=== PATIENT | female | born 1950 | race Caucasian/White ===

== ENCOUNTER 2017-10-20 16:03 | Outpatient (CLI) | payer MEDICARE, MEDICAID, SELFPAY ==
[2017-10-20 16:58] LABS: HCT 36.1 % (36.0-46.0); HGB 12.1 g/dL (12.0-15.5); Mean Corp. HGB Concentration 33.5 g/dL (32.0-36.0); Mean Corpuscular Hemoglobin 31.5 pg (27.0-33.0); Platelet Count 191 x1000/uL (130-400); RBC 3.84 m/cumm (4.00-5.20); White Blood Cell Count 6.88 k/cumm (4.4-10.8)
[2017-10-20 18:44] LABS: COMMENT (LAB VIEW ONLY) 59.95 mg/dL
[2017-10-20 19:44] LABS: ALT 34 U/L (12-78); AST 26 U/L (15-37); Albumin 4.1 g/dL (3.4-5.0); Alkaline Phosphatase 116 U/L (46-116); Anion Gap 11.4 mmol/L (3-11); BUN 25 mg/dL (7-18); Bilirubin, Total 0.2 mg/dL (0.2-1.0); CO2 23.6 mmol/L (21.0-32.0); CREATININE 1.07 mg/dL (0.55-1.02); Calcium 9.1 mg/dL (8.5-10.1); Chloride 104 mmol/L (98-107); Estimated GFR 51.31 (mL/min/1.73m2); Glucose 139 mg/dL (70-100); Potassium 3.3 mmol/L (3.5-5.1); Sodium 139 mmol/L (136-145); Total Protein 7.1 g/dL (6.4-8.2)
== END 2017-10-20 16:04 ==
PROVIDERS: PCP Nurse Practitioner Family; Visit Provider Nurse Practitioner Family
DX: D53.9 Nutritional anemia, unspecified (principal); I10 Essential (primary) hypertension
CPT/HCPCS: 36415; 80053; 85027; 82043; 82570

== ENCOUNTER → 2017-11-11 08:17 | Outpatient (BNVA) | payer MEDICARE, MEDICAID, SELFPAY | PROVIDERS: PCP Nurse Practitioner Family; Visit Provider Psychiatry & Neurology Neurology | DX: G35 Multiple sclerosis (principal); G47.00 Insomnia, unspecified; G25.9 Extrapyramidal and movement disorder, unspecified; G89.29 Other chronic pain | CPT/HCPCS: 99213 ==

== ENCOUNTER → 2017-11-20 09:33 | Outpatient (BNVA) | payer MEDICARE, MEDICAID, SELFPAY | PROVIDERS: PCP Nurse Practitioner Family; Referring Provider Nurse Practitioner Family; Visit Provider Surgery | DX: R10.13 Epigastric pain (principal); K25.7 Chronic gastric ulcer without hemorrhage or perforation; R63.4 Abnormal weight loss | CPT/HCPCS: 99213 ==

== ENCOUNTER 2017-11-26 06:54 | Day surgery (SDC) | payer MEDICARE, MEDICAID, SELFPAY ==
--- NOTE | 2017-11-26 06:52 | W.PM.DSUDISC ---
Discharge Plan Disposition Patient Disposition: HOME Condition: Good Discharge Details Reason For Visit: EGD Attending Provider: Charis Cabrera Primary Care Provider: Edita Rosen Home Meds and New Rx's Prescriptions: New sucralfate 1 gram tablet 1 gm PO QID 30 Days Qty: 120 RF: 1 Continue trazodone 100 mg tablet 100 mg PO HS RF: 0 walker [Ultra-Light Rollator] 1 EACH misc 1 ea Miscellaneous DAILY Qty: 1 RF: 0 melatonin 3 MG tablet extended release 9 mg PO HS Qty: 90 RF: 0 sertraline 100 MG tablet 100 mg PO DAILY Qty: 1 RF: 0 amitriptyline 100 MG tablet 100 mg PO HS RF: 0 gabapentin 800 MG tablet 800 mg PO TID Qty: 90 RF: 5 atorvastatin [Lipitor] 20 MG tablet 1 tab PO DAILY RF: 0 magnesium oxide 400 MG tablet 400 mg PO BID Qty: 30 RF: 0 potassium chloride [Klor-Con M10] 10 MEQ tablet,ER particles/crystals 10 meq PO BID Qty: 30 RF: 0 omeprazole 40 MG capsule,delayed release(DR/EC) 40 mg PO BID Qty: 60 RF: 2 ferrous sulfate 325 MG tablet 325 mg PO DAILY Qty: 30 RF: 0 ondansetron 4 MG tablet,disintegrating 4 mg PO Q8H PRN PRNQty: 12 RF: 0 ascorbic acid (vitamin C) [Vitamin C] 500 MG tablet 500 mg PO .QOD Qty: 30 RF: 0 Medical Marijuana 1 tab PO HS RF: 0 aspirin [Aspir-81] 81 mg Tablet,Delayed Release (Dr/Ec) 81 mg PO DAILY RF: 0 metoprolol succinate 25 mg Tablet Extended Release 24 Hr 25 mg PO DAILY RF: 0 Discharge Instructions Instructions: Upper Endoscopy (DC), Diet for Stomach Ulcers and Gastritis (GEN), Gastritis (DC) Additional Instructions: Findings: severe gastritis Follow up: I will refer you to [facility] New Medication: Carafate 1 gm 4 x a day. Take before meals and at bedtime Please call or go to ER if you develop: fevers >101.5 Nausea or Vomiting Abdominal pain that is not transient DAY SURGERY UNIT POST COLONOSCOPY INSTRUCTIONS 1. Because there will be medication in your system for the next 24 hours, you may feel a little sleepy. Your coordination will be affected. Therefore: a. Do not drive or operate dangerous equipment for 24 hours. b. Do not drink alcohol beverages for 24 hours (not even beer). c. Plan to go home and rest for the day. 2. Generally there are no restrictions on your activity after a day or so has gone by, but you may feel a bit fatigued for a few days. 3 After you arrive home you may have a light meal and return to a normal diet as you can tolerate it without feeling sick to your stomach. 4. After surgery, you may feel pain or discomfort. This should be only transient, but if it persists please contact your doctor. 5. If there are any questions regarding the findings of your procedure, please feel free to contact your doctor. 6. If you are unable to contact your doctor with a problem, contact the [email or web address] at [phone]. 7. Continue all your regular medications unless directed otherwise. I understand the above instructions and have no questions. Signature of Patient or Responsible Adult Escort Date/Time Name of Responsible Adult Escort Signature of Nurse Date/Time Stand Alone Forms: Chidi Alvarado (DSU) Activity:: Activity as Tolerated Diet:: low acid Discharge Orders Discharge Orders: Discharge Order (Routine); Ordered 11/26/17 Ordered By: Charis Cabrera
[2017-11-26 07:09] VITALS: BP 187/82; PULSE 55; RESP 16; TEMP 35.7; O2SAT 99
--- NOTE | 2017-11-26 10:05 | STOM_PTH ---
PATIENT: Deepti Olivo LOC: [facility] U#:[id number] AGE/SX: 67/F ROOM: RE11/26/[address]: Charis Cabrera MD : [id number] BED: DIS: 11/26/2017 SPEC #: [id number] RECD: 11/26/17 13:07 STATUS: OSMAN RE #: [id number] OKSANA: 11/26/17 10:[address]: Charis Cabrera DEPT: Surgical Specimen RECD BY: Amy Barragan ENTERED: 11/26/17 13:07 SP TYPE: STOMACH OTHR DR: Edita Rosen Tissues: 1 - STOMACH BIOPSY Procedures: GROSS AND MICRO LEVEL 4 Comments: [id number]
[2017-11-26] MEDS: Magic Mouthwash 119 ML BTL 10 ML PO (10:59)
[2017-11-26 11:02] VITALS: BP 186/81; PULSE 52; RESP 18; TEMP 37.1; O2SAT 98
--- NOTE | 2017-11-27 11:45 | ROE_ITS ---
REPORT OF OPERATIVE PROCEDURE DATE OF PROCEDURE November 26, 2017 PREOPERATIVE DIAGNOSES Chronic epigastric pain. Chronic gastritis Gastric ulcers. POSTOPERATIVE DIAGNOSES Moderate to severe gastritis. No ulcers. PROCEDURES PERFORMED EGD with biopsies. SEDATION MAC. ANESTHESIA PROVIDER VIANNEY Lewis CRNA SURGEON Clem Cabrera M.D. [employer] None. ESTIMATED BLOOD LOSS Minimal. SPECIMENS Antral biopsies for H. pylori. INDICATIONS Ms. Olivo is a 67-year-old female with a history of Billroth procedure many years ago, who has had s everal scopes for chronic epigastric pain. She has had a gastric ulcer and is being treated with high -dose PPI. The patient continues to complain of epigastric pain and weight loss. The risks, benefits and complications of the procedure were reviewed her again. FINDINGS Moderate to severe inflammation of the stomach remnant. No inflammation noted in the small bowel, and her ulcer does seem to have finally healed. DESCRIPTION OF PROCEDURE After informed consent was obtained, the patient was taken to the Endoscopy Suite and placed in the s upine position. Monitors were applied and a time-out was done. The patient's name, date of , pr ocedure type, allergies to medications and metal in her body were all reviewed. A bite-block was plac ed and she was sedated. Once sedated and comfortable, the gastroscope was introduced and advanced thr ough the oropharynx, which was grossly intact into the esophagus. The esophagus was normal. The Z-li ne was at 35 centimeters. No inflammation was noted. The scope was advanced into the stomach, where a gain, moderate to severe inflammation was noted. I cold not see an ulcer this time though. The scope was advanced into the small bowel, which was normal and no ulcerations were identified. The scope was retracted back into the stomach and biopsies were done to rule out H. pylori. No gastric polyps were identified. The scope was removed and the patient was woken up and taken back to [facility] in stable condition. FOLLOWUP AND INSTRUCTIONS I will have the patient see Gastroenterology down at [facility] for a second opinion as I have been tr eating her with high doses of PPI and she continues to complain of pain and weight loss. I will also start her back on some Carafate to see if this helps on top of her PPI.
== END 2017-11-26 11:43 | disposition home or self-care (01) ==
PROVIDERS: PCP Nurse Practitioner Family; Visit Provider Surgery
PROC: 0DJ68ZZ Inspection of Stomach, Via Natural or Artificial Opening Endoscopic (ICD-10-PCS; CPT 43235; principal; 2017-11-26 08:15)
DX: R10.13 Epigastric pain (principal); K29.50 Unspecified chronic gastritis without bleeding; K29.60 Other gastritis without bleeding; I10 Essential (primary) hypertension
CPT/HCPCS: 43239; 88305; J2250

== ENCOUNTER → 2017-11-26 07:32 | Outpatient (BNVA) | payer MEDICARE, MEDICAID, SELFPAY | PROVIDERS: PCP Nurse Practitioner Family; Referring Provider Nurse Practitioner Family; Visit Provider Surgery | DX: R69 Illness, unspecified (principal) ==

== ENCOUNTER 2018-01-05 02:32 | Outpatient (CLI) | payer MEDICARE, MEDICAID, SELFPAY ==
[2018-01-05 10:20] LABS: Hemoglobin A1C 5.7 % (4.5-6.2)
== END 2018-01-05 02:52 ==
PROVIDERS: PCP Nurse Practitioner Family; Visit Provider Nurse Practitioner Family
DX: R73.01 Impaired fasting glucose (principal)
CPT/HCPCS: 36415; 83036

== ENCOUNTER 2018-02-18 01:52 | Outpatient (CLI) | payer MEDICARE, MEDICAID, SELFPAY ==
--- NOTE | 2018-02-18 10:36 | DI.RAD_ITS ---
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 There are mild periarticular degenerative changes, most advanced at the first metatarsal phalangeal joint. No anomaly is identified. There is no evidence of a fracture or dislocation.
== END 2018-02-18 02:12 ==
PROVIDERS: PCP Nurse Practitioner Family; Visit Provider Nurse Practitioner Family
DX: M21.6X2 Other acquired deformities of left foot (principal); M19.072 Primary osteoarthritis, left ankle and foot
CPT/HCPCS: 73630

== ENCOUNTER 2018-03-19 14:31 | Emergency (ER) | payer MEDICARE, MEDICAID, SELFPAY ==
[2018-03-19 14:44] VITALS: BP 185/86; PULSE 59; RESP 18; TEMP 36.6; O2SAT 98
[2018-03-19 15:06] LABS: Bilirubin Negative (Negative); Blood Trace-intact (Negative); Clarity Clear; Glucose Negative (Negative); Ketones Negative (Negative); Leukocyte Esterase Trace (Negative); Nitrite Negative (Negative); Urobilinogen 0.2 EU/dL (Up TO 0.2); pH 5.5 (5-8)
[2018-03-19 15:33] LABS: Epithelial Cells Rare HPF (Negative); RBC 0-2 (0-2)
[2018-03-19 15:34] LABS: Bacteria Few HPF (Negative); C & S Indicated? Yes; Casts Negative LPF (Negative); Crystals Negative HPF (Negative); Mucus Negative (Negative); Other Cells Few Transitional (Negative)
--- NOTE | 2018-03-19 15:45 | DI.CT_ITS ---
SYMPTOM/DIAGNOSIS: ABD PAIN CHEST, ABDOMEN AND PELVIC CT: CT scan of the chest, abdomen and pelvis was performed following the uneventful administration of intravenous contrast material. Comparison CT scan is 07/20/17 and 04/29/16. ABDOMEN AND PELVIS: The liver is normal in size. No suspicious hepatic mass is seen. The portal, superior mesenteric and splenic veins are patent. The gallbladder is distended but otherwise unremarkable. No biliary ductal dilatation is seen. The pancreas appears mildly atrophic with mild prominence of the pancreatic duct. No definite pancreatic mass is seen. There is patient motion artifact present. The spleen is unremarkable as are the adrenal glands. The kidneys show normal and symmetric enhancement. There is mild bilateral cerebral cortical atrophy. No obstruction is seen. The urinary bladder is intact. The patient appears to be status post hysterectomy. There is atherosclerosis of the abdominal aorta but no aneurysmal dilatation. No significant abdominal or pelvic adenopathy or pneumoperitoneum is seen. There is a trace amount of free fluid in the yessi-hepatic region and the pelvis. No focal fluid collection is seen to suggest an abscess. There is a moderate amount of retained stool in the colon suggestive of constipation. There is a question of mild thickening of the wall of the right colon and proximal transverse colon. This may represent a nonspecific colitis. No findings to suggest an acute appendicitis are present. There is a small amount of air seen in the subcutaneous tissues anteriorly. Infection cannot be excluded. Recent injection should be considered. Degenerative changes are seen in the spine. IMPRESSION: 1. Small amount of abdominal and pelvic ascites. 2. Question of bowel wall thickening involving the right colon. This may represent an infectious or inflammatory colitis. CHEST: Routine examination was performed. Hypodense nodules are seen in the thyroid gland. Ultrasound may be obtained for further evaluation. There is atherosclerosis of the thoracic aorta but no aneurysmal dilatation is seen. The heart is upper limits of normal in size. There is calcification of the aortic anulus. Coronary artery calcifications are seen. No significant pericardial effusion is present. No significant thoracic adenopathy is seen. No pleural effusion or pneumothorax is identified. There are mild dependent changes in the lung bases likely reflecting atelectasis. Pneumonia cannot be entirely excluded. The tracheobronchial tree is unremarkable. Post surgical changes are seen in the right mandible and the lower cervical spine. Degenerative changes are present in the spine. Posterior spinal fusion rods and pedicle screws are seen in the mid and lower thoracic spine. IMPRESSION: Mild dependent infiltrative changes are seen in the lung bases. These likely reflect atelectasis. Pneumonia cannot be entirely excluded.
[2018-03-19 15:52] VITALS: PULSE 60; RESP 18; TEMP 37; O2SAT 98
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
[2018-03-19] MEDS: MORPHine 10 MG/ML VIAL 4 MG IVP (16:23)
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
--- NOTE | 2018-03-19 16:30 | NUR.NOTE ---
Nursing Note: Medicated with morphine for pain. IV established by Amber VIERA with u/s guided technique. Lab in room currently drawing labs. Plan for CT when ready. Will continue to monitor.
[2018-03-19 16:43] LABS: Abs Immature Grans 0.01 k/cumm (0.0-0.09); Absolute Basophil Count 0.07 k/cumm (0.0-0.2); Absolute Eosinophil Count 0.49 k/cumm (0.0-0.7); Absolute Neutrophil Count 8.81 k/cumm (1.2-6.7); Basophils % 0.6; Eosinophils % 4.4; HCT 32.2 % (36.0-46.0); HGB 10.5 g/dL (12.0-15.5); Immature Grans % 0.1; Lymphocytes % 12.7; Mean Corp. HGB Concentration 32.6 g/dL (32.0-36.0); Mean Corpuscular Hemoglobin 31.3 pg (27.0-33.0); Mean Corpuscular Volume 95.8 fL (80-95); Mean Platelet Volume 8.8 fL (8.0-11.0); Monocytes % 3.7; Neutrophils % 78.5; Platelet Count 362 x1000/uL (130-400); RBC 3.36 m/cumm (4.00-5.20); RBC Distribution Width 14.4 % (11.7-14.6); White Blood Cell Count 11.22 k/cumm (4.4-10.8)
[2018-03-19 16:44] LABS: Lactate-non-spesis 0.4 mmol/L (0.6-1.4)
[2018-03-19 16:47] VITALS: BP 172/64; PULSE 60; RESP 20; TEMP 37.2; O2SAT 95
[2018-03-19 16:52] LABS: Absolute Lymphocyte Count 1.42 k/cumm (1.2-3.4); Absolute Monocyte Count 0.42 k/cumm (0.11-0.7)
[2018-03-19 16:59] LABS: ALT 39 U/L (12-78); AST 43 U/L (15-37); Albumin 3.7 g/dL (3.4-5.0); Alkaline Phosphatase 124 U/L (46-116); Anion Gap 12.9 mmol/L (3-11); BUN 15 mg/dL (7-18); Bilirubin, Total 0.4 mg/dL (0.2-1.0); CO2 23.1 mmol/L (21.0-32.0); CREATININE 1.03 mg/dL (0.55-1.02); Calcium 9.4 mg/dL (8.5-10.1); Chloride 103 mmol/L (98-107); Estimated GFR 53.61 (mL/min/1.73m2); Glucose 101 mg/dL (70-100); Magnesium 1.6 mg/dL (1.8-2.4); Sodium 139 mmol/L (136-145); Total Protein 6.8 g/dL (6.4-8.2); Troponin I < 0.02 ng/mL (0.00-0.06)
[2018-03-19] MEDS: HYDROmorphone 2 MG/ML VIAL 1 MG IVP (17:11)
[2018-03-19] MEDS: Normal Saline 1,000 ML 1000 ML IV (17:12)
[2018-03-19 17:15] LABS: Lipase 247 U/L (73-393)
[2018-03-19] MEDS: Omnipaque 350 MG/ML 100 ML BTL IJ (17:23)
--- NOTE | 2018-03-19 17:26 | NUR.NOTE ---
Nursing Note:Pt off unit at CT at this time, medicated with 1mg dilaudid prior to test. will continue to monitor.
--- NOTE | 2018-03-19 18:02 | DI.VRAD_ITS ---
EXAM: CT Chest With Contrast EXAM DATE/TIME: 03/19/2018 3:50 PM CLINICAL HISTORY: 67 years old, female; Pain; Abdominal pain; Generalized; Additional info: HX perf ulcer requiring surgery - 40 yrs ago TECHNIQUE: Axial computed tomography images of the chest with intravenous contrast. All CT scans at this facility use at least one of these dose optimization techniques: automated exposure control; mA and/or kV adjustment per patient size (includes targeted exams where dose is matched to clinical indication); or iterative reconstruction. Coronal and sagittal reformatted images were created and reviewed. CONTRAST: 80 ml of omni 350 administered intravenously. COMPARISON: CT ABD PELVIS WO CONTRAST 07/20/2017 11:26 AM FINDINGS: Tubes, catheters and devices: Internal fixation device in the right mandible and in the cervical spine Posterior internal fixation device in the lower thoracic spine Thyroid: Right lobe of the thyroid is heterogeneous Lungs: Mild opacities in the lower lobes may represent atelectasis or pneumonia.. Pleural space: Normal. No pneumothorax. No pleural effusion. Heart: There is calcification of the aortic valve annulus. Coronary artery calcifications may indicate coronary artery disease Aorta: Normal. No aortic aneurysm. Lymph nodes: Unremarkable. No enlarged lymph nodes. Bones/joints: Unremarkable. No acute fracture. Soft tissues: Unremarkable. IMPRESSION: Mild opacities in the lower lobes may represent atelectasis or pneumonia.. EXAM: CT Abdomen and Pelvis With Contrast EXAM DATE/TIME: 03/19/2018 3:50 PM CLINICAL HISTORY: 67 years old, female; Pain; Abdominal pain; Generalized; Additional info: HX perf ulcer requiring surgery - 40 yrs ago TECHNIQUE: Axial computed tomography images of the abdomen and pelvis with intravenous contrast. All CT scans at this facility use at least one of these dose optimization techniques: automated exposure control; mA and/or kV adjustment per patient size (includes targeted exams where dose is matched to clinical indication); or iterative reconstruction. Coronal and sagittal reformatted images were created and reviewed. CONTRAST: 80 ml of omni 350 administered intravenously. COMPARISON: CT ABD PELVIS WO CONTRAST 07/20/2017 11:26 AM FINDINGS: Lower thorax: See the report for CT chest ABDOMEN: Liver: Normal. No mass. Gallbladder and bile ducts: Normal. No calcified stones. No ductal dilation. Pancreas: Mild dilatation of the pancreatic duct. Spleen: Normal. No splenomegaly. Adrenals: Normal. No mass. Kidneys and ureters: Mild atrophy bilaterally No hydronephrosis. Stomach and bowel: Sutures in the stomach. The stomach is distended with air and food material Findings consistent with constipation. Bowel wall thickening in the right colon may represent colitis including infectious and inflammatory etiologies (4:61). Appendix: No evidence of appendicitis. PELVIS: Bladder: Unremarkable as visualized. Reproductive: Hysterectomy ABDOMEN and PELVIS: Intraperitoneal space: Mild ascites in the abdomen and pelvis. Bones/joints: No acute fracture. No dislocation. Soft tissues: Bubbles of air in the subcutaneous fat anteriorly on the left may be secondary to injection or infection Vasculature: Normal. No abdominal aortic aneurysm. Lymph nodes: Normal. No enlarged lymph nodes. IMPRESSION: 1. Mild ascites in the abdomen and pelvis. 2. Bowel wall thickening in the right colon may represent colitis including infectious and inflammatory etiologies (4:61). Dictated and Authenticated by: Aliya Mcpherson MD. Ordering:KATHERINE Chris MD
[2018-03-19 18:15] VITALS: BP 120/65; PULSE 64; RESP 18; TEMP 37.2; O2SAT 93
--- NOTE | 2018-03-19 19:20 | NUR.NOTE ---
Nursing Note:NO acute changes, will continue to monitor.
[2018-03-19 20:49] VITALS: BP 131/58; PULSE 62; RESP 18; TEMP 36.6; O2SAT 95
[2018-03-19] MEDS: Ondansetron O.D.T. 4 MG TABEF 12 MG PO (20:59)
[2018-03-19] MEDS: Sucralfate 1 GM TAB 2 GM PO (21:00)
[2018-03-19] MEDS: oxyCODONE 5 MG TAB 15 MG PO (21:00)
== END 2018-03-19 21:11 | disposition home or self-care (01) ==
PROVIDERS: Nurse Practitioner Family; Emergency Provider Physician Assistant; PCP Nurse Practitioner Family
DX: K28.3 Acute gastrojejunal ulcer without hemorrhage or perforation (principal); K91.89 Other postprocedural complications and disorders of digestive system; Y83.2 Surgical operation with anastomosis, bypass or graft as the cause of abnormal reaction of the patient, or of later complication, without mention of misadventure at the time of the procedure; Z90.3 Acquired absence of stomach [part of]; I12.9 Hypertensive chronic kidney disease with stage 1 through stage 4 chronic kidney disease, or unspecified chronic kidney disease; N18.3 Chronic kidney disease, stage 3 (moderate); G35 Multiple sclerosis
CPT/HCPCS: 36415; 74177; 80053; 83690; 87077; 96361; 96374; 96375; 99285; 71260; 81003; 81015; 83605; 83735; 84484; 85025; 87086; 87186; 99284; J2270; J3490

== ENCOUNTER 2018-04-16 09:26 | Emergency (ER) | payer MEDICARE, MEDICAID, SELFPAY ==
[2018-04-16 09:31] VITALS: BP 124/72; PULSE 98; RESP 20; TEMP 37.1; O2SAT 96
[2018-04-16 09:43] VITALS: RESP 20
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
[2018-04-16] MEDS: Ondansetron O.D.T. 4 MG TABEF (10:00)
[2018-04-16 10:13] LABS: Abs Immature Grans 0.01 k/cumm (0.0-0.09); Absolute Basophil Count 0.04 k/cumm (0.0-0.2); Absolute Eosinophil Count 0.11 k/cumm (0.0-0.7); Absolute Monocyte Count 0.63 k/cumm (0.11-0.7); Basophils % 0.5; Eosinophils % 1.3; HCT 30.6 % (36.0-46.0); HGB 9.9 g/dL (12.0-15.5); Immature Grans % 0.1; Lymphocytes % 21.9; Mean Corp. HGB Concentration 32.4 g/dL (32.0-36.0); Mean Corpuscular Hemoglobin 30.9 pg (27.0-33.0); Mean Corpuscular Volume 95.6 fL (80-95); Mean Platelet Volume 9.3 fL (8.0-11.0); Monocytes % 7.2; Platelet Count 226 x1000/uL (130-400); RBC Distribution Width 13.5 % (11.7-14.6); White Blood Cell Count 8.69 k/cumm (4.4-10.8)
[2018-04-16 10:23] LABS: Bilirubin Negative (Negative); Blood Negative (Negative); Clarity Clear; Glucose Negative (Negative); Ketones Negative (Negative); Leukocyte Esterase Trace (Negative); Nitrite Negative (Negative); Specific Gravity 1.015 (1.005-1.025); Urobilinogen 0.2 EU/dL (Up TO 0.2); pH 5.5 (5-8)
[2018-04-16 10:24] LABS: Diff Comment RBC Morph Reviewed; RBC Morphology Normal
[2018-04-16 10:30] LABS: ALT 44 U/L (12-78); AST 50 U/L (15-37); Albumin 3.8 g/dL (3.4-5.0); Alkaline Phosphatase 104 U/L (46-116); Anion Gap 12.3 mmol/L (3-11); BUN 18 mg/dL (7-18); Bilirubin, Total 0.3 mg/dL (0.2-1.0); CO2 25.7 mmol/L (21.0-32.0); CREATININE 1.38 mg/dL (0.55-1.02); Calcium 8.9 mg/dL (8.5-10.1); Chloride 106 mmol/L (98-107); Estimated GFR 38.25 (mL/min/1.73m2); Glucose 70 mg/dL (70-100); Magnesium 1.7 mg/dL (1.8-2.4); Potassium 4.2 mmol/L (3.5-5.1); Sodium 144 mmol/L (136-145); Total Protein 6.8 g/dL (6.4-8.2)
[2018-04-16 10:35] LABS: Bacteria Moderate HPF (Negative); C & S Indicated? Yes; Casts Negative LPF (Negative); Crystals Negative HPF (Negative); Epithelial Cells Few HPF (Negative); Mucus Trace (Negative); Other Cells Few Transitional (Negative); RBC Negative (0-2)
[2018-04-16] MEDS: MacroBID 100 MG CAP PO (10:54)
[2018-04-16 10:58] VITALS: PULSE 96; TEMP 37; O2SAT 96
[2018-04-16 11:00] VITALS: BP 124/72; PULSE 96; RESP 20; TEMP 37; O2SAT 96
== END 2018-04-16 11:04 | disposition home or self-care (01) ==
PROVIDERS: Emergency Provider Emergency Medicine; PCP Nurse Practitioner Family
DX: N39.0 Urinary tract infection, site not specified (principal); R29.6 Repeated falls; E86.0 Dehydration; G35 Multiple sclerosis; I12.9 Hypertensive chronic kidney disease with stage 1 through stage 4 chronic kidney disease, or unspecified chronic kidney disease; N18.3 Chronic kidney disease, stage 3 (moderate)
CPT/HCPCS: 80053; 87077; 99283; 81003; 81015; 83735; 85025; 87086; 87186

== ENCOUNTER 2018-04-18 01:38 | Emergency (ER) | payer MEDICARE, MEDICAID, SELFPAY ==
[2018-04-18 01:45] VITALS: BP 138/84; PULSE 54; RESP 16; TEMP 36.6; O2SAT 97
--- NOTE | 2018-04-18 01:47 | DI.CT_ITS ---
SYMPTOM/DIAGNOSIS; TRAUMA, FELL, HIT HEAD, H/O MS NONCONTRAST HEAD CT: Comparison is made with 06/12/17. Age related cerebral atrophy and small vessel ischemic disease is seen. No acute intracranial hemorrhage, midline shift or mass effect is seen. The ventricles are intact. The basilar cisterns are patent. No skull fracture is seen. There is maxillary sinus disease. The mastoid air cells are well pneumatized. No acute fracture is identified. IMPRESSION: No acute intracranial process. CERVICAL SPINE CT: Multiple contiguous axial images of the cervical spine were obtained. Sagittal and coronal reformatted images were evaluated on the Siemens work station. No acute fractures or subluxations are seen in the cervical spine. There is straightening of the cervical lordosis. There is minimal anterolisthesis of C 4 on C 5. Post surgical changes with anterior cervical fusion are seen at C 6-7. 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 No prevertebral soft tissue swelling is seen. The lung apices are clear. Moderate degenerative changes are present throughout the cervical spine. IMPRESSION: No acute fractures or subluxations of the cervical spine.
--- NOTE | 2018-04-18 01:49 | W.ED.GENAD ---
Medical Decision Making This is a 67-year-old female with a past medical history significant for MS who presents today for multiple falls and weakness of her lower extremities. She was recently diagnosed with UTI last 48 hours, started on Macrobid, discharged home. She had weakness then, but it is continued and slightly worsened. The patient reiterates multiple times that this is what normally happens when she has an MS exacerbation. Physical exam demonstrates no significant focal neurologic deficit but concerningly she does have some regular perpetual rhythmic movements of her upper and lower extremities. Patient denies any new medications of Reglan or Compazine, hopefully we will give Benadryl as a litmus test to rule a dystonic reaction out. Although the patient states that the symptoms are normal for her during MS exacerbations, her increased rate of falls we will get a CT scan of the head to rule out any acute fracture or bleed. Will evaluate for any significant lab abnormality and reassess her urine to make sure it is trending in the right direction for treatment. 2:57 AM Patient's laboratory workup is returned and is relatively benign. No significant electrolyte abnormalities, no significant leukocytosis or signs of bandemia. Renal function is stable in reference to her baseline. Urinalysis shows a notably improving urine with definitely less signs of infection than previously noted. Still pending culture sensitivity results at this time. The patient is resting comfortably in bed. Her spastic movements of notably improved with 25 mg of Benadryl. Pending CT scan result at this time. 3:[address] scan is negative for any acute process, no evidence of stroke or bleed. Patient's repeat neurologic exam is notably improved. She still does have mild spastic movements but these are much better than before. She is somewhat sleepy now, but is otherwise feeling well. With no signs of significant stroke, no evidence of abnormality on CT scan per virtual radiology, no signs of major trauma, improving urinalysis, and normal labs I feel that her signs and symptoms are clinically consistent at this time with a continued MS exacerbation. Family does have a wheelchair at home and states that they will be able to use this for the patient. I do feel that it is important that she follows up closely with her neurologist. She does have an appointment this with Dr. Marcus. I had a long discussion with her regarding red flags which return the patient understands. I have extensively reviewed the treatment plan and discharge instructions with the patient and their family. I have addressed all patient concerns at this time. The patient and family was made aware of what symptoms to monitor for that would warrant a return to the emergency department. Discussed the plan with the patient and family, they demonstrate verbal understanding and agreement with our assessment and plan at this time. COMPARISON: No relevant prior studies available. FINDINGS: Brain: Minimal chronic ischemic white matter disease. No acute territorial infarct. Ventricles: Normal. No ventriculomegaly. Bones/joints: Unremarkable. No acute fracture. Sinuses: Right maxillary sinus disease. Mastoid air cells: Visualized mastoid air cells are unremarkable. No mastoid effusion. Soft tissues: Unremarkable. IMPRESSION: No acute intracranial findings. COMPARISON: No relevant prior studies available. FINDINGS: Vertebrae: Previous cervical fusion with intact hardware. No acute fracture. Normal alignment. Discs/Spinal canal/Neural foramina: Multilevel degenerative disk disease and facet arthropathy with neuroforaminal and canal stenosis. Soft tissues: Unremarkable. Lungs: Lung apices are normal. IMPRESSION: No acute finding. Dictated and Authenticated by: Marek Akbar MD. Urine Culture Preliminary 04/17/18-1150 Day 1 Result ISOLATES BELOW ISOLATE 1 COLONY COUNT 10,000 - 50,000 COLONIES/ML ISOLATE 1 APPEARANCE Gram Positive Becka ISOLATE 1 ACTION ID AND SUSCEPTIBILITY TO FOLLOW ISOLATE 2 COLONY COUNT 10,000 - 50,000 COLONIES/ML ISOLATE 2 APPEARANCE Mixed Gram Positive Becka Organism 1 ENTEROCOCCUS SPECIES COLONY COUNT 10,000 - 50,000 COLONIES/ML Organism 2 GRAM POSITIVE BECKA,MIXED COLONY COUNT 10,000 - 50,000 COLONIES/ML HPI General Date/Time Provider Initiated Documentation: 04/18/18 01:45. HPI Narrative: This is a pleasant 67-year-old female with a past medical history of MS, chronic kidney disease, hypertension, who presents today for evaluation of weakness. The patient was seen and assessed here within the last 48 hours and was noted to have a urinary tract infection. She had been falling more at that time, and had noted increased weakness which is usually associated with UTI. She was started on Macrobid and discharged home. Since then the patient's atypical tremors which she states is normal for her when she has an MS exacerbation have increased, which is led to difficulty walking and ambulating, and increased falls. Over the last 24 hours patient has fallen a few more times, she did hit her head once or twice earlier today according to the boyfriend. She has been taking the antibiotic as directed. She denies any fever, chills, abdominal pain, flank pain, dysuria, hematuria, or increased urinary frequency. He has been contacted EMS/911 because they were concerned with the patient's increasing weakness. No other complaints or modifying factors at this time. The patient has been recently started on metoprolol for her blood pressure, and aside for this in the Macrobid denies any other new medications. Patient is very clear that the symptoms are classic for her and that she has had these before with her MS exacerbations. Of note she denies any headache, vision changes, focal weakness, numbness, tingling, chest pain, shortness of breath, vomiting or diarrhea. Related Data Home Medications Medication Instructions Recorded Confirmed atorvastatin [Lipitor] 1 tab PO DAILY 03/31/13 04/16/18 Ultra-Light Rollator #1 05/23/14 04/16/18 melatonin 9 mg PO HS #90 tabcr 11/19/16 04/16/18 sertraline 100 mg PO DAILY #1 tab-cap 02/09/17 04/16/18 magnesium oxide 400 mg PO BID #30 tab 04/10/17 04/16/18 potassium chloride [Klor-Con M10] 10 meq PO BID #30 tabcr 04/10/17 04/16/18 amitriptyline 100 mg PO HS 05/19/17 04/16/18 ascorbic acid (vitamin C) [Vitamin 500 mg PO .QOD #30 tab 07/22/17 04/16/18 C] ferrous sulfate 325 mg PO DAILY #30 tab 07/22/17 04/16/18 ondansetron 4 mg PO Q8H PRN PRN #12 tabef 07/22/17 04/16/18 omeprazole 40 mg PO BID #60 capcr 08/24/17 04/16/18 trazodone 100 mg tablet 100 mg PO HS tab 11/11/17 04/16/18 Medical Marijuana 1 tab PO HS 11/23/17 04/16/18 aspirin [Aspir-81] 81 mg PO DAILY 11/26/17 04/16/18 metoprolol succinate 25 mg PO DAILY 11/26/17 04/16/18 ondansetron 4 mg PO QID PRN #10 tab 03/19/18 04/16/18 sucralfate [Carafate] 1 gm PO QID #14 tab 03/19/18 04/16/18 gabapentin 800 mg tablet 800 mg PO TID #90 tab-cap 04/12/18 04/16/18 baclofen 10 mg tablet 10 mg PO TID 30 Days #90 tab 04/14/18 04/16/18 nitrofurantoin monohyd/m-cryst 100 mg PO BID #14 cap 04/16/18 [Macrobid] Previous Rx's Medication Instructions Recorded melatonin 9 mg PO HS #90 tabcr 11/19/16 sertraline 100 mg PO DAILY #1 tab-cap 02/09/17 magnesium oxide 400 mg PO BID #30 tab 04/10/17 potassium chloride [Klor-Con M10] 10 meq PO BID #30 tabcr 04/10/17 ascorbic acid (vitamin C) [Vitamin 500 mg PO .QOD #30 tab 07/22/17 C] ferrous sulfate 325 mg PO DAILY #30 tab 07/22/17 ondansetron 4 mg PO Q8H PRN PRN #12 tabef 07/22/17 omeprazole 40 mg PO BID #60 capcr 08/24/17 ondansetron 4 mg PO QID PRN #10 tab 03/19/18 sucralfate [Carafate] 1 gm PO QID #14 tab 03/19/18 gabapentin 800 mg tablet 800 mg PO TID #90 tab-cap 04/12/18 baclofen 10 mg tablet 10 mg PO TID 30 Days #90 tab 04/14/18 nitrofurantoin monohyd/m-cryst 100 mg PO BID #14 cap 04/16/18 [Macrobid] Allergies Allergy/AdvReac Type Severity Reaction Status Date / Time ciprofloxacin [From Cipro] Allergy Severe Skin Rash, Verified 04/16/18 09:38 vomiting latex Allergy Severe gets SOB Verified 04/16/18 09:38 and can't talk prochlorperazine edisylate Allergy Severe Anaphylaxsi Verified 04/16/18 09:38 [From Compazine] s prochlorperazine maleate Allergy Severe Anaphylaxsi Verified 04/16/18 09:38 [From Compazine] s ziprasidone mesylate Allergy Severe neuroleptic Verified 04/16/18 09:38 [From Geodon] malignant syndrome codeine Allergy Skin Rash, Verified 04/16/18 09:38 nausea General Stated Complaint: GenMedical KARYN: 3 Review of Systems Review of Systems All systems reviewed & are unremarkable except as noted in HPI and below PFSH Social History household members: significant other current occupational status: disabled Smoking and Tabacco status: Never alcohol intake: never substance use type: marijuana additional social history: She moved to [place] from [place] in 2012. Disabled. Lives with S.O. No smoking, ETOH. Uses medical MJ. Exam Narrative Exam Narrative: 1.Const: Thin, but appearing stated age 2.Eyes: PERRL, no conjunctival injection, and symmetrical lids. 3.ENT: Atraumatic external nose and ears. Moist MM. Neck: Symmetric, trachea midline, No thyromegaly. There is no evidence of raccoon eyes, baig sign, CSF rhinorrhea, mastoid tenderness, cranial crepitus, hemotympanum, exophthalmos, or hyphema. Patient demonstrates intact dentition with no signs of tooth avulsion or fracture, no signs of jaw deformity, no evidence of a LeFort's fracture, with an intact palate, nose and orbital region. There is no evidence of a nasal septal hematoma. No proptosis. Jaw closes symmetrically. Airway is clear. 4.CVS: +S1/S2, No murmurs or gallops. Peripheral pulses 2+ and equal in all extremities. Brisk capillary refill in all extremities. 5.RESP: Unlabored respiratory effort. Clear to auscultation bilaterally. No wheezes rales or rhonchi 6.GI: Soft, Nontender/Nondistended, No hepatosplenomegaly. No guarding or rebound. 7.MSK: Normocephalic/Atraumatic, Extremities w/o deformity or ttp, some sporadic bruising noted throughout. No sign of significant fracture deformity. No cyanosis or clubbing, patient does have notable rhythmic moving throughout which almost looks like a dystonic reaction. However in spite of this patient is very clear that this is normal for her MS exacerbations. She demonstrates no focal neurologic deficit though, she is moving all 4 extremities, demonstrates good weapons officer naval activity strength bilaterally, and movement of both lower extremities equally. She has 5 out of 5 strength for upper extremities and 3 out of 5 strength for lower extremities bilaterally which the patient states is also normal for her have weakness like this in her lower extremities with her MS exacerbations. Sensation is notably present throughout her upper and lower extremities as well as her face. No facial droop. Cranial nerves II through XII are intact. 8.Skin: Warm, Dry. No rashes or lesions. 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 Sensation grossly intact, no focal neurologic deficits. 10.Psych: (AAO) x3. Appropriate mood and affect, the patient answers my questions appropriately and follows all my commands at this time Course Vital Signs Temperature 36.6 C 04/18/18 01:45 Pulse 54 L 04/18/18 01:45 Respiratory Rate 16 04/18/18 01:45 Blood Pressure 138/84 04/18/18 01:45 Pulse Oximetry 97 04/18/18 01:45 Temperature 36.6 C 04/18/18 01:45 Temperature Source Temporal Artery Scan 04/18/18 01:45 Pulse 54 L 04/18/18 01:45 Respiratory Rate 16 04/18/18 01:45 Blood Pressure 138/84 04/18/18 01:45 Blood Pressure Position Supine 04/18/18 01:45 Pulse Oximetry 97 04/18/18 01:45 Oxygen Delivery Method Room Air 04/18/18 01:45 Oxygen Flow Rate 0 04/18/18 01:45 Pain Level 0 04/18/18 01:45
[2018-04-18] MEDS: diphenhydrAMINE 25 MG CAP PO (01:52)
[2018-04-18 02:20] VITALS: RESP 16
[2018-04-18 02:21] LABS: Abs Immature Grans 0.02 k/cumm (0.0-0.09); Absolute Basophil Count 0.04 k/cumm (0.0-0.2); Absolute Eosinophil Count 0.33 k/cumm (0.0-0.7); Absolute Lymphocyte Count 2.33 k/cumm (1.2-3.4); Absolute Monocyte Count 0.74 k/cumm (0.11-0.7); Absolute Neutrophil Count 5.25 k/cumm (1.2-6.7); Basophils % 0.5; Eosinophils % 3.8; HCT 33.1 % (36.0-46.0); HGB 10.8 g/dL (12.0-15.5); Immature Grans % 0.2; Lymphocytes % 26.8; Mean Corp. HGB Concentration 32.6 g/dL (32.0-36.0); Mean Corpuscular Hemoglobin 31.4 pg (27.0-33.0); Mean Corpuscular Volume 96.2 fL (80-95); Mean Platelet Volume 9.4 fL (8.0-11.0); Monocytes % 8.5; Neutrophils % 60.2; Platelet Count 235 x1000/uL (130-400); RBC 3.44 m/cumm (4.00-5.20); RBC Distribution Width 13.8 % (11.7-14.6); White Blood Cell Count 8.71 k/cumm (4.4-10.8)
[2018-04-18 02:22] LABS: Bilirubin Negative (Negative); Blood Trace-lysed (Negative); Clarity Clear; Glucose Negative (Negative); Ketones Negative (Negative); Leukocyte Esterase Negative (Negative); Nitrite Negative (Negative); Urobilinogen 0.2 EU/dL (Up TO 0.2)
[2018-04-18 02:30] LABS: Epithelial Cells Moderate HPF (Negative); RBC 0-2 (0-2)
[2018-04-18 02:31] LABS: Bacteria Many HPF (Negative); C & S Indicated? No/Sq. Contamination; Casts Negative LPF (Negative); Crystals Negative HPF (Negative); Mucus Negative (Negative)
[2018-04-18 02:40] LABS: ALT 44 U/L (12-78); AST 63 U/L (15-37); Albumin 3.8 g/dL (3.4-5.0); Alkaline Phosphatase 95 U/L (46-116); Anion Gap 12.9 mmol/L (3-11); BUN 26 mg/dL (7-18); Bilirubin, Total 0.4 mg/dL (0.2-1.0); CO2 23.1 mmol/L (21.0-32.0); CREATININE 1.31 mg/dL (0.55-1.02); Calcium 9.3 mg/dL (8.5-10.1); Chloride 106 mmol/L (98-107); Estimated GFR 40.62 (mL/min/1.73m2); Glucose 97 mg/dL (70-100); Sodium 142 mmol/L (136-145); Total Protein 6.7 g/dL (6.4-8.2)
--- NOTE | 2018-04-18 02:59 | DI.VRAD_ITS ---
EXAM: CT Head Without Contrast EXAM DATE/TIME: 04/18/2018 1:48 AM CLINICAL HISTORY: 67 years old, female; Injury or trauma; Fall; Initial encounter; Blunt trauma (contusions or hematomas); Patient HX: Fall, hit head; Additional info: HX of ms TECHNIQUE: Axial computed tomography images of the head/brain without contrast. Coronal and sagittal reformatted images were created and reviewed. COMPARISON: No relevant prior studies available. FINDINGS: Brain: Minimal chronic ischemic white matter disease. No acute territorial infarct. Ventricles: Normal. No ventriculomegaly. Bones/joints: Unremarkable. No acute fracture. Sinuses: Right maxillary sinus disease. Mastoid air cells: Visualized mastoid air cells are unremarkable. No mastoid effusion. Soft tissues: Unremarkable. IMPRESSION: No acute intracranial findings. EXAM: CT Cervical Spine Without Contrast EXAM DATE/TIME: 04/18/2018 1:48 AM CLINICAL HISTORY: 67 years old, female; Injury or trauma; Fall; Initial encounter; Blunt trauma (contusions or hematomas); Patient HX: Fall, hit head; Additional info: HX of ms TECHNIQUE: Axial computed tomography images of the cervical spine without intravenous contrast. Coronal and sagittal reformatted images were created and reviewed. COMPARISON: No relevant prior studies available. FINDINGS: Vertebrae: Previous cervical fusion with intact hardware. No acute fracture. Normal alignment. Discs/Spinal canal/Neural foramina: Multilevel degenerative disk disease and facet arthropathy with neuroforaminal and canal stenosis. Soft tissues: Unremarkable. Lungs: Lung apices are normal. IMPRESSION: No acute finding. Dictated and Authenticated by: Marek kAbar MD. Ordering:CARLITOS Ch MD
--- NOTE | 2018-04-18 03:12 | NUR.NOTE ---
patient sleeping at present, no spastic movements noted.
[2018-04-18 03:26] VITALS: BP 132/79; PULSE 56; RESP 15; TEMP 36.6; O2SAT 97
== END 2018-04-18 03:28 | disposition home or self-care (01) ==
LOC: ER 03:27
PROVIDERS: Emergency Provider Student in an Organized Health Care Education/Training Program; PCP Nurse Practitioner Family
DX: R29.6 Repeated falls (principal); R25.1 Tremor, unspecified; R26.2 Difficulty in walking, not elsewhere classified; R53.1 Weakness; G35 Multiple sclerosis; N39.0 Urinary tract infection, site not specified; I12.9 Hypertensive chronic kidney disease with stage 1 through stage 4 chronic kidney disease, or unspecified chronic kidney disease; N18.3 Chronic kidney disease, stage 3 (moderate)
CPT/HCPCS: 36415; 80053; 80307; 96361; 96365; 96375; 99284; 70450; 72125; 81003; 81015; 83735; 85025; 99285; J1200; J3475

== ENCOUNTER 2018-04-18 13:57 | Emergency (ER) | payer MEDICARE, MEDICAID, SELFPAY ==
[2018-04-18 14:12] VITALS: BP 130/64; PULSE 68; RESP 16; TEMP 36.5; O2SAT 97
[2018-04-18] MEDS: diphenhydrAMINE 50 MG/ML VIAL 25 MG IVP (16:14)
[2018-04-18] MEDS: Normal Saline Flush 10 ML SYR IVP (16:15)
[2018-04-18 16:19] LABS: Abs Immature Grans 0.02 k/cumm (0.0-0.09); Absolute Lymphocyte Count 2.29 k/cumm (1.2-3.4); Absolute Monocyte Count 0.94 k/cumm (0.11-0.7); Absolute Neutrophil Count 8.17 k/cumm (1.2-6.7); Basophils % 0.3; Eosinophils % 1.7; HCT 37.5 % (36.0-46.0); HGB 12.1 g/dL (12.0-15.5); Immature Grans % 0.2; Lymphocytes % 19.6; Mean Corp. HGB Concentration 32.3 g/dL (32.0-36.0); Mean Corpuscular Hemoglobin 31.2 pg (27.0-33.0); Mean Corpuscular Volume 96.6 fL (80-95); Mean Platelet Volume 9.8 fL (8.0-11.0); Monocytes % 8.1; Neutrophils % 70.1; Platelet Count 233 x1000/uL (130-400); RBC 3.88 m/cumm (4.00-5.20); RBC Distribution Width 13.8 % (11.7-14.6); White Blood Cell Count 11.66 k/cumm (4.4-10.8)
[2018-04-18 16:20] LABS: Absolute Basophil Count 0.03 k/cumm (0.0-0.2)
[2018-04-18 16:42] LABS: ALT 46 U/L (12-78); AST 65 U/L (15-37); Albumin 4.3 g/dL (3.4-5.0); Alkaline Phosphatase 109 U/L (46-116); Anion Gap 15.3 mmol/L (3-11); BUN 24 mg/dL (7-18); Bilirubin, Total 0.5 mg/dL (0.2-1.0); CO2 23.7 mmol/L (21.0-32.0); CREATININE 1.43 mg/dL (0.55-1.02); Calcium 9.9 mg/dL (8.5-10.1); Chloride 107 mmol/L (98-107); Estimated GFR 36.71 (mL/min/1.73m2); Glucose 73 mg/dL (70-100); Magnesium 1.7 mg/dL (1.8-2.4); Potassium 4.1 mmol/L (3.5-5.1); Sodium 146 mmol/L (136-145); Total Protein 7.6 g/dL (6.4-8.2)
[2018-04-18] MEDS: Lactated Ringers 1,000 ML 1000 ML IV (18:56)
[2018-04-18] MEDS: MAGNESIUM SULFATE 1 GM/100 ML BAG IVPB (19:03)
[2018-04-18 19:48] LABS: *AMPHETAMINES SCREEN URINE Negative (Negative); *BARBITURATES SCREEN URINE Negative (Negative); *BENZODIAZEPINES SCREEN URINE Negative (Negative); Cannabinoids THC POSITIVE (Negative); Cocaine Screen,Urine Negative (Negative); METHADONE URINE SCREEN Negative (Negative); OPIATES URINE SCREEN Negative (Negative)
[2018-04-18 19:57] LABS: Tricyclic Antidepressants POSITIVE (Negative)
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
[2018-04-18 20:39] VITALS: PULSE 71; RESP 18; TEMP 37.1; O2SAT 99
--- NOTE | 2018-04-19 09:27 | CMPROGNOTE_ITS ---
Care Management Progress Note 04/20-Dr. Juan Wilks requested assistance with a PCP (Silas) f/u in one week for weakness, dizziness. Patient already has a neurology f/u scheduled. Referral faxed to [facility] this am.
== END 2018-04-18 20:50 | disposition home or self-care (01) ==
PROVIDERS: Emergency Provider Student in an Organized Health Care Education/Training Program; PCP Nurse Practitioner Family
DX: R53.1 Weakness (principal); R42 Dizziness and giddiness; E83.42 Hypomagnesemia; G35 Multiple sclerosis; I12.9 Hypertensive chronic kidney disease with stage 1 through stage 4 chronic kidney disease, or unspecified chronic kidney disease; N18.3 Chronic kidney disease, stage 3 (moderate)
CPT/HCPCS: 36415; 80053; 80307; 96361; 96365; 96375; 99284; 83735; 85025; J1200; J3475

== ENCOUNTER → 2018-04-22 09:30 | Outpatient (BNVA) | payer MEDICARE, MEDICAID, SELFPAY | PROVIDERS: PCP Nurse Practitioner Family; Visit Provider Psychiatry & Neurology Neurology | DX: G35 Multiple sclerosis (principal); G25.9 Extrapyramidal and movement disorder, unspecified; R41.3 Other amnesia; G89.29 Other chronic pain; I12.9 Hypertensive chronic kidney disease with stage 1 through stage 4 chronic kidney disease, or unspecified chronic kidney disease; N18.3 Chronic kidney disease, stage 3 (moderate) | CPT/HCPCS: 99214 ==

== ENCOUNTER 2018-05-06 15:48 | Outpatient (CLI) | payer MEDICARE, MEDICAID, SELFPAY ==
[2018-05-06 17:16] LABS: Anion Gap 9.5 mmol/L (3-11); CO2 26.5 mmol/L (21.0-32.0); Chloride 106 mmol/L (98-107); Magnesium 1.5 mg/dL (1.8-2.4); Potassium 3.9 mmol/L (3.5-5.1); Sodium 142 mmol/L (136-145)
== END 2018-05-06 16:08 ==
PROVIDERS: PCP Nurse Practitioner Family; Visit Provider Nurse Practitioner Family
DX: E87.6 Hypokalemia (principal); E83.42 Hypomagnesemia
CPT/HCPCS: 36415; 80051; 83735

== ENCOUNTER 2018-06-10 13:54 | Inpatient (IN) | payer MEDICARE, MEDICAID, SELFPAY ==
[2018-06-10] VITALS (58 sets, daily range): BP systolic 102–177; BP diastolic 47–127; PULSE 50–99; RESP 7–27; TEMP 36.7–37.2; O2SAT 91–100
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
--- NOTE | 2018-06-10 14:31 | DI.RAD_ITS ---
SYMPTOM/DIAGNOSIS: ALTERED MENTAL STATUS PA AND LATERAL CHEST: The heart is not enlarged. There are thoracic Pierre rods in place from what appears to be T 8-T11. Lungs are grossly clear. No pleural effusion is seen. CONCLUSION: No evidence of acute disease.
[2018-06-10 14:46] LABS: Abs Immature Grans 0.01 k/cumm (0.0-0.09); Absolute Basophil Count 0.06 k/cumm (0.0-0.2); Absolute Eosinophil Count 1.05 k/cumm (0.0-0.7); Absolute Lymphocyte Count 1.78 k/cumm (1.2-3.4); Absolute Monocyte Count 0.75 k/cumm (0.11-0.7); Absolute Neutrophil Count 6.01 k/cumm (1.2-6.7); Basophils % 0.6; Eosinophils % 10.9; HCT 29.1 % (36.0-46.0); HGB 9.1 g/dL (12.0-15.5); Immature Grans % 0.1; Lymphocytes % 18.4; Mean Corp. HGB Concentration 31.3 g/dL (32.0-36.0); Mean Corpuscular Hemoglobin 28.4 pg (27.0-33.0); Mean Corpuscular Volume 90.9 fL (80-95); Mean Platelet Volume 9.2 fL (8.0-11.0); Monocytes % 7.8; Neutrophils % 62.2; Platelet Count 241 x1000/uL (130-400); RBC Distribution Width 13.6 % (11.7-14.6); White Blood Cell Count 9.66 k/cumm (4.4-10.8)
[2018-06-10 14:58] LABS: Hypochromasia 1+
[2018-06-10 14:59] LABS: ALT 29 U/L (12-78); AST 29 U/L (15-37); Alkaline Phosphatase 111 U/L (46-116); Anion Gap 10.1 mmol/L (3-11); BUN 39 mg/dL (7-18); Bilirubin, Total 0.3 mg/dL (0.2-1.0); CO2 26.9 mmol/L (21.0-32.0); CREATININE 1.22 mg/dL (0.55-1.02); Calcium 9.3 mg/dL (8.5-10.1); Chloride 105 mmol/L (98-107); Estimated GFR 43.96 (mL/min/1.73m2); Glucose 99 mg/dL (70-100); Potassium 4.4 mmol/L (3.5-5.1); Sodium 142 mmol/L (136-145); Total Protein 7.6 g/dL (6.4-8.2)
[2018-06-10 15:04] LABS: Lipase 278 U/L (73-393); Magnesium 2.2 mg/dL (1.8-2.4)
[2018-06-10 15:18] LABS: Troponin I < 0.02 ng/mL (0.00-0.06)
[2018-06-10 15:22] LABS: Bilirubin Negative (Negative); Blood Negative (Negative); Clarity Clear; Glucose Negative (Negative); Ketones Negative (Negative); Leukocyte Esterase Trace (Negative); Nitrite Negative (Negative); Urobilinogen 0.2 EU/dL (Up TO 0.2)
[2018-06-10 15:29] LABS: Salicylate < 2.8 mg/dL (2.8-20.0)
[2018-06-10 15:31] LABS: *AMPHETAMINES SCREEN URINE Negative (Negative); *BARBITURATES SCREEN URINE Negative (Negative); *BENZODIAZEPINES SCREEN URINE Negative (Negative); Cannabinoids THC POSITIVE (Negative); Cocaine Screen,Urine Negative (Negative); METHADONE URINE SCREEN Negative (Negative); OPIATES URINE SCREEN Negative (Negative)
--- NOTE | 2018-06-10 15:33 | DI.CT_ITS ---
SYMPTOM/DIAGNOSIS: ALTERED MENTAL STATUS, ? INTRACRANIAL INJURY OR FX, DIFFUSE ABD PAIN, H/O G TUBE CERVICAL SPINE CT: CT examination of the cervical spine was performed according to the usual protocol. There are marked degenerative changes of the cervical spine with an anterior fixation plate in place at C 6-7 and fusion from C 5 through C 7 anteriorly. No evidence of acute fracture or dislocation. No cervical disc herniation by CT criteria. No cervical mass or adenopathy. Tracheolaryngeal structures appear intact. Visualized lung apices are clear. CONCLUSION: No evidence of acute cervical spine fracture. NONCONTRAST HEAD CT: A noncontrast cranial CT was performed. There is moderate generalized cerebral atrophy. There are patchy areas of decreased attenuation in periventricular white matter consistent with microvascular ischemic changes. Small bilateral lacunar infarcts noted. No evidence of acute intracranial hemorrhage, mass effect or midline shift. Paranasal sinuses are well aerated as visualized as are the mastoid air cells. Temporal bone and orbital structures appear intact. CONCLUSION: No evidence of acute intracranial process. ABDOMEN AND PELVIC CT: CT examination of the abdomen and pelvis was performed with a bolus infusion of 66 cc's of Omnipaque 350. Images obtained through the lung bases are unremarkable except for cardiomegaly. Liver and spleen appear intact. There appears to have been previous gastric surgery, please correlate with surgical history. Pancreatic fat planes not well defined adjacent to the surgical site. Mild nonspecific duodenal dilatation noted, no gross evidence of obstruction. Jejunostomy tube noted in position. No gross bowel obstruction is seen. Appendix not specifically identified. Question architectural distortion of bowel loops in right lower quadrant, internal hernia not excluded, no evidence of obstruction. Please correlate clinically. Large quantity of fecal material in right colon and rectosigmoid consistent with constipation. Abdominal aorta is of normal diameter and no gross vascular abnormality is seen. Adrenals and kidneys are grossly unremarkable. No abdominal adenopathy. CONCLUSION: No evidence of acute process. Note is made of constipation.
[2018-06-10 15:39] LABS: Bacteria Rare HPF (Negative); C & S Indicated? Yes; Casts Negative LPF (Negative); Epithelial Cells Rare HPF (Negative); Mucus Negative (Negative); RBC Negative (0-2); WBC 20-50 HPF (0-5)
[2018-06-10 16:02] LABS: Tricyclic Antidepressants POSITIVE (Negative)
[2018-06-10 16:03] LABS: Acetaminophen < 2 ug/mL (10-30)
[2018-06-10] MEDS: Omnipaque 350 MG/ML 100 ML BTL IJ (16:59)
--- NOTE | 2018-06-10 17:12 | DI.VRAD_ITS ---
EXAM: CT Abdomen and Pelvis With Contrast EXAM DATE/TIME: 06/10/2018 4:45 PM CLINICAL HISTORY: 68 years old, female; Pain; Abdominal pain TECHNIQUE: Imaging protocol: Axial computed tomography images of the abdomen and pelvis with intravenous contrast. Coronal and sagittal reformatted images were created and reviewed. Contrast material: Omnipaque 350 Contrast volume: 66 ml Contrast route: IV COMPARISON: CT CHEST/ABD/PEL W 03/19/2018 5:17 PM. FINDINGS: Tubes, catheters and devices: Jejunostomy tube in place, new from prior exam. Lower thorax: No acute findings. ABDOMEN: Liver: Normal. No mass. Gallbladder and bile ducts: Status post cholecystectomy. Trace fluid noted in the gallbladder fossa. Pancreas: Normal. No ductal dilation. Spleen: Normal. No splenomegaly. Adrenals: Normal. No mass. Kidneys and ureters: Normal. No hydronephrosis. Stomach and bowel: Post gastric bypass surgical change again seen. Moderate fecal retention pattern particularly in the left colon. There is some architectural distortion of ileal bowel loops in the right lower quadrant not appreciated on prior study. There is no abnormal distention or wall thickening evident. This is best seen series 4 images 50-59. Appendix: No evidence of appendicitis. PELVIS: Bladder: Unremarkable as visualized. Reproductive: Status post hysterectomy. ABDOMEN and PELVIS: Intraperitoneal space: Minimal free fluid noted in the pelvis. Bones/joints: Mild degenerative changes noted in the hips, right worse than left. Moderate lumbar spondylosis. Status post T8-T11 posterior fusion change. Soft tissues: Unremarkable. Vasculature: Moderate atherosclerotic change seen in the vasculature. Lymph nodes: Normal. No enlarged lymph nodes. Other findings: Respiratory motion noted. IMPRESSION: 1. Architectural distortion involving ileal loops. Consider internal hernia without obstructive change. 2. Minimal free fluid, markedly improved from prior study. 3. Mild constipated pattern. COMMENT: Preliminary interpretation is based on receipt of 263 image(s). A final report will be issued subsequently. Dictated and Authenticated by: Jenny Rodríguez MD. Ordering:VENTURA Queen MD
--- NOTE | 2018-06-10 17:13 | DI.VRAD_ITS ---
EXAM: XR Chest, 2 Views EXAM DATE/TIME: 06/10/2018 4:55 PM CLINICAL HISTORY: 68 years old, female; Signs and symptoms; Other: AMS TECHNIQUE: Imaging protocol: XR of the chest, 2 views. COMPARISON: CR PORTABLE CHEST ONE VIEW 07/20/2017 9:50 AM FINDINGS: Lungs: Unremarkable. No consolidation. Pleural space: Unremarkable. No pleural effusion. No pneumothorax. Heart/Mediastinum: Heart size remains upper limits of normal. Upper abdomen: Postsurgical change noted left upper quadrant. Portion of jejunostomy tube identified. Bones/joints: Status post lower thoracic fusion change, cervical spine and ORIF right mandible. IMPRESSION: No evidence for acute abnormality in the chest. COMMENT: Preliminary interpretation is based on receipt of 2 image(s). A final report will be issued subsequently. Dictated and Authenticated by: Jenny Rodríguez MD. Ordering:VENTURA Queen MD
--- NOTE | 2018-06-10 17:18 | DI.VRAD_ITS ---
EXAM: CT Head Without Contrast EXAM DATE/TIME: 06/10/2018 2:35 PM CLINICAL HISTORY: 68 years old, female; Signs and symptoms; Altered mental status/memory loss; Other: Intercranial injury TECHNIQUE: Imaging protocol: Axial computed tomography images of the head/brain without contrast. Coronal and sagittal reformatted images were created and reviewed. COMPARISON: CT HEAD CERVICAL SPINE WO 04/18/2018 2:30 AM FINDINGS: Brain: There is no evidence for acute intracranial hemorrhage. Cerebral volume loss noted. Scattered areas of decreased attenuation in the deep periventricular white matter consistent with small vessel ischemic change. Ventricles: Normal. No ventriculomegaly. Bones/joints: Degenerative changes noted left temporomandibular joint. Sinuses: Visualized sinuses are unremarkable. No acute sinusitis. Mastoid air cells: Visualized mastoid air cells are unremarkable. No mastoid effusion. Soft tissues: Unremarkable. IMPRESSION: Senescent changes noted. No acute intracranial abnormality. EXAM: CT Cervical Spine Without Contrast EXAM DATE/TIME: 06/10/2018 2:35 PM CLINICAL HISTORY: 68 years old, female; Signs and symptoms; Altered mental status/memory loss; Other: Intercranial injury TECHNIQUE: Imaging protocol: Axial computed tomography images of the cervical spine without intravenous contrast. Coronal and sagittal reformatted images were created and reviewed. COMPARISON: CT HEAD CERVICAL SPINE WO 04/18/2018 2:30 AM FINDINGS: Vertebrae: Status post lower cervical anterior fusion C6-7. There is stenosis at the C6-7 level. There is mild anterolisthesis at the C3-4 and 4-5 level with ankylosis at C5-6 level. There is underlying facet arthropathy. There is reversal of the normal cervical lordosis. Overall changes are stable compared to prior study. There is fibrous union at the level of the posterior arch of C1. Discs/Spinal canal/Neural foramina: See Vertebrae Finding. Soft tissues: Unremarkable. Lungs: Lung apices are normal. Vasculature: Bilateral calcified carotid plaques. IMPRESSION: Spondylosis with lower cervical stenosis, stable. Postsurgical changes as noted. No evidence for acute abnormality. COMMENT: Preliminary interpretation is based on receipt of 916 image(s). A final report will be issued subsequently. Dictated and Authenticated by: Jenny Rodríguez MD. Ordering:VENTURA Queen MD
[2018-06-10] MEDS: Normal Saline 50 ML 100 ML (18:00)
[2018-06-10] MEDS: diphenhydrAMINE 50 MG/ML VIAL 25 MG IVP ×2 (18:01→23:08)
[2018-06-10 19:05] LABS: Ammonia 13 umol/L (11-32)
[2018-06-10] MEDS: cefTRIAXone 1 GM/50 ML BAG IVPB (19:09)
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
[2018-06-10] MEDS: Pantoprazole 40 MG VIAL IVP (22:58)
[2018-06-10] MEDS: Normal Saline Flush 10 ML SYR IVP (23:09)
--- NOTE | 2018-06-10 23:53 | NUR.NOTE ---
Nursing Note: 06/10/18 Admitted in Med/Surg floor room 227 via stretcher accompanied by significant other. Transferred to bed safely. VSS. BP 177/78 Alert and restless. Patient has hx of AMS but can answer yes or no questions. See Admission Part 2 for further assessments.
[2018-06-11] VITALS (9 sets, daily range): BP systolic 118–193; BP diastolic 64–86; PULSE 63–88; RESP 16–19; TEMP 36.5–37.9; O2SAT 93–98
[2018-06-11 07:34] LABS: Abs Immature Grans 0.01 k/cumm (0.0-0.09); Absolute Basophil Count 0.04 k/cumm (0.0-0.2); Absolute Eosinophil Count 0.48 k/cumm (0.0-0.7); Absolute Lymphocyte Count 1.34 k/cumm (1.2-3.4); Absolute Monocyte Count 0.65 k/cumm (0.11-0.7); Absolute Neutrophil Count 6.37 k/cumm (1.2-6.7); Basophils % 0.4; Eosinophils % 5.4; HCT 28.3 % (36.0-46.0); Immature Grans % 0.1; Lymphocytes % 15.1; Mean Corp. HGB Concentration 31.8 g/dL (32.0-36.0); Mean Corpuscular Hemoglobin 28.8 pg (27.0-33.0); Mean Corpuscular Volume 90.7 fL (80-95); Mean Platelet Volume 9.8 fL (8.0-11.0); Monocytes % 7.3; Neutrophils % 71.7; Platelet Count 233 x1000/uL (130-400); RBC 3.12 m/cumm (4.00-5.20); RBC Distribution Width 13.6 % (11.7-14.6); White Blood Cell Count 8.89 k/cumm (4.4-10.8)
[2018-06-11 08:02] LABS: Diff Comment RBC Morph Reviewed; Polychromasia Present
[2018-06-11 08:03] LABS: Poikilocytes 1+
[2018-06-11 08:34] LABS: Anion Gap 14.2 mmol/L (3-11); BUN 26 mg/dL (7-18); CO2 23.8 mmol/L (21.0-32.0); CREATININE 0.84 mg/dL (0.55-1.02); Calcium 9.6 mg/dL (8.5-10.1); Chloride 106 mmol/L (98-107); Glucose 100 mg/dL (70-100); Magnesium 1.8 mg/dL (1.8-2.4); Potassium 3.5 mmol/L (3.5-5.1); Sodium 144 mmol/L (136-145); TSH (W/Ref FT4) 2.85 uIU/mL (0.358-3.74)
[2018-06-11] MEDS: Metoprolol 50 MG TAB PO ×3 (08:43→20:07)
[2018-06-11 09:07] LABS: Folate > 20.0 ng/mL (8.6-20.0)
[2018-06-11] MEDS: Normal Saline Flush 10 ML SYR IVP ×2 (09:54→20:08)
[2018-06-11 12:07] LABS: Creatine Kinase 96 U/L (26-192)
--- NOTE | 2018-06-11 12:25 | EVALE_ITS ---
Date of service: 06/11/18 Time of Service: 10:30 Speech Therapy Evaluation Note: REFERRING PROVIDER: Dr. South BACKGROUND This is a 68 year old Caucaisian right-handed female who presented to the ED from home on 06/10/18 with AMS and shaking behavior. She was admitted for tx of these issues as well as a possible UTI. A CXR of that date showed no acute findings. A swallow evaluation was requested to determine appropriate p.o. consistencies. PMH: secondary progressive multiple sclerosis, PTSD, psychosis, anxiety disorder, depression, opioid misuse, memory loss, chronic movement disorder, CKD, HTN, GERD, gastric ulcerations, severe malnutrition, h/o weight loss, insomnia, chronic back pain, anemia. The patient (pt) is able to provide incomplete background information with regard to p.o. consistencies taken in the days prior to this admission. She states that she takes what, by description, are Thn liquids and whole pills with a Thin liquid wash, however, she is unable to speak to any diet consistency. She does acknowledge J-tube feedings at home. OBJECTIVE Nursing reports: - T: 37.9 - O2 sat: 98% on RA - LS: CTA and diminished bilaterally (B). - Pt is currently on a clear liquid diet. - Toleration of Thin liquids earlier this morning. The pt is sitting up in her bed staring into space, with her RLE constantly rocking back and forth. She looks much older than her stated age. She makes good direct eye contact and responds appropriately to my verbal greeting with a very quiet voice. She shows a paucity of conversational speech, answering some but not all Y/N questions. She often shows no verbal or gestural response to questions, even with repetition of the question or an offering of multiple choice answers. She is A & O x 1 (person) and able to inconsistently follow basic 1-step directions. Oral Sensorimotor Exam The pt is unresponsive to some of the items in this exam but the following is noted. The pt has only 3 remaining teeth (lower left quadrant) and wears a full upper denture which appears to be stable. The pt denies use of denture adhesive and also denies any dental discomfort with her teeth. Oral hygiene appears adequate. Smile is symmetrical and no facial droop is seen. Labial strength/coordination is WNL-B. No lingual deviation on protrusion is seen in a setting of good excursion. Lingual lateralization is WNL-B as are lingual rapid alternating movements. Lingual strength is WNL-B. Velopharyngeal elevation is strong and symmetrical. Volitional cough is strong. Speech intelligibility to this unfamiliar listener in the absence of background noise is 100% despite moderately low vocal intensity. Vocal quality is WNL. Swallowing - Honey-thick liquid: Good bolus control & posterior oral transit (POT); no kriss signs/symptoms (s/s) of aspiration/penetration (A/P); oral clearance 100%; no oral escape. These results are true for both single and consecutive swallows by cup. - [place]-thick liquid: Results are the same as for Honey-thick liquid. These results are true for both single and consecutive swallows by both cup and straw. - Thin liquid: Results are the same as for [place]-thick liquid. - Puree food: Good bolus control & linguopalatal bolus compression; POT WNL; no kriss s/s A/P; oral clearance 100%; no oral escape. - Mechanically Altered food: Poor bite action and no mastication of this consistency. Pt swallowed bolus unchewed; no kriss s/s A/P; oral clearance 100%; no oral escape. Second trial of this consistency, this time with max verbal and visual cueing for bite action and mastication behavior, but results are the same as the first trial. Pt is observed to self-feed using her dominant RUE and a regular utensil. When asked, she denies any hunger or thirst. INTERPRETATION The pt shows a severe oral-prep dysphagia in a setting of significant partial edentulousness and compromised cognition. She shows no clinical s/s of a pharyngeal dysphagia. RECOMMENDATIONS 1. Change to: - Thin liquids - Puree diet - Pills either crushed in puree, dissolved or whole in puree 2. Supervised self-feeding with cueing of pt for sufficient p.o. intake to maximize nutrition. 3. Speech therapy to assess for possible diet and pill consistency advancement. Thank you for referring this pt.
--- NOTE | 2018-06-11 12:50 | PHARADMIT ---
Admission Pharmacy Clinical Review ALTERED MENTAL STATUS, RESTLESSNESS, UTI (possible Gabapentin Overdose) Code Status Full Code Current Weight Wgt-46.1 kg Renally Cleared and Narrow Therapeutic Index Meds CrCl~ 46.6mL/min Meds-OK QTc Value / Action Taken QTc-462 (Protonix, Benadryl) BP Control, Fever BP- 158/78 Tmax-36.7C Electrolytes reviewed Na- 144 K+3.5 Mag-1.8 DVT Prophylaxis TEDS, SCDs Opiate Usage / Scheduled Bowel Regimen Ordered No Yes Plt/SCr for Heparin / Enoxaparin Plts- 233 SCr-0.84 INR for Warfarin na H/H stable, WBC/Bands H&H- 9.0/28.3 WBC- 8.89 Antibiotic appropriateness Rocephin Cultures and Sensitivities Urine-pending Surgical ABX d/c within 24 hr na DM control / Insulin Dosing BG- 100 Heart Failure (Check EF%) (VILMA's, B-Block, Diuretics) Norvasc, Lopressor IV to PO Switch No Home Meds Reviewed Yes Home Meds Not Ordered Amitripyline, Vit-C,Lipitor, Iron, Gabapentin, Melatonin, Medical Marijuana, Sertraline, Trazodone Comments
[2018-06-11] MEDS: amLODIPine 5 MG TAB PO (14:22)
--- NOTE | 2018-06-11 15:07 | CHAPLAIN ---
I had a short visit with Deepti while she was resting in bed. I introduced myself, explained my role and offered support.
--- NOTE | 2018-06-11 15:24 | IN_ITS ---
Date of service: 06/11/18 Time of Service: 14:30 PT Notes Inpatient Physical Therapy Evaluation Date: 06/11/18 Referring Doctor: Dr. Santamaria PT Orders: PT CONSULT: eval and treat Precautions: fall, standard Patient Profile/Admitting Diagnosis: Patient admitted 06/10/18 for management of acute metabolic encephalopathy. PMHX: Multiple sclerosis, hypertension, gastric ulceration with severe malnutrition, small bowel tube feeding Social History/Home Situation: Patient resides at the [facility] with her boyfriend. She declines to provide significant information regarding her social situation, although reports that she does not manage stairs and is able to independently ambulate without an assistive device. Equipment Owned/DME: cane Subjective: Patient initially refuses PT consulation. She agrees on second attempt, stating she knows she has to. She was assured that she has the option to decline, and she verbalizes her agreement. She reports pain in her left leg, which she states is chronic. Otherwise, she states that she is fine and wants to go home. Objective: General Observation: Resting in bed at initiation of session, showing signs of agitation. She has a Shepherd catheter in place, otherwise no lines. She demonstrates repetitive movements of the feet, and has her phone resting off the hook in her lap. She rocks her trunk back and forth during conversation. She makes various statements regarding her boyfriend's where-abouts, indicating that he is hiding in the hospital and plotting with nurses. Mental Status: Alert and agitated. Oriented to person and place. When asked the date, she replies I know what you're doing. Pain: unable to quantify ROM: Right Upper Extremity: Shoulder flexion 180 degrees. Elbow and wrist motion WFL. Left Upper Extremity: Shoulder flexion 180 degrees. Elbow and wrist motion WFL. Right Lower Extremity: WFL Left Lower Extremity: WFL Strength: Right Upper Extremity: Shoulder flexion 5/5. Biceps 5/5. Facility Environmental Technician is strong and equal Left Upper Extremity: Shoulder flexion 5/5. Biceps 5/5. Facility Environmental Technician is strong and equal Right Lower Extremity: Hip flexion 4+/5. Quads 4+/5. Hamstrings 4/5 bilaterally. Ankle dorsiflexion 5/5. Left Lower Extremity: Hip flexion 4+/5. Quads 4+/5. Hamstrings 4/5 bilaterally. Ankle dorsiflexion 5/5. Sensation: intact distally Bed Mobility/Transfers: Supine to sit: Supervision with poor safety awareness Sit supine: Supervision Sit to stand: Supervision with poor safety awareness, and need for max cues for management of Shepherd catheter, slowing pace, etc. Stand to sit: Supervision Gait: Patient ambulates 30 feet x1, 300 feet x1 with contact-guard. She continues to demonstrate poor safety awareness, although is able to transition outside of her base of support without loss of balance. She requires supervision due to her level of agitation, with patient following a staff member down the worrell and attempting to access another patient's room. Balance: Static Sitting: Normal Dynamic Sitting: Normal Static Standing: Good Dynamic Standing: Good Special Tests: Mobility Limitations Standardized Measure [facility] AM-PAC 6 clicks Basic Mobility Inpatient Short Form: Raw Score: 24 CMS Score: 0 Informed Consent/Education: Patient instructed in purpose of PT consult and plan of care. Assessment: Patient is a 68 year old female referred to physical therapy services with the diagnosis of acute metabolic encephalopathy. Patient presents with baseline level of mobility, with safety concerns related to her mental status changes versus her mobility. I discussed with both nursing and case management potential need for a cadre, and patient was placed on a chair alarm at end of session. At this point, she does not require any further PT intervention in an acute care setting, as she is at baseline level of function. Patient is assessed as a High 31493 complexity based on the following: History: 68-year-old female admitted for acute metabolic encephalopathy, with acute mental status changes, limiting her safety and ability to fully participate in PT intervention. She has an extensive medical history as noted above. Examination: Safety concerns related to patient's mental status, and relating to all levels of mobility Presentation: Unstable due to altered mental status Decision Making: High complexity Plan of Care/Treatment Plan: No further PT intervention required in acute care setting, as patient is at baseline level of function DISCHARGE RECOMMENDATIONS: No equipment needs anticipated TREATMENT CODE/TIME: 20 minutes (32555)
[2018-06-11 16:29] LABS: Acetaminophen < 2 ug/mL (10-30)
--- NOTE | 2018-06-11 17:46 | W.PM.PROGNOT ---
Date of Service Date of service: 06/11/18 Time of Service: 17:46 Assessment and Plan (1) Pernicious anemia: Current visit: Yes Status: Chronic did receive Fe sucrose IV. Prob going to need to be on chronic folate therapy. Levels adequate at this time (2) Small bowel tube feeding: Current visit: Yes Status: Chronic unsure why feeding tube was placed. Pt doensn't seem to be using it. She was eating solid foods at home. Prob discontinue home feedings and use PO protein supp. (3) S/P exploratory laparotomy: Current visit: Yes Status: Acute (4) Protein-calorie malnutrition: Current visit: Yes Status: Acute RECOMMENDATIONS 1. Change to: - Thin liquids - Puree diet - Pills either crushed in puree, dissolved or whole in puree 2. Supervised self-feeding with cueing of pt for sufficient p.o. intake to maximize nutrition. 3. Speech therapy to assess for possible diet and pill consistency advancement. -protein supplements -probably can discontinue home tube feeds and just go to oral supplements. -stop smoking -F/u w/ surgeon down at [facility] [place]. -cont PhysT -cont PPI -received IV Iron -folate level currently good. Cont on lifelong supp. -cont medical care of MS and psc meds Subjective Interval history since last seen: pt awake and talking today. Pt did have lg BM . Speech eval noted. pt can eat as she is able to. Does not seem to require tube feeds. pt refused PT Objective Objective Clinical Data: Abnormal lab results 06/11/18 06/11/18 06/11/18 Range/Units 07:10 07:10 07:10 RBC 3.12 L (4.00-5.20) m/cumm Hgb 9.0 L (12.0-15.5) g/dL Hct 28.3 L (36.0-46.0) % MCHC 31.8 L (32.0-36.0) g/dL Anion Gap 14.2 H (3-11) mmol/L BUN 26 H D (7-18) mg/dL Folate > 20.0 H (8.6-20.0) ng/mL Acetaminophen (10-30) ug/mL 06/11/18 Range/Units 15:32 RBC (4.00-5.20) m/cumm Hgb (12.0-15.5) g/dL Hct (36.0-46.0) % MCHC (32.0-36.0) g/dL Anion Gap (3-11) mmol/L BUN (7-18) mg/dL Folate (8.6-20.0) ng/mL Acetaminophen < 2 L (10-30) ug/mL Vital Signs Temperature 37.9 C H 06/11/18 15:45 Temperature Source Tympanic 06/11/18 15:45 Pulse 76 06/11/18 15:45 Pulse Rhythm Regular 06/11/18 16:00 Pulse 67 06/10/18 19:46 Respiratory Rate 16 06/11/18 15:45 Respiratory Effort 06/11/18 16:00 Respiratory Depth Normal 06/11/18 16:00 Respiratory Pattern Normal 06/11/18 16:00 Blood Pressure 185/83 H 06/11/18 15:45 Blood Pressure Mean 108 06/10/18 19:46 Blood Pressure Position Supine 06/10/18 14:58 Pulse Oximetry 93 L 06/11/18 15:45 Oxygen Delivery Method Room Air 06/11/18 15:45 Oxygen Flow Rate 0 06/11/18 15:45 Pain Level 0 06/11/18 11:20 Comment 06/11/18 10:14 Intake & Output 06/10/18 06/11/18 06/11/18 23:59 11:59 23:59 Intake Total 50 / 50 250 / 700 450 / 700 Output Total 1400 / 2100 700 / 2100 Balance 50 / 50 -1150 / -1400 -250 / -1400 Weight 46.1 kg 46.1 kg Intake: IV 50 / 50 10 / 220 210 / 220 Oral 240 / 480 240 / 480 Output: Urine 1400 / 2100 700 / 2100 Other: Urine Color Yellow Yellow Yellow Straw Urine Appearance Clear Clear Clear Stool Size Large Stool Characteristics Soft Laboratory Results WBC 8.89 k/cumm (4.4-10.8) 06/11/18 07:10 RBC 3.12 m/cumm (4.00-5.20) L 06/11/18 07:10 Hgb 9.0 g/dL (12.0-15.5) L 06/11/18 07:10 Hct 28.3 % (36.0-46.0) L 06/11/18 07:10 MCV 90.7 fL (80-95) 06/11/18 07:10 MCH 28.8 pg (27.0-33.0) 06/11/18 07:10 MCHC 31.8 g/dL (32.0-36.0) L 06/11/18 07:10 RDW 13.6 % (11.7-14.6) 06/11/18 07:10 Plt Count 233 x1000/uL (130-400) 06/11/18 07:10 MPV 9.8 fL (8.0-11.0) 06/11/18 07:10 Immature Gran % 0.1 06/11/18 07:10 Neutrophils % 71.7 06/11/18 07:10 Lymphocytes % 15.1 06/11/18 07:10 Monocytes % 7.3 06/11/18 07:10 Eosinophils % 5.4 06/11/18 07:10 Basophils % 0.4 06/11/18 07:10 Absolute Neutrophils 6.37 k/cumm (1.2-6.7) 06/11/18 07:10 Absolute Lymphocytes 1.34 k/cumm (1.2-3.4) 06/11/18 07:10 Absolute Monocytes 0.65 k/cumm (0.11-0.7) 06/11/18 07:10 Absolute Eosinophils 0.48 k/cumm (0.0-0.7) 06/11/18 07:10 Absolute Basophils 0.04 k/cumm (0.0-0.2) 06/11/18 07:10 Differential Comment Rbc morph reviewed 06/11/18 07:10 RBC Morphology See below 06/11/18 07:10 Polychromasia Present 06/11/18 07:10 Hypochromasia 1+ 06/10/18 14:35 Poikilocytosis 1+ 06/11/18 07:10 Sodium 144 mmol/L (136-145) 06/11/18 07:10 Potassium 3.5 mmol/L (3.5-5.1) 06/11/18 07:10 Chloride 106 mmol/L (98-107) 06/11/18 07:10 Carbon Dioxide 23.8 mmol/L (21.0-32.0) 06/11/18 07:10 Anion Gap 14.2 mmol/L (3-11) H 06/11/18 07:10 BUN 26 mg/dL (7-18) H D 06/11/18 07:10 Creatinine 0.84 mg/dL (0.55-1.02) 06/11/18 07:10 Estimated GFR/1.73 m2 >= 60.00 (mL/min/1.73m2) 06/11/18 07:10 Glucose 100 mg/dL (70-100) 06/11/18 07:10 Calcium 9.6 mg/dL (8.5-10.1) 06/11/18 07:10 Magnesium 1.8 mg/dL (1.8-2.4) 06/11/18 07:10 Total Bilirubin 0.3 mg/dL (0.2-1.0) 06/10/18 14:35 AST 29 U/L (15-37) 06/10/18 14:35 ALT 29 U/L (12-78) 06/10/18 14:35 Alkaline Phosphatase 111 U/L (46-116) 06/10/18 14:35 Ammonia 13 umol/L (11-32) 06/10/18 18:44 Creatine Kinase 96 U/L (26-192) 06/11/18 07:10 Troponin I < 0.02 ng/mL (0.00-0.06) 06/10/18 14:35 Total Protein 7.6 g/dL (6.4-8.2) 06/10/18 14:35 Albumin 4.0 g/dL (3.4-5.0) 06/10/18 14:35 Lipase 278 U/L (73-393) 06/10/18 14:35 Folate > 20.0 ng/mL (8.6-20.0) H 06/11/18 07:10 TSH 2.85 uIU/mL (0.358-3.74) 06/11/18 07:10 Urine Color Yellow (Yellow) 06/10/18 14:55 Urine Clarity Clear 06/10/18 14:55 Urine pH 6.0 (5-8) 06/10/18 14:55 Ur Specific [place] 1.010 (1.005-1.025) 06/10/18 14:55 Urine Protein Negative mg/dL (Negative) 06/10/18 14:55 Urine Ketones Negative mg/dL (Negative) 06/10/18 14:55 Urine Blood Negative (Negative) 06/10/18 14:55 Urine Nitrite Negative (Negative) 06/10/18 14:55 Urine Bilirubin Negative (Negative) 06/10/18 14:55 Urine Urobilinogen 0.2 EU/dL (Up TO 0.2) 06/10/18 14:55 Ur Leukocyte Esterase Trace (Negative) H 06/10/18 14:55 Urine RBC Negative (0-2) 06/10/18 14:55 Urine WBC 20-50 HPF (0-5) 06/10/18 14:55 Ur Epithelial Cells Rare HPF (Negative) 06/10/18 14:55 Urine Crystals HPF (Negative) 06/10/18 14:55 Urine Bacteria Rare HPF (Negative) 06/10/18 14:55 Urine Casts Negative LPF (Negative) 06/10/18 14:55 Urine Mucus Negative (Negative) 06/10/18 14:55 Ur Culture Indicated? Yes 06/10/18 14:55 Urine Glucose Negative mg/dL (Negative) 06/10/18 14:55 Salicylates < 2.8 mg/dL (2.8-20.0) L 06/10/18 14:35 Urine Opiates Screen Negative (Negative) 06/10/18 14:55 Urine Methadone Screen Negative (Negative) 06/10/18 14:55 Acetaminophen < 2 ug/mL (10-30) L 06/11/18 15:32 Ur Barbiturates Screen Negative (Negative) 06/10/18 14:55 Ur Tricyclics Screen Positive (Negative) 06/10/18 14:55 Ur Amphetamines Screen Negative (Negative) 06/10/18 14:55 U Benzodiazepines Scrn Negative (Negative) 06/10/18 14:55 Urine Cocaine Screen Negative (Negative) 06/10/18 14:55 Ur THC Screen Positive (Negative) 06/10/18 14:55
--- NOTE | 2018-06-11 18:29 | PDOC.CMIN ---
Care Management Initial Assess REASON FOR HOSPITALIZATION:: AMS, restlessness UTI PREVIOUS FUNCTIONAL STATUS/SOCIAL/FAMILY SUPPORTS:: Kena resides with her significant other, Marek in [place], [place]. She reports a good support network of family and friends including a son and grandson. Deepti reported having MS for the last twelve years and reports it is a progressive disease. She enjoys walking her dog outside, watching TV and reading. She shares she stopped driving four years ago due to medical issues, but enjoys shopping and running errands with Marek. CURRENT FUNCTIONAL STATUS:: Deepti was sitting up in her chair, across from her significant other, Marek who was also sitting in a chair. She was pleasant and engaged with this auto service writer though shared suspicions of staff talking negatively about her and appeared convinced that others were actively against her. She wanted to leave AMA and required a period of time processing and being supported to stay. After Marek left, CM repositioned Deepti towards the door of her room to observe the RN station to ensure that the voices she could hear in the hallway were regular interactions; not central to her. CM introduced Kena to RN: HECTOR Simpson and pointed out Adolph; RNCC. CM briefed staff on Kena's concerns and encouraged staff to provide re-assurance to Kena. CAROLIN met with MD to discuss status. Dr. Santamaria reported concerns around Gabapentin overdose, UTI and urinary retention with catheter in place; requiring voiding trial. CM returned to Kena's room and explained recommendations for remaining at [facility]. Kena is on tube feeds and has MS though she reports being able to walk independently and transfered independently in her room. She reports confusion at times and does not remember the events leading up to her hospitalization. She was easily engaged and re-assured though required ongoing support. ADVANCE DIRECTIVES:: Reports Marek as her agent. Has patient been provided with information about the portal?: Yes Did the patient sign up for the portal?: No CODE STATUS:: Full Code INSURANCE COVERAGE / FINANCIAL ISSUES:: Medicare. Medicaid CURRENT HOME/COMMUNITY SERVICES/EQUIPMENT:: [employer], RN [facility], [employer], former counseling, FWW at home PRIMARY CARE PHYSICIAN:: Edita Rosen; reports Edita is leaving the practice and she will have a new provider soon. POTENTIAL DISCHARGE NEEDS:: S/T consult resulting in recommendations due to severe oral-prep dysphagia in a setting of significant partial edentulousness and compromised cognition. Follow up appointments with PCP. Resumption of services in the community. Discussion around medication management due to Gabapentin overdose. PATIENT/FAMILY EDUCATION NEEDS:: Review of instructions, discussion around AMA process, MD recommendations for remaining at [facility]. ANTICIPATED BARRIERS TO DISCHARGE:: Increased confusion and agitation, safety planning. Verbalized wanting to leave AMA. TRANSPORTATION:: Via private vehicle with Marek. PLAN:: Deepti will continue to be closely monitored and assessed. Anticipate she will require ongoing support and re-assurance. She will likely return home with a plan for her medications to be managed. She will resume current community supports, follow up with her PCP and transport via private vehicle with her significant other, Marek.
--- NOTE | 2018-06-11 19:37 | INITIAL_ITS ---
Care Management Initial Assess REASON FOR HOSPITALIZATION:: AMS, restlessness UTI PREVIOUS FUNCTIONAL STATUS/SOCIAL/FAMILY SUPPORTS:: Kena resides with her significant other, Marek in [place], [place]. She reports a good support network of family and friends including a son and grandson. Deepti reported having MS for the last twelve years and reports it is a progressive disease. She enjoys walking her dog outside, watching TV and reading. She shares she stopped driving four years ago due to medical issues, but enjoys shopping and running errands with Marek. CURRENT FUNCTIONAL STATUS:: Deepti was sitting up in her chair, across from her significant other, Marek who was also sitting in a chair. She was pleasant and engaged with this bond underwriter though shared suspicions of staff talking negatively about her and appeared convinced that others were actively against her. She wanted to leave AMA and required a period of time processing and being supported to stay. After Marek left, CM repositioned Deepti towards the door of her room to observe the RN station to ensure that the voices she could hear in the hallway were regular interactions; not central to her. CM introduced Kena to RN: HECTOR Simpson and pointed out Adolph; RNCC. CM briefed staff on Kena's concerns and encouraged staff to provide re-assurance to Kena. CAROLIN met with MD to discuss status. Dr. Santamaria reported concerns around Gabapentin overdose, UTI and urinary retention with catheter in place; requiring voiding trial. CM returned to Kena's room and explained recommendations for remaining at [facility]. Kena is on tube feeds and has MS though she reports being able to walk independently and transfered independently in her room. She reports confusion at times and does not remember the events leading up to her hospitalization. She was easily engaged and re-assured though required ongoing support. ADVANCE DIRECTIVES:: Reports Marek as her agent. Has patient been provided with information about the portal?: Yes Did the patient sign up for the portal?: No CODE STATUS:: Full Code INSURANCE COVERAGE / FINANCIAL ISSUES:: Medicare. Medicaid CURRENT HOME/COMMUNITY SERVICES/EQUIPMENT:: [employer], RN [facility], [employer], former counseling, FWW at home PRIMARY CARE PHYSICIAN:: Edita Rosen; reports Edita is leaving the practice and she will have a new provider soon. POTENTIAL DISCHARGE NEEDS:: S/T consult resulting in recommendations due to severe oral-prep dysphagia in a setting of significant partial edentulousness and compromised cognition. Follow up appointments with PCP. Resumption of services in the community. Discussion around medication management due to Gabapentin overdose. PATIENT/FAMILY EDUCATION NEEDS:: Review of instructions, discussion around AMA process, MD recommendations for remaining at [facility]. ANTICIPATED BARRIERS TO DISCHARGE:: Increased confusion and agitation, safety planning. Verbalized wanting to leave AMA. TRANSPORTATION:: Via private vehicle with Marek. PLAN:: Deepti will continue to be closely monitored and assessed. Anticipate she will require ongoing support and re-assurance. She will likely return home with a plan for her medications to be managed. She will resume current community supports, follow up with her PCP and transport via private vehicle with her significant other, Marek.
[2018-06-11] MEDS: cefTRIAXone 1 GM/50 ML BAG IVPB (20:07)
--- NOTE | 2018-06-11 20:20 | W.PM.PROGNOT ---
Date of Service Date of service: 06/11/18 Time of Service: 14:30 Assessment and Plan (1) Acute metabolic encephalopathy: Current visit: Yes Status: Acute Likely a combination of medication toxicity due to unintentional overdose/poor compliance with directions (gabapentin, possibly tylenol pm) in addition to UTI POA. Mental status is now at baseline, but my concern is that Ms Olivo cannot be trusted to take her own medications and needs to have supervision. The boyfriend agrees to help her take the medications properly, but I feel that eventually the patient would benefit from a home health nurse/ pill box. Refused MRI of the brain. Consider EEG. (2) Small bowel tube feeding: Current visit: Yes Status: Chronic Tolerating TF's via J tube. (3) Movement disorder: Current visit: No Status: Chronic Saw Dr. Mathew as outpatient. Her akesthesia, dyskinesia movements are not new and an extensive workup has been done to evaluate the causes. She will have to follow this up as outpatient. However, I feel that the shaking seen by patient's landlord yesterday may have had more to do with gabapentin toxicity. GPN level is pending. (4) Multiple sclerosis: Current visit: No Status: Chronic Not on any medications at this time. Follow up as outpatient. (5) Hypertension: Current visit: No Status: Chronic Continue metoprolol; add norvasc. Qualifiers: Hypertension type: essential hypertension Qualified Code(s): I10 - Essential (primary) hypertension (6) Depression: Current visit: No Status: Chronic Resume sertraline and trazodone Qualifiers: Depression Type: major depressive disorder Active/Remission status: remission status unspecified (7) Chronic pain: Current visit: No Status: Chronic Has a history of oversedation with opiates. On none currently. GPN could be resumed tomorrow if there is no evidence of liver or renal toxicity, but at a lower dose and with the boyfriend's guarantee that he will protect the patient's gabapentin supply. Qualifiers: Chronic pain type: chronic pain syndrome Qualified Code(s): G89.4 - Chronic pain syndrome (8) UTI (urinary tract infection): Current visit: Yes Status: Acute continue IV rocephin 1 gm daily. Await C&S. In setting of urinary retention - continue soliz. Qualifiers: Urinary tract infection type: acute cystitis (9) Noncompliance with medication treatment due to abuse of medication: Current visit: Yes Status: Acute As above (10) Gabapentin-induced toxicity: Current visit: Yes Status: Acute GPN level pending. As above (11) Urinary retention: Current visit: Yes Status: Chronic s/p soliz. Will need a voiding trial prior to discharge (12) Discharge planning issues: Current visit: Yes Status: Acute Full code. Will need home health RN on discharge (13) DVT prophylaxis: Current visit: Yes Status: Acute TEDs + SCD's (history of recent GI bleeding) Subjective Interval history since last seen: The patient verbalizes she does not want to stay here and expressive somewhat of paranoid ideation when it comes to nursing as to the reasons why. We discussed how she, indeed, took too much gabapentin (boyfriend confirmed this), was overdosing on tylenol PM, and that she could not continue that behavior. We discussed how she also needs a soliz catheter right now and has a UTI. She does not want to listen and would like to go home. There have been no witnessed seizures and the patient is evidently back at her baseline. Exam Narrative Exam Narrative: General: agitated middle-aged female, appears older than her stated age, A&Ox2, spent the majority of my visit with her vocalizing loudly and not listening to me HEENT: EOMI, MMM Heart: RRR, no m/r/g Lungs: CTAB GI: abdomen is soft, nontender, nondistended Extremities: no e/c/c BLE's Objective Objective Clinical Data: Abnormal lab results 06/11/18 06/11/18 06/11/18 Range/Units 07:10 07:10 07:10 RBC 3.12 L (4.00-5.20) m/cumm Hgb 9.0 L (12.0-15.5) g/dL Hct 28.3 L (36.0-46.0) % MCHC 31.8 L (32.0-36.0) g/dL Anion Gap 14.2 H (3-11) mmol/L BUN 26 H D (7-18) mg/dL Folate > 20.0 H (8.6-20.0) ng/mL Acetaminophen (10-30) ug/mL 06/11/18 Range/Units 15:32 RBC (4.00-5.20) m/cumm Hgb (12.0-15.5) g/dL Hct (36.0-46.0) % MCHC (32.0-36.0) g/dL Anion Gap (3-11) mmol/L BUN (7-18) mg/dL Folate (8.6-20.0) ng/mL Acetaminophen < 2 L (10-30) ug/mL Vital Signs Temperature 37.6 C H 06/11/18 18:48 Temperature Source Tympanic 06/11/18 18:48 Pulse 86 06/11/18 18:48 Pulse Rhythm Regular 06/11/18 16:00 Pulse 67 06/10/18 19:46 Respiratory Rate 19 06/11/18 18:48 Respiratory Effort 06/11/18 16:00 Respiratory Depth Normal 06/11/18 16:00 Respiratory Pattern Normal 06/11/18 16:00 Blood Pressure 193/80 H 06/11/18 18:48 Blood Pressure Mean 108 06/10/18 19:46 Blood Pressure Position Supine 06/10/18 14:58 Pulse Oximetry 98 06/11/18 18:48 Oxygen Delivery Method Room Air 06/11/18 18:48 Oxygen Flow Rate 0 06/11/18 18:48 Pain Level 0 06/11/18 11:20 Comment 06/11/18 10:14 Intake & Output 06/10/18 06/11/18 06/11/18 23:59 11:59 23:59 Intake Total 50 / 50 250 / 940 690 / 940 Output Total 1400 / 2100 700 / 2100 Balance 50 / 50 -1150 / -1160 -10 / -1160 Weight 46.1 kg 46.1 kg Intake: IV 50 / 50 10 / 220 210 / 220 Oral 240 / 720 480 / 720 Output: Urine 1400 / 2100 700 / 2100 Other: Urine Color Yellow Yellow Yellow Straw Urine Appearance Clear Clear Clear Stool Size Large Stool Characteristics Soft Laboratory Results WBC 8.89 k/cumm (4.4-10.8) 06/11/18 07:10 RBC 3.12 m/cumm (4.00-5.20) L 06/11/18 07:10 Hgb 9.0 g/dL (12.0-15.5) L 06/11/18 07:10 Hct 28.3 % (36.0-46.0) L 06/11/18 07:10 MCV 90.7 fL (80-95) 06/11/18 07:10 MCH 28.8 pg (27.0-33.0) 06/11/18 07:10 MCHC 31.8 g/dL (32.0-36.0) L 06/11/18 07:10 RDW 13.6 % (11.7-14.6) 06/11/18 07:10 Plt Count 233 x1000/uL (130-400) 06/11/18 07:10 MPV 9.8 fL (8.0-11.0) 06/11/18 07:10 Immature Gran % 0.1 06/11/18 07:10 Neutrophils % 71.7 06/11/18 07:10 Lymphocytes % 15.1 06/11/18 07:10 Monocytes % 7.3 06/11/18 07:10 Eosinophils % 5.4 06/11/18 07:10 Basophils % 0.4 06/11/18 07:10 Absolute Neutrophils 6.37 k/cumm (1.2-6.7) 06/11/18 07:10 Absolute Lymphocytes 1.34 k/cumm (1.2-3.4) 06/11/18 07:10 Absolute Monocytes 0.65 k/cumm (0.11-0.7) 06/11/18 07:10 Absolute Eosinophils 0.48 k/cumm (0.0-0.7) 06/11/18 07:10 Absolute Basophils 0.04 k/cumm (0.0-0.2) 06/11/18 07:10 Differential Comment Rbc morph reviewed 06/11/18 07:10 RBC Morphology See below 06/11/18 07:10 Polychromasia Present 06/11/18 07:10 Hypochromasia 1+ 06/10/18 14:35 Poikilocytosis 1+ 06/11/18 07:10 Sodium 144 mmol/L (136-145) 06/11/18 07:10 Potassium 3.5 mmol/L (3.5-5.1) 06/11/18 07:10 Chloride 106 mmol/L (98-107) 06/11/18 07:10 Carbon Dioxide 23.8 mmol/L (21.0-32.0) 06/11/18 07:10 Anion Gap 14.2 mmol/L (3-11) H 06/11/18 07:10 BUN 26 mg/dL (7-18) H D 06/11/18 07:10 Creatinine 0.84 mg/dL (0.55-1.02) 06/11/18 07:10 Estimated GFR/1.73 m2 >= 60.00 (mL/min/1.73m2) 06/11/18 07:10 Glucose 100 mg/dL (70-100) 06/11/18 07:10 Calcium 9.6 mg/dL (8.5-10.1) 06/11/18 07:10 Magnesium 1.8 mg/dL (1.8-2.4) 06/11/18 07:10 Total Bilirubin 0.3 mg/dL (0.2-1.0) 06/10/18 14:35 AST 29 U/L (15-37) 06/10/18 14:35 ALT 29 U/L (12-78) 06/10/18 14:35 Alkaline Phosphatase 111 U/L (46-116) 06/10/18 14:35 Ammonia 13 umol/L (11-32) 06/10/18 18:44 Creatine Kinase 96 U/L (26-192) 06/11/18 07:10 Troponin I < 0.02 ng/mL (0.00-0.06) 06/10/18 14:35 Total Protein 7.6 g/dL (6.4-8.2) 06/10/18 14:35 Albumin 4.0 g/dL (3.4-5.0) 06/10/18 14:35 Lipase 278 U/L (73-393) 06/10/18 14:35 Folate > 20.0 ng/mL (8.6-20.0) H 06/11/18 07:10 TSH 2.85 uIU/mL (0.358-3.74) 06/11/18 07:10 Urine Color Yellow (Yellow) 06/10/18 14:55 Urine Clarity Clear 06/10/18 14:55 Urine pH 6.0 (5-8) 06/10/18 14:55 Ur Specific [place] 1.010 (1.005-1.025) 06/10/18 14:55 Urine Protein Negative mg/dL (Negative) 06/10/18 14:55 Urine Ketones Negative mg/dL (Negative) 06/10/18 14:55 Urine Blood Negative (Negative) 06/10/18 14:55 Urine Nitrite Negative (Negative) 06/10/18 14:55 Urine Bilirubin Negative (Negative) 06/10/18 14:55 Urine Urobilinogen 0.2 EU/dL (Up TO 0.2) 06/10/18 14:55 Ur Leukocyte Esterase Trace (Negative) H 06/10/18 14:55 Urine RBC Negative (0-2) 06/10/18 14:55 Urine WBC 20-50 HPF (0-5) 06/10/18 14:55 Ur Epithelial Cells Rare HPF (Negative) 06/10/18 14:55 Urine Crystals HPF (Negative) 06/10/18 14:55 Urine Bacteria Rare HPF (Negative) 06/10/18 14:55 Urine Casts Negative LPF (Negative) 06/10/18 14:55 Urine Mucus Negative (Negative) 06/10/18 14:55 Ur Culture Indicated? Yes 06/10/18 14:55 Urine Glucose Negative mg/dL (Negative) 06/10/18 14:55 Salicylates < 2.8 mg/dL (2.8-20.0) L 06/10/18 14:35 Urine Opiates Screen Negative (Negative) 06/10/18 14:55 Urine Methadone Screen Negative (Negative) 06/10/18 14:55 Acetaminophen < 2 ug/mL (10-30) L 06/11/18 15:32 Ur Barbiturates Screen Negative (Negative) 06/10/18 14:55 Ur Tricyclics Screen Positive (Negative) 06/10/18 14:55 Ur Amphetamines Screen Negative (Negative) 06/10/18 14:55 U Benzodiazepines Scrn Negative (Negative) 06/10/18 14:55 Urine Cocaine Screen Negative (Negative) 06/10/18 14:55 Ur THC Screen Positive (Negative) 06/10/18 14:55
[2018-06-11] MEDS: Amitriptyline 50 MG TAB 100 MG PO (22:37)
[2018-06-11] MEDS: Melatonin 3 MG TAB 9 MG PO (22:37)
[2018-06-11] MEDS: traZODone 100 MG TAB 50 MG PO (22:37)
[2018-06-12] MEDS: Metoprolol 50 MG TAB PO ×4 (01:56→21:41)
[2018-06-12 02:01] VITALS: BP 171/85; PULSE 86; RESP 17; TEMP 36.9; O2SAT 99
--- NOTE | 2018-06-12 02:37 | NUR.NOTE ---
Nursing Note: 06/11/18 Patient refuses to take her pills crushed and prefers it swallowed whole. Upon assessment, patient can talk in complete sentences and can swallow liquids with ease. Patient also refused enteral feeding from this RN
[2018-06-12] MEDS: Omeprazole 20 MG CAPCR 40 MG PO ×2 (07:58→20:29)
[2018-06-12] MEDS: amLODIPine 5 MG TAB PO (07:58)
[2018-06-12] MEDS: Sertraline 50 MG TAB 100 MG PO (07:58)
[2018-06-12] MEDS: Atorvastatin 20 MG TAB 80 MG PO (07:58)
[2018-06-12] MEDS: Docusate Sodium 100 MG CAP PO ×2 (07:59→20:29)
[2018-06-12 08:00] VITALS: BP 192/95; PULSE 91; RESP 22; TEMP 37; O2SAT 99
[2018-06-12 10:49] VITALS: BP 185/90; PULSE 92; RESP 22; TEMP 37; O2SAT 99
--- NOTE | 2018-06-12 12:53 | CMPROGNOTE_ITS ---
Care Management Progress Note S/O: Deepti was sitting p in her recliner and initiated a conversation immediately. States everyone here is in on a plan to charge her with cocaine use and have her put away for a year. States she has heard several conversations in the hallway but now they are hiding and talking in rooms where she can't hear what they say. Reassured her that she was not the target of any discussion the staff members were having and there were no plans to charge her with any cocaine related events. Shifted the conversation to ask about things at home and she shared that she has a Pug (dog) that she loves and it makes her feel happy to be around the dog. States that Marek works but whenhe is home the talk and watch TV together. She enjoys laura and spends time creating things. Says she has a lot of really great neighbors and then became frightened sating that if she is a convicted felon the will be forced to remove her from the building. Asked that I contact Marek and she spoke with him on the phone. Asked him to come get her and was upset that he would not. She did say I love you before she hung up the phone. A: 68 yo female admitted for altered mental status who is currently very suspicious of the hospital setting and staff. Receiving nutrition via J tube as well as small amounts PO. P: Kena will return to her significant other and their apartment in [place] when medically cleared for discharge. Marek will transport. Resume Moderate needs services and all of her previous community supports.
--- NOTE | 2018-06-12 12:59 | NUR.NOTE ---
Nursing Note: Pt is A&Ox3 but delusional @ this time. She is very suspicious of all staff. She is perseverating on the hospital accusing her of doing cocaine and thinks everything being said is about her. She is picking up voices from the hallway and assuming the things being said are about her, this seems to be increasing her agitation. She thinks the nursing staff have turned her boyfriend, Beau against her. She has been repeatedly calling her botfiend on the telephone as well as the police. Pt moved to Room 214 to try and decrease stimuli. no improvement seem in mental status up to this point on this shift. Will continue to attempt to provide reassurance to Pt that she is safe here and we are here to help her.
[2018-06-12 15:10] VITALS: BP 161/78; PULSE 103; RESP 14; TEMP 36.7; O2SAT 100
--- NOTE | 2018-06-12 19:11 | PGE_ITS ---
Date of Service Date of service: 06/12/18 Time of Service: 19:00 Assessment and Plan (1) Altered mental status: Current visit: Yes Status: Acute Presumed secondary to overdose/poor compliance with home regimen of gabapentin and [id number] Tylenol PM. Patient also with evidence of a UTI as potential etiology. Mental status appears to be improved and at baseline, and no further evidence of significant tremors other than baseline myoclonic jerking. Will likely benefit from assistance in taking her medications at home in the future. (2) UTI (urinary tract infection): Current visit: Yes Status: Acute Potential UTI by urinalysis, but with cultures so far showing 10?50,000 colonies per mL only of an enterococcus species. Review of patient's culture data from April shows growth of Enterococcus faecalis that was pansensitive. For now will await official urine culture, speciation, and sensitivities, continue ceftriaxone but add vancomycin for additional coverage of potential enterococcus species as well. Final determination of antibiotic coverage pending results of urine culture. Qualifiers: Urinary tract infection type: acute cystitis (3) Movement disorder: Current visit: No Status: Chronic Noted akathisia, amnesia, and generalized jerking type movements are noted to be chronic. Patient is undergone an extensive prior workup. No evidence of the initial tremors that brought her to the hospital. Symptoms appear to be and all reportedly at patient's baseline. (4) Noncompliance with medication treatment due to abuse of medication: Current visit: Yes Status: Acute Gabapentin currently on hold, with plans of reinitiation if patient resumes at her baseline. Trouble will be with appropriate dispensing and use at home. Will discuss with care management prior to discharge. (5) Urinary retention: Current visit: Yes Status: Chronic Void trial today. (6) DVT prophylaxis: Current visit: Yes Status: Acute Teds and SCDs, with recent history of both GI bleeding as well as surgery as previously noted. Continue to maintain on PPI therapy as well for GI Prophylaxis. Subjective Interval history since last seen: 68 year old woman with a prior medical history significant for MS and chronic movement disorder, admitted from [facility] Emergency Department on 06/10 with a diagnosis of Ms. Pallavi has a history of secondary progressive multiple sclerosis, chronic m ovement disorder (primarily myoclonic jerking, tremors felt to be either MS or polypharmacy and centrally acting meds), psychosis and anxiety disorder, along with depression, PTSD, chronic insomnia, chronic back pain from lumbar disc disease and sciatica, and memory loss. She also has a history of Gastric Ulcers and severe malnutrition. She has a previously noted history of opiate misuse, and suspected current inappropriate use of both Gabapentin and Tylenol PM. She was recently discharged from [facility] after being admitted there between 05/12 to 05/17 for treatment of yeast esophagitis and malnutrition, underwent an initially laparoscopic, converted to open cholecystectomy, with EDEN and takedown of a duodenal gastric fistula with placement of a J-tube and EGD. The patient had a previous laparoscopic conversion of her Matthew-en-Y for marginal ulcers and bile reflux gastritis. She was discharged home with adequate oral intake as well as tube feeds. Patient initially presented to the ED via EMS with a reported acute change in mental status. She was also noted to have generalized tremors, in fact being found sitting in a chair with 'shaking all over' and poor verbal response. According to verbal history from the patient's boyfriend she has a known history of seizure disorders, however not on AEDs and with no history per review of neurology's notes. Workup in the ED was fairly unremarkable with the exception of an anemia that has been present in the past. Patient's urinalysis was suggestive of a potential UTI, and her UDS was positive for try cyclic's (she does take amitriptyline at home) as well as for THC (on medical marijuana). CT of the head, abdomen, and pelvis were essentially unremarkable. She was admitted for further evaluation and treatment. This morning Ms. Olivo continues to appear somewhat paranoid, distrusting of nursing staff and accusing the hospital of attempting to 'frame'her for cocaine use. There have been no witnessed seizures while hospitalized. The patient appears to be at her baseline mental status. No overnight events reported. She remains afebrile. Objective Objective Clinical Data: Vital Signs Temperature 36.7 C 06/12/18 15:10 Temperature Source Tympanic 06/12/18 15:10 Pulse 103 H 06/12/18 15:10 Pulse Rhythm Regular 06/12/18 15:10 Pulse 67 06/10/18 19:46 Respiratory Rate 14 06/12/18 15:10 Respiratory Effort Non-Labored 06/12/18 15:10 Respiratory Depth Normal 06/12/18 15:10 Respiratory Pattern Normal 06/12/18 15:10 Blood Pressure 161/78 H 06/12/18 15:10 Blood Pressure Mean 108 06/10/18 19:46 Blood Pressure Position Supine 06/10/18 14:58 Pulse Oximetry 100 06/12/18 15:10 Oxygen Delivery Method Room Air 06/12/18 15:10 Oxygen Flow Rate 0 06/12/18 15:10 Pain Level 0 06/11/18 11:20 Comment 06/11/18 10:14 Intake & Output 06/11/18 06/12/18 06/12/18 23:59 11:59 23:59 Intake Total 740 / 990 1150 / 1150 Output Total 1175 / 2575 900 / 900 Balance -435 / -1585 250 / 250 Weight 46.1 kg 37.8 kg Intake: IV 260 / 270 Oral 480 / 720 1150 / 1150 Output: Urine 1175 / 2575 900 / 900 Output, Residual 0 / 0 Other: Urine Color Yellow Yellow Straw Urine Appearance Clear Clear Stool Size Small Stool Characteristics Formed Voiding Methods Indwelling Catheter Laboratory Results WBC 8.89 k/cumm (4.4-10.8) 06/11/18 07:10 RBC 3.12 m/cumm (4.00-5.20) L 06/11/18 07:10 Hgb 9.0 g/dL (12.0-15.5) L 06/11/18 07:10 Hct 28.3 % (36.0-46.0) L 06/11/18 07:10 MCV 90.7 fL (80-95) 06/11/18 07:10 MCH 28.8 pg (27.0-33.0) 06/11/18 07:10 MCHC 31.8 g/dL (32.0-36.0) L 06/11/18 07:10 RDW 13.6 % (11.7-14.6) 06/11/18 07:10 Plt Count 233 x1000/uL (130-400) 06/11/18 07:10 MPV 9.8 fL (8.0-11.0) 06/11/18 07:10 Immature Gran % 0.1 06/11/18 07:10 Neutrophils % 71.7 06/11/18 07:10 Lymphocytes % 15.1 06/11/18 07:10 Monocytes % 7.3 06/11/18 07:10 Eosinophils % 5.4 06/11/18 07:10 Basophils % 0.4 06/11/18 07:10 Absolute Neutrophils 6.37 k/cumm (1.2-6.7) 06/11/18 07:10 Absolute Lymphocytes 1.34 k/cumm (1.2-3.4) 06/11/18 07:10 Absolute Monocytes 0.65 k/cumm (0.11-0.7) 06/11/18 07:10 Absolute Eosinophils 0.48 k/cumm (0.0-0.7) 06/11/18 07:10 Absolute Basophils 0.04 k/cumm (0.0-0.2) 06/11/18 07:10 Differential Comment Rbc morph reviewed 06/11/18 07:10 RBC Morphology See below 06/11/18 07:10 Polychromasia Present 06/11/18 07:10 Hypochromasia 1+ 06/10/18 14:35 Poikilocytosis 1+ 06/11/18 07:10 Sodium 144 mmol/L (136-145) 06/11/18 07:10 Potassium 3.5 mmol/L (3.5-5.1) 06/11/18 07:10 Chloride 106 mmol/L (98-107) 06/11/18 07:10 Carbon Dioxide 23.8 mmol/L (21.0-32.0) 06/11/18 07:10 Anion Gap 14.2 mmol/L (3-11) H 06/11/18 07:10 BUN 26 mg/dL (7-18) H D 06/11/18 07:10 Creatinine 0.84 mg/dL (0.55-1.02) 06/11/18 07:10 Estimated GFR/1.73 m2 >= 60.00 (mL/min/1.73m2) 06/11/18 07:10 Glucose 100 mg/dL (70-100) 06/11/18 07:10 Calcium 9.6 mg/dL (8.5-10.1) 06/11/18 07:10 Magnesium 1.8 mg/dL (1.8-2.4) 06/11/18 07:10 Total Bilirubin 0.3 mg/dL (0.2-1.0) 06/10/18 14:35 AST 29 U/L (15-37) 06/10/18 14:35 ALT 29 U/L (12-78) 06/10/18 14:35 Alkaline Phosphatase 111 U/L (46-116) 06/10/18 14:35 Ammonia 13 umol/L (11-32) 06/10/18 18:44 Creatine Kinase 96 U/L (26-192) 06/11/18 07:10 Troponin I < 0.02 ng/mL (0.00-0.06) 06/10/18 14:35 Total Protein 7.6 g/dL (6.4-8.2) 06/10/18 14:35 Albumin 4.0 g/dL (3.4-5.0) 06/10/18 14:35 Lipase 278 U/L (73-393) 06/10/18 14:35 Folate > 20.0 ng/mL (8.6-20.0) H 06/11/18 07:10 TSH 2.85 uIU/mL (0.358-3.74) 06/11/18 07:10 Urine Color Yellow (Yellow) 06/10/18 14:55 Urine Clarity Clear 06/10/18 14:55 Urine pH 6.0 (5-8) 06/10/18 14:55 Ur Specific [place] 1.010 (1.005-1.025) 06/10/18 14:55 Urine Protein Negative mg/dL (Negative) 06/10/18 14:55 Urine Ketones Negative mg/dL (Negative) 06/10/18 14:55 Urine Blood Negative (Negative) 06/10/18 14:55 Urine Nitrite Negative (Negative) 06/10/18 14:55 Urine Bilirubin Negative (Negative) 06/10/18 14:55 Urine Urobilinogen 0.2 EU/dL (Up TO 0.2) 06/10/18 14:55 Ur Leukocyte Esterase Trace (Negative) H 06/10/18 14:55 Urine RBC Negative (0-2) 06/10/18 14:55 Urine WBC 20-50 HPF (0-5) 06/10/18 14:55 Ur Epithelial Cells Rare HPF (Negative) 06/10/18 14:55 Urine Crystals HPF (Negative) 06/10/18 14:55 Urine Bacteria Rare HPF (Negative) 06/10/18 14:55 Urine Casts Negative LPF (Negative) 06/10/18 14:55 Urine Mucus Negative (Negative) 06/10/18 14:55 Ur Culture Indicated? Yes 06/10/18 14:55 Urine Glucose Negative mg/dL (Negative) 06/10/18 14:55 Salicylates < 2.8 mg/dL (2.8-20.0) L 06/10/18 14:35 Urine Opiates Screen Negative (Negative) 06/10/18 14:55 Urine Methadone Screen Negative (Negative) 06/10/18 14:55 Acetaminophen < 2 ug/mL (10-30) L 06/11/18 15:32 Ur Barbiturates Screen Negative (Negative) 06/10/18 14:55 Ur Tricyclics Screen Positive (Negative) 06/10/18 14:55 Ur Amphetamines Screen Negative (Negative) 06/10/18 14:55 U Benzodiazepines Scrn Negative (Negative) 06/10/18 14:55 Urine Cocaine Screen Negative (Negative) 06/10/18 14:55 Ur THC Screen Positive (Negative) 06/10/18 14:55
[2018-06-12] MEDS: Normal Saline Flush 10 ML SYR IVP (20:30)
[2018-06-12] MEDS: cefTRIAXone 1 GM/50 ML BAG IVPB (20:30)
[2018-06-12] MEDS: Melatonin 3 MG TAB 9 MG PO (21:40)
[2018-06-12] MEDS: traZODone 100 MG TAB 50 MG PO (21:41)
[2018-06-12] MEDS: Amitriptyline 50 MG TAB 100 MG PO (21:41)
[2018-06-12] MEDS: VANCOMYCIN 500 MG in Normal Saline 100 ML 100 MG IV (21:42)
[2018-06-12 23:53] VITALS: BP 184/98; PULSE 97; RESP 19; TEMP 37; O2SAT 95
[2018-06-13] MEDS: Acetaminophen 325 MG TAB PO (00:11)
[2018-06-13 01:33] LABS: Gabapentin 3.2 mcg/mL (2.0-20.0)
[2018-06-13] MEDS: Metoprolol 50 MG TAB PO ×4 (02:33→19:21)
[2018-06-13 04:15] VITALS: BP 177/89; PULSE 85; RESP 20; TEMP 36.7; O2SAT 100
[2018-06-13 07:22] VITALS: BP 198/84; PULSE 95; RESP 20; TEMP 36; O2SAT 99
[2018-06-13] MEDS: Sertraline 50 MG TAB 100 MG PO (08:29)
[2018-06-13] MEDS: VANCOMYCIN 500 MG in Normal Saline 100 ML 100 MG IV (08:29)
[2018-06-13] MEDS: amLODIPine 5 MG TAB PO (08:29)
[2018-06-13] MEDS: Normal Saline Flush 10 ML SYR IVP (08:29)
[2018-06-13] MEDS: Omeprazole 20 MG CAPCR 40 MG PO ×2 (08:29→19:18)
[2018-06-13] MEDS: Atorvastatin 20 MG TAB 80 MG PO (08:29)
[2018-06-13 08:30] LABS: Abs Immature Grans 0.01 k/cumm (0.0-0.09); Absolute Basophil Count 0.03 k/cumm (0.0-0.2); Absolute Eosinophil Count 0.15 k/cumm (0.0-0.7); Absolute Lymphocyte Count 1.61 k/cumm (1.2-3.4); Absolute Monocyte Count 0.91 k/cumm (0.11-0.7); Absolute Neutrophil Count 8.48 k/cumm (1.2-6.7); Basophils % 0.3; Eosinophils % 1.3; HCT 33.6 % (36.0-46.0); HGB 10.4 g/dL (12.0-15.5); Immature Grans % 0.1; Lymphocytes % 14.4; Mean Corpuscular Hemoglobin 27.7 pg (27.0-33.0); Mean Corpuscular Volume 89.4 fL (80-95); Mean Platelet Volume 9.8 fL (8.0-11.0); Monocytes % 8.1; Neutrophils % 75.8; Platelet Count 266 x1000/uL (130-400); RBC 3.76 m/cumm (4.00-5.20); RBC Distribution Width 13.8 % (11.7-14.6); White Blood Cell Count 11.19 k/cumm (4.4-10.8)
[2018-06-13] MEDS: Docusate Sodium 100 MG CAP PO ×2 (08:30→19:18)
[2018-06-13 08:41] LABS: Anion Gap 10.6 mmol/L (3-11); BUN 22 mg/dL (7-18); CO2 27.4 mmol/L (21.0-32.0); CREATININE 0.76 mg/dL (0.55-1.02); Calcium 9.7 mg/dL (8.5-10.1); Chloride 103 mmol/L (98-107); Glucose 143 mg/dL (70-100); Magnesium 1.5 mg/dL (1.8-2.4); Potassium 3.7 mmol/L (3.5-5.1); Sodium 141 mmol/L (136-145)
[2018-06-13] MEDS: MAGNESIUM SULFATE 2 GM/50 ML BAG IVPB (10:33)
[2018-06-13] MEDS: POTASSIUM CHLORIDE 20 MEQ, POTASSIUM CHLORIDE 10 MEQ 30 MEQ PO (10:33)
[2018-06-13] MEDS: Fosfomycin Tromethamine 3 GM PACKET PO (10:34)
[2018-06-13 11:25] VITALS: BP 186/98; PULSE 95; RESP 18; TEMP 36.7; O2SAT 100
[2018-06-13] MEDS: Gabapentin 400 MG CAP 800 MG PO ×2 (13:07→19:20)
--- NOTE | 2018-06-13 14:51 | PGE_ITS ---
Date of Service Date of service: 06/13/18 Time of Service: 14:47 Assessment and Plan (1) Altered mental status: Current visit: Yes Status: Acute Presumed secondary to overdose/poor compliance with home regimen of gabapentin and oinm-svd-smwbfih Tylenol PM. Patient also with evidence of a UTI as potential etiology. Patient is currently oriented X3, but continues to be agitated and paranoid. In discussion with her boyfriend it appears that this is a new finding for the patient - however, he does admit to prior episode of altered mental status for which she was hospitalized in the past. Review of records with evidence of hospitalization last year in 2018 - patient was admitted with 'recurrence' of mental status change shortly after discharge for the same diagnosis with katerin arent full recovery. She apparently received a dose of Seroquel at night and slept well, with complete resolution of her altered mental status. During her repeat hospitalization the same course of action was undertaken, and again with complete resolution of her altered mental status. Patient is oriented, and no further evidence of significant tremors other than baseline myoclonic jerking. However, she continues to be agitated and appears delusional and paranoid. According to nursing she has also not slept in 2 nights. Will attempt low dose Seroquel this evening and reevaluate. Patient without significant electrolyte derangement, no focal deficits, and without fever or significant leukocytosis (11), with UTI under treatment. Monitor, with further work-up pending results of above intervention. (2) UTI (urinary tract infection): Current visit: Yes Status: Acute Potential UTI by urinalysis, but with cultures so far showing 10?50,000 colonies per mL only of enterococcus Faecalis. Fosfomycin X1 today for treatment of this uncomplicated UTI. Qualifiers: Urinary tract infection type: acute cystitis (3) Movement disorder: Current visit: No Status: Chronic Generalized jerking type movements are noted to be chronic. Patient is undergone an extensive prior workup. No evidence of the initial tremors that brought her to the hospital. Symptoms appear to be and all reportedly at patient's baseline. (4) Noncompliance with medication treatment due to abuse of medication: Current visit: Yes Status: Acute Gabapentin to restart today. Trouble will be with appropriate dispensing and use at home. Will discuss with care management prior to discharge. (5) Urinary retention: Current visit: Yes Status: Chronic Void trial successful. (6) DVT prophylaxis: Current visit: Yes Status: Acute Teds and SCDs, with recent history of both GI bleeding as well as surgery as previously noted. Continue to maintain on PPI therapy as well for GI Prophylaxis. Subjective Interval history since last seen: 68 year old woman with a prior medical history significant for MS and chronic movement disorder, admitted from [facility] Emergency Department on 06/10 with a diagnosis of MsOdessa Olivo has a history of secondary progressive multiple sclerosis, chronic movement disorder (primarily myoclonic jerking, tremors felt to be either MS or polypharmacy and centrally acting meds), psychosis and anxiety disorder, along with depression, PTSD, chronic insomnia, chronic back pain from lumbar disc disease and sciatica, and memory loss. She also has a history of Gastric Ulcers and severe malnutrition. She has a previously noted history of opiate misuse, and suspected current inappropriate use of both Gabapentin and Tylenol PM. She was recently discharged from [facility] after being admitted there between 05/12 to 04/30 for treatment of yeast esophagitis and malnutrition, underwent an initially laparoscopic, converted to open cholecystectomy, with EDEN and takedown of a duodenal gastric fistula with placement of a J-tube and EGD. The patient had a previous laparoscopic conversion of her Matthew-en-Y for marginal ulcers and bile reflux gastritis. She was discharged home with adequate oral intake as well as tube feeds. Patient initially presented to the ED via EMS with a reported acute change in mental status. She was also noted to have generalized tremors, in fact being found sitting in a chair with 'shaking all over' and poor verbal response. According to verbal history from the patient's boyfriend she has a known history of seizure disorders, however not on AEDs and with no history per review of neurology's notes. Workup in the ED was fairly unremarkable with the exception of an anemia that has been present in the past. Patient's urinalysis was suggestive of a potential UTI, and her UDS was positive for Tricyclics (she does take amitriptyline at home) as well as for THC (on medical marijuana). CT of the head, abdomen, and pelvis were essentially unremarkable. She was admitted for further evaluation and treatment. This morning Ms. Olivo continues to appear paranoid, distrusting of nursing staff and accusing the hospital of attempting to 'frame' her for cocaine use. There have been no witnessed seizures while hospitalized. She freely admits to misusing her Gabapentin prior to her admission. Her tremors have resolved, but while oriented the patient appears to be off her baseline mental status. No overnight events reported. She remains afebrile. Exam Narrative Exam Narrative: General: Patient appears comfortable, AAOX3, NAD Neck: Supple CV: Regular, nontachycardic, S1S2, No rubs, murmurs, or gallops. Pulmonary: Clear to auscultation bilaterally, no crackles, wheezing, or rhonchi Abdomen: + Bowel Sounds, soft, nontender, nondistended Vascular: No lower extremity edema Neurologic: CN II-XII grossly intact. No focal deficits. Psych: Normal mood and affect. Objective Objective Clinical Data: Abnormal lab results 06/13/18 06/13/18 Range/Units 07:55 07:55 WBC 11.19 H (4.4-10.8) k/cumm RBC 3.76 L (4.00-5.20) m/cumm Hgb 10.4 L (12.0-15.5) g/dL Hct 33.6 L (36.0-46.0) % MCHC 31.0 L (32.0-36.0) g/dL Absolute Neutrophils 8.48 H (1.2-6.7) k/cumm Absolute Monocytes 0.91 H (0.11-0.7) k/cumm BUN 22 H (7-18) mg/dL Glucose 143 H (70-100) mg/dL Magnesium 1.5 L (1.8-2.4) mg/dL Vital Signs Temperature 36.7 C 06/13/18 11:25 Temperature Source Tympanic 06/13/18 11:25 Pulse 95 H 06/13/18 11:25 Pulse Rhythm Regular 06/13/18 09:16 Pulse 67 06/10/18 19:46 Respiratory Rate 18 06/13/18 11:25 Respiratory Effort Non-Labored 06/13/18 09:16 Respiratory Depth Normal 06/13/18 09:16 Respiratory Pattern Normal 06/13/18 09:16 Blood Pressure 186/98 H 06/13/18 11:25 Blood Pressure Mean 108 06/10/18 19:46 Blood Pressure Position Supine 06/10/18 14:58 Pulse Oximetry 100 06/13/18 11:25 Oxygen Delivery Method Room Air 06/13/18 11:25 Oxygen Flow Rate 0 06/13/18 11:25 Pain Level 0 06/11/18 11:20 Comment 06/13/18 04:15 Intake & Output 06/12/18 06/13/18 06/13/18 23:59 11:59 23:59 Intake Total 150 / 1310 1279 / 1519 240 / 1519 Output Total 550 / 900 350 / 900 Balance 150 / 410 729 / 619 -110 / 619 Intake: IV 150 / 160 110 / 110 Oral 400 / 640 240 / 640 Intake, Tube Feeding Amount 769 / 769 Output: Urine 550 / 900 350 / 900 Output, Residual 0 / 0 Other: Urine Color Yellow Yellow Urine Appearance Clear Clear Urine Odor Normal Comment pt voided directly in toilet, measuring hat added at this time. Stool Size Small Stool Characteristics Soft Formed Liquid Brown Voiding Methods Bedside Commode Bedside Commode Laboratory Results WBC 11.19 k/cumm (4.4-10.8) H 06/13/18 07:55 RBC 3.76 m/cumm (4.00-5.20) L 06/13/18 07:55 Hgb 10.4 g/dL (12.0-15.5) L 06/13/18 07:55 Hct 33.6 % (36.0-46.0) L 06/13/18 07:55 MCV 89.4 fL (80-95) 06/13/18 07:55 MCH 27.7 pg (27.0-33.0) 06/13/18 07:55 MCHC 31.0 g/dL (32.0-36.0) L 06/13/18 07:55 RDW 13.8 % (11.7-14.6) 06/13/18 07:55 Plt Count 266 x1000/uL (130-400) 06/13/18 07:55 MPV 9.8 fL (8.0-11.0) 06/13/18 07:55 Immature Gran % 0.1 06/13/18 07:55 Neutrophils % 75.8 06/13/18 07:55 Lymphocytes % 14.4 06/13/18 07:55 Monocytes % 8.1 06/13/18 07:55 Eosinophils % 1.3 06/13/18 07:55 Basophils % 0.3 06/13/18 07:55 Absolute Neutrophils 8.48 k/cumm (1.2-6.7) H 06/13/18 07:55 Absolute Lymphocytes 1.61 k/cumm (1.2-3.4) 06/13/18 07:55 Absolute Monocytes 0.91 k/cumm (0.11-0.7) H 06/13/18 07:55 Absolute Eosinophils 0.15 k/cumm (0.0-0.7) 06/13/18 07:55 Absolute Basophils 0.03 k/cumm (0.0-0.2) 06/13/18 07:55 Differential Comment Rbc morph reviewed 06/11/18 07:10 RBC Morphology See below 06/11/18 07:10 Polychromasia Present 06/11/18 07:10 Hypochromasia 1+ 06/10/18 14:35 Poikilocytosis 1+ 06/11/18 07:10 Sodium 141 mmol/L (136-145) 06/13/18 07:55 Potassium 3.7 mmol/L (3.5-5.1) 06/13/18 07:55 Chloride 103 mmol/L (98-107) 06/13/18 07:55 Carbon Dioxide 27.4 mmol/L (21.0-32.0) 06/13/18 07:55 Anion Gap 10.6 mmol/L (3-11) 06/13/18 07:55 BUN 22 mg/dL (7-18) H 06/13/18 07:55 Creatinine 0.76 mg/dL (0.55-1.02) 06/13/18 07:55 Estimated GFR/1.73 m2 >= 60.00 (mL/min/1.73m2) 06/13/18 07:55 Glucose 143 mg/dL (70-100) H 06/13/18 07:55 Calcium 9.7 mg/dL (8.5-10.1) 06/13/18 07:55 Magnesium 1.5 mg/dL (1.8-2.4) L 06/13/18 07:55 Total Bilirubin 0.3 mg/dL (0.2-1.0) 06/10/18 14:35 AST 29 U/L (15-37) 06/10/18 14:35 ALT 29 U/L (12-78) 06/10/18 14:35 Alkaline Phosphatase 111 U/L (46-116) 06/10/18 14:35 Ammonia 13 umol/L (11-32) 06/10/18 18:44 Creatine Kinase 96 U/L (26-192) 06/11/18 07:10 Troponin I < 0.02 ng/mL (0.00-0.06) 06/10/18 14:35 Total Protein 7.6 g/dL (6.4-8.2) 06/10/18 14:35 Albumin 4.0 g/dL (3.4-5.0) 06/10/18 14:35 Lipase 278 U/L (73-393) 06/10/18 14:35 Folate > 20.0 ng/mL (8.6-20.0) H 06/11/18 07:10 TSH 2.85 uIU/mL (0.358-3.74) 06/11/18 07:10 Urine Color Yellow (Yellow) 06/10/18 14:55 Urine Clarity Clear 06/10/18 14:55 Urine pH 6.0 (5-8) 06/10/18 14:55 Ur Specific Cowgill 1.010 (1.005-1.025) 06/10/18 14:55 Urine Protein Negative mg/dL (Negative) 06/10/18 14:55 Urine Ketones Negative mg/dL (Negative) 06/10/18 14:55 Urine Blood Negative (Negative) 06/10/18 14:55 Urine Nitrite Negative (Negative) 06/10/18 14:55 Urine Bilirubin Negative (Negative) 06/10/18 14:55 Urine Urobilinogen 0.2 EU/dL (Up TO 0.2) 06/10/18 14:55 Ur Leukocyte Esterase Trace (Negative) H 06/10/18 14:55 Urine RBC Negative (0-2) 06/10/18 14:55 Urine WBC 20-50 HPF (0-5) 06/10/18 14:55 Ur Epithelial Cells Rare HPF (Negative) 06/10/18 14:55 Urine Crystals HPF (Negative) 06/10/18 14:55 Urine Bacteria Rare HPF (Negative) 06/10/18 14:55 Urine Casts Negative LPF (Negative) 06/10/18 14:55 Urine Mucus Negative (Negative) 06/10/18 14:55 Ur Culture Indicated? Yes 06/10/18 14:55 Urine Glucose Negative mg/dL (Negative) 06/10/18 14:55 Salicylates < 2.8 mg/dL (2.8-20.0) L 06/10/18 14:35 Urine Opiates Screen Negative (Negative) 06/10/18 14:55 Urine Methadone Screen Negative (Negative) 06/10/18 14:55 Acetaminophen < 2 ug/mL (10-30) L 06/11/18 15:32 Ur Barbiturates Screen Negative (Negative) 06/10/18 14:55 Gabapentin 3.2 mcg/mL (2.0-20.0) 06/11/18 07:10 Ur Tricyclics Screen Positive (Negative) 06/10/18 14:55 Ur Amphetamines Screen Negative (Negative) 06/10/18 14:55 U Benzodiazepines Scrn Negative (Negative) 06/10/18 14:55 Urine Cocaine Screen Negative (Negative) 06/10/18 14:55 Ur THC Screen Positive (Negative) 06/10/18 14:55
--- NOTE | 2018-06-13 16:26 | PDOC.CMPRO ---
Care Management Progress Note S/O: Deepti was sitting p in her recliner and seemed calmer today. She started to talk about the cocaine conspiracy but was easily redirected to other subjects. Stated she wanted t leave and go home but agreed to stay one more night. Did remove her own IV and said she did it because she thought she was going home. A: 68 yo female admitted for altered mental status. Receiving nutrition via J tube as well as small amounts PO. P: Kena will return to her significant other, Marek Ames, and their apartment in [place] when medically cleared for discharge. Marek will transport. Resume Moderate needs services and all of her previous community supports.
--- NOTE | 2018-06-13 16:30 | CMPROGNOTE_ITS ---
Care Management Progress Note S/O: Deepti was sitting p in her recliner and seemed calmer today. She started to talk about the cocaine conspiracy but was easily redirected to other subjects. Stated she wanted t leave and go home but agreed to stay one more night. Did remove her own IV and said she did it because she thought she was going home. A: 68 yo female admitted for altered mental status. Receiving nutrition via J tube as well as small amounts PO. P: Kena will return to her significant other, Marek Ames, and their apartment in [place] when medically cleared for discharge. Marek will transport. Resume Moderate needs services and all of her previous community supports.
--- NOTE | 2018-06-13 16:35 | NUR.NOTE ---
pt is sleeping at this time. Nursing Note:
[2018-06-13 17:53] VITALS: BP 175/89; PULSE 98; RESP 18; TEMP 36.8; O2SAT 100
[2018-06-13] MEDS: QUEtiapine 25 MG TAB 50 MG PO (19:21)
[2018-06-13 20:08] VITALS: BP 135/78; PULSE 94; RESP 18; TEMP 37; O2SAT 99
[2018-06-13] MEDS: Melatonin 3 MG TAB 9 MG PO (21:38)
[2018-06-13] MEDS: traZODone 100 MG TAB 50 MG PO (21:38)
[2018-06-13] MEDS: Amitriptyline 50 MG TAB 100 MG PO (21:38)
--- NOTE | 2018-06-13 23:22 | NUR.NOTE ---
CBC order cxl'd as pt refused draw- Dr. Baker aware. Nursing Note:
[2018-06-14] MEDS: Metoprolol 50 MG TAB PO ×3 (01:59→13:30)
[2018-06-14 02:30] VITALS: BP 151/81; PULSE 72; RESP 18; TEMP 35.9; O2SAT 100
[2018-06-14 07:26] VITALS: BP 122/74; PULSE 75; RESP 19; TEMP 36.6; O2SAT 97
[2018-06-14] MEDS: amLODIPine 5 MG TAB PO (08:11)
[2018-06-14] MEDS: Gabapentin 400 MG CAP 800 MG PO ×2 (08:11→13:30)
[2018-06-14] MEDS: Docusate Sodium 100 MG CAP PO (08:11)
[2018-06-14] MEDS: Ferrous Sulfate 325 MG TAB PO (08:11)
[2018-06-14] MEDS: Omeprazole 20 MG CAPCR 40 MG PO (08:11)
[2018-06-14] MEDS: Sertraline 50 MG TAB 100 MG PO (08:11)
[2018-06-14] MEDS: Ascorbic Acid 500 MG TAB PO (08:11)
[2018-06-14] MEDS: Atorvastatin 20 MG TAB 80 MG PO (08:11)
[2018-06-14 08:45] LABS: Anion Gap 7.6 mmol/L (3-11); BUN 28 mg/dL (7-18); CO2 27.4 mmol/L (21.0-32.0); CREATININE 0.91 mg/dL (0.55-1.02); Calcium 9.1 mg/dL (8.5-10.1); Chloride 103 mmol/L (98-107); Glucose 102 mg/dL (70-100); Magnesium 1.9 mg/dL (1.8-2.4); Potassium 4.7 mmol/L (3.5-5.1); Sodium 138 mmol/L (136-145)
--- NOTE | 2018-06-14 09:06 | CMDISCH_ITS ---
LACE Index Scoring Tool - Questions: Length of Stay (in days): 2 Acuity (Admit via E.D.?): Yes Comorbidities: Liver or Renal Disease E.D. Visits: 9 - Answers: Total Score: 14 Risk of Readmission: High Risk Care Management Discharge Reason for Hospitalization: AMS, restlessness UTI Discharge Plan: Kena will return to her significant other, Marek Ames, and their apartment in [place] when medically cleared for discharge. Marek will transport via private vehicle. Resume Moderate needs services and previous community supports. Patient/Family Education Needs: Review discharge instructions, discuss Ask Me Three. Services Needed at Discharge: Home Health Care Services, Homemaking Services
[2018-06-14 11:14] VITALS: BP 142/79; PULSE 68; RESP 19; TEMP 36.6; O2SAT 100
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
== END 2018-06-14 14:30 | disposition home or self-care (01) | DRG 71 ==
LOC: ER 18:59 → MS 20:15
PROVIDERS: Internal Medicine; Surgery; Admitting Provider Internal Medicine; Emergency Provider Physician Assistant; PCP Nurse Practitioner Family; Visit Provider Internal Medicine
DX: G93.41 Metabolic encephalopathy (principal); N39.0 Urinary tract infection, site not specified; E46 Unspecified protein-calorie malnutrition; Z68.1 Body mass index [BMI] 19.9 or less, adult; K82.3 Fistula of gallbladder; T42.6X1A Poisoning by other antiepileptic and sedative-hypnotic drugs, accidental (unintentional), initial encounter; Z91.14 Patient's other noncompliance with medication regimen; G25.3 Myoclonus; F22 Delusional disorders; R13.10 Dysphagia, unspecified; B95.2 Enterococcus as the cause of diseases classified elsewhere; G35 Multiple sclerosis; D53.9 Nutritional anemia, unspecified; F41.8 Other specified anxiety disorders; F43.10 Post-traumatic stress disorder, unspecified; G89.29 Other chronic pain; R33.9 Retention of urine, unspecified; F51.04 Psychophysiologic insomnia; Z87.19 Personal history of other diseases of the digestive system; Z98.890 Other specified postprocedural states; Z93.4 Other artificial openings of gastrointestinal tract status; K25.7 Chronic gastric ulcer without hemorrhage or perforation; D51.0 Vitamin B12 deficiency anemia due to intrinsic factor deficiency
CPT/HCPCS: 36415; 80048; 80053; 80171; 80307; 82550; 83690; 87077; 92610; 93005; 96365; 97163; 99223; 99232; 99233; 99239; 99253; 99285; NC; 70450; 71046; 72125; 74177; 80329; 81003; 81015; 82140; 82746; 83735; 84443; 84484; 85025; 87086; 87186; 93010; G0378; J0696; J1200; J1756; J3490

== ENCOUNTER 2018-06-17 07:46 | Emergency (ER) | payer MEDICARE, MEDICAID, SELFPAY ==
[2018-06-17 07:51] VITALS: BP 167/71; PULSE 73; RESP 20; TEMP 36.9; O2SAT 98
[2018-06-17 08:53] VITALS: RESP 20
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
[2018-06-17 09:11] LABS: Bilirubin Negative (Negative); Blood Negative (Negative); Clarity Clear; Glucose Negative (Negative); Ketones Negative (Negative); Leukocyte Esterase Negative (Negative); Nitrite Negative (Negative); Specific Gravity 1.015 (1.005-1.025); Urobilinogen 0.2 EU/dL (Up TO 0.2)
[2018-06-17 09:41] VITALS: BP 167/71; PULSE 73; RESP 20; TEMP 36.9; O2SAT 98
== END 2018-06-17 10:09 | disposition home or self-care (01) ==
PROVIDERS: Emergency Provider Student in an Organized Health Care Education/Training Program; PCP Nurse Practitioner Family
DX: R33.9 Retention of urine, unspecified (principal)
CPT/HCPCS: 99284; 81003

== ENCOUNTER → 2018-07-01 14:45 | Outpatient (BNVA) | payer MEDICARE, MEDICAID, SELFPAY | PROVIDERS: PCP Nurse Practitioner Family; Visit Provider Urology | DX: R33.9 Retention of urine, unspecified (principal); G35 Multiple sclerosis | CPT/HCPCS: 99203; 99214 ==

== ENCOUNTER 2018-07-16 09:23 | Emergency (ER) | payer MEDICARE, MEDICAID, SELFPAY ==
[2018-07-16 09:25] VITALS: BP 198/72; PULSE 103; RESP 20; TEMP 36.5; O2SAT 99
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
[2018-07-16] MEDS: Metoprolol 50 MG TAB PO (09:50)
[2018-07-16 10:19] LABS: Bilirubin Negative (Negative); Blood Negative (Negative); Clarity Clear; Glucose Negative (Negative); Ketones Negative (Negative); Leukocyte Esterase Negative (Negative); Nitrite Negative (Negative); Specific Gravity 1.015 (1.005-1.025); Urobilinogen 0.2 EU/dL (Up TO 0.2)
[2018-07-16 10:24] LABS: Bacteria Rare HPF (Negative); C & S Indicated? No; Casts Negative LPF (Negative); Crystals Negative HPF (Negative); Epithelial Cells Rare HPF (Negative); Mucus Negative (Negative); RBC 0-2 (0-2); WBC 0-2 HPF (0-5)
[2018-07-16 10:29] LABS: Abs Immature Grans 0.01 k/cumm (0.0-0.09); Absolute Basophil Count 0.05 k/cumm (0.0-0.2); Absolute Eosinophil Count 0.25 k/cumm (0.0-0.7); Absolute Lymphocyte Count 1.17 k/cumm (1.2-3.4); Absolute Monocyte Count 0.39 k/cumm (0.11-0.7); Absolute Neutrophil Count 3.25 k/cumm (1.2-6.7); Eosinophils % 4.9; HCT 31.9 % (36.0-46.0); HGB 10.1 g/dL (12.0-15.5); Immature Grans % 0.2; Lymphocytes % 22.9; Mean Corp. HGB Concentration 31.7 g/dL (32.0-36.0); Mean Corpuscular Volume 88.4 fL (80-95); Mean Platelet Volume 9.9 fL (8.0-11.0); Monocytes % 7.6; Neutrophils % 63.4; Platelet Count 191 x1000/uL (130-400); RBC 3.61 m/cumm (4.00-5.20); RBC Distribution Width 16.2 % (11.7-14.6); White Blood Cell Count 5.12 k/cumm (4.4-10.8)
[2018-07-16 10:44] LABS: ALT 58 U/L (12-78); AST 39 U/L (15-37); Albumin 3.8 g/dL (3.4-5.0); Alkaline Phosphatase 118 U/L (46-116); Anion Gap 11.6 mmol/L (3-11); BUN 18 mg/dL (7-18); Bilirubin, Total 0.3 mg/dL (0.2-1.0); CO2 25.4 mmol/L (21.0-32.0); CREATININE 0.86 mg/dL (0.55-1.02); Calcium 9.2 mg/dL (8.5-10.1); Chloride 105 mmol/L (98-107); Glucose 90 mg/dL (70-100); Magnesium 1.3 mg/dL (1.8-2.4); Potassium 3.6 mmol/L (3.5-5.1); Sodium 142 mmol/L (136-145); Total Protein 7.1 g/dL (6.4-8.2)
[2018-07-16] MEDS: Magnesium Oxide 400 MG TAB PO (11:02)
== END 2018-07-16 11:17 | disposition home or self-care (01) ==
PROVIDERS: Emergency Provider Nurse Practitioner Family; PCP Nurse Practitioner Family
DX: G25.9 Extrapyramidal and movement disorder, unspecified (principal); G35 Multiple sclerosis; E83.42 Hypomagnesemia; D64.9 Anemia, unspecified
CPT/HCPCS: 36415; 51701; 80053; 99283; 81003; 81015; 83735; 85025

== ENCOUNTER 2018-07-22 16:56 | Emergency (ER) | payer MEDICARE, MEDICAID, SELFPAY ==
[2018-07-22 17:05] VITALS: BP 181/64; PULSE 54; RESP 18; O2SAT 100
[2018-07-22 18:23] VITALS: RESP 18
--- NOTE | 2018-07-22 18:31 | DI.CT_ITS ---
SYMPTOM/DIAGNOSIS: CONFUSION NONCONTRAST HEAD CT: Comparison is made with 06/10/18. No intracranial hemorrhage, mass or infarct is seen. There is no evidence of skull fracture. The sinuses and mastoid air cells appear clear. The ventricles are normal in size. There is mild atrophy and mild white matter changes consistent with small vessel disease. IMPRESSION: No acute abnormality.
[2018-07-22 19:01] LABS: Bilirubin Negative (Negative); Blood Negative (Negative); Clarity Clear; Glucose Negative (Negative); Ketones Negative (Negative); Leukocyte Esterase Negative (Negative); Nitrite Negative (Negative); Specific Gravity 1.015 (1.005-1.025); Urobilinogen 0.2 EU/dL (Up TO 0.2)
[2018-07-22 19:23] LABS: Absolute Basophil Count 0.04 k/cumm (0.0-0.2); Absolute Eosinophil Count 0.44 k/cumm (0.0-0.7); Absolute Lymphocyte Count 2.08 k/cumm (1.2-3.4); Absolute Monocyte Count 0.61 k/cumm (0.11-0.7); Basophils % 0.6; Eosinophils % 6.1; HCT 33.7 % (36.0-46.0); HGB 10.4 g/dL (12.0-15.5); Lymphocytes % 28.6; Mean Corp. HGB Concentration 30.9 g/dL (32.0-36.0); Mean Corpuscular Volume 90.6 fL (80-95); Mean Platelet Volume 10.5 fL (8.0-11.0); Monocytes % 8.4; Neutrophils % 56.3; Platelet Count 202 x1000/uL (130-400); RBC 3.72 m/cumm (4.00-5.20); RBC Distribution Width 16.8 % (11.7-14.6); White Blood Cell Count 7.27 k/cumm (4.4-10.8)
--- NOTE | 2018-07-22 19:36 | DI.VRAD_ITS ---
EXAM: CT Head Without Contrast EXAM DATE/TIME: 07/22/2018 6:32 PM CLINICAL HISTORY: 68 years old, female; Signs and symptoms; Other: Confused; R/O acute process. ; Patient HX: PT states she fell today with loc, witness claims she hit her head (unsure of where) TECHNIQUE: Imaging protocol: Axial computed tomography images of the head without contrast. Coronal and sagittal reformatted images were created and reviewed. Radiation optimization: All CT scans at this facility use at least one of these dose optimization techniques: automated exposure control; mA and/or kV adjustment per patient size (includes targeted exams where dose is matched to clinical indication); or iterative reconstruction. COMPARISON: CT HEAD CERVICAL SPINE WO 06/10/2018 4:27 PM FINDINGS: Brain: Age-related involutional changes and chronic microvascular ischemic disease. No evidence for acute transcortical infarct. No mass effect or midline shift. No extra-axial collection. No acute intracranial hemorrhage. Basal cisterns are patent. Ventricles: Normal. No ventriculomegaly. Bones/joints: Unremarkable. No acute fracture. Sinuses: Visualized sinuses are unremarkable. No fluid levels. Mastoid air cells: Visualized mastoid air cells are well aerated. No mastoid effusion. Soft tissues: Unremarkable. IMPRESSION: No evidence for acute transcortical infarct, acute intracranial hemorrhage, or mass effect. Dictated and Authenticated by: Rolando Lemus MD. Ordering:VENTURA Queen MD
[2018-07-22 19:37] LABS: ALT 36 U/L (12-78); AST 34 U/L (15-37); Albumin 3.8 g/dL (3.4-5.0); Alkaline Phosphatase 109 U/L (46-116); Anion Gap 10.7 mmol/L (3-11); BUN 15 mg/dL (7-18); Bilirubin, Total 0.3 mg/dL (0.2-1.0); CO2 27.3 mmol/L (21.0-32.0); CREATININE 0.97 mg/dL (0.55-1.02); Calcium 9.2 mg/dL (8.5-10.1); Chloride 109 mmol/L (98-107); Estimated GFR 57.28 (mL/min/1.73m2); Glucose 95 mg/dL (70-100); Potassium 4.2 mmol/L (3.5-5.1); Sodium 147 mmol/L (136-145); Total Protein 6.9 g/dL (6.4-8.2)
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
[2018-07-22] MEDS: Dexamethasone 10 MG/ML VIAL PO (20:23)
--- NOTE | 2018-07-22 20:35 | NUR.NOTE ---
Nursing Note: Pt ambulated with steady gait, stand by assist.
[2018-07-22 20:45] VITALS: BP 104/68; PULSE 69; RESP 16; TEMP 36.6; O2SAT 100
== END 2018-07-22 20:46 | disposition home or self-care (01) ==
PROVIDERS: Emergency Provider Physician Assistant; PCP Nurse Practitioner Family
DX: R53.83 Other fatigue (principal); R20.2 Paresthesia of skin; Z91.81 History of falling; G35 Multiple sclerosis; I12.0 Hypertensive chronic kidney disease with stage 5 chronic kidney disease or end stage renal disease; N18.9 Chronic kidney disease, unspecified
CPT/HCPCS: 36415; 80053; 93005; 96374; 99285; 70450; 81003; 85025; 93010; J1100

== ENCOUNTER 2018-09-19 14:03 | Inpatient (IN) | payer MEDICARE, MEDICAID, SELFPAY ==
[2018-09-19] VITALS (104 sets, daily range): BP systolic 115–225; BP diastolic 56–99; PULSE 50–65; RESP 11–17; TEMP 36–36.4; O2SAT 96–100
[2018-09-19 14:36] LABS: Abs Immature Grans 0.01 k/cumm (0.0-0.09); Absolute Basophil Count 0.03 k/cumm (0.0-0.2); Absolute Monocyte Count 0.46 k/cumm (0.11-0.7); Basophils % 0.4; Eosinophils % 3.7; HCO3 (Venous) 19 mmol/L (22-28); HCT 37.2 % (36.0-46.0); HGB 12.1 g/dL (12.0-15.5); Immature Grans % 0.1; Lymphocytes % 15.9; Mean Corp. HGB Concentration 32.5 g/dL (32.0-36.0); Mean Corpuscular Hemoglobin 29.1 pg (27.0-33.0); Mean Corpuscular Volume 89.4 fL (80-95); Mean Platelet Volume 10.3 fL (8.0-11.0); Monocytes % 5.6; Neutrophils % 74.3; O2 Sat (Venous) 69 % (70-80); Platelet Count 165 x1000/uL (130-400); RBC 4.16 m/cumm (4.00-5.20); RBC Distribution Width 17.9 % (11.7-14.6); TCO2 (Venous) 19 mmol/L (22-29); pCO2 (Venous) 47 mm/Hg (34-47); pH (Venous) 7.22 (7.32-7.43); pO2 (Venous) 41 mm/Hg (28-44)
--- NOTE | 2018-09-19 14:36 | ED.GENADUL_ITS ---
Discharge Plan Discharge Details Chief Complaint: OD/Poison Admit Date/Time: 09/19/18 17:58 Admit Provider: Adolph South Attending Provider: Adolph Sotuh Primary Care Provider: Adina Navarro ED Provider: Sanya Vang Medical Decision Making 68-year-old female with multiple medical problems history of accidental overdose presents to the emergency department obtunded with concern for polypharmacy overdose. Patient bradycardic and hypotensive hypotension resolved with IV fluids and time. Medications of concern include amitriptyline though no EKG changes consistent with tricyclic overdose no R in aVR no QRS widening; metoprolol patient bradycardic but not hypotensive continue to monitor, gabapentin patient obtunded possibly secondary to this overdose no seizure activity intubated for airway protection and diminishing gag reflex during ED observation. CT had normal labs largely unremarkable initial VBG with pH of 7.2 and a mild anion gap elevation that normalized with time. Contacted poison control and main no further recommendations salicylates Tylenol negative patient discussed with internal medicine for admission to the intensive care unit. ECG Data Attestation: I personally reviewed and interpreted this ECG (s) as follows: (Sinus bradycardia 51 normal axis normal intervals no ectopy no R in aVR no QRS widening mild T wave flattening) HPI 68-year-old female with history of anxiety, hypertension, hyperlipidemia, CKD, PTSD, MS found obtunded by her boyfriend's a.m. son who is power of litigation attorney associate on vacation in [place] EMS was summoned found patient unresponsive IV access obtained via right tibial IO patient given empiric naloxone without change. On arrival patient minimally responsive to deep noxious stimuli bradycardic 45-55 with mild hypotension 100/60. Patient has blister packs of medications but it is unclear which she has taken recently up to 4 days of the blister packs or missing medications of concern include gabapentin and amitriptyline metoprolol. Family reports the patient prior to this history of inappropriate accidental medication use General Date/Time Provider Initiated Documentation: 09/19/18 14:25 . Related Data Home Medications Medication Instructions Recorded Confirmed atorvastatin [Lipitor] 40 tab PO DAILY 03/31/13 09/19/18 Ultra-Light Rollator #1 05/23/14 07/16/18 melatonin 9 mg PO HS #90 tabcr 11/19/16 09/19/18 sertraline 100 mg PO DAILY #1 tab-cap 02/09/17 09/19/18 amitriptyline 100 mg PO HS 05/19/17 09/19/18 ascorbic acid (vitamin C) [Vitamin 500 mg PO .QOD #30 tab 07/22/17 09/19/18 C] omeprazole 40 mg PO BID #60 capcr 08/24/17 09/19/18 trazodone 100 mg tablet 50 mg PO HS tab 11/11/17 09/19/18 Medical Marijuana 1 tab PO HS 11/23/17 09/19/18 gabapentin 800 mg tablet 800 mg PO TID #90 tab-cap 04/12/18 09/19/18 Colace Clear 1 mg PO BID 06/10/18 09/19/18 ferrous sulfate 325 mg PO .EVERY OTHER DAY 06/10/18 09/19/18 metoprolol tartrate 50 mg PO .Q6HRS 06/10/18 09/19/18 dicyclomine 20 mg PO QID 09/19/18 09/19/18 Previous Rx's Medication Instructions Recorded melatonin 9 mg PO HS #90 tabcr 11/19/16 sertraline 100 mg PO DAILY #1 tab-cap 02/09/17 ascorbic acid (vitamin C) [Vitamin 500 mg PO .QOD #30 tab 07/22/17 C] omeprazole 40 mg PO BID #60 capcr 08/24/17 gabapentin 800 mg tablet 800 mg PO TID #90 tab-cap 04/12/18 Allergies Allergy/AdvReac Type Severity Reaction Status Date / Time ciprofloxacin [From Cipro] Allergy Severe Skin Rash, Verified 07/16/18 09:29 vomiting latex Allergy Severe gets SOB Verified 07/16/18 09:29 and can't talk prochlorperazine edisylate Allergy Severe Anaphylaxsi Verified 07/16/18 09:29 [From Compazine] s prochlorperazine maleate Allergy Severe Anaphylaxsi Verified 07/16/18 09:29 [From Compazine] s ziprasidone mesylate Allergy Severe neuroleptic Verified 07/16/18 09:29 [From Geodon] malignant syndrome codeine Allergy Skin Rash, Verified 07/16/18 09:29 nausea General Stated Complaint: OD/Poison KARYN: 1 Review of Systems Review of Systems Unobtainable due to mental condition [facility] Social History Smoking/Tobacco Use Status: Never Alcohol Intake: never Drug use: Daily Substance use type: marijuana Household members: significant other Do you feel safe at home: Yes Do you feel safe in your relationship?: Yes Additional Social history: She moved to [place] from [place] in 2012. Disabled. Lives with S.O. No smoking, ETOH. Uses medical MJ. Exam Const General: disheveled, frail appearing and ill appearing Nutritional Appearance: underweight Orientation: obtunded Limitations: altered mental status [facility] Head: normal to inspection, no palpable skull fracture, normocephalic and atraumatic General nose exam: external nose normal Face and sinus: normal facial exam Mouth: oral mucosae normal Eyes General: appearance normal, both eyes and all related structures Neck Neck: normal visual inspection, full ROM, no lymphadenopathy and no meningeal signs Chest Chest: normal inspection of the chest Resp Effort & Inspection: normal respiratory effort Auscultation: clear to auscultation bilaterally Cardio Rate: bradycardic Rhythm: regular rhythm GI Inspection: normal to inspection Palpation: soft Percussion: normal to percussion Auscultation: normal bowel sounds Rectal Exam - female: visual inspection normal Skin General skin exam: no rashes or lesions noted Neuro General: obtunded Comatose Patient: response to noxious stimuli present Pupils: Normal pupillary reactivity/response: bilateral Course Vital Signs Temperature 36.0 C L 09/19/18 14:08 Pulse 50 L 09/19/18 14:08 Respiratory Rate 12 09/19/18 14:08 Blood Pressure 168/64 H 09/19/18 14:08 Pulse Oximetry 100 09/19/18 14:08 Temperature 36.0 C L 09/19/18 14:08 Temperature Source Temporal Artery Scan 09/19/18 14:08 Pulse 50 L 09/19/18 14:08 Respiratory Rate 12 09/19/18 14:08 Blood Pressure 168/64 H 09/19/18 14:08 Pulse Oximetry 100 09/19/18 14:08 Oxygen Delivery Method Room Air 09/19/18 14:08 Oxygen Flow Rate 0 09/19/18 14:08 Procedures Intubation Time out performed: Yes sedative: Ketamine paralytic: Rocuronium Laryngoscope: Latanya ET Tube Size: 7.5 Tube Secured Depth (cm): 22 Tube Secured Location: teeth Tube Placement Confirmation: visualized tube passing through cords, equal breath sounds bilaterally, no breath sounds over epigastrum and confirmation by capnometry Patient Tolerated Procedure: well Intubation Complications: none Critical Care Time Critical Care Time: Yes Total Critical Care Time: 50 Attestation: I spent 50 minutes of critical care time on this unstable critically ill patient with concern for polypharmacy overdose and altered mental status included bedside evaluation chart review expert consultation with toxicology internal medicine this time did not include procedures
[2018-09-19 14:37] LABS: BE (Venous) -8.3 mmol/L (-3-3); Lactate-non-spesis 0.7 mmol/l (0.6-1.4)
--- NOTE | 2018-09-19 14:44 | DI.CT_ITS ---
SYMPTOMS/DIAGNOSIS: ASPIRATION, ALTERED MENTAL STATUS, POLYPHARMACY OVERDOSE CT BRAIN, NONCONTRAST: Comparison is with 07/22/18. There is stable mild cerebral atrophy and small vessel ischemic disease. No acute territorial infarct, hemorrhage, midline shift or mass effect is identified. The ventricles are intact. The basilar cisterns are patent. The visualized paranasal sinuses are clear, as are the mastoid air cells. The calvarium is intact. IMPRESSION: No acute intracranial process.
--- NOTE | 2018-09-19 14:45 | DI.RAD_ITS ---
SYMPTOMS/DIAGNOSIS: ASPIRATION; ENDOTRACHEAL TUBE PLACEMENT, NASOGASTRIC TUBE PLACEMENT CHEST X-RAY, SINGLE FRONTAL VIEW: Comparison is with 06/10/18. The heart size and pulmonary vasculature are within normal limits given the projection. No focal infiltrates are seen. There is poor inspiration. No effusions or pneumothoraces are identified. Postsurgical changes are seen in the lower cervical spine and the mid thoracic spine. There are surgical clips again seen in the left upper quadrant of the abdomen. IMPRESSION: No acute pulmonary process. CHEST X-RAY, SINGLE AP VIEW: Comparison is with examination from earlier in the day. There has been interval placement of endotracheal tube, the tip is in good position above the jennifer. It lies approximately 3.5 cm above the jennifer. There has been interval placement of a nasogastric tube, the tip is seen in the body of the stomach. The lungs remain clear and well expanded. The heart size and pulmonary vasculature are stable.
[2018-09-19] MEDS: Naloxone 0.4 MG/ML VIAL IVP (14:46)
[2018-09-19] MEDS: Ondansetron 4 MG/2 ML VIAL IVP (14:47)
--- NOTE | 2018-09-19 14:49 | NUR.NOTE ---
1430- PT TAKEN TO CT WITH THIS NURSE AT BEDSIDE 1439- PT MEDICATED PER MDO W/O EFFECT PT REMAINS UNRESPONSIVE TO VERBAL STIUMLI/ STERNAL RUB Nursing Note:
--- NOTE | 2018-09-19 14:50 | DI.VRAD_ITS ---
EXAM: CT Head Without Contrast EXAM DATE/TIME: 09/19/2018 2:28 PM CLINICAL HISTORY: 68 years old, female; Altered mental status/memory loss; Confusion or disorientation; Patient HX: Aspiration. Non responsive TECHNIQUE: Imaging protocol: Computed tomography images of the head without contrast. Coronal and sagittal reformatted images were created and reviewed. Radiation optimization: All CT scans at this facility use at least one of these dose optimization techniques: automated exposure control; mA and/or kV adjustment per patient size (includes targeted exams where dose is matched to clinical indication); or iterative reconstruction. COMPARISON: CT HEAD WO 07/22/2018 7:15 PM FINDINGS: Chronic white matter changes of probable small vessel disease. No evidence of hemorrhage. No mass effect. No acute intracranial abnormality. IMPRESSION: No evidence of acute intracranial process. Dictated and Authenticated by: Nemesio Herron MD. Ordering:JHONATHAN Segundo MD
[2018-09-19 14:54] LABS: ALT 34 U/L (12-78); AST 29 U/L (15-37); Albumin 3.7 g/dL (3.4-5.0); Alkaline Phosphatase 130 U/L (46-116); Anion Gap 12.6 mmol/L (3-11); BUN 26 mg/dL (7-18); Bilirubin, Total 0.3 mg/dL (0.2-1.0); CO2 21.4 mmol/L (21.0-32.0); CREATININE 1.53 mg/dL (0.55-1.02); Chloride 110 mmol/L (98-107); Estimated GFR 33.85 (mL/min/1.73m2); Glucose 101 mg/dL (70-100); Magnesium 1.9 mg/dL (1.8-2.4); Potassium 3.3 mmol/L (3.5-5.1); Sodium 144 mmol/L (136-145); Total Protein 6.8 g/dL (6.4-8.2)
--- NOTE | 2018-09-19 14:59 | DI.VRAD_ITS ---
EXAM: XR Chest, 1 View EXAM DATE/TIME: 09/19/2018 2:33 PM CLINICAL HISTORY: 68 years old, female; Other: Aspiration TECHNIQUE: Imaging protocol: XR of the chest, 1 view. COMPARISON: SC XR CHEST 2V PA LATERAL 06/10/2018 4:51 PM FINDINGS: Lung hernandez clear. Prior surgical fixation of lower cervical spine. Prior surgical fixation of the mid thoracic spine. Heart is prominent but accentuated by technique. IMPRESSION: No evidence of acute cardiopulmonary disease. Dictated and Authenticated by: Nemesio Herron MD. Ordering:JHONATHAN Segundo MD
[2018-09-19 15:07] LABS: ETHANOL BLOOD < 3.0 mg/dL (<3); Troponin I < 0.05 ng/mL (0.00-0.06)
[2018-09-19 15:16] LABS: Bilirubin Negative (Negative); Blood Negative (Negative); Clarity Clear (Clear); Glucose Negative (Negative); Ketones Negative (Negative); Leukocyte Esterase Negative (Negative); Nitrite Negative (Negative); Urobilinogen 0.2 EU/dL (Up TO 0.2)
[2018-09-19 15:19] LABS: Salicylate < 2.8 mg/dL (2.8-20.0)
[2018-09-19 15:27] LABS: Acetaminophen < 2 ug/mL (10-30)
[2018-09-19 15:34] LABS: *AMPHETAMINES SCREEN URINE Negative (Negative); *BARBITURATES SCREEN URINE Negative (Negative); *BENZODIAZEPINES SCREEN URINE Negative (Negative); Cannabinoids THC POSITIVE (Negative); Cocaine Screen,Urine Negative (Negative); METHADONE URINE SCREEN Negative (Negative); OPIATES URINE SCREEN Negative (Negative)
[2018-09-19 15:36] LABS: Tricyclic Antidepressants POSITIVE (Negative)
[2018-09-19] MEDS: fentaNYL 100 MCG/2 ML VIAL (16:25)
[2018-09-19] MEDS: PROPOFOL 1,000 MG/100 ML BTL 1.905 MG IVPB (16:41)
[2018-09-19] MEDS: Rocuronium 50 MG/5 ML SYR 100 MG IVP (16:41)
[2018-09-19] MEDS: Ketamine 500 MG/10 ML VIAL 200 MG IVP (16:41)
[2018-09-19] MEDS: fentaNYL 1,000 MCG in Normal Saline 80 ML 6.35 MCG IV (16:51)
[2018-09-19 17:07] LABS: FIO2 100 %; Site Left Radial; pH 7.33 (7.35-7.45)
[2018-09-19 17:08] LABS: pCO2 24 mmHg (34-47); pO2 71 mmHg (83-108); sO2 93 % (94-98); tCO2 13 mmol/L (22-29)
[2018-09-19 17:09] LABS: HCO3 13 mmol/L (22-28)
--- NOTE | 2018-09-19 17:11 | NUR.NOTE ---
pt intubated 7.5 et tune 23 at tolorating vent setting well vitals monitor on desk monitor pt medicated as per mdo for sedation tolorating well at this time family at bedside will cont to monitor pt haley Nursing Note:
--- NOTE | 2018-09-19 17:44 | DI.VRAD_ITS ---
EXAM: XR Chest, 1 View EXAM DATE/TIME: 09/19/2018 5:24 PM CLINICAL HISTORY: 68 years old, female; Device placement; Patient HX: Et tube placement/og tube placement TECHNIQUE: Imaging protocol: XR of the chest, 1 view. COMPARISON: SC XR CHEST 1V IN DI DEPT 09/19/2018 2:39 PM FINDINGS: Interval insertion of endotracheal tube in good position. Interval insertion of nasogastric tube in good position. Prior surgical fixation of lower cervical spine. Prior surgical fixation of the mid to lower thoracic spine. No focal pulmonary consolidation. IMPRESSION: Endotracheal tube and nasogastric tube in good position with no other significant change. Dictated and Authenticated by: Nemesio Herron MD. Ordering:JHONATHAN Segundo MD
[2018-09-19] MEDS: fentaNYL 1,000 MCG/20 ML VIAL 1000 MCG (18:06)
[2018-09-19 18:21] LABS: HCO3 (Venous) 16 mmol/L (22-28); TCO2 (Venous) 16 mmol/L (22-29); pCO2 (Venous) 37 mm/Hg (34-47); pH (Venous) 7.25 (7.32-7.43); pO2 (Venous) 50 mm/Hg (28-44)
[2018-09-19 18:22] LABS: O2 Sat (Venous) 81 % (70-80)
--- NOTE | 2018-09-19 18:23 | NUR.NOTE ---
first attempt made to call icu for report Nursing Note:
--- NOTE | 2018-09-19 18:33 | NUR.NOTE ---
pt cont on vent tolorating settings well at this time sedation/pain medication infusing as per mdo vitals captured on cardaic monitor will cont to monitor pt haley Nursing Note:
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
[2018-09-19 20:29] LABS: Troponin I < 0.05 ng/mL (0.00-0.06)
[2018-09-19] MEDS: POTASSIUM CHLORIDE/0.9% NACL 1,000 ML 150 MEQ IV (21:25)
[2018-09-19] MEDS: Pantoprazole 40 MG VIAL IVP (21:53)
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
[2018-09-20] VITALS (57 sets, daily range): BP systolic 106–225; BP diastolic 53–84; PULSE 47–94; RESP 7–21; TEMP 36.5–37.4; O2SAT 81–100
[2018-09-20] MEDS: SODIUM BICARBONATE 150 MEQ in DEXTROSE 5%-WATER 850 ML 42 MEQ IV
[2018-09-20 00:17] LABS: Troponin I < 0.05 ng/mL (0.00-0.06)
[2018-09-20] MEDS: fentaNYL 1,000 MCG in Normal Saline 80 ML 12.383 MCG IV (01:40)
--- NOTE | 2018-09-20 03:25 | SUR.PHASEII ---
pt arrived in ICU with Left tibial IO from field. dc'd per Dr South.
[2018-09-20] MEDS: POTASSIUM CHLORIDE/0.9% NACL 1,000 ML 150 MEQ IV (03:37)
[2018-09-20] MEDS: Normal Saline 500 ML 1000 ML IV (03:46)
[2018-09-20] MEDS: Normal Saline-STERILE FIELD 0.9% 10 ML SYR (03:48)
[2018-09-20 07:38] LABS: Absolute Basophil Count 0.02 k/cumm (0.0-0.2); Absolute Eosinophil Count 0.23 k/cumm (0.0-0.7); Absolute Lymphocyte Count 1.61 k/cumm (1.2-3.4); Absolute Monocyte Count 0.47 k/cumm (0.11-0.7); Absolute Neutrophil Count 3.79 k/cumm (1.2-6.7); Basophils % 0.3; Eosinophils % 3.8; HCT 27.5 % (36.0-46.0); HGB 8.8 g/dL (12.0-15.5); Lymphocytes % 26.3; Mean Corpuscular Hemoglobin 28.9 pg (27.0-33.0); Mean Corpuscular Volume 90.2 fL (80-95); Mean Platelet Volume 10.8 fL (8.0-11.0); Monocytes % 7.7; Neutrophils % 61.9; Platelet Count 139 x1000/uL (130-400); RBC 3.05 m/cumm (4.00-5.20); RBC Distribution Width 17.9 % (11.7-14.6); White Blood Cell Count 6.12 k/cumm (4.4-10.8)
[2018-09-20 08:01] LABS: Glucose 87 mg/dL (70-100); Potassium 3.3 mmol/L (3.5-5.1)
--- NOTE | 2018-09-20 08:09 | INITIAL_ITS ---
Care Management Initial Assess REASON FOR HOSPITALIZATION:: Polypharmacy Overdose PAST MEDICAL HISTORY/PAST SURGICAL HISTORY:: MS with chronic weakness, H/O peptic ulcer disease, Billroth procedure, H/O polysubstance abuse, Chronic back pain, H/O hyponatremia, Dyslipidemia, H/O colonic polyps, Diverticulosis, Iron-deficiency anemia, Anxiety, Depression, Insomnia, PTSD, Radiculopathy, GERD, Chronic kidney disease, Hypertension, S/P appendectomy, Hysterectomy, Bilateral mastectomy, Tonsillectomy, Spinal stimulator implantation, Back surgery x3 PREVIOUS FUNCTIONAL STATUS/SOCIAL/FAMILY SUPPORTS:: Kena resides with her significant other, Marek in [place], [place]. She reports a good support network of family and friends including a son and grandson. Deepti reported having MS for the last twelve years and reports it is a progressive disease. She enjoys walking her dog outside, watching TV and reading. She shares she stopped driving four years ago due to medical issues, but enjoys shopping and running errands with Marek. CURRENT FUNCTIONAL STATUS:: Deepti appeared comfortable, lying in bed. Her significant other was at her bedside. permitted him to return home to take care of himself. He reported he did plan on going home for a short time today to nap and shower. ADVANCE DIRECTIVES:: Reports Marek as her agent. Has patient been provided with information about the portal?: Yes Did the patient sign up for the portal?: No CODE STATUS:: Full Code INSURANCE COVERAGE / FINANCIAL ISSUES:: Medicare. Medicaid CURRENT HOME/COMMUNITY SERVICES/EQUIPMENT:: [employer], RN [facility], [facility], former counseling, FWW at home PRIMARY CARE PHYSICIAN:: Edita Rosen; reports Edita is leaving the practice and she will have a new provider soon. POTENTIAL DISCHARGE NEEDS:: Follow up appointments. PATIENT/FAMILY EDUCATION NEEDS:: Review of instructions, discuss self care needs, Ask Me Three. ANTICIPATED BARRIERS TO DISCHARGE:: Deepti has a history of leaving AMA. TRANSPORTATION:: Via private vehicle with Marek. PLAN:: Deepti will continue to be closely monitored and assessed. Anticipate she will require ongoing support and re-assurance. She will likely return home with a plan for her medications to be managed. She will resume current community supports, follow up with her PCP and transport via private vehicle with her significant other, Marek.
--- NOTE | 2018-09-20 08:10 | DI.RAD_ITS ---
SYMPTOMS/DIAGNOSIS: INTUBATED, RESPIRATORY FAILURE SECONDARY TO DRUG OVERDOSE PORTABLE AP CHEST AT 8:02 AM: There is poor inspiration and patient motion artifact. The heart size and pulmonary vasculature appear stable. The endotracheal tube and nasogastric tubes are in good position. The lungs remain free of infiltrates, effusions or pneumothoraces.
[2018-09-20 08:17] LABS: Anisocytosis 2+; Diff Comment RBC Morph Reviewed
[2018-09-20 08:18] LABS: Poikilocytes 2+
[2018-09-20 08:26] LABS: HCO3 18 mmol/L (22-28); pCO2 38 mmHg (34-47); pH 7.28 (7.35-7.45); pO2 216 mmHg (83-108); sO2 99 % (94-98); tCO2 17 mmol/L (22-29)
[2018-09-20 08:29] LABS: BE -8.9 mmol/L (-3-3); FIO2 60 %; Site Left Radial
[2018-09-20 08:37] LABS: ALT 47 U/L (12-78); AST 54 U/L (15-37); Alkaline Phosphatase 112 U/L (46-116); Anion Gap 11.2 mmol/L (3-11); Bilirubin, Total 0.1 mg/dL (0.2-1.0); CO2 17.8 mmol/L (21.0-32.0); Chloride 119 mmol/L (98-107); Sodium 148 mmol/L (136-145); TSH 1.21 uIU/mL (0.358-3.74)
[2018-09-20 08:38] LABS: BUN 17 mg/dL (7-18); Calcium 7.5 mg/dL (8.5-10.1)
[2018-09-20 08:39] LABS: CREATININE 0.88 mg/dL (0.55-1.02)
[2018-09-20 08:40] LABS: Albumin 2.3 g/dL (3.4-5.0)
[2018-09-20 08:41] LABS: Total Protein 4.6 g/dL (6.4-8.2)
[2018-09-20] MEDS: fentaNYL 1,000 MCG in Normal Saline 80 ML 12.4 MCG IV (09:30)
[2018-09-20] MEDS: Enoxaparin 40 MG/0.4 ML SYR SC (09:38)
[2018-09-20] MEDS: PROPOFOL 1,000 MG/100 ML BTL 3.7 MG IVPB (10:04)
[2018-09-20] MEDS: SODIUM CHLORIDE 0.45% 1,000 ML 50 ML IV (12:28)
[2018-09-20] MEDS: POTASSIUM CHLORIDE 20 MEQ/100 ML BAG 50 MEQ IVPB (12:34)
--- NOTE | 2018-09-20 15:58 | W.PM.PROGNOT ---
Date of Service Date of service: 09/20/18 Time of Service: 15:58 Assessment and Plan (1) Drug overdose: Current visit: Yes Status: Acute Polypharmacy Overdose that included Metoprolol, Gabapentin, Amitryptiline, and Trazodone. Unsure if Overdose was purposeful or accidental. - Bradycardia appears resolved, as does hypotension. - No evidence of Ventricular Arrhythmias. - Plan will be to monitor through today, and attempt to wean in the morning. am CXR without pathology. Of note, patient has a lengthy prior history of admissions for medication overdose. Will need to discuss with Care Management regarding safety plan for future care. Qualifiers: Encounter type: initial encounter Injury intent: accidental or unintentional Qualified Code(s): T50.901A - Poisoning by unspecified drugs, medicaments and biological substances, accidental (unintentional), initial encounter (2) Movement disorder: Current visit: No Status: Chronic Prior history of generalized jerking type movements which have been noted to be chronic. Patient has undergone an extensive prior workup for this in the past without etiology. (3) Multiple sclerosis: Current visit: No Status: Chronic Follows with Neurology chronically. (4) DVT prophylaxis: Current visit: Yes Status: Acute SC Lovenox. Also on PPI therapy for GI Prophylaxis given prior history of PUD. Subjective Interval history since last seen: 68 year old woman with a prior medical history significant for MS and chronic movement disorder, admitted from [facility] Emergency Department on 09/19 with a diagnosis of Polypharmacy Overdose. Ms. 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 She also has a history of Gastric Ulcers and severe malnutrition. She's been admitted at [facility] for treatment of yeast Esophagitis and malnutrition, and has undergone conversion of a former Matthew-en-y for marginal ulcers and bile reflux gastritis. Her other history includes HTN, Dyslipidemia, and CKD. She also has a previously noted history of opiate misuse, and suspected prior inappropriate use of both Gabapentin and Tylenol PM. Ms. Olivo presented to the ED via EMS as she was found to be unresponsive by her fiance. He reported that the patient had not been sleeping well, but upon his return home on the morning of admission he found her to be unresponsive. EMS was called and found her to be bradycardic and hypotensive, unresponsive to administration of Narcan. Review of the blister pack of her home medications reveals that she may have ingested up to 4 days worth of her medications, including Gabapentin, Amitriptyline, Metoprolol, and Trazodone. Her work-up included a negative CT of the head, essentially normal CBC, LFTs, Urinalysis, and TSH, but with signs of AZALEA. Her UDS showed positivity for THC and TCAs. Her ECG was reportedly non-ischemic, and troponins were negative. Her CXR was unremarkable. As there was concern regarding ability to protect her airway, the patient was intubated in the ED, and referred for admission to the ICU. This morning Ms. Olivo appears stable. She remains intubated and on Mechanical Ventilation. Triple Lumen Catheter was placed via surgery. No overnight events reported. Patient remains afebrile. Exam Narrative Exam Narrative: General: Patient is sedated, intubated and on mechanical ventilation Neck: Supple CV: Regular, Not bradycardic at time of exam, S1S2, No rubs, murmurs, or gallops. Pulmonary: Clear to auscultation bilaterally, no crackles, wheezing, or rhonchi on limited anterior and lateral exam. Abdomen: + Bowel Sounds, soft, nontender, nondistended Skin: Right sided Femoral Central Line noted Vascular: No lower extremity edema Objective Objective Clinical Data: Abnormal lab results 09/19/18 09/19/18 09/20/18 Range/Units 16:35 18:16 05:35 RBC (4.00-5.20) m/cumm Hgb (12.0-15.5) g/dL Hct (36.0-46.0) % RDW (11.7-14.6) % pCO2 24 L (34-47) mmHg pO2 71 L 216 H (83-108) mmHg O2 Saturation 93 L 99 H (94-98) % ABG pH 7.33 L 7.28 L (7.35-7.45) ABG HCO3 13 L 18 L (22-28) mmol/L ABG Total CO2 13 L 17 L (22-29) mmol/L ABG Base Excess -13.0 L -8.9 L (-3-3) mmol/L VBG pH 7.25 L (7.32-7.43) VBG pO2 50 H (28-44) mm/Hg VBG HCO3 16 L (22-28) mmol/L VBG Total CO2 16 L (22-29) mmol/L VBG O2 Saturation 81 H (70-80) % VBG Base Excess -11.0 L (-3-3) mmol/L Sodium (136-145) mmol/L Potassium (3.5-5.1) mmol/L Chloride (98-107) mmol/L Carbon Dioxide (21.0-32.0) mmol/L Anion Gap (3-11) mmol/L Calcium (8.5-10.1) mg/dL Total Bilirubin (0.2-1.0) mg/dL AST (15-37) U/L Total Protein (6.4-8.2) g/dL Albumin (3.4-5.0) g/dL 09/20/18 09/20/18 Range/Units 06:20 06:20 RBC 3.05 L (4.00-5.20) m/cumm Hgb 8.8 L D (12.0-15.5) g/dL Hct 27.5 L D (36.0-46.0) % RDW 17.9 H (11.7-14.6) % pCO2 (34-47) mmHg pO2 (83-108) mmHg O2 Saturation (94-98) % ABG pH (7.35-7.45) ABG HCO3 (22-28) mmol/L ABG Total CO2 (22-29) mmol/L ABG Base Excess (-3-3) mmol/L VBG pH (7.32-7.43) VBG pO2 (28-44) mm/Hg VBG HCO3 (22-28) mmol/L VBG Total CO2 (22-29) mmol/L VBG O2 Saturation (70-80) % VBG Base Excess (-3-3) mmol/L Sodium 148 H (136-145) mmol/L Potassium 3.3 L (3.5-5.1) mmol/L Chloride 119 H (98-107) mmol/L Carbon Dioxide 17.8 L (21.0-32.0) mmol/L Anion Gap 11.2 H (3-11) mmol/L Calcium 7.5 L (8.5-10.1) mg/dL Total Bilirubin 0.1 L (0.2-1.0) mg/dL AST 54 H (15-37) U/L Total Protein 4.6 L (6.4-8.2) g/dL Albumin 2.3 L (3.4-5.0) g/dL Vital Signs Temperature 36.8 C 09/20/18 12:29 Temperature Source Temporal Artery Scan 09/20/18 12:29 Pulse 84 09/20/18 13:30 Pulse 84 09/20/18 13:30 Respiratory Rate 12 09/20/18 14:19 Respiratory Effort Non-Labored 09/20/18 12:29 Respiratory Depth Normal 09/20/18 12:29 Respiratory Pattern Normal 09/20/18 12:29 Blood Pressure 146/64 H 09/20/18 13:30 Blood Pressure Mean 84 09/20/18 13:30 Blood Pressure Position Right Lateral 09/20/18 12:29 Pulse Oximetry 95 09/20/18 14:19 Respiratory End-tidal CO2 27 09/20/18 14:19 Oxygen Delivery Method Mechanical Ventilator 09/20/18 12:29 Oxygen Flow Rate 0 09/20/18 12:29 Fraction of Inspired Oxygen (FIO2) 21 09/20/18 14:19 Pain Level 0 09/20/18 12:29 Intake & Output 09/19/18 09/20/18 09/20/18 23:59 11:59 23:59 Intake Total 38.636 / 38.636 1741.440 / 2790.589 1049.149 / 2790.589 Output Total 1300 / 1425 125 / 1425 Balance 38.636 / -1011.364 441.440 / 1365.589 924.149 / 1365.589 Weight 63.503 kg Intake: IV 38.636 / 38.636 1741.440 / 2790.589 1049.149 / 2790.589 Output: Urine 1300 / 1425 125 / 1425 Other: Urine Color Yellow Yellow Urine Appearance Clear Clear Comment pt has indwelling soliz catheter Soliz patent draining yellow urine. Soliz patent draining yellow urine; 375cc UO qshift. Gastric Occult Blood Oral Negative Negative Laboratory Results WBC 6.12 k/cumm (4.4-10.8) 09/20/18 06:20 RBC 3.05 m/cumm (4.00-5.20) L 09/20/18 06:20 Hgb 8.8 g/dL (12.0-15.5) L D 09/20/18 06:20 Hct 27.5 % (36.0-46.0) L D 09/20/18 06:20 MCV 90.2 fL (80-95) 09/20/18 06:20 MCH 28.9 pg (27.0-33.0) 09/20/18 06:20 MCHC 32.0 g/dL (32.0-36.0) 09/20/18 06:20 RDW 17.9 % (11.7-14.6) H 09/20/18 06:20 Plt Count 139 x1000/uL (130-400) 09/20/18 06:20 MPV 10.8 fL (8.0-11.0) 09/20/18 06:20 Immature Gran % 0.0 09/20/18 06:20 61.9 09/20/18 06:20 26.3 09/20/18 06:20 7.7 09/20/18 06:20 3.8 09/20/18 06:20 0.3 09/20/18 06:20 Absolute Neutrophils 3.79 k/cumm (1.2-6.7) 09/20/18 06:20 Absolute Lymphocytes 1.61 k/cumm (1.2-3.4) 09/20/18 06:20 Absolute Monocytes 0.47 k/cumm (0.11-0.7) 09/20/18 06:20 Absolute Eosinophils 0.23 k/cumm (0.0-0.7) 09/20/18 06:20 Absolute Basophils 0.02 k/cumm (0.0-0.2) 09/20/18 06:20 Rbc morph reviewed 09/20/18 06:20 RBC Morphology See below 09/20/18 06:20 2+ 09/20/18 06:20 2+ 09/20/18 06:20 Sample Site Left radial 09/20/18 05:35 pCO2 38 mmHg (34-47) 09/20/18 05:35 pO2 216 mmHg (83-108) H 09/20/18 05:35 O2 Saturation 99 % (94-98) H 09/20/18 05:35 ABG pH 7.28 (7.35-7.45) L 09/20/18 05:35 ABG HCO3 18 mmol/L (22-28) L 09/20/18 05:35 ABG Total CO2 17 mmol/L (22-29) L 09/20/18 05:35 ABG Base Excess -8.9 mmol/L (-3-3) L 09/20/18 05:35 VBG pH 7.25 (7.32-7.43) L 09/19/18 18:16 VBG pCO2 37 mm/Hg (34-47) 09/19/18 18:16 VBG pO2 50 mm/Hg (28-44) H 09/19/18 18:16 VBG HCO3 16 mmol/L (22-28) L 09/19/18 18:16 VBG Total CO2 16 mmol/L (22-29) L 09/19/18 18:16 VBG O2 Saturation 81 % (70-80) H 09/19/18 18:16 VBG Base Excess -11.0 mmol/L (-3-3) L 09/19/18 18:16 Oxygen Liter Flow Cancelled 09/19/18 17:51 60 % 09/20/18 05:35 Sodium 148 mmol/L (136-145) H 09/20/18 06:20 Potassium 3.3 mmol/L (3.5-5.1) L 09/20/18 06:20 Chloride 119 mmol/L (98-107) H 09/20/18 06:20 Carbon Dioxide 17.8 mmol/L (21.0-32.0) L 09/20/18 06:20 11.2 mmol/L (3-11) H 09/20/18 06:20 BUN 17 mg/dL (7-18) D 09/20/18 06:20 0.88 mg/dL (0.55-1.02) D 09/20/18 06:20 >= 60.00 (mL/min/1.73m2) 09/20/18 06:20 Glucose 87 mg/dL (70-100) 09/20/18 06:20 0.7 mmol/l (0.6-1.4) 09/19/18 14:21 Calcium 7.5 mg/dL (8.5-10.1) L 09/20/18 06:20 Magnesium 1.9 mg/dL (1.8-2.4) 09/19/18 14:21 0.1 mg/dL (0.2-1.0) L 09/20/18 06:20 AST 54 U/L (15-37) H 09/20/18 06:20 ALT 47 U/L (12-78) 09/20/18 06:20 112 U/L (46-116) 09/20/18 06:20 < 0.05 ng/mL (0.00-0.06) 09/19/18 23:45 4.6 g/dL (6.4-8.2) L 09/20/18 06:20 2.3 g/dL (3.4-5.0) L 09/20/18 06:20 TSH 1.21 uIU/mL (0.358-3.74) 09/20/18 06:20 Yellow (Yellow) 09/19/18 15:11 Clear (Clear) 09/19/18 15:11 6.0 (5-8) 09/19/18 15:11 Ur Specific [place] 1.010 (1.005-1.025) 09/19/18 15:11 Negative mg/dL (Negative) 09/19/18 15:11 Negative mg/dL (Negative) 09/19/18 15:11 Negative (Negative) 09/19/18 15:11 Negative (Negative) 09/19/18 15:11 Negative (Negative) 09/19/18 15:11 0.2 EU/dL (Up TO 0.2) 09/19/18 15:11 Ur Leukocyte Esterase Negative (Negative) 09/19/18 15:11 Negative mg/dL (Negative) 09/19/18 15:11 Salicylates < 2.8 mg/dL (2.8-20.0) L 09/19/18 14:21 Negative (Negative) 09/19/18 15:11 Negative (Negative) 09/19/18 15:11 Acetaminophen < 2 ug/mL (10-30) L 09/19/18 14:21 Ur Barbiturates Screen Negative (Negative) 09/19/18 15:11 Ur Tricyclics Screen Positive (Negative) 09/19/18 15:11 Ur Amphetamines Screen Negative (Negative) 09/19/18 15:11 U Benzodiazepines Scrn Negative (Negative) 09/19/18 15:11 Negative (Negative) 09/19/18 15:11 Ur THC Screen Positive (Negative) 09/19/18 15:11 Ethyl Alcohol < 3.0 mg/dL (<3) 09/19/18 14:21
--- NOTE | 2018-09-20 17:23 | PHARADMIT ---
Addendum entered by Chato Garrison III 09/27/18 12:51: Pharmacy Note Subjective Psych consult today Objective BP-150/75 VS-OK K+4.1 Mag-1.6 afebrile, WBC-9.57 H&H,Plts,SCr-OK Assessment No med changes, Cefazolin 2gm continues for now. Plan May be ready for discharge later today, but probably tomorrow. Addendum entered by La Hunt 09/25/18 12:09: Pharmacy Note Subjective home vs rehab on discharge? diarrhea ebing reported Objective jaylan 176/87, afebrile since yesterday, K 2.6, Mag 1.6 Assessment KCL and Mag replacement ordered cdiff testing ordered, Cefazolin q8h(started 09/25) remains for treatment of MSSA in sputum and growth in urine culture Plan plan if pt goes home for family members to come to her home to set out meds for pt. Addendum entered by Priyanka Crouch 09/24/18 12:05: Pharmacy Note Subjective Patient has greatly improved and is requesting to go home Objective BP 173/77, Tmax 37.9, HR 92; *all other labs still pending* Assessment Cefazolin q8h remains for treatment of MSSA in sputum and growth in urine culture Plan BP control - increased dose of amlodipine Will change cefazolin to PO cephalexin Addendum entered by Chato Garrison III 09/23/18 16:09: Pharmacy Note Subjective Patient was extubated yesterday, Treated with Day#2 of Vanco & Zosyn for possible pneumonia/UTI which look to be ruled out. has switched therapy due to sputum of MSSA, to Cefazolin 2gm IV q8hrs. Objective VS-stable K+2.4 Mag-1.5 (repleted) WBC-20.08 wgt down-55.4 kg Larhe Heme neg stool. Assessment Home meds restarted, minus Amitriptyline, Gabapentin,Trazodone & Melatonin. Carafate & Protonix added for Hx of gastric ulcers and malnutriition. Plan Patient appears to have recovered from polypharmacy overdose. She has a history of MS and movement disorders, PTSD, Depresion, chronic insomnia. Original Note: Admission Pharmacy Clinical Review polypharmacy overdose Code Status Full Code Current Weight 63.503 kg Renally Cleared and Narrow Therapeutic Index Meds Crcl ~60 mL/min current meds okay QTc Value / Action Taken QTc 451 BP Control, Fever BP 145/60 afebrile Electrolytes reviewed Na 148 K+ 3.3 Cl 119 DVT Prophylaxis enoxaparin Opiate Usage / Scheduled Bowel Regimen Ordered cortney/none Plt/SCr for Heparin / Enoxaparin plt 139 SCr 0.88 INR for Warfarin n/a H/H stable, WBC/Bands h/h 8.8/27.5 wbc 6.12 Antibiotic appropriateness none Cultures and Sensitivities none Surgical ABX d/c within 24 hr n/a DM control / Insulin Dosing Bg 87 none Heart Failure (Check EF%) (VILMA's, B-Block, Diuretics) none IV to PO Switch n/a Home Meds Reviewed -sertraline may enhance the adverse/toxic effects of amitriptyline -use of sertraline and trazodone in combination may enhance serotonergic effect and increase risk of serotonin syndrome -multiple TERRAZZO INSTALLER depressants and anticholinergic meds Home Meds Not Ordered amitriptyline, ascorbic acid, atorvastatin, dicyclomine, docusate, ferrous sulfate, gabapentin, marijuana, melatonin, omeprazole, sertraline, trazodone Comments pt currently intubated has fentanyl and sodium bicarb drips ordered
[2018-09-20] MEDS: Pantoprazole 40 MG VIAL IVP (21:20)
[2018-09-20] MEDS: Normal Saline Flush 10 ML SYR (21:20)
[2018-09-20 21:21] LABS: Anion Gap 7.2 mmol/L (3-11); BUN 13 mg/dL (7-18); CO2 22.8 mmol/L (21.0-32.0); CREATININE 0.77 mg/dL (0.55-1.02); Calcium 7.9 mg/dL (8.5-10.1); Chloride 116 mmol/L (98-107); Glucose 100 mg/dL (70-100); Potassium 3.3 mmol/L (3.5-5.1); Sodium 146 mmol/L (136-145)
[2018-09-21] VITALS (75 sets, daily range): BP systolic 119–227; BP diastolic 55–94; PULSE 73–130; RESP 12–27; TEMP 37–38.8; O2SAT 91–97
[2018-09-21] MEDS: fentaNYL 1,000 MCG in Normal Saline 80 ML 12.4 MCG IV ×3 (06:11→22:56)
[2018-09-21] MEDS: PROPOFOL 1,000 MG/100 ML BTL 18.6 MG IVPB (06:27)
[2018-09-21 07:45] LABS: Abs Immature Grans 0.02 k/cumm (0.0-0.09); Absolute Basophil Count 0.02 k/cumm (0.0-0.2); Absolute Eosinophil Count 0.32 k/cumm (0.0-0.7); Absolute Lymphocyte Count 1.23 k/cumm (1.2-3.4); Absolute Monocyte Count 0.86 k/cumm (0.11-0.7); Absolute Neutrophil Count 7.65 k/cumm (1.2-6.7); Basophils % 0.2; Eosinophils % 3.2; HCT 29.5 % (36.0-46.0); HGB 9.2 g/dL (12.0-15.5); Immature Grans % 0.2; Lymphocytes % 12.2; Mean Corp. HGB Concentration 31.2 g/dL (32.0-36.0); Mean Corpuscular Hemoglobin 28.2 pg (27.0-33.0); Mean Corpuscular Volume 90.5 fL (80-95); Mean Platelet Volume 10.7 fL (8.0-11.0); Monocytes % 8.5; Neutrophils % 75.7; Platelet Count 144 x1000/uL (130-400); RBC 3.26 m/cumm (4.00-5.20); RBC Distribution Width 18.4 % (11.7-14.6)
[2018-09-21 08:11] LABS: ALT 34 U/L (12-78); AST 27 U/L (15-37); Albumin 2.3 g/dL (3.4-5.0); Alkaline Phosphatase 122 U/L (46-116); Anion Gap 9.5 mmol/L (3-11); BUN 10 mg/dL (7-18); Bilirubin, Total 0.2 mg/dL (0.2-1.0); CO2 23.5 mmol/L (21.0-32.0); CREATININE 0.73 mg/dL (0.55-1.02); Calcium 7.7 mg/dL (8.5-10.1); Chloride 112 mmol/L (98-107); Glucose 131 mg/dL (70-100); Magnesium 1.1 mg/dL (1.8-2.4); Sodium 145 mmol/L (136-145); Total Protein 4.8 g/dL (6.4-8.2)
--- NOTE | 2018-09-21 08:12 | CMPROGNOTE_ITS ---
Care Management Progress Note S/O: Deepti continues to be treated and closely monitored in the ICU. Per MD she will have repeat CXR and has additional labs pending including urine, spewtum and blood cultures. Anticipate extubation attempt once updated labs are available. CM continues to follow. A: 68 year old female admitted to [facility] ICU 09/19/18 for Polypharmacy Overdose P: Deepti will continue to be closely monitored and assessed. Anticipate she will require ongoing support and re-assurance. Anticipate she will return home with a more comprehensive plan for medication management. She will resume current community supports, follow up with her PCP and transport via private vehicle with her significant other, Marek.
[2018-09-21] MEDS: hydrALAZINE 20 MG/ML VIAL 10 MG IVP (08:14)
[2018-09-21] MEDS: Enoxaparin 40 MG/0.4 ML SYR SC (08:15)
--- NOTE | 2018-09-21 08:52 | DI.RAD_ITS ---
SYMPTOMS/DIAGNOSIS: ON VENTILATOR, FEBRILE CHEST, PORTABLE AP VIEW: Comparison from the day prior. There now appear to be infiltrates in the lower lobes bilaterally, right greater than left. No gross effusions or pneumothoraces are identified. The endotracheal tube and nasogastric tube appear to be in good position. There are postsurgical changes of thoracic spine surgery and surgical clips in the left upper quadrant of the abdomen. IMPRESSION: Bilateral basilar infiltrates suspicious for developing pneumonia. Atelectasis or pulmonary edema cannot be excluded. The findings were discussed with Dr. Baker on the date of the examination.
[2018-09-21] MEDS: Normal Saline Flush 10 ML SYR ×4 (09:34→19:46)
[2018-09-21] MEDS: Acetaminophen 650 MG SUPP PR (10:07)
[2018-09-21] MEDS: POTASSIUM CHLORIDE 20 MEQ/100 ML BAG 50 MEQ IVPB ×2 (10:28→16:49)
[2018-09-21] MEDS: MAGNESIUM SULFATE 4 GM/100 ML BAG IVPB (10:28)
[2018-09-21 12:04] LABS: Bilirubin Negative (Negative); Blood Moderate (Negative); Clarity Sl Cloudy (Clear); Glucose Negative (Negative); Ketones Negative (Negative); Leukocyte Esterase Small (Negative); Nitrite Positive (Negative); Specific Gravity 1.015 (1.005-1.025); Urobilinogen 0.2 EU/dL (Up TO 0.2); pH 5.5 (5-8)
[2018-09-21] MEDS: Metoprolol 5 MG/5 ML VIAL IVP (12:15)
[2018-09-21 12:21] LABS: Bacteria Many HPF (Negative); C & S Indicated? Yes; Casts Negative LPF (Negative); Crystals Negative HPF (Negative); Epithelial Cells Negative HPF (Negative); Mucus Negative (Negative); RBC >50 (0-2)
[2018-09-21] MEDS: Furosemide 20 MG/2 ML VIAL IVP (13:45)
--- NOTE | 2018-09-21 14:24 | PGE_ITS ---
Date of Service Date of service: 09/21/18 Time of Service: 14:24 Assessment and Plan (1) Fever: Current visit: Yes Status: Acute Evidence of both Pneumonia and UTI, both absent at time of presentation. - Treat for VAP vs. Aspiration pneumonia - Initiated on Vancomycin and Pip-Tazo. - Await Blood and Urine Cultures. Also check Sputum Cultures. (2) Drug overdose: Current visit: Yes Status: Acute Polypharmacy Overdose that included Metoprolol, Gabapentin, Amitryptiline, and Trazodone. Unsure if Overdose was purposeful or accidental. - Bradycardia and hypotension appear resolved. - No evidence of Ventricular Arrhythmias. - Plan had been to wean and extubate, but in setting of high fevers and new diagnosis of both UTI and Pneumonia, will hold off and reevaluate either later in the day or in the morning. Of note, patient has a lengthy prior history of admissions for medication overdose. Will need to discuss with Care Management regarding safety plan for future care. Qualifiers: Encounter type: initial encounter Injury intent: accidental or unintentional Qualified Code(s): T50.901A - Poisoning by unspecified drugs, medicaments and biological substances, accidental (unintentional), initial encounter (3) Movement disorder: Current visit: No Status: Chronic Prior history of generalized jerking type movements which have been noted to be chronic. Patient has undergone an extensive prior workup for this in the past without etiology. (4) Multiple sclerosis: Current visit: No Status: Chronic Follows with Neurology chronically. (5) DVT prophylaxis: Current visit: Yes Status: Acute SC Lovenox. Also on PPI therapy for GI Prophylaxis given prior history of PUD. Subjective Interval history since last seen: 68 year old woman with a prior medical history significant for MS and chronic movement disorder, admitted from [facility] Emergency Department on 09/19 with a diagnosis of Polypharmacy Overdose. Ms. 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 She also has a history of Gastric Ulcers and malnutrition. She's been admitted at [facility] [place] [place] for treatment of yeast Esophagitis and malnutrition, and has undergone prior J-Tube placement, and conversion of a former Matthew-en-y for marginal ulcers and bile reflux gastritis. Her other history includes HTN, Dyslipidemia, and CKD. She also has a previously noted history of opiate misuse, and suspected prior inappropriate use of both Gabapentin and Tylenol PM. Ms. Olivo presented to the ED via EMS as she was found to be unresponsive by her fiance. He reported that the patient had not been sleeping well, but upon his return home on the morning of admission he found her to be unresponsive. EMS was called and found her to be bradycardic and hypotensive, unresponsive to administration of Narcan. Review of the blister pack of her home medications revealed that she may have ingested up to 4 days worth of her medications, including Gabapentin, Amitriptyline, Metoprolol, and Trazodone. Her work-up included a negative CT of the head, essentially normal CBC, LFTs, Urinalysis, and TSH, but with signs of AZALEA. Her UDS showed positivity for THC and TCAs. Her ECG was reportedly non-ischemic, and troponins were negative. Her CXR was unremarkable. As there was concern regarding ability to protect her airway, the patient was intubated in the ED, and referred for admission to the ICU. This morning Ms. Olivo HR and Blood Pressure have stabilized - in fact tachycardic and hypertensive in setting of weaning Propofol in anticipation of extubation. However, she also began to spike fevers prompting further work-up, including CXR showing a new infiltrate, and Urinalysis now positive for infection. She remains intubated and on Mechanical Ventilation. Triple Lumen Catheter was placed via surgery. No other events reported. Exam Narrative Exam Narrative: General: Patient is sedated, intubated and on mechanical ventilation Neck: Supple CV: Regular, tachycardic at time of exam, S1S2, No rubs, murmurs, or gallops. Pulmonary: bibasilar crackles. Abdomen: + Bowel Sounds, soft, nontender, nondistended : Soliz Catheter in place Skin: Right sided Femoral Central Line noted Vascular: No lower extremity edema Objective Objective Clinical Data: Abnormal lab results 09/20/18 09/21/18 09/21/18 Range/Units 20:30 06:30 06:30 RBC 3.26 L (4.00-5.20) m/cumm Hgb 9.2 L (12.0-15.5) g/dL Hct 29.5 L (36.0-46.0) % MCHC 31.2 L (32.0-36.0) g/dL RDW 18.4 H (11.7-14.6) % Absolute Neutrophils 7.65 H (1.2-6.7) k/cumm Absolute Monocytes 0.86 H (0.11-0.7) k/cumm Sodium 146 H (136-145) mmol/L Potassium 3.3 L 3.0 L (3.5-5.1) mmol/L Chloride 116 H 112 H (98-107) mmol/L Glucose 131 H (70-100) mg/dL Calcium 7.9 L 7.7 L (8.5-10.1) mg/dL Magnesium 1.1 L (1.8-2.4) mg/dL Alkaline Phosphatase 122 H (46-116) U/L Total Protein 4.8 L (6.4-8.2) g/dL Albumin 2.3 L (3.4-5.0) g/dL Urine Protein (Negative) mg/dL Urine Blood (Negative) Urine Nitrite (Negative) Ur Leukocyte Esterase (Negative) Urine RBC (0-2) 09/21/18 Range/Units 11:00 RBC (4.00-5.20) m/cumm Hgb (12.0-15.5) g/dL Hct (36.0-46.0) % MCHC (32.0-36.0) g/dL RDW (11.7-14.6) % Absolute Neutrophils (1.2-6.7) k/cumm Absolute Monocytes (0.11-0.7) k/cumm Sodium (136-145) mmol/L Potassium (3.5-5.1) mmol/L Chloride (98-107) mmol/L Glucose (70-100) mg/dL Calcium (8.5-10.1) mg/dL Magnesium (1.8-2.4) mg/dL Alkaline Phosphatase (46-116) U/L Total Protein (6.4-8.2) g/dL Albumin (3.4-5.0) g/dL Urine Protein 30 H (Negative) mg/dL Urine Blood Moderate H (Negative) Urine Nitrite Positive H (Negative) Ur Leukocyte Esterase Small H (Negative) Urine RBC >50 H (0-2) Vital Signs Temperature 37.4 C 09/21/18 13:24 Temperature Source Temporal Artery Scan 09/21/18 12:04 Pulse 96 H 09/21/18 13:00 Pulse 97 H 09/21/18 13:00 Respiratory Rate 12 09/21/18 14:03 Respiratory Effort 09/21/18 13:24 Respiratory Depth Normal 09/21/18 13:24 Respiratory Pattern Normal 09/21/18 13:24 Blood Pressure 141/71 H 09/21/18 13:00 Blood Pressure Mean 86 09/21/18 13:00 Blood Pressure Position Supine 09/21/18 03:18 Pulse Oximetry 96 09/21/18 14:03 Respiratory End-tidal CO2 27 09/21/18 14:03 Oxygen Delivery Method Mechanical Ventilator 09/21/18 12:04 Oxygen Flow Rate 0 09/21/18 12:04 Fraction of Inspired Oxygen (FIO2) 40 09/21/18 10:34 Pain Level 0 09/21/18 03:18 Intake & Output 09/20/18 09/21/18 09/21/18 23:59 11:59 23:59 Intake Total 1339.924 / 3081.364 1933.440 / 2133.440 200 / 2133.440 Output Total 425 / 2125 550 / 550 Balance 914.924 / 684.134 3536.440 / 1583.440 200 / 1583.440 Weight 58.8 kg Intake: IV 1339.924 / 3081.364 1933.440 / 2133.440 200 / 2133.440 Output: Gastric Drainage 50 / 50 Oral 50 / 50 Urine 375 / 2075 550 / 550 Other: Urine Color Yellow Light Chikis Urine Appearance Clear Clear Comment pt has indwelling soliz cath Soliz in place Soliz in place Gastric Occult Blood Oral Negative Laboratory Results WBC 10.10 k/cumm (4.4-10.8) D 09/21/18 06:30 RBC 3.26 m/cumm (4.00-5.20) L 09/21/18 06:30 Hgb 9.2 g/dL (12.0-15.5) L 09/21/18 06:30 Hct 29.5 % (36.0-46.0) L 09/21/18 06:30 MCV 90.5 fL (80-95) 09/21/18 06:30 MCH 28.2 pg (27.0-33.0) 09/21/18 06:30 MCHC 31.2 g/dL (32.0-36.0) L 09/21/18 06:30 RDW 18.4 % (11.7-14.6) H 09/21/18 06:30 Plt Count 144 x1000/uL (130-400) 09/21/18 06:30 MPV 10.7 fL (8.0-11.0) 09/21/18 06:30 Immature Gran % 0.2 09/21/18 06:30 75.7 09/21/18 06:30 12.2 09/21/18 06:30 8.5 09/21/18 06:30 3.2 09/21/18 06:30 0.2 09/21/18 06:30 Absolute Neutrophils 7.65 k/cumm (1.2-6.7) H 09/21/18 06:30 Absolute Lymphocytes 1.23 k/cumm (1.2-3.4) 09/21/18 06:30 Absolute Monocytes 0.86 k/cumm (0.11-0.7) H 09/21/18 06:30 Absolute Eosinophils 0.32 k/cumm (0.0-0.7) 09/21/18 06:30 Absolute Basophils 0.02 k/cumm (0.0-0.2) 09/21/18 06:30 Rbc morph reviewed 09/20/18 06:20 RBC Morphology See below 09/20/18 06:20 2+ 09/20/18 06:20 2+ 09/20/18 06:20 Sample Site Left radial 09/20/18 05:35 pCO2 38 mmHg (34-47) 09/20/18 05:35 pO2 216 mmHg (83-108) H 09/20/18 05:35 O2 Saturation 99 % (94-98) H 09/20/18 05:35 ABG pH 7.28 (7.35-7.45) L 09/20/18 05:35 ABG HCO3 18 mmol/L (22-28) L 09/20/18 05:35 ABG Total CO2 17 mmol/L (22-29) L 09/20/18 05:35 ABG Base Excess -8.9 mmol/L (-3-3) L 09/20/18 05:35 VBG pH 7.25 (7.32-7.43) L 09/19/18 18:16 VBG pCO2 37 mm/Hg (34-47) 09/19/18 18:16 VBG pO2 50 mm/Hg (28-44) H 09/19/18 18:16 VBG HCO3 16 mmol/L (22-28) L 09/19/18 18:16 VBG Total CO2 16 mmol/L (22-29) L 09/19/18 18:16 VBG O2 Saturation 81 % (70-80) H 09/19/18 18:16 VBG Base Excess -11.0 mmol/L (-3-3) L 09/19/18 18:16 Oxygen Liter Flow Cancelled 09/19/18 17:51 60 % 09/20/18 05:35 Sodium 145 mmol/L (136-145) 09/21/18 06:30 Potassium 3.0 mmol/L (3.5-5.1) L 09/21/18 06:30 Chloride 112 mmol/L (98-107) H 09/21/18 06:30 Carbon Dioxide 23.5 mmol/L (21.0-32.0) 09/21/18 06:30 9.5 mmol/L (3-11) 09/21/18 06:30 BUN 10 mg/dL (7-18) 09/21/18 06:30 0.73 mg/dL (0.55-1.02) 09/21/18 06:30 >= 60.00 (mL/min/1.73m2) 09/21/18 06:30 Glucose 131 mg/dL (70-100) H 09/21/18 06:30 0.7 mmol/l (0.6-1.4) 09/19/18 14:21 Calcium 7.7 mg/dL (8.5-10.1) L 09/21/18 06:30 Magnesium 1.1 mg/dL (1.8-2.4) L 09/21/18 06:30 0.2 mg/dL (0.2-1.0) 09/21/18 06:30 AST 27 U/L (15-37) 09/21/18 06:30 ALT 34 U/L (12-78) 09/21/18 06:30 122 U/L (46-116) H 09/21/18 06:30 < 0.05 ng/mL (0.00-0.06) 09/19/18 23:45 4.8 g/dL (6.4-8.2) L 09/21/18 06:30 2.3 g/dL (3.4-5.0) L 09/21/18 06:30 TSH 1.21 uIU/mL (0.358-3.74) 09/20/18 06:20 Straw (Yellow) 09/21/18 11:00 Sl cloudy (Clear) 09/21/18 11:00 5.5 (5-8) 09/21/18 11:00 Ur Specific [place] 1.015 (1.005-1.025) 09/21/18 11:00 30 mg/dL (Negative) H 09/21/18 11:00 Negative mg/dL (Negative) 09/21/18 11:00 Moderate (Negative) H 09/21/18 11:00 Positive (Negative) H 09/21/18 11:00 Negative (Negative) 09/21/18 11:00 0.2 EU/dL (Up TO 0.2) 09/21/18 11:00 Ur Leukocyte Esterase Small (Negative) H 09/21/18 11:00 >50 (0-2) H 09/21/18 11:00 10-20 HPF (0-5) 09/21/18 11:00 Ur Epithelial Cells Negative HPF (Negative) 09/21/18 11:00 Negative HPF (Negative) 09/21/18 11:00 Many HPF (Negative) 09/21/18 11:00 Negative LPF (Negative) 09/21/18 11:00 Negative (Negative) 09/21/18 11:00 Ur Culture Indicated? Yes 09/21/18 11:00 Negative mg/dL (Negative) 09/21/18 11:00 Fluid Source Cancelled 09/20/18 12:00 Fluid pH Cancelled 09/20/18 12:00 Salicylates < 2.8 mg/dL (2.8-20.0) L 09/19/18 14:21 Negative (Negative) 09/19/18 15:11 Negative (Negative) 09/19/18 15:11 Acetaminophen < 2 ug/mL (10-30) L 09/19/18 14:21 Ur Barbiturates Screen Negative (Negative) 09/19/18 15:11 Ur Tricyclics Screen Positive (Negative) 09/19/18 15:11 Ur Amphetamines Screen Negative (Negative) 09/19/18 15:11 U Benzodiazepines Scrn Negative (Negative) 09/19/18 15:11 Negative (Negative) 09/19/18 15:11 Ur THC Screen Positive (Negative) 09/19/18 15:11 Ethyl Alcohol < 3.0 mg/dL (<3) 09/19/18 14:21
[2018-09-21] MEDS: PIPERACILLIN/TAZO 4.5 GM in Normal Saline 100 ML IVPB ×2 (14:26→22:53)
[2018-09-21] MEDS: PROPOFOL 1,000 MG/100 ML BTL 18.601 MG IVPB ×2 (15:11→18:58)
--- NOTE | 2018-09-21 15:52 | CHAPLAIN ---
Deepti remains intubated. Her and sister have been here as supports.
--- NOTE | 2018-09-21 17:45 | W.PM.PROGNOT ---
Date of Service Date of service: 09/21/18 Time of Service: 17:45 Assessment and Plan (1) Venous bleed: Current visit: Yes Status: Acute 68 y/o female s/p right femoral central line placement on 09/19/18. Venous oozing noted at site this evening. Oozing stopped with pressure and site redressed. All 3 ports infusing and/ or flushed without problems. Continue routine care. Follow-up as needed. Discussed with patient's nurse. Subjective Interval history since last seen: Patient remains intubated. Asked by patient's nurse to see her for bleeding at her right femoral central line site. Exam Const General: patient mechanically ventilated Cardio Jugular venous pressure: no JVD Other: Right groin - femoral central line dressing removed. Moderate amount of dark blood on biopatch/Tegaderm. No gauze dressing at this site. Site cleaned with gauze and saline. Slow venous ooze noted. No bright red blood or pulsatile bleed. Site cleaned with Betadine and pressure held for 1-2 minutes. No further oozing noted. A new biopatch, gauze, and Tegaderm dressing was applied. Two ports are infusing without problems. Third port aspirated and flushed with sterile saline without problems. Skin General skin exam: no rashes or lesions noted and no jaundice Objective Objective Clinical Data: Abnormal lab results 09/20/18 09/21/18 09/21/18 Range/Units 20:30 06:30 06:30 RBC 3.26 L (4.00-5.20) m/cumm Hgb 9.2 L (12.0-15.5) g/dL Hct 29.5 L (36.0-46.0) % MCHC 31.2 L (32.0-36.0) g/dL RDW 18.4 H (11.7-14.6) % Absolute Neutrophils 7.65 H (1.2-6.7) k/cumm Absolute Monocytes 0.86 H (0.11-0.7) k/cumm Sodium 146 H (136-145) mmol/L Potassium 3.3 L 3.0 L (3.5-5.1) mmol/L Chloride 116 H 112 H (98-107) mmol/L Glucose 131 H (70-100) mg/dL Calcium 7.9 L 7.7 L (8.5-10.1) mg/dL Magnesium 1.1 L (1.8-2.4) mg/dL Alkaline Phosphatase 122 H (46-116) U/L Total Protein 4.8 L (6.4-8.2) g/dL Albumin 2.3 L (3.4-5.0) g/dL Urine Protein (Negative) mg/dL Urine Blood (Negative) Urine Nitrite (Negative) Ur Leukocyte Esterase (Negative) Urine RBC (0-2) 09/21/18 Range/Units 11:00 RBC (4.00-5.20) m/cumm Hgb (12.0-15.5) g/dL Hct (36.0-46.0) % MCHC (32.0-36.0) g/dL RDW (11.7-14.6) % Absolute Neutrophils (1.2-6.7) k/cumm Absolute Monocytes (0.11-0.7) k/cumm Sodium (136-145) mmol/L Potassium (3.5-5.1) mmol/L Chloride (98-107) mmol/L Glucose (70-100) mg/dL Calcium (8.5-10.1) mg/dL Magnesium (1.8-2.4) mg/dL Alkaline Phosphatase (46-116) U/L Total Protein (6.4-8.2) g/dL Albumin (3.4-5.0) g/dL Urine Protein 30 H (Negative) mg/dL Urine Blood Moderate H (Negative) Urine Nitrite Positive H (Negative) Ur Leukocyte Esterase Small H (Negative) Urine RBC >50 H (0-2) Vital Signs Temperature 37.4 C 09/21/18 13:24 Temperature Source Temporal Artery Scan 09/21/18 12:04 Pulse 88 09/21/18 17:00 Pulse 88 09/21/18 17:01 Respiratory Rate 12 09/21/18 16:07 Respiratory Effort 09/21/18 13:24 Respiratory Depth Normal 09/21/18 13:24 Respiratory Pattern Normal 09/21/18 13:24 Blood Pressure 133/66 09/21/18 17:00 Blood Pressure Mean 83 09/21/18 17:00 Blood Pressure Position Supine 09/21/18 03:18 Pulse Oximetry 93 L 09/21/18 17:01 Respiratory End-tidal CO2 27 09/21/18 17:01 Oxygen Delivery Method Mechanical Ventilator 09/21/18 12:04 Oxygen Flow Rate 0 09/21/18 12:04 Fraction of Inspired Oxygen (FIO2) 40 09/21/18 10:34 Pain Level 0 09/21/18 03:18 Intake & Output 09/20/18 09/21/18 09/21/18 23:59 11:59 23:59 Intake Total 1339.924 / 3081.364 1933.440 / 2301.567 368.127 / 2301.567 Output Total 425 / 5 550 / 2025 1475 / 2024 Balance 914.924 / 894.954 0397.440 / 276.567 -1106.873 / 276.567 Weight 58.8 kg Intake: IV 1339.924 / 3081.364 1933.440 / 2301.567 368.127 / 2301.567 Output: Gastric Drainage 50 / 50 100 / 100 Oral 50 / 50 100 / 100 Urine 375 / 2074 550 / 1925 1375 / 1925 Other: Urine Color Yellow Light Chikis Straw Urine Appearance Clear Clear Clear Urine Odor None Comment pt has indwelling soliz cath Soliz in place Soliz in place Gastric Occult Blood Oral Negative Positive Voiding Methods Indwelling Catheter Laboratory Results WBC 10.10 k/cumm (4.4-10.8) D 09/21/18 06:30 RBC 3.26 m/cumm (4.00-5.20) L 09/21/18 06:30 Hgb 9.2 g/dL (12.0-15.5) L 09/21/18 06:30 Hct 29.5 % (36.0-46.0) L 09/21/18 06:30 MCV 90.5 fL (80-95) 09/21/18 06:30 MCH 28.2 pg (27.0-33.0) 09/21/18 06:30 MCHC 31.2 g/dL (32.0-36.0) L 09/21/18 06:30 RDW 18.4 % (11.7-14.6) H 09/21/18 06:30 Plt Count 144 x1000/uL (130-400) 09/21/18 06:30 MPV 10.7 fL (8.0-11.0) 09/21/18 06:30 Immature Gran % 0.2 09/21/18 06:30 75.7 09/21/18 06:30 12.2 09/21/18 06:30 8.5 09/21/18 06:30 3.2 09/21/18 06:30 0.2 09/21/18 06:30 Absolute Neutrophils 7.65 k/cumm (1.2-6.7) H 09/21/18 06:30 Absolute Lymphocytes 1.23 k/cumm (1.2-3.4) 09/21/18 06:30 Absolute Monocytes 0.86 k/cumm (0.11-0.7) H 09/21/18 06:30 Absolute Eosinophils 0.32 k/cumm (0.0-0.7) 09/21/18 06:30 Absolute Basophils 0.02 k/cumm (0.0-0.2) 09/21/18 06:30 Rbc morph reviewed 09/20/18 06:20 RBC Morphology See below 09/20/18 06:20 2+ 09/20/18 06:20 2+ 09/20/18 06:20 Sample Site Left radial 09/20/18 05:35 pCO2 38 mmHg (34-47) 09/20/18 05:35 pO2 216 mmHg (83-108) H 09/20/18 05:35 O2 Saturation 99 % (94-98) H 09/20/18 05:35 ABG pH 7.28 (7.35-7.45) L 09/20/18 05:35 ABG HCO3 18 mmol/L (22-28) L 09/20/18 05:35 ABG Total CO2 17 mmol/L (22-29) L 09/20/18 05:35 ABG Base Excess -8.9 mmol/L (-3-3) L 09/20/18 05:35 VBG pH 7.25 (7.32-7.43) L 09/19/18 18:16 VBG pCO2 37 mm/Hg (34-47) 09/19/18 18:16 VBG pO2 50 mm/Hg (28-44) H 09/19/18 18:16 VBG HCO3 16 mmol/L (22-28) L 09/19/18 18:16 VBG Total CO2 16 mmol/L (22-29) L 09/19/18 18:16 VBG O2 Saturation 81 % (70-80) H 09/19/18 18:16 VBG Base Excess -11.0 mmol/L (-3-3) L 09/19/18 18:16 Oxygen Liter Flow Cancelled 09/19/18 17:51 60 % 09/20/18 05:35 Sodium 145 mmol/L (136-145) 09/21/18 06:30 Potassium 3.0 mmol/L (3.5-5.1) L 09/21/18 06:30 Chloride 112 mmol/L (98-107) H 09/21/18 06:30 Carbon Dioxide 23.5 mmol/L (21.0-32.0) 09/21/18 06:30 9.5 mmol/L (3-11) 09/21/18 06:30 BUN 10 mg/dL (7-18) 09/21/18 06:30 0.73 mg/dL (0.55-1.02) 09/21/18 06:30 >= 60.00 (mL/min/1.73m2) 09/21/18 06:30 Glucose 131 mg/dL (70-100) H 09/21/18 06:30 0.7 mmol/l (0.6-1.4) 09/19/18 14:21 Calcium 7.7 mg/dL (8.5-10.1) L 09/21/18 06:30 Magnesium 1.1 mg/dL (1.8-2.4) L 09/21/18 06:30 0.2 mg/dL (0.2-1.0) 09/21/18 06:30 AST 27 U/L (15-37) 09/21/18 06:30 ALT 34 U/L (12-78) 09/21/18 06:30 122 U/L (46-116) H 09/21/18 06:30 < 0.05 ng/mL (0.00-0.06) 09/19/18 23:45 4.8 g/dL (6.4-8.2) L 09/21/18 06:30 2.3 g/dL (3.4-5.0) L 09/21/18 06:30 TSH 1.21 uIU/mL (0.358-3.74) 09/20/18 06:20 Straw (Yellow) 09/21/18 11:00 Sl cloudy (Clear) 09/21/18 11:00 5.5 (5-8) 09/21/18 11:00 Ur Specific [place] 1.015 (1.005-1.025) 09/21/18 11:00 30 mg/dL (Negative) H 09/21/18 11:00 Negative mg/dL (Negative) 09/21/18 11:00 Moderate (Negative) H 09/21/18 11:00 Positive (Negative) H 09/21/18 11:00 Negative (Negative) 09/21/18 11:00 0.2 EU/dL (Up TO 0.2) 09/21/18 11:00 Ur Leukocyte Esterase Small (Negative) H 09/21/18 11:00 >50 (0-2) H 09/21/18 11:00 10-20 HPF (0-5) 09/21/18 11:00 Ur Epithelial Cells Negative HPF (Negative) 09/21/18 11:00 Negative HPF (Negative) 09/21/18 11:00 Many HPF (Negative) 09/21/18 11:00 Negative LPF (Negative) 09/21/18 11:00 Negative (Negative) 09/21/18 11:00 Ur Culture Indicated? Yes 09/21/18 11:00 Negative mg/dL (Negative) 09/21/18 11:00 Fluid Source Cancelled 09/20/18 12:00 Fluid pH Cancelled 09/20/18 12:00 Salicylates < 2.8 mg/dL (2.8-20.0) L 09/19/18 14:21 Negative (Negative) 09/19/18 15:11 Negative (Negative) 09/19/18 15:11 Acetaminophen < 2 ug/mL (10-30) L 09/19/18 14:21 Ur Barbiturates Screen Negative (Negative) 09/19/18 15:11 Ur Tricyclics Screen Positive (Negative) 09/19/18 15:11 Ur Amphetamines Screen Negative (Negative) 09/19/18 15:11 U Benzodiazepines Scrn Negative (Negative) 09/19/18 15:11 Negative (Negative) 09/19/18 15:11 Ur THC Screen Positive (Negative) 09/19/18 15:11 Ethyl Alcohol < 3.0 mg/dL (<3) 09/19/18 14:21
[2018-09-21] MEDS: Pantoprazole 40 MG VIAL IVP (19:44)
[2018-09-22] VITALS (81 sets, daily range): BP systolic 115–211; BP diastolic 53–124; PULSE 70–124; RESP 2–20; TEMP 37.1–38.5; O2SAT 93–98
[2018-09-22] MEDS: PROPOFOL 1,000 MG/100 ML BTL 18.601 MG IVPB (00:21)
[2018-09-22] MEDS: PROPOFOL 1,000 MG/100 ML BTL 20.956 MG IVPB (05:15)
[2018-09-22] MEDS: PIPERACILLIN/TAZO 4.5 GM in Normal Saline 100 ML IVPB ×3 (05:18→22:11)
[2018-09-22] MEDS: Normal Saline Flush 10 ML SYR ×2 (06:30→17:47)
[2018-09-22 07:31] LABS: Abs Immature Grans 0.03 k/cumm (0.0-0.09); Absolute Basophil Count 0.03 k/cumm (0.0-0.2); Absolute Eosinophil Count 0.51 k/cumm (0.0-0.7); Absolute Lymphocyte Count 0.93 k/cumm (1.2-3.4); Absolute Monocyte Count 0.97 k/cumm (0.11-0.7); Basophils % 0.2; Eosinophils % 3.6; HGB 8.8 g/dL (12.0-15.5); Immature Grans % 0.2; Lymphocytes % 6.6; Mean Corp. HGB Concentration 32.6 g/dL (32.0-36.0); Mean Corpuscular Hemoglobin 29.1 pg (27.0-33.0); Mean Corpuscular Volume 89.4 fL (80-95); Mean Platelet Volume 10.8 fL (8.0-11.0); Monocytes % 6.9; Neutrophils % 82.5; Platelet Count 140 x1000/uL (130-400); RBC 3.02 m/cumm (4.00-5.20); RBC Distribution Width 18.6 % (11.7-14.6); White Blood Cell Count 14.04 k/cumm (4.4-10.8)
[2018-09-22 07:37] LABS: Absolute Neutrophil Count 11.58 k/cumm (1.2-6.7)
[2018-09-22 07:47] LABS: ALT 25 U/L (12-78); AST 20 U/L (15-37); Albumin 1.9 g/dL (3.4-5.0); Alkaline Phosphatase 113 U/L (46-116); BUN 11 mg/dL (7-18); Bilirubin, Total 0.3 mg/dL (0.2-1.0); CREATININE 0.82 mg/dL (0.55-1.02); Calcium 8.1 mg/dL (8.5-10.1); Chloride 109 mmol/L (98-107); Glucose 85 mg/dL (70-100); Magnesium 1.7 mg/dL (1.8-2.4); Potassium 3.6 mmol/L (3.5-5.1); Sodium 143 mmol/L (136-145); Total Protein 4.8 g/dL (6.4-8.2)
--- NOTE | 2018-09-22 07:55 | PDOC.CMPRO ---
Care Management Progress Note S/O: Deepti continues to be treated and closely monitored in the ICU. Per MD she will have repeat CXR and has additional labs pending including urine, spewtum and blood cultures. Anticipate extubation attempt once updated labs are available. CM continues to follow. A: 68 year old female admitted to [facility] ICU 09/19/18 for Polypharmacy Overdose P: Deepti will continue to be closely monitored and assessed. Anticipate she will require ongoing support and re-assurance. Anticipate she will return home with a more comprehensive plan for medication management. She will resume current community supports, follow up with her PCP and transport via private vehicle with her significant other, Marek.
--- NOTE | 2018-09-22 08:50 | NUR.NOTE ---
09/21/18 0130: This RN received report from the evening nurse that this pts triple lumen femoral line had to be replaced on the evening shift due to blood leakage, and continued blood leakage was occurring with the new dressing was reported to me at time of shift change. I called Dr. Ledezma, and informed her thus. She inquired as to the reason why she was not speaking with the evening nurse. I responded that I was phoning her because I had just received shift report on this pt. She stated let me talk to Huma. Evening nurse Huma then conversed with this doctor, and when she got off the phone, Huma stated change the dressing. I assessed this pt, found leaking noted, with fresh blood oozing easily from a slight touch at the dressing edge. This nurse was concerned about clot dislodgment, and inducement of more blood loss in a pt with a HX of bleeding gastric ulcers, HGB level only 9.2, and currently heme positive gastric contents. I elected to continue to use the current dressing, noting that the bleeding was beginning to slow, and effect minor position changes only with this patient until the am shift, with extubation hoped for at that time. No infiltrate occurred on this shift. There was no evidence of leaking IV fluid visible at this IV site. Blood return was obtained at the proximal lumen of this line during routine morning blood draw. Pita Lainez RN Nursing Note:
--- NOTE | 2018-09-22 10:27 | W.PM.PROGNOT ---
Date of Service Date of service: 09/22/18 Time of Service: 10:27 Assessment and Plan (1) Venous bleed: Current visit: Yes Status: Acute 68 y/o female s/p right femoral central line placement on 09/19/18. Venous oozing from site has stopped. Redress with gauze/ Tegaderm for pressure dressing as needed. D/c central line when no longer needed. Will follow-up as needed. Discussed with patient's nurse. Subjective Interval history since last seen: Patient to be extubated this am. Apparently had some oozing again at right femoral site last night after being turned. Discussed with patient's nurse last night. 4x4 gauzes were laid on top of her dressing. Exam Const General: cooperative and no acute distress Orientation: awake Cardio Other: Right groin - femoral central line site. Clotted blood on dressing. No active bleeding or oozing. Cleansed with chloraprep. New patch and gauze dressing applied. Objective Objective Clinical Data: Abnormal lab results 09/21/18 09/22/18 09/22/18 Range/Units 11:00 06:40 06:40 WBC 14.04 H D (4.4-10.8) k/cumm RBC 3.02 L (4.00-5.20) m/cumm Hgb 8.8 L (12.0-15.5) g/dL Hct 27.0 L (36.0-46.0) % RDW 18.6 H (11.7-14.6) % Absolute Neutrophils 11.58 H (1.2-6.7) k/cumm Absolute Lymphocytes 0.93 L (1.2-3.4) k/cumm Absolute Monocytes 0.97 H (0.11-0.7) k/cumm Chloride 109 H (98-107) mmol/L Calcium 8.1 L (8.5-10.1) mg/dL Magnesium 1.7 L (1.8-2.4) mg/dL Total Protein 4.8 L (6.4-8.2) g/dL Albumin 1.9 L (3.4-5.0) g/dL Urine Protein 30 H (Negative) mg/dL Urine Blood Moderate H (Negative) Urine Nitrite Positive H (Negative) Ur Leukocyte Esterase Small H (Negative) Urine RBC >50 H (0-2) Vital Signs Temperature 37.9 C H 09/22/18 10:12 Temperature Source Temporal Artery Scan 09/22/18 10:12 Pulse 104 H 09/22/18 10:12 Pulse 77 09/22/18 08:00 Respiratory Rate 14 09/22/18 10:12 Respiratory Effort 09/22/18 09:53 Respiratory Depth Normal 09/21/18 13:24 Respiratory Pattern Normal 09/21/18 13:24 Blood Pressure 187/76 H 09/22/18 10:12 Blood Pressure Mean 69 09/22/18 08:00 Blood Pressure Position Supine 09/22/18 03:01 Pulse Oximetry 94 L 09/22/18 10:12 Respiratory End-tidal CO2 26 09/22/18 08:00 Oxygen Delivery Method Mechanical Ventilator 09/22/18 10:12 Oxygen Flow Rate 0 09/22/18 10:12 Fraction of Inspired Oxygen (FIO2) 40 09/22/18 10:12 Pain Level 0 09/21/18 20:30 Intake & Output 09/21/18 09/21/18 09/22/18 11:59 23:59 11:59 Intake Total 1933.440 / 2771.941 838.501 / 2771.941 752.901 / 752.901 Output Total 550 / 2875 2325 / 2875 425 / 425 Balance 1383.440 / -103.059 -1486.499 / -103.059 327.901 / 327.901 Weight 58.8 kg 58.8 kg Intake: IV 1933.440 / 2771.941 838.501 / 2771.941 752.901 / 752.901 Oral 0 / 0 Output: Gastric Drainage 150 / 150 50 / 50 Oral 150 / 150 50 / 50 Urine 550 / 2725 2175 / 2725 375 / 375 Other: Urine Color Light [place] Pale Pale Yellow Yellow Green Urine Appearance Clear Clear Clear Urine Odor None Comment Soliz in place soliz to gravity with extremely light colored yellow urine. soliz is patent and draining clear, pale-greensh tinged urine Gastric Occult Blood Oral Positive Voiding Methods Indwelling Catheter Laboratory Results WBC 14.04 k/cumm (4.4-10.8) H D 09/22/18 06:40 RBC 3.02 m/cumm (4.00-5.20) L 09/22/18 06:40 Hgb 8.8 g/dL (12.0-15.5) L 09/22/18 06:40 Hct 27.0 % (36.0-46.0) L 09/22/18 06:40 MCV 89.4 fL (80-95) 09/22/18 06:40 MCH 29.1 pg (27.0-33.0) 09/22/18 06:40 MCHC 32.6 g/dL (32.0-36.0) 09/22/18 06:40 RDW 18.6 % (11.7-14.6) H 09/22/18 06:40 Plt Count 140 x1000/uL (130-400) 09/22/18 06:40 MPV 10.8 fL (8.0-11.0) 09/22/18 06:40 Immature Gran % 0.2 09/22/18 06:40 82.5 09/22/18 06:40 6.6 09/22/18 06:40 6.9 09/22/18 06:40 3.6 09/22/18 06:40 0.2 09/22/18 06:40 Absolute Neutrophils 11.58 k/cumm (1.2-6.7) H 09/22/18 06:40 Absolute Lymphocytes 0.93 k/cumm (1.2-3.4) L 09/22/18 06:40 Absolute Monocytes 0.97 k/cumm (0.11-0.7) H 09/22/18 06:40 Absolute Eosinophils 0.51 k/cumm (0.0-0.7) 09/22/18 06:40 Absolute Basophils 0.03 k/cumm (0.0-0.2) 09/22/18 06:40 Rbc morph reviewed 09/20/18 06:20 RBC Morphology See below 09/20/18 06:20 2+ 09/20/18 06:20 2+ 09/20/18 06:20 Sample Site Left radial 09/20/18 05:35 pCO2 38 mmHg (34-47) 09/20/18 05:35 pO2 216 mmHg (83-108) H 09/20/18 05:35 O2 Saturation 99 % (94-98) H 09/20/18 05:35 ABG pH 7.28 (7.35-7.45) L 09/20/18 05:35 ABG HCO3 18 mmol/L (22-28) L 09/20/18 05:35 ABG Total CO2 17 mmol/L (22-29) L 09/20/18 05:35 ABG Base Excess -8.9 mmol/L (-3-3) L 09/20/18 05:35 VBG pH 7.25 (7.32-7.43) L 09/19/18 18:16 VBG pCO2 37 mm/Hg (34-47) 09/19/18 18:16 VBG pO2 50 mm/Hg (28-44) H 09/19/18 18:16 VBG HCO3 16 mmol/L (22-28) L 09/19/18 18:16 VBG Total CO2 16 mmol/L (22-29) L 09/19/18 18:16 VBG O2 Saturation 81 % (70-80) H 09/19/18 18:16 VBG Base Excess -11.0 mmol/L (-3-3) L 09/19/18 18:16 Oxygen Liter Flow Cancelled 09/19/18 17:51 60 % 09/20/18 05:35 Sodium 143 mmol/L (136-145) 09/22/18 06:40 Potassium 3.6 mmol/L (3.5-5.1) 09/22/18 06:40 Chloride 109 mmol/L (98-107) H 09/22/18 06:40 Carbon Dioxide 24.0 mmol/L (21.0-32.0) 09/22/18 06:40 10.0 mmol/L (3-11) 09/22/18 06:40 BUN 11 mg/dL (7-18) 09/22/18 06:40 0.82 mg/dL (0.55-1.02) 09/22/18 06:40 >= 60.00 (mL/min/1.73m2) 09/22/18 06:40 Glucose 85 mg/dL (70-100) 09/22/18 06:40 0.7 mmol/l (0.6-1.4) 09/19/18 14:21 Calcium 8.1 mg/dL (8.5-10.1) L 09/22/18 06:40 Magnesium 1.7 mg/dL (1.8-2.4) L 09/22/18 06:40 0.3 mg/dL (0.2-1.0) 09/22/18 06:40 AST 20 U/L (15-37) 09/22/18 06:40 ALT 25 U/L (12-78) 09/22/18 06:40 113 U/L (46-116) 09/22/18 06:40 < 0.05 ng/mL (0.00-0.06) 09/19/18 23:45 4.8 g/dL (6.4-8.2) L 09/22/18 06:40 1.9 g/dL (3.4-5.0) L 09/22/18 06:40 TSH 1.21 uIU/mL (0.358-3.74) 09/20/18 06:20 Straw (Yellow) 09/21/18 11:00 Sl cloudy (Clear) 09/21/18 11:00 5.5 (5-8) 09/21/18 11:00 Ur Specific [place] 1.015 (1.005-1.025) 09/21/18 11:00 30 mg/dL (Negative) H 09/21/18 11:00 Negative mg/dL (Negative) 09/21/18 11:00 Moderate (Negative) H 09/21/18 11:00 Positive (Negative) H 09/21/18 11:00 Negative (Negative) 09/21/18 11:00 0.2 EU/dL (Up TO 0.2) 09/21/18 11:00 Ur Leukocyte Esterase Small (Negative) H 09/21/18 11:00 >50 (0-2) H 09/21/18 11:00 10-20 HPF (0-5) 09/21/18 11:00 Ur Epithelial Cells Negative HPF (Negative) 09/21/18 11:00 Negative HPF (Negative) 09/21/18 11:00 Many HPF (Negative) 09/21/18 11:00 Negative LPF (Negative) 09/21/18 11:00 Negative (Negative) 09/21/18 11:00 Ur Culture Indicated? Yes 09/21/18 11:00 Negative mg/dL (Negative) 09/21/18 11:00 Fluid Source Cancelled 09/20/18 12:00 Fluid pH Cancelled 09/20/18 12:00 Salicylates < 2.8 mg/dL (2.8-20.0) L 09/19/18 14:21 Negative (Negative) 09/19/18 15:11 Negative (Negative) 09/19/18 15:11 Acetaminophen < 2 ug/mL (10-30) L 09/19/18 14:21 Ur Barbiturates Screen Negative (Negative) 09/19/18 15:11 Ur Tricyclics Screen Positive (Negative) 09/19/18 15:11 Ur Amphetamines Screen Negative (Negative) 09/19/18 15:11 U Benzodiazepines Scrn Negative (Negative) 09/19/18 15:11 Negative (Negative) 09/19/18 15:11 Ur THC Screen Positive (Negative) 09/19/18 15:11 Ethyl Alcohol < 3.0 mg/dL (<3) 09/19/18 14:21
[2018-09-22] MEDS: Potassium Chloride Liquid 20 MEQ PKT 40 MEQ PO (11:05)
[2018-09-22] MEDS: Pantoprazole 40 MG VIAL IVP ×2 (11:06→21:29)
[2018-09-22] MEDS: SODIUM CHLORIDE 0.45% 1,000 ML 50 ML IV (11:07)
[2018-09-22] MEDS: MAGNESIUM SULFATE 1 GM/100 ML BAG IVPB (11:07)
[2018-09-22] MEDS: Sucralfate 1 GM TAB PO ×3 (11:30→21:28)
[2018-09-22] MEDS: hydrALAZINE 20 MG/ML VIAL 10 MG IVP ×2 (13:06→22:55)
--- NOTE | 2018-09-22 13:16 | W.PM.PROGNOT ---
Date of Service Date of service: 09/22/18 Time of Service: 13:19 Assessment and Plan (1) Fever: Current visit: Yes Status: Acute Evidence of both Pneumonia and UTI, both absent at time of presentation. - Treat for VAP vs. Aspiration pneumonia - Initiated on Vancomycin and Pip-Tazo currently day #2. - Urine Cultures with growth of GNRs. Sputum Cultures currently with Moderate growth of Staph Aureus, sensitivities not yet available. Unfortunately Blood Cultures appear cancelled despite being ordered. (2) Drug overdose: Current visit: Yes Status: Acute Polypharmacy Overdose that included Metoprolol, Gabapentin, Amitryptiline, and Trazodone. Unsure if Overdose was purposeful or accidental. - Bradycardia and hypotension appear resolved. - No evidence of Ventricular Arrhythmias. - Successfully extubated this morning. - Restarted home medications, but continue to hold Gabapentin, Melatonin, and Trazodone given that patient is mildly sedated following weaning of Fentanyl and Propofol. Of note, patient has a lengthy prior history of admissions for medication overdose. Will need to discuss with Care Management regarding safety plan for future care. Qualifiers: Encounter type: initial encounter Injury intent: accidental or unintentional Qualified Code(s): T50.901A - Poisoning by unspecified drugs, medicaments and biological substances, accidental (unintentional), initial encounter (3) Movement disorder: Current visit: No Status: Chronic Prior history of generalized jerking type movements which have been noted to be chronic. Patient has undergone an extensive prior workup for this in the past without etiology. (4) Multiple sclerosis: Current visit: No Status: Chronic Follows with Neurology chronically. (5) Anemia: Current visit: Yes Status: Chronic Stable but low Hgb, with evidence of Heme + gastric contents. History of Gastritis and PUD. Increase PPI to BID, and add Carafate. Hold Chemical DVT Prophylaxis as well. (6) DVT prophylaxis: Current visit: Yes Status: Acute Hold Lovenox in setting of anemia as above. Subjective Interval history since last seen: 68 year old woman with a prior medical history significant for MS and chronic movement disorder, admitted from [facility] Emergency Department on 09/19 with a diagnosis of Polypharmacy Overdose. Ms. 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 She also has a history of Gastric Ulcers and malnutrition. She's been admitted at [facility] [place] [place] for treatment of yeast Esophagitis and malnutrition, and has undergone prior J-Tube placement, and conversion of a former Matthew-en-y for marginal ulcers and bile reflux gastritis. Her other history includes HTN, Dyslipidemia, and CKD. She also has a previously noted history of opiate misuse, and suspected prior inappropriate use of both Gabapentin and Tylenol PM. Ms. Olivo presented to the ED via EMS as she was found to be unresponsive by her fiance. He reported that the patient had not been sleeping well, but upon his return home on the morning of admission he found her to be unresponsive. EMS was called and found her to be bradycardic and hypotensive, unresponsive to administration of Narcan. Review of the blister pack of her home medications revealed that she may have ingested up to 4 days worth of her medications, including Gabapentin, Amitriptyline, Metoprolol, and Trazodone. Her work-up included a negative CT of the head, essentially normal CBC, LFTs, Urinalysis, and TSH, but with signs of AZALEA. Her UDS showed positivity for THC and TCAs. Her ECG was reportedly non-ischemic, and troponins were negative. Her CXR was unremarkable. As there was concern regarding ability to protect her airway, the patient was intubated in the ED, and referred for admission to the ICU. This morning Ms. Olivo's HR and Blood Pressure remain stabilized while sedated, and she is no longer febrile. RSBI was satisfactory this morning, and the patient was successfully extubated without complications. Triple Lumen Catheter remains in place. No other events reported. Exam Narrative Exam Narrative: General: Patient is extubated, remains groggy but arousable Neck: Supple CV: Regular, borderline tachycardic at time of exam, S1S2, 3/6 LLSB murmur appreciated. Pulmonary: mild bibasilar crackles on limited exam. Abdomen: + Bowel Sounds, soft, nontender, nondistended : Soliz Catheter in place Skin: Right sided Femoral Central Line noted Vascular: No lower extremity edema Objective Objective Clinical Data: Abnormal lab results 09/22/18 09/22/18 Range/Units 06:40 06:40 WBC 14.04 H D (4.4-10.8) k/cumm RBC 3.02 L (4.00-5.20) m/cumm Hgb 8.8 L (12.0-15.5) g/dL Hct 27.0 L (36.0-46.0) % RDW 18.6 H (11.7-14.6) % Absolute Neutrophils 11.58 H (1.2-6.7) k/cumm Absolute Lymphocytes 0.93 L (1.2-3.4) k/cumm Absolute Monocytes 0.97 H (0.11-0.7) k/cumm Chloride 109 H (98-107) mmol/L Calcium 8.1 L (8.5-10.1) mg/dL Magnesium 1.7 L (1.8-2.4) mg/dL Total Protein 4.8 L (6.4-8.2) g/dL Albumin 1.9 L (3.4-5.0) g/dL Vital Signs Temperature 37.9 C H 09/22/18 10:12 Temperature Source Temporal Artery Scan 09/22/18 10:12 Pulse 104 H 09/22/18 10:12 Pulse 77 09/22/18 08:00 Respiratory Rate 14 09/22/18 10:12 Respiratory Effort 09/22/18 09:53 Respiratory Depth Normal 09/21/18 13:24 Respiratory Pattern Normal 09/21/18 13:24 Blood Pressure 187/76 H 09/22/18 10:12 Blood Pressure Mean 69 09/22/18 08:00 Blood Pressure Position Supine 09/22/18 03:01 Pulse Oximetry 94 L 09/22/18 10:12 Respiratory End-tidal CO2 26 09/22/18 08:00 Oxygen Delivery Method Mechanical Ventilator 09/22/18 10:12 Oxygen Flow Rate 0 09/22/18 10:12 Fraction of Inspired Oxygen (FIO2) 40 09/22/18 10:12 Pain Level 0 09/21/18 20:30 Intake & Output 09/21/18 09/22/18 09/22/18 23:59 11:59 23:59 Intake Total 838.501 / 2771.941 849.568 / 849.568 Output Total 2325 / 2875 425 / 425 Balance -1486.499 / -103.059 424.568 / 424.568 Weight 58.8 kg Intake: IV 838.501 / 2771.941 849.568 / 849.568 Oral 0 / 0 Output: Gastric Drainage 150 / 150 50 / 50 Oral 150 / 150 50 / 50 Urine 2175 / 2725 375 / 375 Other: Urine Color Pale Pale Yellow Yellow Green Urine Appearance Clear Clear Urine Odor None Comment soliz to gravity with extremely light colored yellow urine. soliz is patent and draining clear, pale-greensh tinged urine Gastric Occult Blood Oral Positive Voiding Methods Indwelling Catheter Laboratory Results WBC 14.04 k/cumm (4.4-10.8) H D 09/22/18 06:40 RBC 3.02 m/cumm (4.00-5.20) L 09/22/18 06:40 Hgb 8.8 g/dL (12.0-15.5) L 09/22/18 06:40 Hct 27.0 % (36.0-46.0) L 09/22/18 06:40 MCV 89.4 fL (80-95) 09/22/18 06:40 MCH 29.1 pg (27.0-33.0) 09/22/18 06:40 MCHC 32.6 g/dL (32.0-36.0) 09/22/18 06:40 RDW 18.6 % (11.7-14.6) H 09/22/18 06:40 Plt Count 140 x1000/uL (130-400) 09/22/18 06:40 MPV 10.8 fL (8.0-11.0) 09/22/18 06:40 Immature Gran % 0.2 09/22/18 06:40 82.5 09/22/18 06:40 6.6 09/22/18 06:40 6.9 09/22/18 06:40 3.6 09/22/18 06:40 0.2 09/22/18 06:40 Absolute Neutrophils 11.58 k/cumm (1.2-6.7) H 09/22/18 06:40 Absolute Lymphocytes 0.93 k/cumm (1.2-3.4) L 09/22/18 06:40 Absolute Monocytes 0.97 k/cumm (0.11-0.7) H 09/22/18 06:40 Absolute Eosinophils 0.51 k/cumm (0.0-0.7) 09/22/18 06:40 Absolute Basophils 0.03 k/cumm (0.0-0.2) 09/22/18 06:40 Rbc morph reviewed 09/20/18 06:20 RBC Morphology See below 09/20/18 06:20 2+ 09/20/18 06:20 2+ 09/20/18 06:20 Sample Site Left radial 09/20/18 05:35 pCO2 38 mmHg (34-47) 09/20/18 05:35 pO2 216 mmHg (83-108) H 09/20/18 05:35 O2 Saturation 99 % (94-98) H 09/20/18 05:35 ABG pH 7.28 (7.35-7.45) L 09/20/18 05:35 ABG HCO3 18 mmol/L (22-28) L 09/20/18 05:35 ABG Total CO2 17 mmol/L (22-29) L 09/20/18 05:35 ABG Base Excess -8.9 mmol/L (-3-3) L 09/20/18 05:35 VBG pH 7.25 (7.32-7.43) L 09/19/18 18:16 VBG pCO2 37 mm/Hg (34-47) 09/19/18 18:16 VBG pO2 50 mm/Hg (28-44) H 09/19/18 18:16 VBG HCO3 16 mmol/L (22-28) L 09/19/18 18:16 VBG Total CO2 16 mmol/L (22-29) L 09/19/18 18:16 VBG O2 Saturation 81 % (70-80) H 09/19/18 18:16 VBG Base Excess -11.0 mmol/L (-3-3) L 09/19/18 18:16 Oxygen Liter Flow Cancelled 09/19/18 17:51 60 % 09/20/18 05:35 Sodium 143 mmol/L (136-145) 09/22/18 06:40 Potassium 3.6 mmol/L (3.5-5.1) 09/22/18 06:40 Chloride 109 mmol/L (98-107) H 09/22/18 06:40 Carbon Dioxide 24.0 mmol/L (21.0-32.0) 09/22/18 06:40 10.0 mmol/L (3-11) 09/22/18 06:40 BUN 11 mg/dL (7-18) 09/22/18 06:40 0.82 mg/dL (0.55-1.02) 09/22/18 06:40 >= 60.00 (mL/min/1.73m2) 09/22/18 06:40 Glucose 85 mg/dL (70-100) 09/22/18 06:40 0.7 mmol/l (0.6-1.4) 09/19/18 14:21 Calcium 8.1 mg/dL (8.5-10.1) L 09/22/18 06:40 Magnesium 1.7 mg/dL (1.8-2.4) L 09/22/18 06:40 0.3 mg/dL (0.2-1.0) 09/22/18 06:40 AST 20 U/L (15-37) 09/22/18 06:40 ALT 25 U/L (12-78) 09/22/18 06:40 113 U/L (46-116) 09/22/18 06:40 < 0.05 ng/mL (0.00-0.06) 09/19/18 23:45 4.8 g/dL (6.4-8.2) L 09/22/18 06:40 1.9 g/dL (3.4-5.0) L 09/22/18 06:40 TSH 1.21 uIU/mL (0.358-3.74) 09/20/18 06:20 Straw (Yellow) 09/21/18 11:00 Sl cloudy (Clear) 09/21/18 11:00 5.5 (5-8) 09/21/18 11:00 Ur Specific [place] 1.015 (1.005-1.025) 09/21/18 11:00 30 mg/dL (Negative) H 09/21/18 11:00 Negative mg/dL (Negative) 09/21/18 11:00 Moderate (Negative) H 09/21/18 11:00 Positive (Negative) H 09/21/18 11:00 Negative (Negative) 09/21/18 11:00 0.2 EU/dL (Up TO 0.2) 09/21/18 11:00 Ur Leukocyte Esterase Small (Negative) H 09/21/18 11:00 >50 (0-2) H 09/21/18 11:00 10-20 HPF (0-5) 09/21/18 11:00 Ur Epithelial Cells Negative HPF (Negative) 09/21/18 11:00 Negative HPF (Negative) 09/21/18 11:00 Many HPF (Negative) 09/21/18 11:00 Negative LPF (Negative) 09/21/18 11:00 Negative (Negative) 09/21/18 11:00 Ur Culture Indicated? Yes 09/21/18 11:00 Negative mg/dL (Negative) 09/21/18 11:00 Fluid Source Cancelled 09/20/18 12:00 Fluid pH Cancelled 09/20/18 12:00 Salicylates < 2.8 mg/dL (2.8-20.0) L 09/19/18 14:21 Negative (Negative) 09/19/18 15:11 Negative (Negative) 09/19/18 15:11 Acetaminophen < 2 ug/mL (10-30) L 09/19/18 14:21 Ur Barbiturates Screen Negative (Negative) 09/19/18 15:11 Ur Tricyclics Screen Positive (Negative) 09/19/18 15:11 Ur Amphetamines Screen Negative (Negative) 09/19/18 15:11 U Benzodiazepines Scrn Negative (Negative) 09/19/18 15:11 Negative (Negative) 09/19/18 15:11 Ur THC Screen Positive (Negative) 09/19/18 15:11 Ethyl Alcohol < 3.0 mg/dL (<3) 09/19/18 14:21
[2018-09-22] MEDS: Albuterol/Ipratropium 3 ML UPD VIAL UPD (13:30)
[2018-09-22] MEDS: Metoprolol 50 MG TAB PO ×2 (13:49→21:29)
[2018-09-22 17:00] LABS: Vancomycin, Trough 20.9 ug/mL (10.0-20.0)
[2018-09-22] MEDS: Metoprolol 5 MG/5 ML VIAL IVP (18:04)
[2018-09-22] MEDS: Normal Saline Flush 10 ML SYR IVP (18:06)
[2018-09-22] MEDS: Acetaminophen 650 MG SUPP PR (18:15)
[2018-09-22] MEDS: Normal Saline 500 ML 30 ML IV (18:53)
[2018-09-22] MEDS: Atorvastatin 40 MG TAB PO (21:28)
[2018-09-22] MEDS: Docusate Sodium 100 MG CAP PO (21:29)
[2018-09-23] VITALS (72 sets, daily range): BP systolic 159–212; BP diastolic 67–126; PULSE 78–107; RESP 8–20; TEMP 36.9–37.9; O2SAT 82–100
--- NOTE | 2018-09-23 01:03 | NUR.NOTE ---
hydralazine 10 mg given iv for elevated systolic bp without much relief Nursing Note:
[2018-09-23] MEDS: ACETAMINOPHEN 1,000 MG/100 ML BTL 400 MG IVPB (03:30)
--- NOTE | 2018-09-23 03:51 | NUR.NOTE ---
pt has dry hacking cough. c/o headache. given tylenol IV with releif.Nursing Note:
[2018-09-23] MEDS: PIPERACILLIN/TAZO 4.5 GM in Normal Saline 100 ML IVPB ×2 (05:07→14:04)
[2018-09-23 07:44] LABS: Abs Immature Grans 0.06 k/cumm (0.0-0.09); Absolute Lymphocyte Count 1.04 k/cumm (1.2-3.4); Absolute Monocyte Count 1.08 k/cumm (0.11-0.7); Basophils % 0.1; Eosinophils % 1.2; HCT 32.4 % (36.0-46.0); HGB 10.5 g/dL (12.0-15.5); Immature Grans % 0.3; Lymphocytes % 5.2; Mean Corp. HGB Concentration 32.4 g/dL (32.0-36.0); Mean Corpuscular Volume 86.4 fL (80-95); Mean Platelet Volume 10.4 fL (8.0-11.0); Monocytes % 5.4; Neutrophils % 87.8; Platelet Count 180 x1000/uL (130-400); RBC 3.75 m/cumm (4.00-5.20); RBC Distribution Width 18.1 % (11.7-14.6); White Blood Cell Count 20.08 k/cumm (4.4-10.8)
[2018-09-23 07:48] LABS: Absolute Basophil Count 0.02 k/cumm (0.0-0.2); Absolute Eosinophil Count 0.24 k/cumm (0.0-0.7); Absolute Neutrophil Count 17.63 k/cumm (1.2-6.7)
[2018-09-23] MEDS: Ferrous Sulfate 325 MG TAB PO (08:02)
[2018-09-23] MEDS: Sertraline 50 MG TAB 100 MG PO (08:02)
[2018-09-23] MEDS: Normal Saline Flush 10 ML SYR IVP ×2 (08:02→16:56)
[2018-09-23] MEDS: Pantoprazole 40 MG VIAL IVP ×2 (08:02→19:41)
[2018-09-23] MEDS: Docusate Sodium 100 MG CAP PO (08:02)
[2018-09-23] MEDS: Sucralfate 1 GM TAB PO ×4 (08:03→21:03)
[2018-09-23] MEDS: Metoprolol 50 MG TAB PO ×2 (08:03→19:32)
--- NOTE | 2018-09-23 08:06 | PDOC.CMPRO ---
Care Management Progress Note S/O: Deepti continues to be treated and closely monitored in the ICU. Upon CM entry, Deepti identified this clinical writer as a friend in the community. She does not appear to be at her previous mental baseline and did report periods of confusion. When asked if she remembered being intubated she replied she did not. When asked if she remembered the event leading up to her hospitalization she reported she did not feel comfortable discussing at this time. CM validated her sentiment and shared appreciation for her honesty. CM discussed psychiatrist, PT consult and Mental Health Crisis screening prior to discharge. CM continues to follow. A: 68 year old female admitted to [facility] ICU 09/19/18 for Polypharmacy Overdose P: Deepti will continue to be closely monitored and assessed. Anticipate she will require ongoing support and re-assurance. Anticipate she will return home with a more comprehensive plan for medication management. She will resume current community supports including [facility] , [facility] and [facility]. She will follow up with her PCP and transport via private vehicle with her significant other, Marek.
[2018-09-23 08:46] LABS: ALT 25 U/L (12-78); AST 25 U/L (15-37); Albumin 2.6 g/dL (3.4-5.0); Alkaline Phosphatase 156 U/L (46-116); Anion Gap 11.1 mmol/L (3-11); BUN 10 mg/dL (7-18); Bilirubin, Total 0.7 mg/dL (0.2-1.0); CO2 28.9 mmol/L (21.0-32.0); CREATININE 0.98 mg/dL (0.55-1.02); Calcium 9.3 mg/dL (8.5-10.1); Chloride 102 mmol/L (98-107); Estimated GFR 56.61 (mL/min/1.73m2); Glucose 88 mg/dL (70-100); Magnesium 1.5 mg/dL (1.8-2.4); Sodium 142 mmol/L (136-145); Total Protein 6.2 g/dL (6.4-8.2)
[2018-09-23 08:56] LABS: Potassium 2.6 mmol/L (3.5-5.1)
[2018-09-23] MEDS: MAGNESIUM SULFATE 2 GM/50 ML BAG IVPB (09:55)
[2018-09-23] MEDS: Potassium Chloride 20 MEQ TABCR 40 MEQ PO ×2 (09:55→16:58)
[2018-09-23] MEDS: POTASSIUM CHLORIDE 20 MEQ/100 ML BAG 50 MEQ IVPB (10:31)
[2018-09-23] MEDS: hydrALAZINE 20 MG/ML VIAL 10 MG IVP ×3 (12:53→21:04)
--- NOTE | 2018-09-23 13:52 | W.PM.PROGNOT ---
Date of Service Date of service: 09/23/18 Time of Service: 13:52 Assessment and Plan (1) Fever: Current visit: Yes Status: Acute Evidence of both Pneumonia and UTI, both absent at time of presentation. - Treated for VAP vs. Aspiration pneumonia - Initiated on Vancomycin and Pip-Tazo currently day #2 - Sputum with MSSA. - Urine Cultures with growth of Raoultella Ornithinolytica. Sputum Cultures currently with Moderate growth of MSSA. Given current findings will change antibiotic regimen to Cefazolin. Discussed with ID - recommendations for 3 day course for treatment of UTI, 7 for Pneumonia, with completion of antibiotic course with Keflex. (2) Drug overdose: Current visit: Yes Status: Acute Polypharmacy Overdose that included Metoprolol, Gabapentin, Amitryptiline, and Trazodone. Unsure if Overdose was purposeful or accidental. - Bradycardia and hypotension appear resolved. - No evidence of Ventricular Arrhythmias. - Successfully extubated this morning. - Restarted home medications, but continue to hold Gabapentin, Melatonin, and Trazodone given that patient is mildly sedated following weaning of Fentanyl and Propofol. Of note, patient has a lengthy prior history of admissions for medication overdose. Will need to discuss with Care Management regarding safety plan for future care. Qualifiers: Encounter type: initial encounter Injury intent: accidental or unintentional Qualified Code(s): T50.901A - Poisoning by unspecified drugs, medicaments and biological substances, accidental (unintentional), initial encounter (3) Movement disorder: Current visit: No Status: Chronic Prior history of generalized jerking type movements which have been noted to be chronic. Patient has undergone an extensive prior workup for this in the past without etiology. (4) Multiple sclerosis: Current visit: No Status: Chronic Follows with Neurology chronically. (5) Anemia: Current visit: Yes Status: Chronic Stable but low Hgb, with evidence of Heme + gastric contents. History of Gastritis and PUD. Increased PPI to BID, with added Carafate. Hold Chemical DVT Prophylaxis as well. (6) DVT prophylaxis: Current visit: Yes Status: Acute Hold Lovenox in setting of anemia as above. Subjective Interval history since last seen: 68 year old woman with a prior medical history significant for MS and chronic movement disorder, admitted from [facility] Emergency Department on 09/19 with a diagnosis of Polypharmacy Overdose. Ms. 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 She also has a history of Gastric Ulcers and malnutrition. She's been admitted at [facility] [place] treatment of yeast Esophagitis and malnutrition, and has undergone prior J-Tube placement, and conversion of a former Matthew-en-y for marginal ulcers and bile reflux gastritis. Her other history includes HTN, Dyslipidemia, and CKD. She also has a previously noted history of opiate misuse, and suspected prior inappropriate use of both Gabapentin and Tylenol PM. Ms. Olivo presented to the ED via EMS as she was found to be unresponsive by her fiance. He reported that the patient had not been sleeping well, but upon his return home on the morning of admission he found her to be unresponsive. EMS was called and found her to be bradycardic and hypotensive, unresponsive to administration of Narcan. Review of the blister pack of her home medications revealed that she may have ingested up to 4 days worth of her medications, including Gabapentin, Amitriptyline, Metoprolol, and Trazodone. Her work-up included a negative CT of the head, essentially normal CBC, LFTs, Urinalysis, and TSH, but with signs of AZALEA. Her UDS showed positivity for THC and TCAs. Her ECG was reportedly non-ischemic, and troponins were negative. Her CXR was unremarkable. As there was concern regarding ability to protect her airway, the patient was intubated in the ED, and referred for admission to the ICU. This morning Ms. Olivo appears improved - remains stable from a respiratory standpoint after extubation. However she is still significantly hypertensive. She is no longer febrile but now with a TMax of 37.9, and a WBC that is worsening at 20 despite broad spectrum antibiotics Triple Lumen Catheter remains in place. Sputum culture is growing MSSA, and Urine Culture shows evidence of Raoultella Ornithinolytica. No other events reported. Exam Narrative Exam Narrative: General: Patient is Awake and Alert, appropriately responsive. NAD. Neck: Supple CV: Regular, borderline tachycardic at time of exam, S1S2, 3/6 LLSB murmur appreciated. Pulmonary: mild bibasilar crackles on limited exam, otherwise clear. Abdomen: + Bowel Sounds, soft, nontender, nondistended : Soliz Catheter in place Skin: Right sided Femoral Central Line noted Vascular: No lower extremity edema Objective Objective Clinical Data: Abnormal lab results 09/21/18 09/22/18 09/23/18 Range/Units 11:00 16:25 06:30 WBC (4.4-10.8) k/cumm RBC (4.00-5.20) m/cumm Hgb (12.0-15.5) g/dL Hct (36.0-46.0) % RDW (11.7-14.6) % Absolute Neutrophils (1.2-6.7) k/cumm Absolute Lymphocytes (1.2-3.4) k/cumm Absolute Monocytes (0.11-0.7) k/cumm Potassium 2.6 L* D (3.5-5.1) mmol/L Anion Gap 11.1 H (3-11) mmol/L Magnesium 1.5 L (1.8-2.4) mg/dL Alkaline Phosphatase 156 H (46-116) U/L Total Protein 6.2 L (6.4-8.2) g/dL Albumin 2.6 L (3.4-5.0) g/dL Urine Protein 30 H (Negative) mg/dL Urine Blood Moderate H (Negative) Urine Nitrite Positive H (Negative) Ur Leukocyte Esterase Small H (Negative) Urine RBC >50 H (0-2) Vancomycin Trough 20.9 H* (10.0-20.0) ug/mL 09/23/18 Range/Units 07:09 WBC 20.08 H D (4.4-10.8) k/cumm RBC 3.75 L (4.00-5.20) m/cumm Hgb 10.5 L (12.0-15.5) g/dL Hct 32.4 L (36.0-46.0) % RDW 18.1 H (11.7-14.6) % Absolute Neutrophils 17.63 H (1.2-6.7) k/cumm Absolute Lymphocytes 1.04 L (1.2-3.4) k/cumm Absolute Monocytes 1.08 H (0.11-0.7) k/cumm Potassium (3.5-5.1) mmol/L Anion Gap (3-11) mmol/L Magnesium (1.8-2.4) mg/dL Alkaline Phosphatase (46-116) U/L Total Protein (6.4-8.2) g/dL Albumin (3.4-5.0) g/dL Urine Protein (Negative) mg/dL Urine Blood (Negative) Urine Nitrite (Negative) Ur Leukocyte Esterase (Negative) Urine RBC (0-2) Vancomycin Trough (10.0-20.0) ug/mL Vital Signs Temperature 37.9 C H 09/23/18 11:31 Temperature Source Temporal Artery Scan 09/23/18 11:31 Pulse 89 09/23/18 13:25 Pulse 88 09/23/18 13:25 Respiratory Rate 19 09/23/18 03:53 Respiratory Effort 09/23/18 11:36 Respiratory Depth Normal 09/23/18 11:36 Respiratory Pattern Normal 09/23/18 11:36 Blood Pressure 160/69 H 09/23/18 13:25 Blood Pressure Mean 92 09/23/18 13:25 Blood Pressure Position Sitting 09/23/18 07:39 Pulse Oximetry 99 09/23/18 12:01 Respiratory End-tidal CO2 29 09/22/18 10:01 Oxygen Delivery Method Room Air 09/23/18 11:31 Oxygen Flow Rate 0 09/23/18 11:31 Fraction of Inspired Oxygen (FIO2) 40 09/22/18 10:35 Pain Level 5 09/23/18 04:02 Intake & Output 09/22/18 09/23/18 09/23/18 23:59 11:59 23:59 Intake Total 1167.5 / 2017.068 1537.5 / 1645.85 108.35 / 1645.85 Output Total 4025 / 4450 2049 Balance -2857.5 / -2432.932 -512.5 / -404.15 108.35 / -404.15 Weight 55.4 kg Intake: IV 887.5 / 1737.068 927.5 / 1035.85 108.35 / 1035.85 Oral 280 / 280 610 / 610 Output: Urine 4025 / 4400 2049 Other: Urine Color Pale Pale Yellow Yellow Urine Appearance Clear Clear Comment pt has indwelling soliz cath Soliz draining Stool Occult Blood Negative Stool Size Large Stool Characteristics Formed Liquid Mucoid Laboratory Results WBC 20.08 k/cumm (4.4-10.8) H D 09/23/18 07:09 RBC 3.75 m/cumm (4.00-5.20) L 09/23/18 07:09 Hgb 10.5 g/dL (12.0-15.5) L 09/23/18 07:09 Hct 32.4 % (36.0-46.0) L 09/23/18 07:09 MCV 86.4 fL (80-95) 09/23/18 07:09 MCH 28.0 pg (27.0-33.0) 09/23/18 07:09 MCHC 32.4 g/dL (32.0-36.0) 09/23/18 07:09 RDW 18.1 % (11.7-14.6) H 09/23/18 07:09 Plt Count 180 x1000/uL (130-400) 09/23/18 07:09 MPV 10.4 fL (8.0-11.0) 09/23/18 07:09 Immature Gran % 0.3 09/23/18 07:09 87.8 09/23/18 07:09 5.2 09/23/18 07:09 5.4 09/23/18 07:09 1.2 09/23/18 07:09 0.1 09/23/18 07:09 Absolute Neutrophils 17.63 k/cumm (1.2-6.7) H 09/23/18 07:09 Absolute Lymphocytes 1.04 k/cumm (1.2-3.4) L 09/23/18 07:09 Absolute Monocytes 1.08 k/cumm (0.11-0.7) H 09/23/18 07:09 Absolute Eosinophils 0.24 k/cumm (0.0-0.7) 09/23/18 07:09 Absolute Basophils 0.02 k/cumm (0.0-0.2) 09/23/18 07:09 Rbc morph reviewed 09/20/18 06:20 RBC Morphology See below 09/20/18 06:20 2+ 09/20/18 06:20 2+ 09/20/18 06:20 Sample Site Left radial 09/20/18 05:35 pCO2 38 mmHg (34-47) 09/20/18 05:35 pO2 216 mmHg (83-108) H 09/20/18 05:35 O2 Saturation 99 % (94-98) H 09/20/18 05:35 ABG pH 7.28 (7.35-7.45) L 09/20/18 05:35 ABG HCO3 18 mmol/L (22-28) L 09/20/18 05:35 ABG Total CO2 17 mmol/L (22-29) L 09/20/18 05:35 ABG Base Excess -8.9 mmol/L (-3-3) L 09/20/18 05:35 VBG pH 7.25 (7.32-7.43) L 09/19/18 18:16 VBG pCO2 37 mm/Hg (34-47) 09/19/18 18:16 VBG pO2 50 mm/Hg (28-44) H 09/19/18 18:16 VBG HCO3 16 mmol/L (22-28) L 09/19/18 18:16 VBG Total CO2 16 mmol/L (22-29) L 09/19/18 18:16 VBG O2 Saturation 81 % (70-80) H 09/19/18 18:16 VBG Base Excess -11.0 mmol/L (-3-3) L 09/19/18 18:16 Oxygen Liter Flow Cancelled 09/19/18 17:51 60 % 09/20/18 05:35 Sodium 142 mmol/L (136-145) 09/23/18 06:30 Potassium 2.6 mmol/L (3.5-5.1) L* D 09/23/18 06:30 Chloride 102 mmol/L (98-107) 09/23/18 06:30 Carbon Dioxide 28.9 mmol/L (21.0-32.0) 09/23/18 06:30 11.1 mmol/L (3-11) H 09/23/18 06:30 BUN 10 mg/dL (7-18) 09/23/18 06:30 0.98 mg/dL (0.55-1.02) 09/23/18 06:30 56.61 (mL/min/1.73m2) 09/23/18 06:30 Glucose 88 mg/dL (70-100) 09/23/18 06:30 0.7 mmol/l (0.6-1.4) 09/19/18 14:21 Calcium 9.3 mg/dL (8.5-10.1) 09/23/18 06:30 Magnesium 1.5 mg/dL (1.8-2.4) L 09/23/18 06:30 0.7 mg/dL (0.2-1.0) 09/23/18 06:30 AST 25 U/L (15-37) 09/23/18 06:30 ALT 25 U/L (12-78) 09/23/18 06:30 156 U/L (46-116) H 09/23/18 06:30 < 0.05 ng/mL (0.00-0.06) 09/19/18 23:45 6.2 g/dL (6.4-8.2) L 09/23/18 06:30 2.6 g/dL (3.4-5.0) L 09/23/18 06:30 TSH 1.21 uIU/mL (0.358-3.74) 09/20/18 06:20 Straw (Yellow) 09/21/18 11:00 Sl cloudy (Clear) 09/21/18 11:00 5.5 (5-8) 09/21/18 11:00 Ur Specific [place] 1.015 (1.005-1.025) 09/21/18 11:00 30 mg/dL (Negative) H 09/21/18 11:00 Negative mg/dL (Negative) 09/21/18 11:00 Moderate (Negative) H 09/21/18 11:00 Positive (Negative) H 09/21/18 11:00 Negative (Negative) 09/21/18 11:00 0.2 EU/dL (Up TO 0.2) 09/21/18 11:00 Ur Leukocyte Esterase Small (Negative) H 09/21/18 11:00 >50 (0-2) H 09/21/18 11:00 10-20 HPF (0-5) 09/21/18 11:00 Ur Epithelial Cells Negative HPF (Negative) 09/21/18 11:00 Negative HPF (Negative) 09/21/18 11:00 Many HPF (Negative) 09/21/18 11:00 Negative LPF (Negative) 09/21/18 11:00 Negative (Negative) 09/21/18 11:00 Ur Culture Indicated? Yes 09/21/18 11:00 Negative mg/dL (Negative) 09/21/18 11:00 Fluid Source Cancelled 09/20/18 12:00 Fluid pH Cancelled 09/20/18 12:00 Vancomycin Trough 20.9 ug/mL (10.0-20.0) H* 09/22/18 16:25 Salicylates < 2.8 mg/dL (2.8-20.0) L 09/19/18 14:21 Negative (Negative) 09/19/18 15:11 Negative (Negative) 09/19/18 15:11 Acetaminophen < 2 ug/mL (10-30) L 09/19/18 14:21 Ur Barbiturates Screen Negative (Negative) 09/19/18 15:11 Ur Tricyclics Screen Positive (Negative) 09/19/18 15:11 Ur Amphetamines Screen Negative (Negative) 09/19/18 15:11 U Benzodiazepines Scrn Negative (Negative) 09/19/18 15:11 Negative (Negative) 09/19/18 15:11 Ur THC Screen Positive (Negative) 09/19/18 15:11 Ethyl Alcohol < 3.0 mg/dL (<3) 09/19/18 14:21
[2018-09-23] MEDS: Ondansetron 4 MG/2 ML VIAL IVP (14:06)
[2018-09-23] MEDS: amLODIPine 5 MG TAB PO (14:19)
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
[2018-09-23] MEDS: LORazepam 2 MG/ML VIAL 1 MG IVP (16:56)
[2018-09-23] MEDS: ceFAZolin 2,000 MG in Normal Saline 100 ML 200 MG IVPB ×2 (17:04→23:51)
[2018-09-23] MEDS: Atorvastatin 40 MG TAB PO (19:32)
[2018-09-23] MEDS: SODIUM CHLORIDE 0.45% 1,000 ML 50 ML IV (19:41)
[2018-09-24] VITALS (48 sets, daily range): BP systolic 137–192; BP diastolic 61–137; PULSE 79–111; RESP 11–24; TEMP 37.2–37.9; O2SAT 96–99
[2018-09-24] MEDS: hydrALAZINE 20 MG/ML VIAL 10 MG IVP (05:32)
[2018-09-24 07:25] LABS: Absolute Basophil Count 0.02 k/cumm (0.0-0.2); Absolute Eosinophil Count 0.11 k/cumm (0.0-0.7); Absolute Lymphocyte Count 1.04 k/cumm (1.2-3.4); Basophils % 0.1; Eosinophils % 0.6; HCT 33.1 % (36.0-46.0); Immature Grans % 0.5; Lymphocytes % 5.7; Mean Corp. HGB Concentration 33.2 g/dL (32.0-36.0); Mean Corpuscular Hemoglobin 28.7 pg (27.0-33.0); Mean Corpuscular Volume 86.4 fL (80-95); Mean Platelet Volume 9.7 fL (8.0-11.0); Monocytes % 5.1; Platelet Count 227 x1000/uL (130-400); RBC 3.83 m/cumm (4.00-5.20); RBC Distribution Width 17.8 % (11.7-14.6)
[2018-09-24 07:35] LABS: Absolute Monocyte Count 0.93 k/cumm (0.11-0.7)
[2018-09-24] MEDS: Sucralfate 1 GM TAB PO ×3 (07:53→16:36)
[2018-09-24] MEDS: Pantoprazole 40 MG VIAL IVP (07:53)
[2018-09-24] MEDS: amLODIPine 5 MG TAB PO ×2 (07:53→12:51)
[2018-09-24] MEDS: Sertraline 50 MG TAB 100 MG PO (07:53)
[2018-09-24] MEDS: Metoprolol 50 MG TAB PO (07:53)
[2018-09-24] MEDS: Normal Saline Flush 10 ML SYR IVP (08:00)
[2018-09-24] MEDS: ceFAZolin 2,000 MG in Normal Saline 100 ML 200 MG IVPB ×2 (08:06→16:34)
--- NOTE | 2018-09-24 12:21 | PGE_ITS ---
Date of Service Date of service: 09/24/18 Time of Service: 12:21 Assessment and Plan (1) Fever: Current visit: Yes Status: Acute Evidence of both Pneumonia and UTI, both absent at time of presentation. - Treated for VAP vs. Aspiration pneumonia - Initiated on Vancomycin and Pip- Tazo X2 days. - Urine Cultures with growth of Raoultella Ornithinolytica. Sputum Cultures with Moderate growth of MSSA. Patient with continued elevations in temperature (37.9) despite broad spectrum antibiotics. Given current findings changed antibiotic regimen to Cefazolin, currently day#2. Discussed with ID - recommendations for 3 day course for treatment of UTI, 7 for Pneumonia, with completion of antibiotic course with Keflex. (2) Drug overdose: Current visit: Yes Status: Acute Polypharmacy Overdose that included Metoprolol, Gabapentin, Amitryptiline, and Trazodone. Unsure if Overdose was purposeful or accidental. - Bradycardia and hypotension resolved. - No evidence of Ventricular Arrhythmias. - Successfully extubated. - Restarted home medications, but still holding Gabapentin, Melatonin, and Trazodone. Of note, patient has a lengthy prior history of admissions for medication overdose. Will need to discuss with Care Management regarding safety plan for [facility]. Qualifiers: Encounter type: initial encounter Injury intent: accidental or unintentional Qualified Code(s): T50.901A - Poisoning by unspecified drugs, medicaments and biological substances, accidental (unintentional), initial encounter (3) Movement disorder: Current visit: No Status: Chronic Prior history of generalized jerking type movements which have been noted to be chronic. Patient has undergone an extensive prior workup for this in the past without etiology. (4) Multiple sclerosis: Current visit: No Status: Chronic Follows with Neurology chronically. (5) Anemia: Current visit: Yes Status: Chronic Stable but low Hgb, with evidence of Heme + gastric contents previously, and now with reported Heme + stools. History of Gastritis and PUD in the past. Increased PPI to BID, with added Carafate. Hold Chemical DVT Prophylaxis as well for now. Hgb appears stable. (6) DVT prophylaxis: Current visit: Yes Status: Acute Hold Lovenox in setting of anemia as above. Subjective Interval history since last seen: 68 year old woman with a prior medical history significant for MS and chronic movement disorder, admitted from [facility] Emergency Department on 09/19 with a diagnosis of Polypharmacy Overdose. Ms. 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 She also has a history of Gastric Ulcers and malnutrition. She's been admitted at [facility] for treatment of yeast Esophagitis and malnutrition, and has undergone prior J-Tube placement, and conversion of a former Matthew-en-y for marginal ulcers and bile reflux gastritis. Her other history includes HTN, Dyslipidemia, and CKD. She also has a previously noted history of opiate misuse, and suspected prior inappropriate use of both Gabapentin and Tylenol PM. Ms. Olivo presented to the ED via EMS as she was found to be unresponsive by her fiance. He reported that the patient had not been sleeping well, but upon his return home on the morning of admission he found her to be unresponsive. EMS was called and found her to be bradycardic and hypotensive, unresponsive to administration of Narcan. Review of the blister pack of her home medications revealed that she may have ingested up to 4 days worth of her medications, including Gabapentin, Amitriptyline, Metoprolol, and Trazodone. Her work-up included a negative CT of the head, essentially normal CBC, LFTs, Urinalysis, and TSH, but with signs of AZALEA. Her UDS showed positivity for THC and TCAs. Her ECG was reportedly non-ischemic, and troponins were negative. Her CXR was unremarkable. As there was concern regarding ability to protect her airway, the patient was intubated in the ED, and referred for admission to the ICU. This morning Ms. Olivo appears improved - remains stable from a respiratory standpoint after extubation. However she is still significantly hypertensive. She is no longer febrile but had elevated temps with TMax of 37.9, and a WBC that worsened at 20 despite broad spectrum antibiotics. Sputum culture is growing MSSA, and Urine Culture shows evidence of Raoultella Ornithinolytica. No other events reported. Exam Narrative Exam Narrative: General: Patient is Awake and Alert, appropriately responsive. NAD. Neck: Supple CV: Regular, borderline tachycardic at time of exam, S1S2, 3/6 LLSB murmur appreciated. Pulmonary: Clear with minimal basilar crackles, no rhonchi or wheezing. Abdomen: + Bowel Sounds, soft, nontender, nondistended Vascular: No lower extremity edema Objective Objective Clinical Data: Abnormal lab results 09/24/18 Range/Units 07:12 WBC 18.30 H (4.4-10.8) k/cumm RBC 3.83 L (4.00-5.20) m/cumm Hgb 11.0 L (12.0-15.5) g/dL Hct 33.1 L (36.0-46.0) % RDW 17.8 H (11.7-14.6) % Absolute Neutrophils 16.10 H (1.2-6.7) k/cumm Absolute Lymphocytes 1.04 L (1.2-3.4) k/cumm Absolute Monocytes 0.93 H (0.11-0.7) k/cumm Vital Signs Temperature 37.9 C H 09/24/18 11:29 Temperature Source Temporal Artery Scan 09/24/18 11:29 Pulse 92 H 09/24/18 11:08 Pulse 94 H 09/24/18 11:08 Respiratory Rate 13 09/24/18 11:08 Respiratory Effort 09/24/18 09:09 Respiratory Depth Normal 09/24/18 09:09 Respiratory Pattern Normal 09/24/18 09:09 Blood Pressure 173/77 H 09/24/18 11:08 Blood Pressure Mean 102 09/24/18 11:08 Blood Pressure Position Sitting 09/23/18 07:39 Pulse Oximetry 98 09/24/18 09:01 Respiratory End-tidal CO2 29 09/22/18 10:01 Oxygen Delivery Method Room Air 09/24/18 09:09 Oxygen Flow Rate 0 09/24/18 09:09 Fraction of Inspired Oxygen (FIO2) 40 09/22/18 10:35 Pain Level 0 09/24/18 04:05 Intake & Output 09/23/18 09/24/18 09/24/18 23:59 11:59 23:59 Intake Total 1406.667 / 2944.167 530 / 530 Output Total 2225 / 4275 1050 / 1050 Balance -818.333 / -1330.833 -520 / -520 Weight 56.3 kg Intake: IV 1186.667 / 2114.167 200 / 200 Oral 220 / 830 330 / 330 Output: Urine 2025 / 4075 1050 / 1050 Stool 200 / 200 Other: Urine Color Yellow Yellow Urine Appearance Clear Clear Urine Odor Normal Normal Comment Mixed with stool Mixed w/ stool Stool Occult Blood Positive Stool Size Small Small Stool Characteristics Brown Soft Green Voiding Methods Bedside Commode Laboratory Results WBC 18.30 k/cumm (4.4-10.8) H 09/24/18 07:12 RBC 3.83 m/cumm (4.00-5.20) L 09/24/18 07:12 Hgb 11.0 g/dL (12.0-15.5) L 09/24/18 07:12 Hct 33.1 % (36.0-46.0) L 09/24/18 07:12 MCV 86.4 fL (80-95) 09/24/18 07:12 MCH 28.7 pg (27.0-33.0) 09/24/18 07:12 MCHC 33.2 g/dL (32.0-36.0) 09/24/18 07:12 RDW 17.8 % (11.7-14.6) H 09/24/18 07:12 Plt Count 227 x1000/uL (130-400) 09/24/18 07:12 MPV 9.7 fL (8.0-11.0) 09/24/18 07:12 Immature Gran % 0.5 09/24/18 07:12 88.0 09/24/18 07:12 5.7 09/24/18 07:12 5.1 09/24/18 07:12 0.6 09/24/18 07:12 0.1 09/24/18 07:12 Absolute Neutrophils 16.10 k/cumm (1.2-6.7) H 09/24/18 07:12 Absolute Lymphocytes 1.04 k/cumm (1.2-3.4) L 09/24/18 07:12 Absolute Monocytes 0.93 k/cumm (0.11-0.7) H 09/24/18 07:12 Absolute Eosinophils 0.11 k/cumm (0.0-0.7) 09/24/18 07:12 Absolute Basophils 0.02 k/cumm (0.0-0.2) 09/24/18 07:12 Rbc morph reviewed 09/20/18 06:20 RBC Morphology See below 09/20/18 06:20 2+ 09/20/18 06:20 2+ 09/20/18 06:20 Sample Site Left radial 09/20/18 05:35 pCO2 38 mmHg (34-47) 09/20/18 05:35 pO2 216 mmHg (83-108) H 09/20/18 05:35 O2 Saturation 99 % (94-98) H 09/20/18 05:35 ABG pH 7.28 (7.35-7.45) L 09/20/18 05:35 ABG HCO3 18 mmol/L (22-28) L 09/20/18 05:35 ABG Total CO2 17 mmol/L (22-29) L 09/20/18 05:35 ABG Base Excess -8.9 mmol/L (-3-3) L 09/20/18 05:35 VBG pH 7.25 (7.32-7.43) L 09/19/18 18:16 VBG pCO2 37 mm/Hg (34-47) 09/19/18 18:16 VBG pO2 50 mm/Hg (28-44) H 09/19/18 18:16 VBG HCO3 16 mmol/L (22-28) L 09/19/18 18:16 VBG Total CO2 16 mmol/L (22-29) L 09/19/18 18:16 VBG O2 Saturation 81 % (70-80) H 09/19/18 18:16 VBG Base Excess -11.0 mmol/L (-3-3) L 09/19/18 18:16 Oxygen Liter Flow Cancelled 09/19/18 17:51 60 % 09/20/18 05:35 Sodium 142 mmol/L (136-145) 09/23/18 06:30 Potassium 2.6 mmol/L (3.5-5.1) L* D 09/23/18 06:30 Chloride 102 mmol/L (98-107) 09/23/18 06:30 Carbon Dioxide 28.9 mmol/L (21.0-32.0) 09/23/18 06:30 11.1 mmol/L (3-11) H 09/23/18 06:30 BUN 10 mg/dL (7-18) 09/23/18 06:30 0.98 mg/dL (0.55-1.02) 09/23/18 06:30 56.61 (mL/min/1.73m2) 09/23/18 06:30 Glucose 88 mg/dL (70-100) 09/23/18 06:30 0.7 mmol/l (0.6-1.4) 09/19/18 14:21 Calcium 9.3 mg/dL (8.5-10.1) 09/23/18 06:30 Magnesium 1.5 mg/dL (1.8-2.4) L 09/23/18 06:30 0.7 mg/dL (0.2-1.0) 09/23/18 06:30 AST 25 U/L (15-37) 09/23/18 06:30 ALT 25 U/L (12-78) 09/23/18 06:30 156 U/L (46-116) H 09/23/18 06:30 < 0.05 ng/mL (0.00-0.06) 09/19/18 23:45 6.2 g/dL (6.4-8.2) L 09/23/18 06:30 2.6 g/dL (3.4-5.0) L 09/23/18 06:30 TSH 1.21 uIU/mL (0.358-3.74) 09/20/18 06:20 Straw (Yellow) 09/21/18 11:00 Sl cloudy (Clear) 09/21/18 11:00 5.5 (5-8) 09/21/18 11:00 Ur Specific [place] 1.015 (1.005-1.025) 09/21/18 11:00 30 mg/dL (Negative) H 09/21/18 11:00 Negative mg/dL (Negative) 09/21/18 11:00 Moderate (Negative) H 09/21/18 11:00 Positive (Negative) H 09/21/18 11:00 Negative (Negative) 09/21/18 11:00 0.2 EU/dL (Up TO 0.2) 09/21/18 11:00 Ur Leukocyte Esterase Small (Negative) H 09/21/18 11:00 >50 (0-2) H 09/21/18 11:00 10-20 HPF (0-5) 09/21/18 11:00 Ur Epithelial Cells Negative HPF (Negative) 09/21/18 11:00 Negative HPF (Negative) 09/21/18 11:00 Many HPF (Negative) 09/21/18 11:00 Negative LPF (Negative) 09/21/18 11:00 Negative (Negative) 09/21/18 11:00 Ur Culture Indicated? Yes 09/21/18 11:00 Negative mg/dL (Negative) 09/21/18 11:00 Fluid Source Cancelled 09/20/18 12:00 Fluid pH Cancelled 09/20/18 12:00 Vancomycin Trough 20.9 ug/mL (10.0-20.0) H* 09/22/18 16:25 Salicylates < 2.8 mg/dL (2.8-20.0) L 09/19/18 14:21 Negative (Negative) 09/19/18 15:11 Negative (Negative) 09/19/18 15:11 Acetaminophen < 2 ug/mL (10-30) L 09/19/18 14:21 Ur Barbiturates Screen Negative (Negative) 09/19/18 15:11 Ur Tricyclics Screen Positive (Negative) 09/19/18 15:11 Ur Amphetamines Screen Negative (Negative) 09/19/18 15:11 U Benzodiazepines Scrn Negative (Negative) 09/19/18 15:11 Negative (Negative) 09/19/18 15:11 Ur THC Screen Positive (Negative) 09/19/18 15:11 Ethyl Alcohol < 3.0 mg/dL (<3) 09/19/18 14:21
[2018-09-24 12:39] LABS: Albumin 2.9 g/dL (3.4-5.0); Alkaline Phosphatase 131 U/L (46-116); BUN 11 mg/dL (7-18); Bilirubin, Total 0.4 mg/dL (0.2-1.0); Calcium 9.3 mg/dL (8.5-10.1); Glucose 116 mg/dL (70-100); Sodium 143 mmol/L (136-145); Total Protein 6.6 g/dL (6.4-8.2)
[2018-09-24 12:40] LABS: ALT 26 U/L (12-78); AST 26 U/L (15-37); Anion Gap 15.9 mmol/L (3-11); CO2 25.1 mmol/L (21.0-32.0); Chloride 102 mmol/L (98-107); Magnesium 1.6 mg/dL (1.8-2.4)
[2018-09-24] MEDS: Metoprolol 25 MG TAB PO (12:50)
--- NOTE | 2018-09-24 12:52 | PTTR_ITS ---
Date of service: 09/24/18 Time of Service: 10:44 PT Notes Inpatient Physical Therapy Treatment Note [facility] Date: 09/24/2018 PRECAUTIONS: Fall. Standard. SUBJECTIVE: Patient reports that she slept better last night. She initially did not want to work with this PT stating that Zina was going to take me somewhere today and am going home tomorrow, am all set. Nurse Lori was updated about the matter and assisted with clarifying and reinforcing with patient about the need for working with PT in order to go home safely. Patient finally conceded to participating. She denies nausea, dizziness, and vomiting. She reports no nausea nor abdominal pain today. OBJECTIVE: Patient seen resting in bed. Appearing in less distress than she did yesterday. Shepherd catheter now off. TEDS ot bilaterl legs. PAIN: 0/10 BED MOBILITY/TRANSFERS Rolling L/R: SBA Supine-sit: SBA Sit-supine: SBA Sit-stand: SBA Stand-sit: SBA Bed-Chair: SBA Chair-bed: SBA GAIT Assistive Device: FWW Weight bearing: FWB Assist: SBA Distance: 100 feet Deviation: Decreased gait velocity. Decreased step height and length. No dizziness, chest pain nor headache. VITALS: BP ranged from 177/76 mmHg to 184/79 mmHg throughout gait activity THEREX: Patient completed standing level exercises as indicated in exercise flow sheet without undue fatigue, significant increase in pain, increase in dyspnea. ASSESSMENT: Patient demonstrates good tolerance to physical therapy session wi th observed improvement in terms of pain level, activity tolerance, self- efficacy/confidence, and participation level. PLAN: Patient to progress with mobility level, functional performance, and knowl edge of HEP to achieve previously established goals. TREATMENT CODE/TIME: Session [id number] x 25 minutes, [id number] x 14 minutes, beginning at 10:44 AM.
--- NOTE | 2018-09-24 13:15 | CMPROGNOTE_ITS ---
Care Management Progress Note S/O: Deepti continues to be treated and closely monitored in the ICU. She continues to present not at her previous mental baseline and will have further workup per MD. CM discussed psychiatrist, PT consult and Mental Health Crisis screening prior to discharge of which Hospitalist was in agreement. CM continues to follow. A: 68 year old female admitted to [facility] ICU 09/19/18 for Polypharmacy Overdose P: Deepti will continue to be closely monitored and assessed. Anticipate she will require ongoing support and re-assurance. Anticipate she will return home with a more comprehensive plan for medication management including [facility] RN. She will resume current community supports including COA CM, MOW and SASH. She will follow up with her PCP and transport via private vehicle with her significant other, Marek.
[2018-09-24] MEDS: LORazepam 2 MG/ML VIAL 1 MG IVP (14:34)
--- NOTE | 2018-09-24 15:08 | PT.INNT ---
Date of service: 09/24/18 Time of Service: 03:08 PT Notes Patient was adamant about not doing any therapy this afternoon stating that she needs to rest because she did a lot of exercises during the morning session. She did state that she will make sure that she participates tomorrow morning. Charge nurse was informed about refusal, she then attempted to re-approach her about reconsidering however patient continued to refuse.
--- NOTE | 2018-09-24 15:15 | PT.INTREAT ---
Date of service: 09/24/18 Time of Service: 13:10 PT Notes Patient agreed to only perform toileting with PT for the afternoon. She required CGA assist and did not want to do anything more due to report of dizziness. Charge nurse was informed about said complaint. Nurse attempted to advise patient about the benefit of participating in a walking activity but patient remained firm about her refusal stating that she would rather rest. Time spent on providing assistance with toileting [id number] x 16 minutes beginning at 13:10 PM.
[2018-09-24] MEDS: THIAMINE 500 MG in Normal Saline 100 ML 200 MG IVPB ×2 (16:34→22:52)
[2018-09-24] MEDS: MAGNESIUM SULFATE 2 GM/50 ML BAG IVPB (16:35)
[2018-09-24] MEDS: Potassium Chloride 20 MEQ TABCR 40 MEQ PO (16:36)
[2018-09-24] MEDS: Metoprolol 50 MG TAB 75 MG PO (19:20)
[2018-09-25] VITALS (49 sets, daily range): BP systolic 144–192; BP diastolic 72–110; PULSE 76–107; RESP 10–25; TEMP 37–38.1; O2SAT 97–99
[2018-09-25] MEDS: ceFAZolin 2,000 MG in Normal Saline 100 ML 200 MG IVPB ×3 (00:15→16:22)
[2018-09-25] MEDS: hydrALAZINE 20 MG/ML VIAL 10 MG IVP ×2 (01:44→19:53)
[2018-09-25] MEDS: SODIUM CHLORIDE 0.45% 1,000 ML 50 ML IV (03:42)
[2018-09-25] MEDS: Metoprolol 5 MG/5 ML VIAL IVP ×3 (05:16→22:52)
[2018-09-25] MEDS: Normal Saline Flush 10 ML SYR IVP ×9 (05:17→22:52)
[2018-09-25] MEDS: THIAMINE 500 MG in Normal Saline 100 ML 200 MG IVPB ×3 (05:17→21:25)
[2018-09-25] MEDS: Sucralfate 1 GM TAB PO ×4 (06:59→21:29)
[2018-09-25] MEDS: Metoprolol 50 MG TAB 75 MG PO ×3 (06:59→20:48)
[2018-09-25 07:06] LABS: Abs Immature Grans 0.07 k/cumm (0.0-0.09); Absolute Basophil Count 0.02 k/cumm (0.0-0.2); Absolute Eosinophil Count 0.11 k/cumm (0.0-0.7); Absolute Lymphocyte Count 1.41 k/cumm (1.2-3.4); Absolute Monocyte Count 1.17 k/cumm (0.11-0.7); Absolute Neutrophil Count 9.16 k/cumm (1.2-6.7); Basophils % 0.2; Eosinophils % 0.9; HCT 32.8 % (36.0-46.0); HGB 10.7 g/dL (12.0-15.5); Immature Grans % 0.6; Lymphocytes % 11.8; Mean Corp. HGB Concentration 32.6 g/dL (32.0-36.0); Mean Corpuscular Hemoglobin 28.5 pg (27.0-33.0); Mean Corpuscular Volume 87.2 fL (80-95); Mean Platelet Volume 9.3 fL (8.0-11.0); Monocytes % 9.8; Neutrophils % 76.7; Platelet Count 264 x1000/uL (130-400); RBC 3.76 m/cumm (4.00-5.20); RBC Distribution Width 17.8 % (11.7-14.6); White Blood Cell Count 11.94 k/cumm (4.4-10.8)
--- NOTE | 2018-09-25 07:23 | NUR.NOTE ---
Joseph Romero RN the T wave inversion in the V lead that has been varying since the EKG on 09/21. Kimberly to report variance to . Nursing Note:
[2018-09-25 07:36] LABS: ALT 16 U/L (12-78); AST 25 U/L (15-37); Albumin 2.9 g/dL (3.4-5.0); Alkaline Phosphatase 120 U/L (46-116); Anion Gap 11.5 mmol/L (3-11); BUN 11 mg/dL (7-18); Bilirubin, Total 0.4 mg/dL (0.2-1.0); CO2 29.5 mmol/L (21.0-32.0); CREATININE 0.75 mg/dL (0.55-1.02); Chloride 101 mmol/L (98-107); Glucose 113 mg/dL (70-100); Magnesium 1.6 mg/dL (1.8-2.4); Sodium 142 mmol/L (136-145); Total Protein 6.5 g/dL (6.4-8.2)
[2018-09-25 07:46] LABS: Potassium 2.6 mmol/L (3.5-5.1)
--- NOTE | 2018-09-25 07:57 | PDOC.CMPRO ---
- If Service Date Differs Date of service: 09/25/18 Time of Service: 07:57 Care Management Progress Note S/O: Deepti was sitting up in bed durinbg CM visit. She stated that she was tired and had not slept well last night. Deepti shared that she is concerned about her medication management when she goes home. She stated she knows she had a close call this time. She acknowledges she gets forgetful when taking her medications and wants assistance from her fiancee with monitoring and administering the meds. She will be transferred to the Med/Surg floor later today. A: 68 year old female admitted to [facility] ICU 09/19/18 for Polypharmacy Overdose P: Deepti will continue to be closely monitored and assessed. Anticipate she will require ongoing support and re-assurance. Anticipate she will return home with a more comprehensive plan for medication management including [facility] RN. She will resume current community supports including COA CM, MOW and SASH. She will follow up with her PCP and transport via private vehicle with her significant other, Marek.
[2018-09-25] MEDS: Pantoprazole 40 MG VIAL IVP ×2 (08:19→20:13)
[2018-09-25] MEDS: Ferrous Sulfate 325 MG TAB PO (08:20)
[2018-09-25] MEDS: amLODIPine 10 MG TAB PO (08:20)
[2018-09-25] MEDS: Sertraline 50 MG TAB 100 MG PO (08:20)
--- NOTE | 2018-09-25 08:26 | PGE_ITS ---
Date of Service Date of service: 09/25/18 Time of Service: 08:26 Assessment and Plan (1) Fever: Current visit: Yes Status: Acute Due to Pneumonia (VAP vs aspiration) and UTI, neither seen on admission. Now, diarrhea is being reported. - will rule out C. Diff - Sputum C&S with MSSA; Urine C&S with Raoultella Ornithinolytica. - s/p Vancomycin/zosyn x 2 days, now on cefazolin Day 3. - as remains febrile, will continue abx IV. - per ID - recommendations for 3 day course for treatment of UTI, 7 for Pneumonia, with completion of antibiotic course with Keflex. (2) Drug overdose: Current visit: Yes Status: Acute Polypharmacy Overdose that included Metoprolol, Gabapentin, Amitryptiline, and Trazodone, resulting in respiratory failure and requiring intubation. Extubated on 09/22/18. Overdose does not appear to have been a suicide attempt. - Bradycardia and hypotension resolved. - No evidence of Ventricular Arrhythmias. - Home medications restarted with a safety plan (boyfriend to keep meds in a locked box, only to give her meds when she is due; family to help), Holding Gabapentin, Melatonin, and Trazodone. Of note, patient has a lengthy prior history of admissions for medication overdose. If the patient is to go home on discharge, then medication safety is crucial. Qualifiers: Encounter type: initial encounter Injury intent: accidental or unintentional Qualified Code(s): T50.901A - Poisoning by unspecified drugs, medicaments and biological substances, accidental (unintentional), initial encounter (3) Movement disorder: Current visit: No Status: Chronic Prior history of generalized jerking type movements which have been noted to be chronic. Patient has undergone an extensive prior workup for this in the past without etiology. Follow up as outpatient (4) Multiple sclerosis: Current visit: No Status: Chronic Follows with Neurology chronically. Follow up as outpatient. Ensure no urinary retention. (5) Anemia: Current visit: Yes Status: Chronic Stable but low Hgb, with evidence of Heme + gastric contents with gastric tube in place, and now with reported Heme + stools. History of Gastritis and PUD in the past. Continue PPI BID, Carafate. Hold Chemical DVT Prophylaxis as well for now. Hgb appears stable. (6) Acute electrocardiogram changes: Current visit: Yes Status: Acute This isn't very clear on today's EKG - however, the worry is that inferior leads have flipped the T wave on telemetry. We will repeat her troponin; obtain EKG in am once electrolytes have been corrected. May require outpatient ischemic workup. There does not appear to have been an ACS on this admission. (7) Hypokalemia: Current visit: Yes Status: Acute Replete and monitor on tele (8) Hypomagnesemia: Current visit: Yes Status: Acute Replete/monitor (9) Respiratory failure: Current visit: Yes Status: Resolved s/p extubation 09/22. Respiratory status stable. Treat VAP. (10) Hypertension: Current visit: Yes Status: Chronic Increase beta sosa dose while monitoring HR/BP. (11) DVT prophylaxis: Current visit: Yes Status: Acute Hold Lovenox in setting of anemia as above. Subjective Interval history since last seen: States: I feel a lot better - my whole outlook. Denies dizziness, headache, chest pain, shortness of breath, nausea, abdominal pain. Nursing reports loose green stools. The patient is wondering if she can go home today. She verbalizes the plan to have her medications locked up when she does go home. Temp this am 38.1, BP up to 180's - 190's sytolic overnight, received IV and PO metoprolol; 176/87 this am. Mentally she is at her baseline, per nursing. Exam Narrative Exam Narrative: General: Middle-aged female, appears wide awake and interactive, providing appropriate answers, A&Ox3, HEENT: EOMI, MMM Heart: RRR, no m/r/g Lungs: CTAB GI: abdomen is soft, nontender, nondistended Extremities: no e/c/c; wearing TEDs Objective Objective Clinical Data: Abnormal lab results 09/24/18 09/25/18 09/25/18 Range/Units 07:12 06:30 06:30 WBC 11.94 H D (4.4-10.8) k/cumm RBC 3.76 L (4.00-5.20) m/cumm Hgb 10.7 L (12.0-15.5) g/dL Hct 32.8 L (36.0-46.0) % RDW 17.8 H (11.7-14.6) % Absolute Neutrophils 9.16 H (1.2-6.7) k/cumm Absolute Monocytes 1.17 H (0.11-0.7) k/cumm Potassium 3.0 L 2.6 L* (3.5-5.1) mmol/L Anion Gap 15.9 H 11.5 H (3-11) mmol/L Glucose 116 H 113 H (70-100) mg/dL Magnesium 1.6 L 1.6 L (1.8-2.4) mg/dL Alkaline Phosphatase 131 H 120 H (46-116) U/L Albumin 2.9 L 2.9 L (3.4-5.0) g/dL Vital Signs Temperature 37.1 C 09/25/18 03:15 Temperature Source Temporal Artery Scan 09/25/18 03:15 Pulse 79 09/25/18 07:34 Pulse Rhythm Regular 09/24/18 23:06 Pulse 78 09/25/18 07:34 Respiratory Rate 14 09/25/18 07:34 Respiratory Effort Non-Labored 09/25/18 03:12 Respiratory Depth Normal 09/25/18 03:12 Respiratory Pattern Normal 09/25/18 03:12 Blood Pressure 176/87 H 09/25/18 07:34 Blood Pressure Mean 109 09/25/18 07:34 Blood Pressure Position Sitting 09/23/18 07:39 Pulse Oximetry 99 09/25/18 03:11 Respiratory End-tidal CO2 29 09/22/18 10:01 Oxygen Delivery Method Room Air 09/24/18 19:25 Oxygen Flow Rate 0 09/24/18 19:25 Fraction of Inspired Oxygen (FIO2) 40 09/22/18 10:35 Pain Level 0 09/24/18 19:25 Intake & Output 09/24/18 09/24/18 09/25/18 11:59 23:59 11:59 Intake Total 530 / 0050.600 2709.833 / 1755.833 345 / 345 Output Total 1050 / 1900 850 / 1900 650 / 650 Balance -520 / -144.167 375.833 / -144.167 -305 / -305 Weight 56.3 kg 44.8 kg Intake: IV 200 / 8446.504 7266.833 / 1245.833 320 / 320 Oral 330 / 510 180 / 510 25 / 25 Output: Urine 1050 / 1900 850 / 1900 650 / 650 Other: Urine Color Yellow Yellow Yellow Urine Appearance Clear Clear Clear Urine Odor Normal Strong Strong Comment Mixed w/ stool mixed with loose stool Stool Size Small Small Stool Characteristics Soft Soft Green Voiding Methods Bedside Commode Bedside Commode Laboratory Results WBC 11.94 k/cumm (4.4-10.8) H D 09/25/18 06:30 RBC 3.76 m/cumm (4.00-5.20) L 09/25/18 06:30 Hgb 10.7 g/dL (12.0-15.5) L 09/25/18 06:30 Hct 32.8 % (36.0-46.0) L 09/25/18 06:30 MCV 87.2 fL (80-95) 09/25/18 06:30 MCH 28.5 pg (27.0-33.0) 09/25/18 06:30 MCHC 32.6 g/dL (32.0-36.0) 09/25/18 06:30 RDW 17.8 % (11.7-14.6) H 09/25/18 06:30 Plt Count 264 x1000/uL (130-400) 09/25/18 06:30 MPV 9.3 fL (8.0-11.0) 09/25/18 06:30 Immature Gran % 0.6 09/25/18 06:30 76.7 09/25/18 06:30 11.8 09/25/18 06:30 9.8 09/25/18 06:30 0.9 09/25/18 06:30 0.2 09/25/18 06:30 Absolute Neutrophils 9.16 k/cumm (1.2-6.7) H 09/25/18 06:30 Absolute Lymphocytes 1.41 k/cumm (1.2-3.4) 09/25/18 06:30 Absolute Monocytes 1.17 k/cumm (0.11-0.7) H 09/25/18 06:30 Absolute Eosinophils 0.11 k/cumm (0.0-0.7) 09/25/18 06:30 Absolute Basophils 0.02 k/cumm (0.0-0.2) 09/25/18 06:30 Rbc morph reviewed 09/20/18 06:20 RBC Morphology See below 09/20/18 06:20 2+ 09/20/18 06:20 2+ 09/20/18 06:20 Sample Site Left radial 09/20/18 05:35 pCO2 38 mmHg (34-47) 09/20/18 05:35 pO2 216 mmHg (83-108) H 09/20/18 05:35 O2 Saturation 99 % (94-98) H 09/20/18 05:35 ABG pH 7.28 (7.35-7.45) L 09/20/18 05:35 ABG HCO3 18 mmol/L (22-28) L 09/20/18 05:35 ABG Total CO2 17 mmol/L (22-29) L 09/20/18 05:35 ABG Base Excess -8.9 mmol/L (-3-3) L 09/20/18 05:35 VBG pH 7.25 (7.32-7.43) L 09/19/18 18:16 VBG pCO2 37 mm/Hg (34-47) 09/19/18 18:16 VBG pO2 50 mm/Hg (28-44) H 09/19/18 18:16 VBG HCO3 16 mmol/L (22-28) L 09/19/18 18:16 VBG Total CO2 16 mmol/L (22-29) L 09/19/18 18:16 VBG O2 Saturation 81 % (70-80) H 09/19/18 18:16 VBG Base Excess -11.0 mmol/L (-3-3) L 09/19/18 18:16 Oxygen Liter Flow Cancelled 09/19/18 17:51 60 % 09/20/18 05:35 Sodium 142 mmol/L (136-145) 09/25/18 06:30 Potassium 2.6 mmol/L (3.5-5.1) L* 09/25/18 06:30 Chloride 101 mmol/L (98-107) 09/25/18 06:30 Carbon Dioxide 29.5 mmol/L (21.0-32.0) 09/25/18 06:30 11.5 mmol/L (3-11) H 09/25/18 06:30 BUN 11 mg/dL (7-18) 09/25/18 06:30 0.75 mg/dL (0.55-1.02) 09/25/18 06:30 >= 60.00 (mL/min/1.73m2) 09/25/18 06:30 Glucose 113 mg/dL (70-100) H 09/25/18 06:30 0.7 mmol/l (0.6-1.4) 09/19/18 14:21 Calcium 9.0 mg/dL (8.5-10.1) 09/25/18 06:30 Magnesium 1.6 mg/dL (1.8-2.4) L 09/25/18 06:30 0.4 mg/dL (0.2-1.0) 09/25/18 06:30 AST 25 U/L (15-37) 09/25/18 06:30 ALT 16 U/L (12-78) 09/25/18 06:30 120 U/L (46-116) H 09/25/18 06:30 < 0.05 ng/mL (0.00-0.06) 09/19/18 23:45 6.5 g/dL (6.4-8.2) 09/25/18 06:30 2.9 g/dL (3.4-5.0) L 09/25/18 06:30 TSH 1.21 uIU/mL (0.358-3.74) 09/20/18 06:20 Straw (Yellow) 09/21/18 11:00 Sl cloudy (Clear) 09/21/18 11:00 5.5 (5-8) 09/21/18 11:00 Ur Specific [place] 1.015 (1.005-1.025) 09/21/18 11:00 30 mg/dL (Negative) H 09/21/18 11:00 Negative mg/dL (Negative) 09/21/18 11:00 Moderate (Negative) H 09/21/18 11:00 Positive (Negative) H 09/21/18 11:00 Negative (Negative) 09/21/18 11:00 0.2 EU/dL (Up TO 0.2) 09/21/18 11:00 Ur Leukocyte Esterase Small (Negative) H 09/21/18 11:00 >50 (0-2) H 09/21/18 11:00 10-20 HPF (0-5) 09/21/18 11:00 Ur Epithelial Cells Negative HPF (Negative) 09/21/18 11:00 Negative HPF (Negative) 09/21/18 11:00 Many HPF (Negative) 09/21/18 11:00 Negative LPF (Negative) 09/21/18 11:00 Negative (Negative) 09/21/18 11:00 Ur Culture Indicated? Yes 09/21/18 11:00 Negative mg/dL (Negative) 09/21/18 11:00 Fluid Source Cancelled 09/20/18 12:00 Fluid pH Cancelled 09/20/18 12:00 Vancomycin Trough 20.9 ug/mL (10.0-20.0) H* 09/22/18 16:25 Salicylates < 2.8 mg/dL (2.8-20.0) L 09/19/18 14:21 Negative (Negative) 09/19/18 15:11 Negative (Negative) 09/19/18 15:11 Acetaminophen < 2 ug/mL (10-30) L 09/19/18 14:21 Ur Barbiturates Screen Negative (Negative) 09/19/18 15:11 Ur Tricyclics Screen Positive (Negative) 09/19/18 15:11 Ur Amphetamines Screen Negative (Negative) 09/19/18 15:11 U Benzodiazepines Scrn Negative (Negative) 09/19/18 15:11 Negative (Negative) 09/19/18 15:11 Ur THC Screen Positive (Negative) 09/19/18 15:11 Ethyl Alcohol < 3.0 mg/dL (<3) 09/19/18 14:21
[2018-09-25] MEDS: POTASSIUM CHLORIDE 20 MEQ/100 ML BAG 50 MEQ IVPB ×2 (08:53→11:23)
[2018-09-25] MEDS: MAGNESIUM SULFATE 2 GM/50 ML BAG IVPB (08:54)
[2018-09-25] MEDS: ACETAMINOPHEN 1,000 MG/100 ML BTL 400 MG IVPB ×2 (08:54→20:58)
[2018-09-25] MEDS: Normal Saline 500 ML 50 ML IV (09:32)
--- NOTE | 2018-09-25 10:13 | PT.INTREAT ---
Date of service: 09/25/18 Time of Service: 10:13 PT Notes Inpatient Physical Therapy Treatment Note [facility] Date: 09/25/18 PRECAUTIONS: Fall, Activity as tolerated SUBJECTIVE: Kena is agreeable to participating in PT, although reports that she has not slept well for the past few nights, so she is tired. OBJECTIVE: PAIN: No c/o pain BED MOBILITY/TRANSFERS Sit-supine: I with HOB flat Sit-stand: SBA Stand-sit: SBA GAIT Assistive Device: FWW Weight bearing: Full Assist: SBA Distance: 200' Deviation: Slow pace ASSESSMENT: Patient tolerated session well without complaint. Patient was able to tolerate a progression in gait distance with FWW support and SBA. She would benefit from continued gait and transfer training for improved mobility. PLAN: Continue with PT's POC TREATMENT CODE/TIME: 15 minutes; [id number]
[2018-09-25 10:23] LABS: Troponin I 0.06 ng/mL (0.00-0.06)
--- NOTE | 2018-09-25 10:57 | NUR.NOTE ---
At 1055 on 09/25/18 while trying to move the pump, the Potassium infusion caught behind the monitor and the line became dislodged. it appears that 50mls was lost from the back and this will be reported to the MD to make her aware. Nursing Note:
[2018-09-25] MEDS: Potassium Chloride 20 MEQ TABCR 40 MEQ PO ×3 (11:02→21:29)
[2018-09-25 11:44] LABS: Folate 15.8 ng/mL (8.6-20.0); Vitamin B12 965 pg/mL (193-986)
[2018-09-25 15:08] LABS: Troponin I 0.06 ng/mL (0.00-0.06)
--- NOTE | 2018-09-25 15:22 | NUR.NOTE ---
Patient transferred out of ICU and into room 228. #20 LFA and #20 RFA IID's intact. Patient remains on contact precautions for rule out C. Diff. See shift assessment for head to toe. Nursing Note:
[2018-09-25] MEDS: Atorvastatin 40 MG TAB PO (20:13)
[2018-09-25] MEDS: Docusate Sodium 100 MG CAP PO (20:33)
[2018-09-26] VITALS (23 sets, daily range): BP systolic 170–213; BP diastolic 85–122; PULSE 70–89; RESP 12–20; TEMP 36.9–37.8; O2SAT 96–99
[2018-09-26] MEDS: Normal Saline Flush 10 ML SYR IVP ×5 (00:08→10:46)
[2018-09-26] MEDS: ceFAZolin 2,000 MG in Normal Saline 100 ML 200 MG IVPB ×4 (00:09→23:46)
[2018-09-26] MEDS: Metoprolol 50 MG TAB 75 MG PO ×4 (02:40→20:01)
[2018-09-26] MEDS: Metoprolol 5 MG/5 ML VIAL IVP ×2 (04:28→07:44)
[2018-09-26] MEDS: THIAMINE 500 MG in Normal Saline 100 ML 200 MG IVPB ×3 (07:47→23:46)
[2018-09-26] MEDS: Pantoprazole 40 MG VIAL IVP ×2 (07:47→20:00)
[2018-09-26] MEDS: amLODIPine 10 MG TAB PO (07:48)
[2018-09-26] MEDS: Sertraline 50 MG TAB 100 MG PO (07:48)
[2018-09-26] MEDS: Sucralfate 1 GM TAB PO ×4 (07:48→23:36)
[2018-09-26 07:52] LABS: Abs Immature Grans 0.11 k/cumm (0.0-0.09); Absolute Basophil Count 0.03 k/cumm (0.0-0.2); Absolute Eosinophil Count 0.11 k/cumm (0.0-0.7); Absolute Lymphocyte Count 1.77 k/cumm (1.2-3.4); Basophils % 0.2; Eosinophils % 0.8; HCT 35.9 % (36.0-46.0); HGB 11.7 g/dL (12.0-15.5); Immature Grans % 0.8; Lymphocytes % 13.4; Mean Corp. HGB Concentration 32.6 g/dL (32.0-36.0); Mean Corpuscular Hemoglobin 28.2 pg (27.0-33.0); Mean Corpuscular Volume 86.5 fL (80-95); Mean Platelet Volume 9.1 fL (8.0-11.0); Monocytes % 9.5; Neutrophils % 75.3; Platelet Count 328 x1000/uL (130-400); RBC 4.15 m/cumm (4.00-5.20); RBC Distribution Width 17.4 % (11.7-14.6)
[2018-09-26 07:56] LABS: Absolute Monocyte Count 1.25 k/cumm (0.11-0.7); Absolute Neutrophil Count 9.94 k/cumm (1.2-6.7)
[2018-09-26 08:02] LABS: Anion Gap 9.2 mmol/L (3-11); BUN 10 mg/dL (7-18); CO2 28.8 mmol/L (21.0-32.0); CREATININE 0.78 mg/dL (0.55-1.02); Calcium 9.7 mg/dL (8.5-10.1); Chloride 101 mmol/L (98-107); Glucose 122 mg/dL (70-100); Magnesium 1.8 mg/dL (1.8-2.4); Potassium 3.6 mmol/L (3.5-5.1); Sodium 139 mmol/L (136-145)
--- NOTE | 2018-09-26 08:19 | PT.INNT ---
Date of service: 09/26/18 Time of Service: 08:19 PT Notes 09/26/18 Pt refused PT this AM due to fatigue and high blood pressure. She would like us to come back tomorrow. Nursing aware. Cindy Gayle PTA Clinic location: [facility] [place], [place]
[2018-09-26] MEDS: hydrALAZINE 20 MG/ML VIAL 10 MG IVP (08:29)
--- NOTE | 2018-09-26 10:39 | CMPROGNOTE_ITS ---
- If Service Date Differs Date of service: 09/26/18 Time of Service: 10:39 Care Management Progress Note S/O: Deepti was sitting up in bed when CM came to see her. She was smiling and open to conversation. Deepti stated that she is a little discouraged because her blood pressure keeps climbing and they can't seem to get it under control. She is worried this will keep her in the hospital. She also noted that her appetite is poor. Deepti also shared that her eloise Yanez's father is currently in the [facility] ED and she is concerned about him. A: 68 year old female admitted to [facility] ICU 09/19/18 for Polypharmacy Overdose P: Deepti will continue to be closely monitored and assessed. Anticipate she will require ongoing support and re-assurance. Anticipate she will return home with a more comprehensive plan for medication management including [facility] RN. She will resume current community supports including [facility], [facility] and [facility]. She will follow up with her PCP and transport via private vehicle with her significant other, Marek.
[2018-09-26] MEDS: Ondansetron 4 MG/2 ML VIAL IVP ×2 (10:46→23:45)
--- NOTE | 2018-09-26 12:09 | DI.RAD_ITS ---
SYMPTOM/DIAGNOSIS: FOLLOW UP PNA CHEST X-RAY: Frontal and lateral views. Comparison 09/21/18 Cardiac silhouette is within normal limits as is the pulmonary vasculature The nasogastric tube and endotracheal tube have been removed. There has been improving infiltrate in the right perihilar region. No new infiltrates are seen. The lungs are otherwise clear. No effusions, or pneumothoraces are identified. Post surgical changes are again seen in the lower cervical spine in the mid- thorax. Surgical clips are also seen in the left upper quadrant of the abdomen. IMPRESSION: Improving right perihilar infiltrate. This may represent improving pneumonia.
[2018-09-26] MEDS: Lisinopril 5 MG TAB PO (12:55)
--- NOTE | 2018-09-26 13:04 | DI.VRAD_ITS ---
EXAM: XR Chest, 2 Views EXAM DATE/TIME: 09/26/2018 11:50 AM CLINICAL HISTORY: 68 years old, female; Other: Follow up pna; Prior surgery; Surgery date: 6+ months; Surgery type: Spine TECHNIQUE: Imaging protocol: XR of the chest, 2 views. COMPARISON: CR XR PORTABLE CHEST AP 09/21/2018 8:56 AM FINDINGS: Lungs: Improving right perihilar opacity may represent improving pneumonia. Pleural space: Unremarkable. No pleural effusion. No pneumothorax. Heart/Mediastinum: Stable cardiac silhouette Upper abdomen: Surgical clips in the left upper quadrant of the abdomen Bones/joints: Plate and screws in the cervical spine Internal fixation device in the thoracic spine IMPRESSION: Improving right perihilar opacity may represent improving pneumonia. Dictated and Authenticated by: Ailya Mcpherson MD. Ordering:DAVID Sung MD
[2018-09-26 13:52] LABS: Bilirubin Negative (Negative); Blood Trace-lysed (Negative); Clarity Clear (Clear); Glucose Negative (Negative); Ketones Negative (Negative); Leukocyte Esterase Negative (Negative); Nitrite Negative (Negative); Urobilinogen 0.2 EU/dL (Up TO 0.2)
[2018-09-26 14:05] LABS: Bacteria Negative HPF (Negative); C & S Indicated? C&S Done As Ordered; Casts 0-2 Hyaline LPF (Negative); Crystals Negative HPF (Negative); Epithelial Cells Few HPF (Negative); Mucus Trace (Negative); Other Cells Few Renal (Negative); WBC 0-2 HPF (0-5)
--- NOTE | 2018-09-26 15:30 | W.PM.PROGNOT ---
Date of Service Date of service: 09/26/18 Time of Service: 15:30 Assessment and Plan (1) Hypertension: Current visit: Yes Status: Chronic Acute on chronic, uncontrolled. Anxiety could be a contributor to the cycle. Yesterday, we increased her beta blockers. Today I introduced Solis-i. In addition, I am resuming gabapentin, trazodone, melatonin (smaller doses) - it is possible that lack of sleep is contributing to elevated BP. Finally, it is possible that patient's transient changes in mental status have to do with hypertensive encephalopathy. CT head was negative on admission. Continue to monitor on tele. (2) Fever: Current visit: Yes Status: Acute Last fever 38.1 at 9 am yesterday. Due to Pneumonia (VAP vs aspiration) and UTI, neither seen on admission. - UA is negative today. CXR is showing improvement in RLL infiltrate. Location of infiltrate is more consistent with aspiration. - Diarrhea is not a big issue today; C. Diff is negative - Sputum C&S with MSSA; Urine C&S with Raoultella Ornithinolytica. - s/p Vancomycin/zosyn x 2 days, now on cefazolin Day 4. - Continue ancef for a total of a 7 day course. - could switch to keflex tomorrow. (3) Drug overdose: Current visit: Yes Status: Acute Polypharmacy Overdose that included Metoprolol, Gabapentin, Amitryptiline, and Trazodone, resulting in respiratory failure and requiring intubation. Extubated on 09/22/18. Overdose does not appear to have been a suicide attempt. - Bradycardia and hypotension resolved. - No evidence of Ventricular Arrhythmias. - Home medications restarted with a safety plan (boyfriend to keep meds in a locked box, only to give her meds when she is due; family to help). Resume lower dose of gabapentin; resume melatonin (dose of 3 mg rather than 9) and trazodone 50 mg PO Q HS. Of note, patient has a lengthy prior history of admissions for medication overdose. If the patient is to go home on discharge, then medication safety is crucial. Qualifiers: Encounter type: initial encounter Injury intent: accidental or unintentional Qualified Code(s): T50.901A - Poisoning by unspecified drugs, medicaments and biological substances, accidental (unintentional), initial encounter (4) Movement disorder: Current visit: No Status: Chronic Prior history of generalized jerking type movements which have been noted to be chronic. Patient has undergone an extensive prior workup for this in the past without etiology. Follow up as outpatient (5) Multiple sclerosis: Current visit: No Status: Chronic Follows with Neurology chronically. Follow up as outpatient. Ensure no urinary retention. (6) Anemia: Current visit: Yes Status: Chronic Stable but low Hgb, with evidence of Heme + gastric contents with gastric tube in place, and now with reported Heme + stools. History of Gastritis and PUD in the past. Continue PPI BID, Carafate. Hold Chemical DVT Prophylaxis as well for now. Hgb appears stable. (7) Acute electrocardiogram changes: Current visit: Yes Status: Acute No ACS. Should have outpatient ischemic workup once BP is controlled. (8) Hypokalemia: Current visit: Yes Status: Acute Replete and monitor on tele (9) Hypomagnesemia: Current visit: Yes Status: Acute Replete/monitor (10) Respiratory failure: Current visit: Yes Status: Resolved s/p extubation 09/22. Respiratory status stable. Treat VAP vs aspiration pneumonia (11) DVT prophylaxis: Current visit: Yes Status: Acute Hold Lovenox in setting of anemia as above. (12) Discharge planning issues: Current visit: No Status: Acute Possible discharge home tomorrow if BP is controlled and after psychiatry consult Subjective Interval history since last seen: Complaints of episodes of dizziness and nausea while laying in bed. Not having either of these symptoms now, but they have been coming and going all day today. She thinks it might be her blood pressure. She does endorse anxiety. Denies chest pain, shortness of breath, abdominal pain. States she hasn't slept in 3 days. Exam Narrative Exam Narrative: General: Middle-aged female, A&Ox3, laying comfortably in bed, looks anxious to me today HEENT: EOMI, MMM Heart: RRR, no m/r/g Lungs: CTAB GI: abdomen is soft, nontender, nondistended Extremities: no e/c/c; wearing TEDs Objective Objective Clinical Data: Abnormal lab results 09/26/18 09/26/18 09/26/18 Range/Units 07:10 07:10 13:45 WBC 13.20 H (4.4-10.8) k/cumm Hgb 11.7 L (12.0-15.5) g/dL Hct 35.9 L (36.0-46.0) % RDW 17.4 H (11.7-14.6) % Absolute Neutrophils 9.94 H (1.2-6.7) k/cumm Absolute Monocytes 1.25 H (0.11-0.7) k/cumm Glucose 122 H (70-100) mg/dL Urine Protein >=300 H (Negative) mg/dL Urine Blood Trace-lysed H (Negative) Urine RBC 3-5 H (0-2) Vital Signs Temperature 37.6 C H 09/26/18 02:41 Temperature Source Tympanic 09/26/18 02:41 Pulse 84 09/26/18 07:44 Pulse Rhythm Regular 09/26/18 00:05 Pulse 81 09/25/18 14:01 Respiratory Rate 20 09/26/18 02:41 Respiratory Effort 09/26/18 00:05 Respiratory Depth Normal 09/26/18 00:05 Respiratory Pattern Normal 09/26/18 00:05 Blood Pressure 202/122 H 09/26/18 07:44 Blood Pressure Mean 104 09/25/18 14:01 Blood Pressure Position Sitting 09/23/18 07:39 Pulse Oximetry 96 09/26/18 02:41 Respiratory End-tidal CO2 29 09/22/18 10:01 Oxygen Delivery Method Room Air 09/26/18 02:41 Oxygen Flow Rate 0 09/26/18 02:41 Fraction of Inspired Oxygen (FIO2) 40 09/22/18 10:35 Pain Level 0 09/26/18 07:20 Comment 09/26/18 07:20 Intake & Output 09/25/18 09/26/18 09/26/18 23:59 11:59 23:59 Intake Total 1948.167 / 3018.167 405 / 645 240 / 645 Output Total 1350 / 2600 1388 / 1788 400 / 1788 Balance 598.167 / 418.167 -983 / -1143 -160 / -1143 Intake: IV 1328.167 / 2273.167 205 / 205 Oral 620 / 745 200 / 440 240 / 440 Output: Urine 1350 / 2600 950 / 1350 400 / 1350 Post Void Residual 438 / 438 Other: Urine Color Yellow Yellow Yellow Urine Appearance Clear Clear Clear Urine Odor Normal None Comment small amount of stool in urine. Stool Size Moderate Stool Characteristics Soft Liquid Green Voiding Methods Bedside Commode Bedside Commode Bedside Commode Laboratory Results WBC 13.20 k/cumm (4.4-10.8) H 09/26/18 07:10 RBC 4.15 m/cumm (4.00-5.20) 09/26/18 07:10 Hgb 11.7 g/dL (12.0-15.5) L 09/26/18 07:10 Hct 35.9 % (36.0-46.0) L 09/26/18 07:10 MCV 86.5 fL (80-95) 09/26/18 07:10 MCH 28.2 pg (27.0-33.0) 09/26/18 07:10 MCHC 32.6 g/dL (32.0-36.0) 09/26/18 07:10 RDW 17.4 % (11.7-14.6) H 09/26/18 07:10 Plt Count 328 x1000/uL (130-400) 09/26/18 07:10 MPV 9.1 fL (8.0-11.0) 09/26/18 07:10 Immature Gran % 0.8 09/26/18 07:10 75.3 09/26/18 07:10 13.4 09/26/18 07:10 9.5 09/26/18 07:10 0.8 09/26/18 07:10 0.2 09/26/18 07:10 Absolute Neutrophils 9.94 k/cumm (1.2-6.7) H 09/26/18 07:10 Absolute Lymphocytes 1.77 k/cumm (1.2-3.4) 09/26/18 07:10 Absolute Monocytes 1.25 k/cumm (0.11-0.7) H 09/26/18 07:10 Absolute Eosinophils 0.11 k/cumm (0.0-0.7) 09/26/18 07:10 Absolute Basophils 0.03 k/cumm (0.0-0.2) 09/26/18 07:10 Rbc morph reviewed 09/20/18 06:20 RBC Morphology See below 09/20/18 06:20 2+ 09/20/18 06:20 2+ 09/20/18 06:20 Sample Site Left radial 09/20/18 05:35 pCO2 38 mmHg (34-47) 09/20/18 05:35 pO2 216 mmHg (83-108) H 09/20/18 05:35 O2 Saturation 99 % (94-98) H 09/20/18 05:35 ABG pH 7.28 (7.35-7.45) L 09/20/18 05:35 ABG HCO3 18 mmol/L (22-28) L 09/20/18 05:35 ABG Total CO2 17 mmol/L (22-29) L 09/20/18 05:35 ABG Base Excess -8.9 mmol/L (-3-3) L 09/20/18 05:35 VBG pH 7.25 (7.32-7.43) L 09/19/18 18:16 VBG pCO2 37 mm/Hg (34-47) 09/19/18 18:16 VBG pO2 50 mm/Hg (28-44) H 09/19/18 18:16 VBG HCO3 16 mmol/L (22-28) L 09/19/18 18:16 VBG Total CO2 16 mmol/L (22-29) L 09/19/18 18:16 VBG O2 Saturation 81 % (70-80) H 09/19/18 18:16 VBG Base Excess -11.0 mmol/L (-3-3) L 09/19/18 18:16 Oxygen Liter Flow Cancelled 09/19/18 17:51 60 % 09/20/18 05:35 Sodium 139 mmol/L (136-145) 09/26/18 07:10 Potassium 3.6 mmol/L (3.5-5.1) D 09/26/18 07:10 Chloride 101 mmol/L (98-107) 09/26/18 07:10 Carbon Dioxide 28.8 mmol/L (21.0-32.0) 09/26/18 07:10 9.2 mmol/L (3-11) 09/26/18 07:10 BUN 10 mg/dL (7-18) 09/26/18 07:10 0.78 mg/dL (0.55-1.02) 09/26/18 07:10 >= 60.00 (mL/min/1.73m2) 09/26/18 07:10 Glucose 122 mg/dL (70-100) H 09/26/18 07:10 0.7 mmol/l (0.6-1.4) 09/19/18 14:21 Calcium 9.7 mg/dL (8.5-10.1) 09/26/18 07:10 Magnesium 1.8 mg/dL (1.8-2.4) 09/26/18 07:10 0.4 mg/dL (0.2-1.0) 09/25/18 06:30 AST 25 U/L (15-37) 09/25/18 06:30 ALT 16 U/L (12-78) 09/25/18 06:30 120 U/L (46-116) H 09/25/18 06:30 0.06 ng/mL (0.00-0.06) 09/25/18 14:35 6.5 g/dL (6.4-8.2) 09/25/18 06:30 2.9 g/dL (3.4-5.0) L 09/25/18 06:30 Vitamin B12 965 pg/mL (193-986) 09/25/18 06:30 15.8 ng/mL (8.6-20.0) 09/25/18 06:30 TSH 1.21 uIU/mL (0.358-3.74) 09/20/18 06:20 Yellow (Yellow) 09/26/18 13:45 Clear (Clear) 09/26/18 13:45 7.0 (5-8) 09/26/18 13:45 Ur Specific [place] 1.020 (1.005-1.025) 09/26/18 13:45 >=300 mg/dL (Negative) H 09/26/18 13:45 Negative mg/dL (Negative) 09/26/18 13:45 Trace-lysed (Negative) H 09/26/18 13:45 Negative (Negative) 09/26/18 13:45 Negative (Negative) 09/26/18 13:45 0.2 EU/dL (Up TO 0.2) 09/26/18 13:45 Ur Leukocyte Esterase Negative (Negative) 09/26/18 13:45 3-5 (0-2) H 09/26/18 13:45 0-2 HPF (0-5) 09/26/18 13:45 Ur Epithelial Cells Few HPF (Negative) 09/26/18 13:45 Negative HPF (Negative) 09/26/18 13:45 Negative HPF (Negative) 09/26/18 13:45 0-2 hyaline LPF (Negative) 09/26/18 13:45 Trace (Negative) 09/26/18 13:45 Few renal (Negative) 09/26/18 13:45 Ur Culture Indicated? C&s done as ordered 09/26/18 13:45 Negative mg/dL (Negative) 09/26/18 13:45 Fluid Source Cancelled 09/20/18 12:00 Fluid pH Cancelled 09/20/18 12:00 Vancomycin Trough 20.9 ug/mL (10.0-20.0) H* 09/22/18 16:25 Salicylates < 2.8 mg/dL (2.8-20.0) L 09/19/18 14:21 Negative (Negative) 09/19/18 15:11 Negative (Negative) 09/19/18 15:11 Acetaminophen < 2 ug/mL (10-30) L 09/19/18 14:21 Ur Barbiturates Screen Negative (Negative) 09/19/18 15:11 Ur Tricyclics Screen Positive (Negative) 09/19/18 15:11 Ur Amphetamines Screen Negative (Negative) 09/19/18 15:11 U Benzodiazepines Scrn Negative (Negative) 09/19/18 15:11 Negative (Negative) 09/19/18 15:11 Ur THC Screen Positive (Negative) 09/19/18 15:11 Ethyl Alcohol < 3.0 mg/dL (<3) 09/19/18 14:21
[2018-09-26] MEDS: Lisinopril 10 MG TAB PO (15:55)
[2018-09-26] MEDS: Gabapentin 100 MG CAP PO (20:00)
[2018-09-26] MEDS: Atorvastatin 40 MG TAB PO (20:00)
[2018-09-26] MEDS: traZODone 50 MG TAB PO (23:36)
[2018-09-26] MEDS: Melatonin 3 MG TAB PO (23:36)
[2018-09-27 00:39] VITALS: BP 179/75; PULSE 72; RESP 20; TEMP 36.7; O2SAT 96
[2018-09-27] MEDS: Metoprolol 50 MG TAB 75 MG PO ×3 (02:52→14:15)
[2018-09-27 04:54] VITALS: BP 168/80; PULSE 69; RESP 16; TEMP 36.2; O2SAT 97
[2018-09-27] MEDS: THIAMINE 500 MG in Normal Saline 100 ML 200 MG IVPB (05:48)
[2018-09-27 07:35] VITALS: PULSE 67
[2018-09-27 07:42] LABS: Abs Immature Grans 0.07 k/cumm (0.0-0.09); Absolute Basophil Count 0.04 k/cumm (0.0-0.2); Absolute Eosinophil Count 0.14 k/cumm (0.0-0.7); Absolute Lymphocyte Count 1.83 k/cumm (1.2-3.4); Absolute Monocyte Count 1.23 k/cumm (0.11-0.7); Absolute Neutrophil Count 6.26 k/cumm (1.2-6.7); Basophils % 0.4; Eosinophils % 1.5; HCT 30.9 % (36.0-46.0); Immature Grans % 0.7; Lymphocytes % 19.1; Mean Corp. HGB Concentration 32.4 g/dL (32.0-36.0); Mean Corpuscular Hemoglobin 28.2 pg (27.0-33.0); Mean Corpuscular Volume 87.3 fL (80-95); Mean Platelet Volume 9.2 fL (8.0-11.0); Monocytes % 12.9; Neutrophils % 65.4; Platelet Count 307 x1000/uL (130-400); RBC 3.54 m/cumm (4.00-5.20); RBC Distribution Width 17.2 % (11.7-14.6); White Blood Cell Count 9.57 k/cumm (4.4-10.8)
[2018-09-27 07:49] LABS: Anion Gap 15.8 mmol/L (3-11); BUN 15 mg/dL (7-18); CO2 25.2 mmol/L (21.0-32.0); CREATININE 0.93 mg/dL (0.55-1.02); Calcium 9.5 mg/dL (8.5-10.1); Chloride 99 mmol/L (98-107); Glucose 100 mg/dL (70-100); Magnesium 1.6 mg/dL (1.8-2.4); Potassium 4.1 mmol/L (3.5-5.1); Sodium 140 mmol/L (136-145)
[2018-09-27 08:15] VITALS: BP 148/79; PULSE 67; RESP 22; TEMP 36.8; O2SAT 0
[2018-09-27] MEDS: Pantoprazole 40 MG VIAL IVP (08:57)
[2018-09-27] MEDS: Sertraline 50 MG TAB 100 MG PO (08:58)
[2018-09-27] MEDS: Sucralfate 1 GM TAB PO ×2 (08:58→12:13)
[2018-09-27] MEDS: Gabapentin 100 MG CAP PO ×2 (08:58→14:14)
[2018-09-27] MEDS: Lisinopril 5 MG TAB 20 MG PO (08:58)
[2018-09-27] MEDS: Ferrous Sulfate 325 MG TAB PO (08:59)
[2018-09-27] MEDS: ceFAZolin 2,000 MG in Normal Saline 100 ML 200 MG IVPB (08:59)
[2018-09-27] MEDS: amLODIPine 10 MG TAB PO (08:59)
[2018-09-27] MEDS: Normal Saline Flush 10 ML SYR IVP (09:00)
[2018-09-27 11:48] VITALS: BP 150/75; PULSE 68; RESP 20; TEMP 36.9; O2SAT 98
--- NOTE | 2018-09-27 11:59 | PT.INTREAT ---
Date of service: 09/27/18 Time of Service: 12:00 PT Notes Inpatient Physical Therapy Treatment Note [facility] Date: 09/27/18 PRECAUTIONS: Fall SUBJECTIVE: Kena states that she was able to get some rest and is feeling much better. She is hopeful that she will be able to return to home today. OBJECTIVE: PAIN: No c/o pain BED MOBILITY/TRANSFERS Supine-sit: I with HOB flat Sit-supine: I with HOB flat Sit-stand: I Stand-sit: I Bed-Chair: I Chair-bed: I GAIT Assistive Device: 4WW Weight bearing: Full Assist: I Distance: 200' + 50' x2 Deviation: Steady pace, energy conservation techniques discussed ASSESSMENT: Patient tolerated session well without complaint. She was able to demonstrate independence with transfers and bed mobility at this time. She was also able to demonstrate independence with gait with 4WW support, demonstrating a steady pace and good energy conservation techniques. PLAN: As per primary PT TREATMENT CODE/TIME: 10 minutes; [id number]
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
[2018-09-27] MEDS: MAGNESIUM SULFATE 2 GM/50 ML BAG IVPB (14:23)
--- NOTE | 2018-09-27 14:53 | PDOC.HHF2F ---
1. Encounter Date and Reason I certify that SUGEY SAGASTUME was seen by Ana Lilia Santamaria on 09/27/18 and that I had a [id number] encounter with this patient that meets the physician face to face encounter requirements. 2. Clinical Findings Supporting Skilled Need and Homebound Status I certify that home health services are medically necessary, include either intermittent fci and/or physical/speech therapy, and that this patient is homebound in that absences from the home require considerable and taxing effort and are infrequent or of short duration, or are attributable to the need to receive medical care. [X] (a) Attached documentation from encounter provides clinical findings supporting skilled need and homebound status (including what assistance patient requires to leave the home). The encounter with the patient was in whole, or in part, for the following medical condition, which is the primary reason for home health care: POLYPHARMACY OVERDOSE Nursing Home: medication safety assessment/teaching, uncontrolled BP. Physical Therapy: eval and treat Homebound: unable to leave home without assistance 3. Certification and Authentication I certify that I composed the above information based on my clinical judgement relating to this patient's medical condition and, if applicable, clinical findings communicated to me by the NPP or inpatient physician who performed the Home Health Referral. All further orders will be obtained through ___Dr Navarro (Community Based Physician - PCP)
[2018-09-27 15:03] VITALS: PULSE 65
[2018-09-27 17:16] LABS: Result SEE COMMENTS; Specimen Description Feces
--- NOTE | 2018-09-27 18:47 | CMDISCH_ITS ---
LACE Index Scoring Tool - Questions: Length of Stay (in days): 7 - 13 Acuity (Admit via E.D.?): Yes Comorbidities: Liver or Renal Disease E.D. Visits: 9 - Answers: Total Score: 17 Risk of Readmission: High Risk Care Management Discharge Reason for Hospitalization: Polypharmacy Overdose Discharge Plan: Deepti met with Dr. Walls prior to discharge. She was pleasantly engaging with this life insurance underwriter and reviewed discharge plan appropriately. Deepti will follow up with her PCP, [facility], [facility] CM, have new orders for [facility] RN/P T/OT and her family is committed to montoring her medications as well as her community based providers. PT is also recommending a new 4WW-CM coordinating with [facility]. Deepti will transport via private vehicle with her significant other; Marek. Patient/Family Education Needs: Review discharge instructions, discuss Ask Me Three. Services Needed at Discharge: DME Agency, Home Delivered Meals, Home Health Care Services
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
== END 2018-09-27 17:24 | disposition home health service (06) | DRG 917 ==
LOC: ER 18:21 → ICU 19:18 → MS 09-27 12:21
PROVIDERS: Internal Medicine; Admitting Provider Internal Medicine; Emergency Provider Emergency Medicine; PCP Nurse Practitioner; Visit Provider Internal Medicine
DX: T44.7X1A Poisoning by beta-adrenoreceptor antagonists, accidental (unintentional), initial encounter (principal); J96.00 Acute respiratory failure, unspecified whether with hypoxia or hypercapnia; J69.0 Pneumonitis due to inhalation of food and vomit; J95.851 Ventilator associated pneumonia; F05 Delirium due to known physiological condition; N17.9 Acute kidney failure, unspecified; N39.0 Urinary tract infection, site not specified; T82.838A Hemorrhage due to vascular prosthetic devices, implants and grafts, initial encounter; I67.4 Hypertensive encephalopathy; G31.84 Mild cognitive impairment of uncertain or unknown etiology; T42.6X1A Poisoning by other antiepileptic and sedative-hypnotic drugs, accidental (unintentional), initial encounter; T43.211A Poisoning by selective serotonin and norepinephrine reuptake inhibitors, accidental (unintentional), initial encounter; T43.011A Poisoning by tricyclic antidepressants, accidental (unintentional), initial encounter; R00.1 Bradycardia, unspecified; F43.10 Post-traumatic stress disorder, unspecified; F41.9 Anxiety disorder, unspecified; I95.9 Hypotension, unspecified; G35 Multiple sclerosis; Z79.899 Other long term (current) drug therapy; B96.89 Other specified bacterial agents as the cause of diseases classified elsewhere; I12.9 Hypertensive chronic kidney disease with stage 1 through stage 4 chronic kidney disease, or unspecified chronic kidney disease; N18.3 Chronic kidney disease, stage 3 (moderate); G89.29 Other chronic pain; F32.9 Major depressive disorder, single episode, unspecified; E78.5 Hyperlipidemia, unspecified; K21.9 Gastro-esophageal reflux disease without esophagitis; Z16.11 Resistance to penicillins; Z16.23 Resistance to quinolones and fluoroquinolones; Z16.29 Resistance to other single specified antibiotic; D64.9 Anemia, unspecified; Z91.14 Patient's other noncompliance with medication regimen; R94.31 Abnormal electrocardiogram [ECG] [EKG]; E87.6 Hypokalemia; E83.42 Hypomagnesemia; Z78.1 Physical restraint status
CPT/HCPCS: 31500; 36415; 36556; 36591; 36592; 71045; 80048; 80053; 80307; 82805; 87077; 96365; 96366; 96368; 96375; 96376; 97110; 97162; 97530; 99221; 99231; 99232; 99233; 99239; 99252; 99255; 99291; J1650; 36600; 70450; 71046; 80202; 80320; 80329; 81003; 81015; 82607; 82746; 83605; 83735; 83986; 84443; 84484; 85025; 87070; 87086; 87186; 87205; 87324; 87798; 94002; 94003; 94640; J0131; J0360; J0690; J1941; J2060; J2310; J2405; J2543; J3010; J3475; J3480; J7060; J7620

== ENCOUNTER 2018-10-05 11:33 | Outpatient (REF) | payer MEDICARE, MEDICAID, SELFPAY ==
[2018-10-05 12:55] LABS: Absolute Basophil Count 0.04 k/cumm (0.0-0.2); Absolute Eosinophil Count 0.13 k/cumm (0.0-0.7); Absolute Lymphocyte Count 1.92 k/cumm (1.2-3.4); Absolute Monocyte Count 0.44 k/cumm (0.11-0.7); Absolute Neutrophil Count 2.81 k/cumm (1.2-6.7); Basophils % 0.7; Eosinophils % 2.4; HCT 26.6 % (36.0-46.0); HGB 8.3 g/dL (12.0-15.5); Mean Corp. HGB Concentration 31.2 g/dL (32.0-36.0); Mean Corpuscular Hemoglobin 28.6 pg (27.0-33.0); Mean Corpuscular Volume 91.7 fL (80-95); Monocytes % 8.2; Neutrophils % 52.7; Platelet Count 441 x1000/uL (130-400); RBC Distribution Width 17.4 % (11.7-14.6); White Blood Cell Count 5.34 k/cumm (4.4-10.8)
[2018-10-05 13:00] LABS: Anion Gap 9.8 mmol/L (3-11); BUN 15 mg/dL (7-18); CO2 26.2 mmol/L (21.0-32.0); CREATININE 1.04 mg/dL (0.55-1.02); Calcium 8.5 mg/dL (8.5-10.1); Chloride 106 mmol/L (98-107); Estimated GFR 52.86 (mL/min/1.73m2); Glucose 85 mg/dL (70-100); Magnesium 1.3 mg/dL (1.8-2.4); Potassium 3.6 mmol/L (3.5-5.1); Sodium 142 mmol/L (136-145)
[2018-10-05 13:23] LABS: Anisocytosis 1+; Diff Comment RBC Morph Reviewed; Hypochromasia 2+; Ovalocytes 2+; Polychromasia Present
== END 2018-10-05 11:53 ==
LOC: NCHCN 11:33
PROVIDERS: PCP Nurse Practitioner; Visit Provider Family Medicine
DX: E87.6 Hypokalemia (principal); I10 Essential (primary) hypertension; A41.9 Sepsis, unspecified organism
CPT/HCPCS: 80048; 83735; 85025

== ENCOUNTER 2018-10-12 14:51 | Outpatient (REF) | payer MEDICARE, MEDICAID, SELFPAY ==
[2018-10-12 14:17] LABS: Anion Gap 9.7 mmol/L (3-11); BUN 20 mg/dL (7-18); CO2 25.3 mmol/L (21.0-32.0); CREATININE 1.22 mg/dL (0.55-1.02); Calcium 8.5 mg/dL (8.5-10.1); Chloride 106 mmol/L (98-107); Estimated GFR 43.96 (mL/min/1.73m2); Glucose 118 mg/dL (70-100); Potassium 3.4 mmol/L (3.5-5.1); Sodium 141 mmol/L (136-145)
[2018-10-12 14:19] LABS: HGB 8.8 g/dL (12.0-15.5); Mean Corp. HGB Concentration 31.4 g/dL (32.0-36.0); Mean Corpuscular Hemoglobin 29.8 pg (27.0-33.0); Mean Corpuscular Volume 94.9 fL (80-95); Mean Platelet Volume 10.2 fL (8.0-11.0); Platelet Count 236 x1000/uL (130-400); RBC 2.95 m/cumm (4.00-5.20); RBC Distribution Width 18.5 % (11.7-14.6); White Blood Cell Count 4.66 k/cumm (4.4-10.8)
== END 2018-10-12 15:11 ==
LOC: NCHCN 14:51
PROVIDERS: PCP Nurse Practitioner; Visit Provider Nurse Practitioner Family
DX: R19.5 Other fecal abnormalities (principal); E83.42 Hypomagnesemia
CPT/HCPCS: 80048; 85027

== ENCOUNTER 2018-10-19 16:05 | Outpatient (REF) | payer MEDICARE, MEDICAID, SELFPAY ==
[2018-10-19 16:05] LABS: Anion Gap 13.8 mmol/L (3-11); BUN 19 mg/dL (7-18); CO2 23.2 mmol/L (21.0-32.0); CREATININE 1.05 mg/dL (0.55-1.02); Calcium 8.7 mg/dL (8.5-10.1); Chloride 109 mmol/L (98-107); Estimated GFR 52.28 (mL/min/1.73m2); Glucose 86 mg/dL (70-100); Potassium 3.5 mmol/L (3.5-5.1); Sodium 146 mmol/L (136-145)
[2018-10-19 16:36] LABS: Absolute Basophil Count 0.04 k/cumm (0.0-0.2); Absolute Eosinophil Count 0.14 k/cumm (0.0-0.7); Absolute Lymphocyte Count 1.61 k/cumm (1.2-3.4); Absolute Monocyte Count 0.31 k/cumm (0.11-0.7); Absolute Neutrophil Count 2.96 k/cumm (1.2-6.7); Basophils % 0.8; Eosinophils % 2.8; HCT 29.5 % (36.0-46.0); HGB 9.4 g/dL (12.0-15.5); Lymphocytes % 31.8; Mean Corp. HGB Concentration 31.9 g/dL (32.0-36.0); Mean Corpuscular Hemoglobin 30.5 pg (27.0-33.0); Mean Corpuscular Volume 95.8 fL (80-95); Mean Platelet Volume 11.1 fL (8.0-11.0); Monocytes % 6.1; Neutrophils % 58.5; Platelet Count 168 x1000/uL (130-400); RBC 3.08 m/cumm (4.00-5.20); RBC Distribution Width 17.6 % (11.7-14.6); White Blood Cell Count 5.06 k/cumm (4.4-10.8)
[2018-10-19 16:59] LABS: Bilirubin Negative (Negative); Blood Negative (Negative); Clarity Clear (Clear); Glucose Negative (Negative); Ketones Negative (Negative); Leukocyte Esterase Negative (Negative); Nitrite Negative (Negative); Urobilinogen 0.2 EU/dL (Up TO 0.2)
[2018-10-19 17:39] LABS: Epithelial Cells Rare HPF (Negative); RBC 0-2 (0-2); WBC 0-2 HPF (0-5)
[2018-10-19 17:40] LABS: Bacteria Negative HPF (Negative); C & S Indicated? No; Casts Negative LPF (Negative); Crystals Negative HPF (Negative); Mucus Negative (Negative)
[2018-10-19 18:24] LABS: Anisocytosis 1+; Polychromasia Present
== END 2018-10-19 16:25 ==
LOC: LBN 16:05
PROVIDERS: PCP Nurse Practitioner; Visit Provider Family Medicine
DX: I10 Essential (primary) hypertension (principal); D51.0 Vitamin B12 deficiency anemia due to intrinsic factor deficiency; N39.0 Urinary tract infection, site not specified
CPT/HCPCS: 80048; 81003; 81015; 85025

== ENCOUNTER 2018-10-27 10:13 | Outpatient (REF) | payer MEDICARE, MEDICAID, SELFPAY ==
[2018-10-27 11:37] LABS: HCT 33.7 % (36.0-46.0); HGB 10.7 g/dL (12.0-15.5); Mean Corp. HGB Concentration 31.8 g/dL (32.0-36.0); Mean Corpuscular Hemoglobin 30.6 pg (27.0-33.0); Mean Corpuscular Volume 96.3 fL (80-95); Mean Platelet Volume 10.5 fL (8.0-11.0); Platelet Count 201 x1000/uL (130-400); RBC Distribution Width 16.5 % (11.7-14.6); White Blood Cell Count 5.71 k/cumm (4.4-10.8)
[2018-10-27 12:07] LABS: ALT 41 U/L (14-59); AST 39 U/L (15-37); Alkaline Phosphatase 81 U/L (46-116); Anion Gap 14.6 mmol/L (3-11); BUN 19 mg/dL (7-18); Bilirubin, Total 0.2 mg/dL (0.2-1.0); CO2 21.4 mmol/L (21.0-32.0); Calcium 8.9 mg/dL (8.5-10.1); Chloride 109 mmol/L (98-107); Glucose 103 mg/dL (70-100); Potassium 3.2 mmol/L (3.5-5.1); Sodium 145 mmol/L (136-145); Total Protein 6.5 g/dL (6.4-8.2)
== END 2018-10-27 10:33 ==
LOC: NCHCN 10:13
PROVIDERS: PCP Nurse Practitioner; Visit Provider Family Medicine
DX: I10 Essential (primary) hypertension (principal); N18.3 Chronic kidney disease, stage 3 (moderate); J18.9 Pneumonia, unspecified organism; N39.0 Urinary tract infection, site not specified; T50.901D Poisoning by unspecified drugs, medicaments and biological substances, accidental (unintentional), subsequent encounter
CPT/HCPCS: 80053; 85027

== ENCOUNTER 2018-11-02 11:03 | Outpatient (REF) | payer MEDICARE, MEDICAID, SELFPAY ==
[2018-11-02 13:09] LABS: Abs Immature Grans 0.01 k/cumm (0.0-0.09); Absolute Basophil Count 0.04 k/cumm (0.0-0.2); Absolute Eosinophil Count 0.16 k/cumm (0.0-0.7); Absolute Lymphocyte Count 1.99 k/cumm (1.2-3.4); Basophils % 0.7; Eosinophils % 2.9; HCT 32.4 % (36.0-46.0); HGB 10.1 g/dL (12.0-15.5); Immature Grans % 0.2; Lymphocytes % 35.5; Mean Corp. HGB Concentration 31.2 g/dL (32.0-36.0); Mean Corpuscular Hemoglobin 30.6 pg (27.0-33.0); Mean Corpuscular Volume 98.2 fL (80-95); Mean Platelet Volume 10.6 fL (8.0-11.0); Monocytes % 7.1; Neutrophils % 53.6; Platelet Count 227 x1000/uL (130-400); RBC Distribution Width 16.5 % (11.7-14.6)
[2018-11-02 13:11] LABS: ALT 43 U/L (14-59); AST 44 U/L (15-37); Alkaline Phosphatase 81 U/L (46-116); BUN 22 mg/dL (7-18); Bilirubin, Total 0.3 mg/dL (0.2-1.0); CREATININE 1.69 mg/dL (0.55-1.02); Calcium 8.7 mg/dL (8.5-10.1); Chloride 109 mmol/L (98-107); Estimated GFR 30.18 (mL/min/1.73m2); Glucose 122 mg/dL (70-100); Potassium 3.4 mmol/L (3.5-5.1); Sodium 145 mmol/L (136-145); Total Protein 6.4 g/dL (6.4-8.2)
== END 2018-11-02 11:23 ==
LOC: NCHCN 11:03
PROVIDERS: PCP Nurse Practitioner; Visit Provider Family Medicine
DX: D51.0 Vitamin B12 deficiency anemia due to intrinsic factor deficiency (principal); N18.3 Chronic kidney disease, stage 3 (moderate)
CPT/HCPCS: 80053; 85025

== ENCOUNTER → 2018-11-04 11:01 | Outpatient (BNVA) | payer MEDICARE, MEDICAID, SELFPAY | PROVIDERS: PCP Nurse Practitioner; Visit Provider Psychiatry & Neurology Neurology | DX: G35 Multiple sclerosis (principal); G25.9 Extrapyramidal and movement disorder, unspecified; G89.4 Chronic pain syndrome; R41.3 Other amnesia | CPT/HCPCS: 99214 ==

== ENCOUNTER → 2018-12-13 08:38 | Outpatient (BNVA) | payer MEDICARE, MEDICAID, SELFPAY | PROVIDERS: PCP Nurse Practitioner; Referring Provider Nurse Practitioner; Visit Provider Urology | DX: R33.9 Retention of urine, unspecified (principal); R79.89 Other specified abnormal findings of blood chemistry; R39.14 Feeling of incomplete bladder emptying; G35 Multiple sclerosis | CPT/HCPCS: 51798; 99213 ==

== ENCOUNTER 2018-12-21 01:39 | Outpatient (CLI) | payer MEDICARE, MEDICAID, SELFPAY ==
--- NOTE | 2018-12-21 07:16 | DI.US_ITS ---
EXAM: US RENAL CLINICAL HISTORY: elevated serum creatinine,r33.9,r79.89,retention of urine, ? hydronephrosis TECHNIQUE: Ultrasound performed using standard protocol. COMPARISON: CT ABDOMEN PELVIS W from 06/10/2018 FINDINGS: The right kidney measures 10.8 cm length. The left kidney measures 8.5 cm length. There is no evid ence of hydronephrosis or renal calculi. The parenchymal echogenicity appears normal. No cysts or m asses are seen. There is some lobulation of the renal contour which could be congenital. Areas of s carring are also possible. The prevoid bladder volume measured 207 cc. There is an elevated postvoi d residual volume of 65 cc. The bladder wall appears somewhat trabeculated. No bladder calculi or f ocal bladder mass is identified. IMPRESSION: Elevated postvoid residual and mildly thickened, trabeculated bladder wall.
== END 2018-12-21 01:59 ==
PROVIDERS: PCP Nurse Practitioner; Visit Provider Urology
DX: R33.9 Retention of urine, unspecified (principal); R79.89 Other specified abnormal findings of blood chemistry; N32.89 Other specified disorders of bladder; R39.198 Other difficulties with micturition
CPT/HCPCS: 76770

== ENCOUNTER → 2019-01-05 08:42 | Outpatient (BNVA) | payer MEDICARE, MEDICAID, SELFPAY | PROVIDERS: PCP Nurse Practitioner; Referring Provider Nurse Practitioner; Visit Provider Psychiatry & Neurology Neurology | DX: G35 Multiple sclerosis (principal); G47.00 Insomnia, unspecified; G25.9 Extrapyramidal and movement disorder, unspecified; G89.4 Chronic pain syndrome; M79.644 Pain in right finger(s); Z74.09 Other reduced mobility | CPT/HCPCS: 99213 ==

== ENCOUNTER 2019-01-21 07:04 | Outpatient (CLI) | payer MEDICARE, MEDICAID, SELFPAY ==
[2019-01-21 07:51] LABS: HCT 37.7 % (36.0-46.0); HGB 12.3 g/dL (12.0-15.5); Mean Corp. HGB Concentration 32.6 g/dL (32.0-36.0); Mean Corpuscular Hemoglobin 31.1 pg (27.0-33.0); Mean Corpuscular Volume 95.4 fL (80-95); Mean Platelet Volume 10.4 fL (8.0-11.0); RBC 3.95 m/cumm (4.00-5.20); RBC Distribution Width 13.3 % (11.7-14.6); White Blood Cell Count 7.27 k/cumm (4.4-10.8)
[2019-01-21 08:51] LABS: Anion Gap 8.7 mmol/L (3-11); CO2 26.3 mmol/L (21.0-32.0); CREATININE 1.12 mg/dL (0.55-1.02); Estimated GFR 48.52 (mL/min/1.73m2); Magnesium 1.8 mg/dL (1.8-2.4); Potassium 3.6 mmol/L (3.5-5.1)
== END 2019-01-21 07:24 ==
PROVIDERS: PCP Nurse Practitioner; Visit Provider Nurse Practitioner Family
DX: D53.9 Nutritional anemia, unspecified (principal); N18.3 Chronic kidney disease, stage 3 (moderate); R39.14 Feeling of incomplete bladder emptying; G35 Multiple sclerosis
CPT/HCPCS: 36415; 80048; 85027; 99213; 83735

== ENCOUNTER 2019-03-31 08:10 | Outpatient (REF) | payer MEDICARE, MEDICAID, SELFPAY ==
[2019-03-31 13:04] LABS: ALT 51 U/L (14-59); AST 41 U/L (15-37); Albumin 3.9 g/dL (3.4-5.0); Alkaline Phosphatase 82 U/L (46-116); Anion Gap 12.6 mmol/L (3-11); BUN 15 mg/dL (7-18); Bilirubin, Total 0.3 mg/dL (0.2-1.0); CO2 21.4 mmol/L (21.0-32.0); CREATININE 1.08 mg/dL (0.55-1.02); Calcium 8.7 mg/dL (8.5-10.1); Chloride 111 mmol/L (98-107); Glucose 102 mg/dL (74-106); Potassium 3.9 mmol/L (3.5-5.1); Sodium 145 mmol/L (136-145); Total Protein 6.1 g/dL (6.4-8.2)
[2019-03-31 13:13] LABS: COMMENT (LAB VIEW ONLY) 96.94 mg/dL; PROTEIN 26.8 mg/dL; Prot/Crea Ur Ratio 0.27
[2019-03-31 13:17] LABS: COMMENT (LAB VIEW ONLY) 98.19 mg/dL; Microalb ug/mg Crea 82.3 ug/mg Cr
== END 2019-03-31 08:30 ==
LOC: NCHCN 08:10
PROVIDERS: PCP Nurse Practitioner; Visit Provider Nurse Practitioner Family
DX: I10 Essential (primary) hypertension (principal); N18.3 Chronic kidney disease, stage 3 (moderate)
CPT/HCPCS: 80053; 82043; 82565; 82570; 84156

== ENCOUNTER 2019-04-07 09:30 | Outpatient (CLI) | payer MEDICARE, MEDICAID, SELFPAY ==
[2019-04-07 10:18] LABS: HCT 35.2 % (36.0-46.0); HGB 11.4 g/dL (12.0-15.5); Mean Corp. HGB Concentration 32.4 g/dL (32.0-36.0); Mean Corpuscular Hemoglobin 31.9 pg (27.0-33.0); Mean Corpuscular Volume 98.6 fL (80-95); Mean Platelet Volume 9.8 fL (8.0-11.0); Platelet Count 189 x1000/uL (130-400); RBC 3.57 m/cumm (4.00-5.20); RBC Distribution Width 13.4 % (11.7-14.6); White Blood Cell Count 5.86 k/cumm (4.4-10.8)
[2019-04-07 11:25] LABS: Ferritin 52 ng/mL (8-252)
[2019-04-07 11:35] LABS: Vitamin D 25 Total 11.5 ng/ml (30-100)
[2019-04-08 08:47] LABS: Hepatitis B Surface Ag Negative (Negative)
[2019-04-08 09:01] LABS: HBs Antibody, Quant <3.1 mIU/mL (See Note); Hepatitis B Surface Ab Negative (See Note)
[2019-04-08 09:50] LABS: Parathyroid Hormone,Intact 65 pg/mL (19-88)
[2019-04-08 10:47] LABS: HIV-1/2 Ag & Ab Screen Negative (Negative)
[2019-04-08 12:08] LABS: Hepatitis C Ab w Rflx HCV PCR Negative (Negative)
== END 2019-04-07 09:50 ==
PROVIDERS: PCP Nurse Practitioner Family; Visit Provider Nurse Practitioner Family
DX: I10 Essential (primary) hypertension (principal); N18.3 Chronic kidney disease, stage 3 (moderate); Z11.59 Encounter for screening for other viral diseases; Z11.4 Encounter for screening for human immunodeficiency virus [HIV]
CPT/HCPCS: 36415; 82306; 85027; 86706; 86803; 87340; 87389; 82728; 83970

== ENCOUNTER → 2019-04-21 07:35 | Outpatient (BNVA) | payer MEDICARE, MEDICAID, SELFPAY | PROVIDERS: PCP Nurse Practitioner Family; Referring Provider Nurse Practitioner; Visit Provider Psychiatry & Neurology Neurology | DX: G35 Multiple sclerosis (principal); G47.00 Insomnia, unspecified; Z74.09 Other reduced mobility; G89.4 Chronic pain syndrome; R41.3 Other amnesia; M79.644 Pain in right finger(s) | CPT/HCPCS: 99213 ==

== ENCOUNTER 2019-04-28 08:52 | Outpatient (REF) | payer MEDICARE, MEDICAID, SELFPAY ==
[2019-05-01 07:47] LABS: 2-Hydroxy Ethyl Flurazepam Not Detected ng/mL (Cutoff: 10); 6-monoacetylmorphine Not Detected ng/mL (Cutoff: 25); Alpha-Hydroxy Midazolam Not Detected ng/mL (Cutoff: 10); Alpha-Hydroxy Triazolam Not Detected ng/mL (Cutoff: 10); Alpha-Hydroxyalprazolam Not Detected ng/mL (Cutoff: 10); Alpha-OH-alprazolam Glucuronid Not Detected ng/mL (Cutoff: 50); Alprazolam Not Detected ng/mL (Cutoff: 10); Amphetamines Negative ng/mL (Cutoff: 500); Barbiturates Negative ng/mL (Cutoff: 200); Buprenorphine Not Detected ng/mL (Cutoff: 5); Chlordiazepoxide Not Detected ng/mL (Cutoff: 10); Clobazam Not Detected ng/mL (Cutoff: 10); Clonazepam Not Detected ng/mL (Cutoff: 10); Cocaine Negative ng/mL (Cutoff: 150); Codeine Not Detected ng/mL (Cutoff: 25); Comment Normal; Creatinine, U 61.9 mg/dL; Diazepam Not Detected ng/mL (Cutoff: 10); Dihydrocodeine Not Detected ng/mL (Cutoff: 25); EDDP Not Detected ng/mL (Cutoff: 25); Fentanyl Not Detected ng/mL (Cutoff: 2); Flurazepam Not Detected ng/mL (Cutoff: 10); Hydrocodone Not Detected ng/mL (Cutoff: 25); Hydromorphone Not Detected ng/mL (Cutoff: 25); Hydromorphone-3-beta-glucuroni Not Detected ng/mL (Cutoff: 100); Lorazepam Not Detected ng/mL (Cutoff: 10); Lorazepam Glucuronide Not Detected ng/mL (Cutoff: 50); Meperidine Not Detected ng/mL (Cutoff: 25); Methadone Not Detected ng/mL (Cutoff: 25); Midazolam Not Detected ng/mL (Cutoff: 10); Morphine Not Detected ng/mL (Cutoff: 25); N-Desmethylclobazam Not Detected ng/mL (Cutoff: 200); N-desmethyltapentadol Not Detected ng/mL (Cutoff: 50); Naloxone Not Detected ng/mL (Cutoff: 25); Norbuprenorphine Not Detected ng/mL (Cutoff: 5); Norfentanyl Not Detected ng/mL (Cutoff: 2); Norhydrocodone Not Detected ng/mL (Cutoff: 25); Normeperidine Not Detected ng/mL (Cutoff: 25); Noroxycodone Not Detected ng/mL (Cutoff: 25); Noroxymorphone Not Detected ng/mL (Cutoff: 25); O-desmethyltramadol Not Detected ng/mL (Cutoff: 25); Oxazepam Glucuronide Not Detected ng/mL (Cutoff: 50); Phencyclidine Negative ng/mL (Cutoff: 25); Prazepam Not Detected ng/mL (Cutoff: 10); Propoxyphene Not Detected ng/mL (Cutoff: 25); Tapentadol Not Detected ng/mL (Cutoff: 25); Temazepam Not Detected ng/mL (Cutoff: 10); Temazepam Glucuronide Not Detected ng/mL (Cutoff: 50); Tetrahydrocannabinol Presumptive Positive ng/mL (Cutoff: 50); Tramadol Not Detected ng/mL (Cutoff: 25); Triazolam Not Detected ng/mL (Cutoff: 10); Zolpidem Phenyl-4-Carboxy acid Not Detected ng/mL (Cutoff: 10); pH 5.5
[2019-05-02 11:11] LABS: Carboxy-THC Interpretation Positive.; Delta-9 CarboxyThc by LC-MS/MS 41 ng/mL (Cutoff:<3)
== END 2019-04-28 09:12 ==
LOC: LBN 08:52
PROVIDERS: PCP Nurse Practitioner Family; Visit Provider Nurse Practitioner Family
DX: Z79.899 Other long term (current) drug therapy (principal); G35 Multiple sclerosis
CPT/HCPCS: 80307; 80347; 80349; 80364

== ENCOUNTER → 2019-07-21 08:12 | Outpatient (BNVA) | payer MEDICARE, MEDICAID, SELFPAY | PROVIDERS: PCP Nurse Practitioner Family; Referring Provider Nurse Practitioner Family; Visit Provider Psychiatry & Neurology Neurology | DX: G35 Multiple sclerosis (principal); G47.00 Insomnia, unspecified; Z74.09 Other reduced mobility; G25.9 Extrapyramidal and movement disorder, unspecified; G89.4 Chronic pain syndrome; R41.3 Other amnesia | CPT/HCPCS: 99213 ==

== ENCOUNTER → 2019-08-19 08:11 | Outpatient (BNVA) | payer MEDICARE, MEDICAID, SELFPAY | PROVIDERS: PCP Nurse Practitioner Family; Referring Provider Nurse Practitioner; Visit Provider Urology | DX: N31.8 Other neuromuscular dysfunction of bladder (principal); G35 Multiple sclerosis | CPT/HCPCS: 99213 ==

== ENCOUNTER → 2019-09-20 14:38 | Outpatient (BNVA) | payer MEDICARE, MEDICAID, SELFPAY | PROVIDERS: PCP Nurse Practitioner Family; Referring Provider Nurse Practitioner Family; Visit Provider Psychiatry & Neurology Neurology | DX: R69 Illness, unspecified (principal) ==

== ENCOUNTER 2019-10-26 02:54 | Outpatient (CLI) | payer MEDICARE, MEDICAID, SELFPAY ==
[2019-10-26 16:17] LABS: HCT 36.2 % (36.0-46.0); HGB 11.8 g/dL (11.2-15.7); MCH 31.9 pg (27.0-33.0); MCHC 32.6 % (32.0-36.0); MCV 97.8 fL (80-95); Platelet Count 182 10^3/uL (130-400); RDW 12.5 % (11.7-14.6); RDW-SD 45.1 fL; WBC 7.83 10^3/uL (4.4-10.8)
[2019-10-26 17:14] LABS: Anion Gap 8.7 mmol/L (3-11); BUN 15 mg/dL (7-18); CO2 29.3 mmol/L (21.0-32.0); CREATININE 1.13 mg/dL (0.55-1.02); Chloride 103 mmol/L (98-107); Estimated GFR 47.88 (mL/min/1.73m2); Glucose 101 mg/dL (74-106); Potassium 3.8 mmol/L (3.5-5.1); Sodium 141 mmol/L (136-145); TSH (W/Ref FT4) 1.31 uIU/mL (0.36-3.74)
[2019-10-26 17:27] LABS: Calcium 9.3 mg/dL (8.5-10.1)
== END 2019-10-26 03:14 ==
PROVIDERS: PCP Nurse Practitioner Family; Visit Provider Nurse Practitioner Family
DX: I10 Essential (primary) hypertension (principal); R19.5 Other fecal abnormalities
CPT/HCPCS: 36415; 80048; 82306; 85027; 84443

== ENCOUNTER 2019-11-01 00:31 | Outpatient (CLI) | payer MEDICARE, MEDICAID, SELFPAY ==
--- NOTE | 2019-11-01 07:00 | DI.US_ITS ---
EXAM: US RENAL CLINICAL HISTORY: r/o hydronephrosis, NEUROGENIC BLADDER, N31.9. TECHNIQUE: Calixto scale, color and spectral Doppler were used. COMPARISON: CT CT ABDOMEN PELVIS W from 06/10/2018 US US RENAL from 12/21/2018 FINDINGS: Renal size in cm: Right: 10.1. Left: 9. Echogenicity: Normal. Hydronephrosis: No. Cyst or mass: No. Nephrolithiasis: No. Other findings: Stable 0.7 cm round echogenic focus in the mid to lower pole of the left kidney. Thi s may represent a benign lesion such as an angiomyolipoma. Bladder:Normal. Prevoid vol:123 cc Postvoid vol:The patient was unable to void. Renal color flow: Symmetric and within normal limits. IMPRESSION: No evidence of hydronephrosis. DATA REPOSITORY:
== END 2019-11-01 00:51 ==
PROVIDERS: PCP Nurse Practitioner Family; Visit Provider Urology
DX: N31.9 Neuromuscular dysfunction of bladder, unspecified (principal); R33.8 Other retention of urine; I12.9 Hypertensive chronic kidney disease with stage 1 through stage 4 chronic kidney disease, or unspecified chronic kidney disease; N18.3 Chronic kidney disease, stage 3 (moderate)
CPT/HCPCS: 76770; 99213

== ENCOUNTER → 2019-12-01 08:09 | Outpatient (BNVA) | payer MEDICARE, MEDICAID, SELFPAY | PROVIDERS: PCP Nurse Practitioner Family; Referring Provider Nurse Practitioner Family; Visit Provider Psychiatry & Neurology Neurology | DX: G35 Multiple sclerosis (principal); G47.00 Insomnia, unspecified; Z74.09 Other reduced mobility; G25.9 Extrapyramidal and movement disorder, unspecified; G89.4 Chronic pain syndrome; R41.3 Other amnesia; M79.644 Pain in right finger(s); I12.9 Hypertensive chronic kidney disease with stage 1 through stage 4 chronic kidney disease, or unspecified chronic kidney disease; N18.30 Chronic kidney disease, stage 3 unspecified | CPT/HCPCS: 99214 ==

== ENCOUNTER 2020-01-05 09:09 | Outpatient (REF) | payer MEDICARE, MEDICAID, SELFPAY ==
--- NOTE | 2020-01-05 08:30 | PAPFT_PTH ---
PATIENT: Deepti Olivo LOC: [facility] U#:[id number] AGE/SX: 69/F ROOM: RE01/05/[address]: Hardy Hudson : 1950 BED: DIS: 01/05/2020 SPEC #: [id number] RECD: 01/05/20 17:45 STATUS: OSMAN REQ #: [id number] [place]SA[place]: 01/05/20 08:[address]: Hardy Hudson DEPT: [facility] Cytology RECD BY: Amy Barragan Tissues: 1 - CX/ENDOCX FOR PAP SMEARS Procedures: PAP THIN PREP/UVM Screening HPV DNA PROBE Comments: [id number] ([id number] [facility])
== END 2020-01-05 09:29 ==
LOC: NCHCN 09:09
PROVIDERS: PCP Nurse Practitioner Family; Visit Provider Nurse Practitioner Family
DX: Z12.4 Encounter for screening for malignant neoplasm of cervix (principal); Z11.51 Encounter for screening for human papillomavirus (HPV)
CPT/HCPCS: 88142; 87624

== ENCOUNTER 2020-01-17 14:28 | Outpatient (REF) | payer MEDICARE, MEDICAID, SELFPAY ==
[2020-01-21 02:41] LABS: Patient Race White; SARS-CoV-2 RNA Undetected (Undetected); SARS-CoV-2 Specimen Source Nasal
== END 2020-01-17 14:48 ==
LOC: NCHCN 14:28
PROVIDERS: PCP Nurse Practitioner Family; Visit Provider Nurse Practitioner Family
DX: Z20.828 Contact with and (suspected) exposure to other viral communicable diseases (principal)
CPT/HCPCS: U0003

== ENCOUNTER 2020-02-10 22:50 | Outpatient (REF) | payer MEDICARE, MEDICAID, SELFPAY ==
[2020-02-10 19:14] LABS: Anion Gap 11.6 mmol/L (3-11); BUN 29 mg/dL (7-18); CO2 24.4 mmol/L (21.0-32.0); CREATININE 1.46 mg/dL (0.55-1.02); Calcium 9.3 mg/dL (8.5-10.1); Chloride 104 mmol/L (98-107); Estimated GFR 35.63 (mL/min/1.73m2); Glucose 99 mg/dL (74-106); Potassium 4.1 mmol/L (3.5-5.1); Sodium 140 mmol/L (136-145)
== END 2020-02-10 23:10 ==
LOC: NCHCN 22:50
PROVIDERS: PCP Nurse Practitioner Family; Visit Provider Nurse Practitioner Family
DX: N18.30 Chronic kidney disease, stage 3 unspecified (principal); E83.42 Hypomagnesemia
CPT/HCPCS: 80048; 83735

== ENCOUNTER → 2020-03-05 08:05 | Outpatient (BNVA) | payer MEDICARE, MEDICAID, SELFPAY | PROVIDERS: PCP Nurse Practitioner Family; Referring Provider Nurse Practitioner Family; Visit Provider Psychiatry & Neurology Neurology | DX: G35 Multiple sclerosis (principal); G47.00 Insomnia, unspecified; G89.4 Chronic pain syndrome; R41.3 Other amnesia | CPT/HCPCS: 99442 ==

== ENCOUNTER 2020-03-20 17:49 | Emergency (ER) | payer MEDICARE, MEDICAID, SELFPAY ==
--- NOTE | 2020-03-20 18:28 | NUR.NOTE ---
entered in error by accessNursing Note: melvin cordova
== END 2020-03-20 18:00 ==
LOC: ER 18:26
PROVIDERS: Emergency Provider Physician Assistant; PCP Nurse Practitioner Family
DX: R69 Illness, unspecified (principal)

== ENCOUNTER 2020-03-20 18:44 | Outpatient (CLI) | payer MEDICARE, MEDICAID, SELFPAY ==
--- NOTE | 2020-03-20 | DI.RAD_ITS ---
EXAM: XR FOOT RT COMPLETE and XR ankle RT complete CLINICAL HISTORY: RT ankle/foot pain. TECHNIQUE: 2D digital imaging was performed. COMPARISON: CR,XR XR ANKLE RT COMPLETE from 03/20/2020 FINDINGS: BONES: No acute fracture is present. No bony destructive lesion is seen. JOINTS: No dislocation present. SOFT TISSUE: Normal. IMPRESSION: No acute fracture or dislocation. DATA REPOSITORY: RADIATION DOSE DELIVERED:
--- NOTE | 2020-03-20 19:25 | DI.VRAD_ITS ---
PROCEDURE INFORMATION: Exam: XR Right Ankle Exam date and time: 03/20/2020 6:49 PM Age: 69 years old Clinical indication: Right; Patient HX: Pain foot and ankle TECHNIQUE: Imaging protocol: XR Right ankle. Views: 3 or more views. COMPARISON: No relevant prior studies available. FINDINGS: Bones/joints: No acute fracture or dislocation. The ankle mortise is well preserved. Soft tissues: Normal. IMPRESSION: No acute fracture or dislocation. Dictated and Authenticated by: Emily Farley MD. Ordering:DEMOND Do MD
--- NOTE | 2020-03-20 19:26 | DI.VRAD_ITS ---
PROCEDURE INFORMATION: Exam: XR Right Foot Complete Exam date and time: 03/20/2020 6:49 PM Age: 69 years old Clinical indication: Right; Patient HX: Pain in R foot and ankle TECHNIQUE: Imaging protocol: XR Right foot. Views: 3 or more views. COMPARISON: No relevant prior studies available. FINDINGS: Bones/joints: No acute fracture or dislocation. Incidental tiny superior calcaneal enthesophyte. Soft tissues: Normal. IMPRESSION: No acute fracture or dislocation. Dictated and Authenticated by: Emily Farley MD. Ordering:DEMOND Do MD
== END 2020-03-20 19:04 ==
PROVIDERS: PCP Nurse Practitioner Family; Visit Provider Physician Assistant Medical
DX: M25.571 Pain in right ankle and joints of right foot (principal)
CPT/HCPCS: 73610; 73630

== ENCOUNTER 2020-03-23 11:36 | Inpatient (IN) | payer MEDICARE, MEDICAID, SELFPAY ==
--- NOTE | 2020-03-23 11:45 | DI.RAD_ITS ---
EXAM: XR CHEST 2V PA LATERAL CLINICAL HISTORY: ams TECHNIQUE: 2D digital imaging was performed. COMPARISON: CR XR CHEST 2V PA LATERAL from 09/26/2018 FINDINGS: MEDIASTINUM: Normal. HEART: Normal. PULMONARY VASCULATURE: Normal. LUNGS: Clear. PLEURAL SPACE: No pleural effusion or pneumothorax. BONE:Within normal limits for the patient's age. Postsurgical changes are seen in the cervical and t horacic spine. Surgical changes are seen in the left upper quadrant of the abdomen. OTHER FINDINGS:Normal. IMPRESSION: No acute pulmonary findings. DATA REPOSITORY: RADIATION DOSE DELIVERED:
--- NOTE | 2020-03-23 11:45 | RT.EKG_ITS ---
APPROVED REPORT Exam: Resting ECG Patient Location: E HR:86 bpm ECG Measurements Heart Rate 86 AXIS [place] 149 P 72 QRSd 98 QRS 45 QT 370 T 243 QTc 442 Conclusion Sinus rhythm...normal P axis, V-rate 60- 99 Repol abnrm suggests ischemia, anterolateral...ST dep, T neg, I aVL V2-V6 I have reviewed and interpreted ECG and agree with software generated interpretation. Inverted T waves in inferior leads with T wave inversions and depression in anterior-lateral leads. N o stemi. new changes from prior EKG
--- NOTE | 2020-03-23 11:45 | DI.CT_ITS ---
EXAM: CT HEAD WO CLINICAL HISTORY: ams,dizzy,blurry vision. TECHNIQUE: Imaging Protocol: Axial computed tomography images with coronal and sagittal reformatted images were created and reviewed COMPARISON: CT CT HEAD WO from 09/19/2018 FINDINGS: Ventricles and Extra axial spaces: Normal in size and morphology for the patient's age. Hemorrhage: None. Cerebral parenchyma: There are areas of decreased attenuation in the white matter consistent with chr onic small vessel ischemic disease. No evidence of an acute territorial infarct. Midline shift: None. Brainstem/Cerebellum: Normal. Calvarium: Normal. Visualized Paranasal sinuses/Mastoids: Clear. Soft Tissues: Unremarkable. IMPRESSION: No acute intracranial process. Findings were discussed with the emergency department on the date of the examination. RADIATION DOSE DELIVERED: 647.06mGy.cm Total DLP DATA REPOSITORY: All CT scans at this facility are submitted to the National Radiology Data Registry (NRDR) Dose Index Registry (DIR) with the [employer] ([employer]). RADIATION OPTIMIZATION: All CT scans at this facility use at least one of these dose optimization te chniques: automated exposure control; mA and/or kV adjustment per patient size (includes targeted exa ms where dose is matched to clinical indication); or iterative reconstruction.
[2020-03-23 11:46] VITALS: BP 185/89; PULSE 88; RESP 18; TEMP 36.4; O2SAT 100
[2020-03-23 12:13] LABS: Bilirubin Negative (Negative); Blood Negative (Negative); Clarity Clear (Clear); Glucose Negative (Negative); Ketones 15 mg/dL (Negative); Leukocyte Esterase Negative (Negative); Nitrite Negative (Negative); Specific Gravity 1.025 (1.005-1.025); Urobilinogen 0.2 EU/dL (Up TO 0.2); pH 5.5 (5-8)
--- NOTE | 2020-03-23 12:15 | RT.EKG_ITS ---
APPROVED REPORT Exam: Resting ECG Patient Location: E HR:87 bpm ECG Measurements Heart Rate 87 AXIS [place] 158 P 71 QRSd 94 QRS 42 QT 362 T 254 QTc 435 Conclusion Sinus rhythm...normal P axis, V-rate 60- 99 Nonspecific T abnormalities, inferior leads...T <-0.10mV, II III aVF Physician: This was a posterior EKG with leads V4-V6 being the posterior leads. No STEMI
[2020-03-23 12:17] LABS: Abs Immature Grans 0.03 10^3/uL (0.0-0.06); Absolute Basophil Count 0.04 10^3/uL (0.0-0.2); Absolute Monocyte Count 0.29 10^3/uL (0.1-0.8); Absolute Neutrophil Count 4.42 10^3/uL (1.2-6.7); Basophils % 0.7; Eosinophils % 1.7; HGB 10.9 g/dL (11.2-15.7); Immature Grans % 0.5; MCH 32.2 pg (27.0-33.0); MCHC 32.1 % (32.0-36.0); MCV 100.6 fL (80-95); MPV 10.9 fL (8.0-11.0); Monocytes % 4.9; Neutrophils % 75.2; Nucleated RBC 0 %; Platelet Count 147 10^3/uL (130-400); RBC 3.38 10^6/uL (3.93-5.22); RDW 12.5 % (11.7-14.6); RDW-SD 46.7 fL; WBC 5.88 10^3/uL (4.4-10.8)
[2020-03-23 12:19] LABS: RBC Negative HPF (0-2); WBC 0-2 HPF (0-5)
[2020-03-23 12:20] LABS: Bacteria Rare HPF (Negative); C & S Indicated? No; Casts 0-2 Hyaline LPF (Negative); Crystals Negative HPF (Negative); Epithelial Cells Rare HPF (Negative); Mucus Trace (Negative)
[2020-03-23 12:22] LABS: *AMPHETAMINES SCREEN URINE Negative (Negative); *BARBITURATES SCREEN URINE Negative (Negative); *BENZODIAZEPINES SCREEN URINE Negative (Negative); Cannabinoids THC POSITIVE (Negative); Cocaine Screen,Urine Negative (Negative); METHADONE URINE SCREEN Negative (Negative); OPIATES URINE SCREEN POSITIVE (Negative)
[2020-03-23 12:23] LABS: Tricyclic Antidepressants Negative (Negative)
[2020-03-23 12:31] LABS: PTT Activated 24.9 sec (21.0-27.5); Prothrombin Time 10.1 sec (9.3-11.0)
[2020-03-23 12:36] LABS: ALT 106 U/L (14-59); AST 80 U/L (15-37); Alkaline Phosphatase 109 U/L (46-116); Anion Gap 14.6 mmol/L (3-11); BUN 25 mg/dL (7-18); Bilirubin, Total 0.6 mg/dL (0.2-1.0); CO2 22.4 mmol/L (21.0-32.0); CREATININE 1.01 mg/dL (0.55-1.02); Calcium 9.7 mg/dL (8.5-10.1); Chloride 106 mmol/L (98-107); Estimated GFR 54.51 (mL/min/1.73m2); Glucose 132 mg/dL (74-106); Magnesium 1.5 mg/dL (1.8-2.4); Potassium 3.9 mmol/L (3.5-5.1); Sodium 143 mmol/L (136-145); Troponin I < 0.05 ng/mL (<0.06)
[2020-03-23 12:47] LABS: ETHANOL BLOOD < 3.0 mg/dL (<3)
--- NOTE | 2020-03-23 12:47 | W.ED.GENAD ---
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 Ur Culture Indicated? No Urine Glucose (Negative) mg/dL Negative Urine Opiates Screen (Negative) Positive A Urine Methadone Screen (Negative) Negative Ur Barbiturates Screen (Negative) Negative Ur Tricyclics Screen (Negative) Negative Ur Amphetamines Screen (Negative) Negative U Benzodiazepines Scrn (Negative) Negative Urine Cocaine Screen (Negative) Negative Ur THC Screen (Negative) Positive A Range/Units 03/23/20 03/23/20 12:13 12:13 WBC (4.4-10.8) 10^3/uL 5.88 RBC (3.93-5.22) 10^6/uL 3.38 L Hgb (11.2-15.7) g/dL 10.9 L Hct (36.0-46.0) % 34.0 L MCV (80-95) fL 100.6 H MCH (27.0-33.0) pg 32.2 MCHC (32.0-36.0) % 32.1 RDW (11.7-14.6) % 12.5 Plt Count (130-400) 10^3/uL 147 MPV (8.0-11.0) fL 10.9 Immature Gran % 0.5 Neutrophils % 75.2 Lymphocytes % 17.0 Monocytes % 4.9 Eosinophils % 1.7 Basophils % 0.7 Nucleated RBC % % 0 Absolute Neutrophils (1.2-6.7) 10^3/uL 4.42 Absolute Lymphocytes (1.2-3.4) 10^3/uL 1.00 L Absolute Monocytes (0.1-0.8) 10^3/uL 0.29 Absolute Eosinophils (0.0-0.7) 10^3/uL 0.10 Absolute Basophils (0.0-0.2) 10^3/uL 0.04 PT (9.3-11.0) sec INR (0.9-1.1) APTT (21.0-27.5) sec Sodium (136-145) mmol/L 143 Potassium (3.5-5.1) mmol/L 3.9 Chloride (98-107) mmol/L 106 Carbon Dioxide (21.0-32.0) mmol/L 22.4 Anion Gap (3-11) mmol/L 14.6 H BUN (7-18) mg/dL 25 H Creatinine (0.55-1.02) mg/dL 1.01 Estimated GFR/1.73 m2 (mL/min/1.73m2) 54.51 Glucose (74-106) mg/dL 132 H Calcium (8.5-10.1) mg/dL 9.7 Magnesium (1.8-2.4) mg/dL 1.5 L Total Bilirubin (0.2-1.0) mg/dL 0.6 AST (15-37) U/L 80 H ALT (14-59) U/L 106 H Alkaline Phosphatase (46-116) U/L 109 Troponin I (<0.06) ng/mL < 0.05 Total Protein (6.4-8.2) g/dL 7.0 Albumin (3.4-5.0) g/dL 4.0 Urine Color (Yellow) Urine Clarity (Clear) Urine pH (5-8) Ur Specific [place] (1.005-1.025) Urine Protein (Negative) mg/dL Urine Ketones (Negative) mg/dL Urine Blood (Negative) Urine Nitrite (Negative) Urine Bilirubin (Negative) Urine Urobilinogen (Up TO 0.2) EU/dL Ur Leukocyte Esterase (Negative) Urine RBC (0-2) HPF Urine WBC (0-5) HPF Ur Epithelial Cells (Negative) HPF Urine Crystals (Negative) HPF Urine Bacteria (Negative) HPF Urine Casts (Negative) LPF Urine Mucus (Negative) Ur Culture Indicated? Urine Glucose (Negative) mg/dL Urine Opiates Screen (Negative) Urine Methadone Screen (Negative) Ur Barbiturates Screen (Negative) Ur Tricyclics Screen (Negative) Ur Amphetamines Screen (Negative) U Benzodiazepines Scrn (Negative) Urine Cocaine Screen (Negative) Ur THC Screen (Negative)
[2020-03-23 12:56] LABS: TSH (W/Ref FT4) 0.69 uIU/mL (0.36-3.74)
[2020-03-23] MEDS: MAGNESIUM SULFATE 1 GM/100 ML BAG IVPB (12:59)
[2020-03-23 13:10] VITALS: BP 170/80; PULSE 88; RESP 15; O2SAT 100
[2020-03-23 15:01] VITALS: BP 170/81; PULSE 98; RESP 15; O2SAT 97
--- NOTE | 2020-03-23 15:47 | NUR.NOTE ---
resting quietly, drank some water. waiting for inpatient bed admission
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
[2020-03-23 17:01] LABS: Troponin I < 0.05 ng/mL (<0.06)
--- NOTE | 2020-03-23 17:05 | NUR.NOTE ---
brought to floor with zabrina Arriaga
[2020-03-23 17:18] VITALS: BP 179/84; PULSE 94; RESP 16; TEMP 37.6; O2SAT 97
[2020-03-23] MEDS: Sucralfate 1 GM TAB PO (17:32)
[2020-03-23] MEDS: Enoxaparin 40 MG/0.4 ML SYR SC (18:09)
[2020-03-23 20:00] VITALS: BP 176/89; PULSE 100; RESP 16; TEMP 37.5; O2SAT 97
[2020-03-23] MEDS: Acetaminophen 325 MG TAB 650 MG PO (21:01)
[2020-03-23] MEDS: Omeprazole 20 MG CAPCR 40 MG PO (21:01)
[2020-03-23] MEDS: Atorvastatin 40 MG TAB PO (21:02)
[2020-03-23] MEDS: traZODone 50 MG TAB PO (21:02)
[2020-03-23] MEDS: Gabapentin 300 MG CAP PO (21:02)
[2020-03-23] MEDS: Metoprolol CR 100 MG TABCR PO (22:07)
[2020-03-24] VITALS (7 sets, daily range): BP systolic 142–197; BP diastolic 77–89; PULSE 69–85; RESP 18–20; TEMP 36.5–37.6; O2SAT 97–100
[2020-03-24 01:31] LABS: COVID-19 RT-PCR UVMMC Result Negative (Negative)
[2020-03-24 06:59] LABS: Abs Immature Grans 0.02 10^3/uL (0.0-0.06); Absolute Basophil Count 0.03 10^3/uL (0.0-0.2); Absolute Eosinophil Count 0.05 10^3/uL (0.0-0.7); Absolute Lymphocyte Count 2.24 10^3/uL (1.2-3.4); Absolute Monocyte Count 0.76 10^3/uL (0.1-0.8); Basophils % 0.3; Eosinophils % 0.6; HGB 11.6 g/dL (11.2-15.7); Immature Grans % 0.2; Lymphocytes % 25.8; MCH 32.4 pg (27.0-33.0); MCHC 33.1 % (32.0-36.0); MCV 97.8 fL (80-95); MPV 10.4 fL (8.0-11.0); Monocytes % 8.7; Neutrophils % 64.4; Nucleated RBC 0 %; Platelet Count 170 10^3/uL (130-400); RBC 3.58 10^6/uL (3.93-5.22); RDW 12.2 % (11.7-14.6); RDW-SD 44.2 fL; WBC 8.69 10^3/uL (4.4-10.8)
[2020-03-24 07:18] LABS: ALT 84 U/L (14-59); AST 60 U/L (15-37); Albumin 3.7 g/dL (3.4-5.0); Alkaline Phosphatase 101 U/L (46-116); Anion Gap 10.8 mmol/L (3-11); Bilirubin, Total 0.7 mg/dL (0.2-1.0); CO2 26.2 mmol/L (21.0-32.0); Calcium 9.4 mg/dL (8.5-10.1); Chloride 104 mmol/L (98-107); Glucose 95 mg/dL (74-106); Magnesium 1.5 mg/dL (1.8-2.4); Potassium 4.3 mmol/L (3.5-5.1); Sodium 141 mmol/L (136-145)
[2020-03-24 07:31] LABS: BUN 19 mg/dL (7-18)
[2020-03-24] MEDS: Omeprazole 20 MG CAPCR 40 MG PO ×2 (07:49→20:08)
[2020-03-24] MEDS: Magnesium Oxide 400 MG TAB PO (07:49)
[2020-03-24] MEDS: Potassium Chloride 20 MEQ TABCR PO (07:49)
[2020-03-24] MEDS: Sucralfate 1 GM TAB PO ×4 (07:49→22:25)
[2020-03-24] MEDS: Docusate Sodium 100 MG CAP PO (07:49)
[2020-03-24] MEDS: Gabapentin 300 MG CAP PO ×3 (07:49→20:08)
[2020-03-24] MEDS: DULoxetine 30 MG CAP 60 MG PO (07:49)
[2020-03-24] MEDS: amLODIPine 10 MG TAB PO (07:49)
[2020-03-24] MEDS: Montelukast 10 MG TAB PO (07:49)
[2020-03-24] MEDS: Sertraline 50 MG TAB 100 MG PO (07:50)
[2020-03-24] MEDS: Metoprolol CR 100 MG TABCR 200 MG PO (07:50)
[2020-03-24] MEDS: Cholecalciferol (Vitamin D3) 1,000 UNIT TAB 1000 UNITS PO (07:50)
[2020-03-24] MEDS: Lisinopril 20 MG TAB PO (07:50)
--- NOTE | 2020-03-24 08:00 | RT.EKG_ITS ---
APPROVED REPORT Exam: Resting ECG Patient Location: I HR:74 bpm ECG Measurements Heart Rate 74 AXIS PA 153 P -1 QRSd 100 QRS 31 QT 417 T 32 QTc 464 Conclusion Sinus rhythm...normal P axis, V-rate 60- 99
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
[2020-03-24 11:22] LABS: Ammonia 22 umol/L (11-32)
[2020-03-24] MEDS: Normal Saline Flush 10 ML SYR IVP (11:22)
[2020-03-24] MEDS: MAGNESIUM SULFATE 4 GM/100 ML BAG IVPB (11:22)
[2020-03-24 11:29] LABS: Troponin I < 0.05 ng/mL (<0.06)
--- NOTE | 2020-03-24 15:07 | PGE_ITS ---
Date of Service Date of service: 03/24/20 Time of Service: 15:08 Assessment and Plan Assessment and plan (1) Encephalopathy acute: Status: Resolved Assessment and plan: Differential dx: hypertensive encephalopathy, withdrawal from chronic medications (such as gabapentin and duloxetine) vs psychosis/stress reaction. At this point, BPs are better and mental status is back to baseline. I do not suspect overdose or opioid abuse - the patient normally takes benadryl which can give a false positive urine drug screen for opiates. Will consult mental health because I do think that the patient would benefit from outpatient mental health follow up. (2) Hypertensive emergency without congestive heart failure: Status: Resolved Assessment and plan: As above. If the patient has not had a workup for secondary causes of hypertension, she should have it as outpatient. Increase lisinopril. Continue remainder of home antihypertensives. Consider addition for spironolactone. (3) Abnormal EKG: Status: Acute Assessment and plan: In setting of hypertensive emergency and hypomagnesemia. The patient was asymptomatic. EKG looks better this morning. Troponins are negat chelo. We are working on adjusting BP meds and are correcting magnesium. She needs to have a stress test, which can be done as outpatient. (4) Hypomagnesemia: Status: Acute Assessment and plan: Replete IV. Change PO magnesium oxide to slow mag. Cause is likely PPI. We will investigate why the patient is still on the PPI BID. (5) Psychosis: Status: Chronic Assessment and plan: Consult mental health. The patient has a history of this. It is not clear 100% what the etiology of this latest episode was. Even if the patient's hypertensive encephalopathy was due to not taking her med ications, what led to her stopping to take them is not clear and could have been psychogenic. In the notes of her outpatient neurology provider, it is evident that even then mental health was felt to be of benefit, though the patient declined it at that time. She is agreeable to a consult while she is in the hospital. Consult placed. Qualifiers: Psychosis type: unspecified psychosis type Qualified Code(s): F29 - Unspecified psychosis not due to a substance or known physiological condition (6) Positive urine drug screen: Status: Acute Assessment and plan: I suspect that the opiates on the drug screen are a false positive due to the patient being on benadryl at home. (7) Feeling of incomplete bladder emptying: Status: Acute Assessment and plan: W/ h/o MS, concern for neurogenic bladder/ urinary retention. Check bladder scans. (8) Generalized anxiety disorder: Status: Chronic Assessment and plan: Contine home duloxetine, sertraline and trazadone (9) Depression: Status: Chronic Assessment and plan: See anxiety Qualifiers: Depression Type: major depressive disorder Active/Remission status: remission status unspecified (10) Vitamin D deficiency: Status: Chronic Assessment and plan: Continue supplementation. Level pending. (11) Opioid abuse: Status: Ruled-out Assessment and plan: Previous history. Positive UDS on this admission is due to benadryl use. (12) DVT prophylaxis: Status: Acute Assessment and plan: TEDs SCDS Hold chemical DVT ppx as medications suggest h/o GI bleeding/ (13) Discharge planning issues: Status: Acute Assessment and plan: Full code Consulting mental health. Possible discharge home tomorow. Subjective Subjective Interval history since last seen: Overnight, Ms Olivo was confused, per nursing. She was hallucinating and trying to jump out of bed. She is much more appropriate during the day today. Ms Olivo states that she is feeling back to normal. However, she feels discouraged because of her electrolyte abnormalities. She denies dizziness, headache (states she had one last night), chest pain, shortness of breath, nausea. She states that she could not have taken an opioid medication. She states that Beau, her partner, does not take opioid medications. She does not believe that urgent care that she saw for her sprained ankle gave her an opioid medication. She is not sure why her UDS is positive for opioids. She does admit to taking benadryl which can cause a false-positive reading on a UDS for opiates. She is not sure what happened that made her forget to take her medications. She does admit to being stressed and states that Beau was diagnosed with a lung nodule which is very concerning to her. She agrees to talk to mental health. Exam Narrative Exam Narrative: General: Very pleasant and appropriate middle-aged female who appears to be at her baseline from the stand point of mental status, A&Ox3 HEENT: EOMI, MMM Heart: RRR, no m/r/g Lungs: CTAB Abdomen: soft, nontender, nondistended Extremities: no edema BLE's, no swelling or ecchymosis of R ankle Objective Last Vital Signs Temp 37.4 C 03/24/20 11:51 Pulse 75 03/24/20 11:51 Resp 18 03/24/20 11:51 BP 175/85 H 03/24/20 11:51 Pulse Ox 100 03/24/20 11:51 Laboratory Results - last 24 hr 03/23/20 03/23/20 03/24/20 14:30 16:30 06:40 WBC RBC Hgb Hct MCV MCH MCHC RDW Plt Count MPV Immature Gran % Neutrophils % Lymphocytes % Monocytes % Eosinophils % Basophils % Nucleated RBC % Absolute Neutrophils Absolute Lymphocytes Absolute Monocytes Absolute Eosinophils Absolute Basophils Sodium 141 Potassium 4.3 Chloride 104 Carbon Dioxide 26.2 Anion Gap 10.8 BUN 19 H D Creatinine 0.90 Estimated GFR/1.73 m2 >= 60.00 Glucose 95 Calcium 9.4 Magnesium 1.5 L Total Bilirubin 0.7 AST 60 H ALT 84 H Alkaline Phosphatase 101 Ammonia Troponin I < 0.05 Total Protein 7.0 Albumin 3.7 SARS-CoV-2 (PCR) Negative Nasopharyn COVID-19 PCR Not Applicable Ref Test Perform Site [place] [facility] 03/24/20 03/24/20 03/24/20 06:40 10:55 10:55 WBC 8.69 D RBC 3.58 L Hgb 11.6 Hct 35.0 L MCV 97.8 H MCH 32.4 MCHC 33.1 RDW 12.2 Plt Count 170 MPV 10.4 Immature Gran % 0.2 Neutrophils % 64.4 Lymphocytes % 25.8 Monocytes % 8.7 Eosinophils % 0.6 Basophils % 0.3 Nucleated RBC % 0 Absolute Neutrophils 5.60 Absolute Lymphocytes 2.24 Absolute Monocytes 0.76 Absolute Eosinophils 0.05 Absolute Basophils 0.03 Sodium Potassium Chloride Carbon Dioxide Anion Gap BUN Creatinine Estimated GFR/1.73 m2 Glucose Calcium Magnesium Total Bilirubin AST ALT Alkaline Phosphatase Ammonia 22 Troponin I < 0.05 Total Protein Albumin SARS-CoV-2 (PCR) Nasopharyn COVID-19 PCR Ref Test Perform Site
[2020-03-24] MEDS: Ascorbic Acid 500 MG TAB PO (15:24)
[2020-03-24] MEDS: Acetaminophen 325 MG TAB 650 MG PO (15:24)
[2020-03-24] MEDS: Ferrous Sulfate 325 MG TAB PO (15:24)
--- NOTE | 2020-03-24 15:45 | PDOC.MHCN_ITS ---
Date of service: 03/24/20 Time of Service: 15:06 Mental Health Crisis Note Presenting Issue How did you arrive at the ED and why did you come: Patient's PCP contacted her and wanted patient to go to [facility] as her electrolytes were dangerously low. Precipitating Factors Patient denies SI/HI. Patient shared she feels better but is still worried about getting her electrolytes up. Patient shared that she lives in an elderly community and has the support of her friends boyfriend and family. Patient shared that her family.Patient shared that if she has any issues she contacts her doctor or the nurse for support as sometimes her MS gets really bad and unpredictable.( currently right leg gives out) Disposition BEHAVIOR: cooperativeg EYE CONTACT: ood MOOD: calm AFFECT: broad APPETITE: kind of off but eats regularly SLEEP(trouble falling/staying asleep: good nights and bad nights Plan Patient will remain at [facility] until medically cleared. (electrolyte count is at normal range) Provisional Diagnosis Bharathi Muhammad Signature Clinician's Name/Title: Bharathi Muhammad
[2020-03-24] MEDS: Magnesium Chloride 64 MG TABCR PO (20:07)
[2020-03-24] MEDS: Atorvastatin 40 MG TAB PO (20:08)
[2020-03-24] MEDS: traZODone 50 MG TAB PO (22:25)
[2020-03-24] MEDS: Senna TAB 1 TAB PO (22:25)
[2020-03-24] MEDS: Metoprolol CR 100 MG TABCR PO (22:25)
[2020-03-25 03:28] VITALS: BP 140/68; PULSE 81; RESP 18; TEMP 36.7; O2SAT 97
[2020-03-25 07:13] VITALS: PULSE 69
[2020-03-25] MEDS: Omeprazole 20 MG CAPCR 40 MG PO (07:24)
[2020-03-25] MEDS: Sucralfate 1 GM TAB PO ×2 (07:24→11:37)
[2020-03-25 07:43] LABS: ALT 65 U/L (14-59); AST 37 U/L (15-37); Albumin 3.8 g/dL (3.4-5.0); Alkaline Phosphatase 106 U/L (46-116); Anion Gap 8.5 mmol/L (3-11); BUN 18 mg/dL (7-18); Bilirubin, Direct 0.15 mg/dL (0.00-0.20); Bilirubin, Total 0.7 mg/dL (0.2-1.0); CO2 26.5 mmol/L (21.0-32.0); Calcium 9.2 mg/dL (8.5-10.1); Chloride 100 mmol/L (98-107); Estimated GFR 55.14 (mL/min/1.73m2); Glucose 113 mg/dL (74-106); Magnesium 1.9 mg/dL (1.8-2.4); Potassium 3.7 mmol/L (3.5-5.1); Sodium 135 mmol/L (136-145)
[2020-03-25] MEDS: amLODIPine 10 MG TAB PO (08:14)
[2020-03-25] MEDS: Gabapentin 300 MG CAP PO ×2 (08:15→13:04)
[2020-03-25] MEDS: Sertraline 50 MG TAB 100 MG PO (08:15)
[2020-03-25] MEDS: Docusate Sodium 100 MG CAP PO (08:15)
[2020-03-25] MEDS: Magnesium Chloride 64 MG TABCR PO (08:15)
[2020-03-25] MEDS: DULoxetine 30 MG CAP 60 MG PO (08:15)
[2020-03-25] MEDS: Metoprolol CR 100 MG TABCR 200 MG PO (08:15)
[2020-03-25] MEDS: Cholecalciferol (Vitamin D3) 1,000 UNIT TAB 1000 UNITS PO (08:15)
[2020-03-25] MEDS: Lisinopril 20 MG TAB 40 MG PO (08:15)
[2020-03-25] MEDS: Potassium Chloride 20 MEQ TABCR PO (08:15)
[2020-03-25] MEDS: Montelukast 10 MG TAB PO (08:15)
[2020-03-25 08:28] VITALS: BP 159/78; PULSE 63; RESP 17; TEMP 36.9; O2SAT 100
[2020-03-25 10:14] VITALS: PULSE 67
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
--- NOTE | 2020-03-25 12:36 | NUR.NOTE ---
While rounding with Dr. Santamaria, the patient admitted to eating a half of gummy worm with THC in it. Pt admitted thinking that the gummies might cause hallucinations. Pt was educated not to take home medications while in hospital. Nursing Note:
--- NOTE | 2020-03-25 16:46 | PDOC.CMDIS ---
- If Service Date Differs Date of service: 03/25/20 Time of Service: 16:46 LACE Index Scoring Tool - Questions: Length of Stay (in days): 2 Acuity (Admit via E.D.?): Yes Comorbidities: Connective Tissue Disease, Liver or Renal Disease E.D. Visits: 2 - Answers: Total Score: 12 Risk of Readmission: High Risk Care Management Discharge Reason for Hospitalization: generalized anxiety disorder Discharge Plan: Kena will be discharged back home to the [facility] with no new services. She will follow up with her community providers and transport with her boyfriend. A referral to [facility] will be made on Thursday. Patient/Family Education Needs: Discharge plan, review instructions and self care, limitations, Ask Me Three
[2020-03-26 06:37] LABS: Vitamin D 25 Total 43.2 ng/ml (30-100)
== END 2020-03-25 13:48 | disposition home or self-care (01) | DRG 78 ==
LOC: ER 15:22 → MS 17:08
PROVIDERS: Internal Medicine; Admitting Provider Family Medicine; Emergency Provider Physician Assistant; PCP Nurse Practitioner Family; Visit Provider Family Medicine
DX: I67.4 Hypertensive encephalopathy (principal); I16.1 Hypertensive emergency; E46 Unspecified protein-calorie malnutrition; Z68.1 Body mass index [BMI] 19.9 or less, adult; E87.1 Hypo-osmolality and hyponatremia; G47.00 Insomnia, unspecified; F41.1 Generalized anxiety disorder; E83.42 Hypomagnesemia; R44.1 Visual hallucinations; F32.9 Major depressive disorder, single episode, unspecified; E55.9 Vitamin D deficiency, unspecified; F43.10 Post-traumatic stress disorder, unspecified; G31.84 Mild cognitive impairment of uncertain or unknown etiology; D64.9 Anemia, unspecified; N18.30 Chronic kidney disease, stage 3 unspecified; I12.9 Hypertensive chronic kidney disease with stage 1 through stage 4 chronic kidney disease, or unspecified chronic kidney disease; G89.4 Chronic pain syndrome; K21.9 Gastro-esophageal reflux disease without esophagitis; E78.5 Hyperlipidemia, unspecified; G35 Multiple sclerosis; N31.9 Neuromuscular dysfunction of bladder, unspecified; D51.0 Vitamin B12 deficiency anemia due to intrinsic factor deficiency; F29 Unspecified psychosis not due to a substance or known physiological condition; Z11.52 Encounter for screening for COVID-19
CPT/HCPCS: 36415; 80048; 80053; 80076; 80307; 82306; 93005; 96365; 99222; 99233; 99239; 99285; J1650; U0003; 70450; 71046; 80320; 81003; 81015; 82140; 83735; 84443; 84484; 85025; 85610; 85730; 93010; J3475

== ENCOUNTER 2020-03-30 15:03 | Outpatient (REF) | payer MEDICARE, MEDICAID, SELFPAY ==
[2020-03-30 13:29] LABS: HGB 10.3 g/dL (11.2-15.7); MCH 32.8 pg (27.0-33.0); MCHC 33.2 % (32.0-36.0); MCV 98.7 fL (80-95); MPV 10.7 fL (8.0-11.0); Platelet Count 219 10^3/uL (130-400); RBC 3.14 10^6/uL (3.93-5.22); RDW 12.5 % (11.7-14.6)
[2020-03-30 13:40] LABS: Anion Gap 8.3 mmol/L (3-11); BUN 17 mg/dL (7-18); CO2 24.7 mmol/L (21.0-32.0); CREATININE 1.1 mg/dL (0.55-1.02); Calcium 8.9 mg/dL (8.5-10.1); Chloride 101 mmol/L (98-107); Estimated GFR 49.39 (mL/min/1.73m2); Glucose 98 mg/dL (74-106); Magnesium 1.5 mg/dL (1.8-2.4); Potassium 3.9 mmol/L (3.5-5.1); Sodium 134 mmol/L (136-145)
== END 2020-03-30 15:23 ==
LOC: NCHCN 15:03
PROVIDERS: PCP Nurse Practitioner Family; Visit Provider Nurse Practitioner Family
DX: E83.42 Hypomagnesemia (principal); N18.30 Chronic kidney disease, stage 3 unspecified; D53.9 Nutritional anemia, unspecified
CPT/HCPCS: 80048; 85027; 83735

== ENCOUNTER 2020-05-07 01:57 | Outpatient (CLI) | payer MEDICARE, MEDICAID, SELFPAY ==
--- NOTE | 2020-05-07 06:15 | DI.US_ITS ---
EXAM: US RENAL CLINICAL HISTORY: URINARY RETENTION,R33.9, ? HYDRONEPHROSIS. TECHNIQUE: Calixto scale, color and spectral Doppler were used. COMPARISON: CT CT ABDOMEN PELVIS W from 06/10/2018 FINDINGS: Renal size in cm: Right: 9.1 left: 9.1, bilateral lobulation. Echogenicity: Normal Hydronephrosis: No Cyst or mass: No Nephrolithiasis: No Bladder: Wall thickness 3 millimeters. No stone or mass. Prevoid vol:219 cc Postvoid vol:78 cc IMPRESSION: Congenital lobulation of the kidneys. No evidence of hydronephrosis. Elevated postvoid bladde r residual. DATA REPOSITORY:
== END 2020-05-07 02:17 ==
PROVIDERS: PCP Nurse Practitioner Family; Visit Provider Urology
DX: R33.9 Retention of urine, unspecified (principal)
CPT/HCPCS: 76770

== ENCOUNTER 2020-05-07 11:14 | Outpatient (REF) | payer MEDICARE, MEDICAID, SELFPAY ==
[2020-05-07 17:05] LABS: Anion Gap 8.4 mmol/L (3-11); BUN 18 mg/dL (7-18); CO2 27.6 mmol/L (21.0-32.0); CREATININE 1.1 mg/dL (0.55-1.02); Calcium 9.1 mg/dL (8.5-10.1); Chloride 106 mmol/L (98-107); Estimated GFR 49.25 (mL/min/1.73m2); Glucose 89 mg/dL (74-106); Potassium 4.2 mmol/L (3.5-5.1); Sodium 142 mmol/L (136-145)
[2020-05-07 22:06] LABS: Vitamin D 25 Total 45.1 ng/ml (30-100)
[2020-05-08 11:32] LABS: Parathyroid Hormone,Intact 66 pg/mL (19-88)
[2020-05-08 13:03] LABS: HSV 1 DNA Result Negative (Negative); HSV 2 DNA Result Negative (Negative); Varicella Zoster DNA Result Negative (Negative)
== END 2020-05-07 11:15 | disposition home or self-care (01) ==
LOC: NCHCN 11:14
PROVIDERS: PCP Nurse Practitioner Family; Visit Provider Nurse Practitioner Family
DX: N18.30 Chronic kidney disease, stage 3 unspecified (principal); J34.89 Other specified disorders of nose and nasal sinuses; I10 Essential (primary) hypertension; R19.5 Other fecal abnormalities
CPT/HCPCS: 80048; 82306; 87077; 87529; 87798; 83970; 87070; 87186; 87205

== ENCOUNTER → 2020-05-09 08:19 | Outpatient (BNVA) | payer MEDICARE, MEDICAID, SELFPAY | PROVIDERS: PCP Nurse Practitioner Family; Referring Provider Nurse Practitioner Family; Visit Provider Nurse Practitioner Gerontology | DX: N31.8 Other neuromuscular dysfunction of bladder (principal) | CPT/HCPCS: 99213 ==

== ENCOUNTER 2020-05-14 09:03 | Outpatient (REF) | payer MEDICARE, MEDICAID, SELFPAY ==
[2020-05-17 12:52] LABS: 2-Hydroxy Ethyl Flurazepam Not Detected ng/mL (Cutoff: 10); 3,4-methylenedioxyamphetamine Not Detected ng/mL (Cutoff: 100); 3,4-methylenedioxyethylampheta Not Detected ng/mL (Cutoff: 100); 3,4-methylenedioxymethamphetam Not Detected ng/mL (Cutoff: 100); 6-monoacetylmorphine Not Detected ng/mL (Cutoff: 25); Alpha-Hydroxy Midazolam Not Detected ng/mL (Cutoff: 10); Alpha-Hydroxy Triazolam Not Detected ng/mL (Cutoff: 10); Alpha-Hydroxyalprazolam Not Detected ng/mL (Cutoff: 10); Alpha-OH-alprazolam Glucuronid Not Detected ng/mL (Cutoff: 50); Alprazolam Not Detected ng/mL (Cutoff: 10); Amphetamine Not Detected ng/mL (Cutoff: 100); Barbiturates Negative ng/mL (Cutoff: 200); Buprenorphine Not Detected ng/mL (Cutoff: 5); Chlordiazepoxide Not Detected ng/mL (Cutoff: 10); Clobazam Not Detected ng/mL (Cutoff: 10); Clonazepam Not Detected ng/mL (Cutoff: 10); Cocaine Negative ng/mL (Cutoff: 150); Codeine Not Detected ng/mL (Cutoff: 25); Comment Normal; Creatinine, U 123.5 mg/dL; Diazepam Not Detected ng/mL (Cutoff: 10); Dihydrocodeine Not Detected ng/mL (Cutoff: 25); EDDP Not Detected ng/mL (Cutoff: 25); Ephedrine Not Detected ng/mL (Cutoff: 100); Fentanyl Not Detected ng/mL (Cutoff: 2); Flurazepam Not Detected ng/mL (Cutoff: 10); Hydrocodone Not Detected ng/mL (Cutoff: 25); Hydromorphone Not Detected ng/mL (Cutoff: 25); Hydromorphone-3-beta-glucuroni Not Detected ng/mL (Cutoff: 100); Lorazepam Not Detected ng/mL (Cutoff: 10); Lorazepam Glucuronide Not Detected ng/mL (Cutoff: 50); Meperidine Not Detected ng/mL (Cutoff: 25); Methadone Not Detected ng/mL (Cutoff: 25); Methamphetamine Not Detected ng/mL (Cutoff: 100); Methylphenidate Not Detected ng/mL (Cutoff: 20); Midazolam Not Detected ng/mL (Cutoff: 10); Morphine Not Detected ng/mL (Cutoff: 25); N-Desmethylclobazam Not Detected ng/mL (Cutoff: 200); N-desmethyltapentadol Not Detected ng/mL (Cutoff: 50); Naloxone Not Detected ng/mL (Cutoff: 25); Norbuprenorphine Not Detected ng/mL (Cutoff: 5); Norfentanyl Not Detected ng/mL (Cutoff: 2); Norhydrocodone Not Detected ng/mL (Cutoff: 25); Normeperidine Not Detected ng/mL (Cutoff: 25); Noroxycodone Not Detected ng/mL (Cutoff: 25); Noroxymorphone Not Detected ng/mL (Cutoff: 25); O-desmethyltramadol Not Detected ng/mL (Cutoff: 25); Oxazepam Glucuronide Not Detected ng/mL (Cutoff: 50); Phencyclidine (PCP) Not Detected ng/mL (Cutoff: 20); Phentermine Not Detected ng/mL (Cutoff: 100); Prazepam Not Detected ng/mL (Cutoff: 10); Propoxyphene Not Detected ng/mL (Cutoff: 25); Pseudoephedrine Not Detected ng/mL (Cutoff: 100); Ritalinic Acid Not Detected ng/mL (Cutoff: 100); Specific Gravity 1.018; Tapentadol Not Detected ng/mL (Cutoff: 25); Temazepam Not Detected ng/mL (Cutoff: 10); Temazepam Glucuronide Not Detected ng/mL (Cutoff: 50); Tetrahydrocannabinol Presumptive Positive ng/mL (Cutoff: 50); Tramadol Not Detected ng/mL (Cutoff: 25); Triazolam Not Detected ng/mL (Cutoff: 10); Zolpidem Phenyl-4-Carboxy acid Not Detected ng/mL (Cutoff: 10); pH 5.6
[2020-05-17 13:34] LABS: Carboxy-THC Interpretation Positive.; Delta-9 CarboxyThc by LC-MS/MS 9 ng/mL (Cutoff:<3)
== END 2020-05-14 09:04 | disposition home or self-care (01) ==
LOC: LBN 09:03
PROVIDERS: PCP Nurse Practitioner Family; Visit Provider Nurse Practitioner Family
DX: G89.4 Chronic pain syndrome (principal); G35 Multiple sclerosis; Z79.899 Other long term (current) drug therapy
CPT/HCPCS: 80307; 80347; 80349; 80364

== ENCOUNTER 2020-05-15 14:08 | Emergency (ER) | payer MEDICARE, MEDICAID, SELFPAY ==
[2020-05-15] VITALS (80 sets, daily range): BP systolic 89–200; BP diastolic 47–103; PULSE 54–89; RESP 6–17; TEMP 36.6; O2SAT 89–100
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
--- NOTE | 2020-05-15 14:15 | RT.EKG_ITS ---
APPROVED REPORT Exam: Resting ECG Patient Location: E HR:63 bpm ECG Measurements Heart Rate 63 AXIS UT 217 P 58 QRSd 92 QRS 43 QT 436 T 8 QTc 446 Conclusion Sinus rhythm. Borderline prolonged UT interval.
--- NOTE | 2020-05-15 14:15 | DI.CT_ITS ---
EXAM: CT HEAD NECK WO CLINICAL HISTORY: AMS TECHNIQUE: COMPARISON: CT CT HEAD WO from 03/23/2020 FINDINGS: Noncontrast CT of the cervical spine was performed. There is severe motion artifact. Visualized landon g apices are clear. Note is made anterior cervical fusion fixation plate in place at what appears to be the C6-7 level. The there is mid cervical kyphotic deformity. The degree of motion artifact wou ld make it impossible to exclude fracture of the cervical spine. However I see no definite fracture on the images obtained. I would suggest repeat CT be obtained if clinically appropriate. Cranial CT was severely motion limited. No gross midline shift or ventricular deformity. Given the degree of motion artifact, it would be impossible to exclude subdural or intraparenchymal hemorrhage, but no definite lesion is identified. IMPRESSION: Severe motion artifact limits interpretation of cervical spine and cranial CT. Repeat studies should be obtained if clinically appropriate. RADIATION DOSE DELIVERED: 1,530.18mGy.cm Total DLP
--- NOTE | 2020-05-15 14:45 | DI.CT_ITS ---
EXAM: CT CHEST WO CLINICAL HISTORY: R/O aspiration TECHNIQUE: COMPARISON: CT CT CHEST/ABD/PEL W from 03/19/2018 FINDINGS: Noncontrast CT examination of chest was performed. Evaluation of the ribs is motion artifact limited . Pierre rods noted in place in mid to lower thoracic spine. No gross vertebral compression fra cture. There is dependent atelectasis of the lungs right greater left. Possible small right pleural effusio n. No gross pneumothorax. No mediastinal hematoma. Tracheobronchial tree appears grossly intact. No adenopathy identified on scanning of the chest. IMPRESSION: Motion artifact limited noncontrast scan of the chest shows mild atelectasis of the lung bases and is otherwise unremarkable. RADIATION DOSE DELIVERED: 296.88mGy.cm Total DLP
[2020-05-15] MEDS: LORazepam 2 MG/ML VIAL 1 MG IVP (14:50)
--- NOTE | 2020-05-15 14:50 | DI.CT_ITS ---
EXAM: CT HEAD CERVICAL SPINE WO COMPARISON: CT CT HEAD NECK WO from 05/15/2020 FINDINGS: CT examination of the cervical spine was performed without contrast administration. The examination was somewhat motion limited but there does not appear to be an acute cervical spine fracture. Note i s made of anterior vertebral fusion fixation plate in place at C6-7. C5 and C6 vertebral bodies are also fused. Moderate cervical kyphosis noted. There is no evidence of acute cervical spine fracture or dislocation. Intervertebral disc spaces are well maintained. Tracheolaryngeal structures appear intact. No cervical mass or adenopathy. Noncontrast cranial CT was performed. There is moderate generalized cerebral atrophy. No evidence of acute intracranial hemorrhage, mass effect, or midline shift. No calvarial fracture. The orbital and temporal bone structures appear intact. Visualized mastoid air cells and paranasal sinuses appear clear. IMPRESSION: No evidence of acute cervical spine injury. No evidence of acute intracranial injury. RADIATION DOSE DELIVERED: LINK-TO-SR Total DLP 940.98mGy.cm Total DLP 940.98mGy.cm Total DLP DATA REPOSITORY: All CT scans at this facility are submitted to the National Radiology Data Registry (NRDR) Dose Index Registry (DIR) with the [employer] ([employer]). RADIATION OPTIMIZATION: All CT scans at this facility use at least one of these dose optimization te chniques: automated exposure control; mA and/or kV adjustment per patient size (includes targeted exa ms where dose is matched to clinical indication); or iterative reconstruction.
[2020-05-15] MEDS: Normal Saline 500 ML IV (14:55)
--- NOTE | 2020-05-15 15:00 | DI.CT_ITS ---
EXAM: CT ABDOMEN PELVIS WO CLINICAL HISTORY: Trauma, AMS TECHNIQUE: COMPARISON: CT CT ABDOMEN PELVIS W from 06/10/2018 FINDINGS: Noncontrast CT examination pelvis was performed. There are multiple anastomotic sutures in the upper abdomen. Gallbladder is nonvisualized and probably has been surgically removed. No gross biliary d ilatation. No free intraperitoneal air. No evidence of bowel obstruction. No free intraperitoneal fluid. There is Shepherd catheter in the urinary bladder. No gross injury of the liver or spleen as visualized. Prominence of the extrarenal pelves noted with out evidence of hydronephrosis. No gross evidence of renal injury on this noncontrast scan. Adrenal s appear normal. Pancreas grossly unremarkable by noncontrast criteria. Abdominal aorta is of normal diameter. No gross abdominal wall hernia. No gross abdominal or pelvic adenopathy. No fracture identified on the images obtained. IMPRESSION: No evidence of acute intra-abdominal process RADIATION DOSE DELIVERED: 574.05mGy.cm Total DLP
[2020-05-15 15:03] LABS: Abs Immature Grans 0.05 10^3/uL (0.0-0.06); Absolute Basophil Count 0.05 10^3/uL (0.0-0.2); Absolute Eosinophil Count 0.08 10^3/uL (0.0-0.7); Absolute Lymphocyte Count 1.51 10^3/uL (1.2-3.4); Absolute Monocyte Count 0.89 10^3/uL (0.1-0.8); Absolute Neutrophil Count 12.85 10^3/uL (1.2-6.7); Basophils % 0.3; Eosinophils % 0.5; HCT 34.5 % (36.0-46.0); HGB 11.3 g/dL (11.2-15.7); Immature Grans % 0.3; Lymphocytes % 9.8; MCH 32.5 pg (27.0-33.0); MCHC 32.8 % (32.0-36.0); MCV 99.1 fL (80-95); MPV 10.5 fL (8.0-11.0); Monocytes % 5.8; Neutrophils % 83.3; Nucleated RBC 0 %; Platelet Count 177 10^3/uL (130-400); RBC 3.48 10^6/uL (3.93-5.22); RDW 13.2 % (11.7-14.6); RDW-SD 47.8 fL; WBC 15.43 10^3/uL (4.4-10.8)
[2020-05-15 15:08] LABS: Bilirubin Negative (Negative); Blood Negative (Negative); Clarity Clear (Clear); Glucose Negative (Negative); Ketones Negative (Negative); Leukocyte Esterase Negative (Negative); Nitrite Negative (Negative); Specific Gravity >= 1.030 (1.005-1.025); Urobilinogen 0.2 EU/dL (Up TO 0.2); pH 5.5 (5-8)
[2020-05-15 15:14] LABS: ALT 42 U/L (14-59); AST 29 U/L (15-37); Albumin 3.5 g/dL (3.4-5.0); Alkaline Phosphatase 85 U/L (46-116); Anion Gap 8.7 mmol/L (3-11); BUN 40 mg/dL (7-18); Bilirubin, Total 0.3 mg/dL (0.2-1.0); CO2 23.3 mmol/L (21.0-32.0); CREATININE 3.1 mg/dL (0.55-1.02); Calcium 8.6 mg/dL (8.5-10.1); Chloride 108 mmol/L (98-107); Glucose 95 mg/dL (74-106); Magnesium 3.3 mg/dL (1.8-2.4); Potassium 5.5 mmol/L (3.5-5.1); Sodium 140 mmol/L (136-145); Total Protein 6.1 g/dL (6.4-8.2)
[2020-05-15 15:15] LABS: Troponin I < 0.05 ng/mL (<0.06)
[2020-05-15 15:21] LABS: *AMPHETAMINES SCREEN URINE Negative (Negative); *BARBITURATES SCREEN URINE Negative (Negative); *BENZODIAZEPINES SCREEN URINE Negative (Negative); Cannabinoids THC POSITIVE (Negative); Cocaine Screen,Urine Negative (Negative); METHADONE URINE SCREEN Negative (Negative); OPIATES URINE SCREEN Negative (Negative)
[2020-05-15 15:22] LABS: Tricyclic Antidepressants POSITIVE (Negative)
[2020-05-15 15:22] LABS: Ammonia < 10 umol/L (11-32)
[2020-05-15 15:24] LABS: ETHANOL BLOOD < 3.0 mg/dL (<3)
[2020-05-15 16:14] LABS: BE (Venous) -5 mmol/L (-2-3); HCO3 (Venous) 21 mmol/L (23-28); O2 Sat (Venous) 85 %; TCO2 (Venous) 20 mmol/L (24-29); pCO2 (Venous) 45 mmHg (41-51); pH (Venous) 7.28 (7.31-7.41); pO2 (Venous) 53 mmHg
[2020-05-15 16:16] LABS: Lactate 0.6 mmol/L (0.6-1.4)
[2020-05-15 16:19] LABS: COVID-19 PCR Negative (Negative); Influenza A PCR Negative (Negative); Influenza B PCR Negative (Negative); RSV PCR Negative (Negative)
[2020-05-15 16:26] LABS: Anion Gap 7.4 mmol/L (3-11); BUN 40 mg/dL (7-18); CO2 22.6 mmol/L (21.0-32.0); CREATININE 2.9 mg/dL (0.55-1.02); Calcium 8.2 mg/dL (8.5-10.1); Chloride 110 mmol/L (98-107); Estimated GFR 16.09 (mL/min/1.73m2); Glucose 94 mg/dL (74-106); Potassium 5.4 mmol/L (3.5-5.1); Sodium 140 mmol/L (136-145)
[2020-05-15] MEDS: Albuterol 2.5 MG/3 ML INH SOLN VIAL 5 MG UPD (16:36)
[2020-05-15] MEDS: Normal Saline 250 ML 500 ML IV (17:45)
[2020-05-15 18:03] LABS: Troponin I < 0.05 ng/mL (<0.06)
[2020-05-15] MEDS: Etomidate 20 MG/10 ML VIAL IVP (18:16)
[2020-05-15] MEDS: Rocuronium 50 MG/5 ML SYR IVP (18:17)
--- NOTE | 2020-05-15 18:18 | NUR.NOTE ---
Nursing Note: Marek chavez [phone]
--- NOTE | 2020-05-15 18:30 | DI.RAD_ITS ---
EXAM: XR PORTABLE CHEST AP POST LINE CLINICAL HISTORY: post intubation. TECHNIQUE: 2D digital imaging was performed. COMPARISON: CR XR CHEST 2V PA LATERAL from 03/23/2020 FINDINGS: Heart size is normal. The mediastinum is not widened. The distal tip of the newly placed endotracheal tube is 2 cm above the jennifer. An NG tube is noted. Is distal tip appears to be in the region of the stomach. Left lung is clear. There is atelectasis versus mild infiltrate in the right lung base. No pleural effusions. No pneumothorax. Spinal fusion surgery hardware is again noted as is a fusion plate in t he lower cervical spine and there is calcification both carotid arteries in the neck again noted. IMPRESSION: Newly placed endotracheal tube is in satisfactory position. NG tube is in the region of the stomach Right lower lobe discoid atelectasis versus is early infiltrate. No pleural effusions. DATA REPOSITORY: RADIATION DOSE DELIVERED:
[2020-05-15] MEDS: PROPOFOL 1,000 MG/100 ML BTL 8.82 MG IVPB (18:40)
[2020-05-15] MEDS: fentaNYL 1,000 MCG in Normal Saline 80 ML 4.9 MCG IV (18:52)
[2020-05-15 19:17] LABS: BE -7 mmol/L (-2-3); HCO3 21 mmol/L (22-26); pCO2 48 mmHg (35-45); pH 7.25 (7.35-7.45); pO2 49 mmHg (80-105); sO2 79 % (95-98); tCO2 20 mmol/L (23-27)
[2020-05-15 19:19] LABS: FIO2 40 %; Site Right Radial
--- NOTE | 2020-05-15 19:21 | NUR.NOTE ---
Nursing Note: Hand off from Millie CRISTOBAL. RT present in room. pt intubated , on full cardiac monitoring. sinus rhythm 64. Pt has 2 IV access linesk, fentanyl hand off rulling at rate of 4.9ml/hr. Propofol running at rate of 8.8ml/hr at this time. Confirmed OG placement 70 at teeth, 7.0 ETT 22 @ teeth. 16 FR soliz with 1000cc output since insertion. Medications admin verified with Millie CRISTOBAL in chart and current running infusions verified. Discussion with ED provider Mariya Callahan without further orders. Awaiting bed placement at [facility] [[email or web address]] at this time. RT remains at bedside.
--- NOTE | 2020-05-15 19:35 | DI.VRAD_ITS ---
PROCEDURE INFORMATION: Exam: XR Chest Exam date and time: 05/15/2020 6:32 PM Age: 70 years old Clinical indication: Other: Post intubation TECHNIQUE: Imaging protocol: XR of the chest Views: 1 view. COMPARISON: CT CHEST WO 05/15/2020 3:45 PM FINDINGS: Tubes, catheters and devices: The endotracheal tube is 2 cm above the jennifer. There is a gastric tube in the stomach. Multiple surgical clips are seen in the epigastrium. EKG monitoring leads overlie the thoracic wall. Lungs: There is mild pulmonary hypoexpansion and crowding of the vascular markings. There is no evidence of focal pulmonary consolidation. Pleural spaces: Unremarkable. No pleural effusion. No pneumothorax. Heart/Mediastinum: Normal in size. Bones/joints: There are transpedicular screws and supporting rods for posterior fusion in the lower thoracic spine. There is an ACDF plate overlying the lower cervical spine. No evidence of acute fracture of the visualized bony thorax. IMPRESSION: 1. Interval intubation of the patient. 2. Mild pulmonary hypoexpansion. 3. No acute cardiopulmonary findings. Dictated and Authenticated by: Greg Gambino MD. Ordering:FALGUNI Clark MD
--- NOTE | 2020-05-15 19:37 | NUR.NOTE ---
Nursing Note: Pt's sig other Marek arrives to ED , this RN in with pt and sig other.
[2020-05-15 19:39] LABS: Acetaminophen 5 ug/mL (10-30); Salicylate < 2.8 mg/dL (<2.8)
--- NOTE | 2020-05-15 19:53 | NUR.NOTE ---
Nursing Note: Attempt to give report to M4 at [facility], satellite communications engineer tells this RN to call back at [phone] as no RN assigned to pt at this time. Awaiting EMS arrival for transport.
[2020-05-15 20:12] LABS: BE -7 mmol/L (-2-3); HCO3 20 mmol/L (22-26); pCO2 42 mmHg (35-45); pH 7.28 (7.35-7.45); pO2 69 mmHg (80-105); sO2 93 % (95-98); tCO2 19 mmol/L (23-27)
[2020-05-15 20:14] LABS: FIO2 40 %; Site Right Brachial
[2020-05-15] MEDS: PROPOFOL 1,000 MG/100 ML BTL 1 MG (20:26)
--- NOTE | 2020-05-15 20:27 | NUR.NOTE ---
Nursing Note: Infusion rates of fentanyl and propofol infusion confirmed with Shipfitter Helper Adolph during hand off. Adolph given an extra bottle of propofol. Confirmed with ED Charge
== END 2020-05-15 20:35 ==
PROVIDERS: Registered Nurse Emergency; Emergency Provider Physician Assistant; PCP Nurse Practitioner Family
DX: N17.9 Acute kidney failure, unspecified (principal); N18.30 Chronic kidney disease, stage 3 unspecified; R41.82 Altered mental status, unspecified; E87.5 Hyperkalemia; E83.41 Hypermagnesemia
CPT/HCPCS: 31500; 36410; 51701; 71045; 71250; 80048; 80053; 80307; 82805; 87040; 87637; 93005; 94640; 96361; 96365; 96366; 96367; 96375; 99291; 36600; 70450; 70490; 72125; 74176; 80320; 80329; 81003; 82140; 83605; 83735; 84484; 85025; 93010; J0610; J2060; J3010; J7613

== ENCOUNTER 2020-05-28 08:39 | Outpatient (REF) | payer MEDICARE, MEDICAID, SELFPAY ==
[2020-05-28 15:31] LABS: HCT 31.9 % (36.0-46.0); HGB 10.6 g/dL (11.2-15.7); MCH 32.3 pg (27.0-33.0); MCHC 33.2 % (32.0-36.0); MCV 97.3 fL (80-95); MPV 10.1 fL (8.0-11.0); Platelet Count 333 10^3/uL (130-400); RBC 3.28 10^6/uL (3.93-5.22); RDW 13.1 % (11.7-14.6); RDW-SD 46.6 fL; WBC 6.27 10^3/uL (4.4-10.8)
[2020-05-28 16:21] LABS: Anion Gap 9.2 mmol/L (3-11); BUN 24 mg/dL (7-18); CO2 25.8 mmol/L (21.0-32.0); CREATININE 1.3 mg/dL (0.55-1.02); Calcium 9.3 mg/dL (8.5-10.1); Chloride 107 mmol/L (98-107); Estimated GFR 40.61 (mL/min/1.73m2); Glucose 92 mg/dL (74-106); Potassium 4.6 mmol/L (3.5-5.1); Sodium 142 mmol/L (136-145)
[2020-05-28 16:59] LABS: Magnesium 1.9 mg/dL (1.8-2.4)
== END 2020-05-28 08:40 | disposition home or self-care (01) ==
LOC: NCHCN 08:39
PROVIDERS: PCP Nurse Practitioner Family; Visit Provider Nurse Practitioner Family
DX: D53.9 Nutritional anemia, unspecified (principal); N18.30 Chronic kidney disease, stage 3 unspecified
CPT/HCPCS: 80048; 85027; 83735

== ENCOUNTER → 2020-06-04 08:02 | Outpatient (BNVA) | payer MEDICARE, MEDICAID, SELFPAY | PROVIDERS: PCP Nurse Practitioner Family; Referring Provider Nurse Practitioner Family; Visit Provider Psychiatry & Neurology Neurology | DX: G35 Multiple sclerosis (principal); G47.00 Insomnia, unspecified; G89.4 Chronic pain syndrome; R41.3 Other amnesia | CPT/HCPCS: 99214 ==

== ENCOUNTER → 2020-08-07 07:53 | Outpatient (BNVA) | payer MEDICARE, MEDICAID, SELFPAY | PROVIDERS: PCP Nurse Practitioner Family; Referring Provider Nurse Practitioner Family; Visit Provider Psychiatry & Neurology Neurology | DX: G35 Multiple sclerosis (principal); G89.4 Chronic pain syndrome; G47.00 Insomnia, unspecified | CPT/HCPCS: 99442 ==

== ENCOUNTER 2020-11-06 02:41 | Outpatient (CLI) | payer MEDICARE, MEDICAID, SELFPAY ==
--- NOTE | 2020-11-06 06:45 | DI.US_ITS ---
Exam(s) US RENAL EXAM: US RENAL CLINICAL HISTORY: neurogenic bladder - monitoring hydroNEPHROSIS,N31.9. TECHNIQUE: Calixto scale, color and spectral Doppler were used. COMPARISON: CT CT ABDOMEN PELVIS WO from 05/15/[address] ABDOMEN PELVIS WO from 05/15/2020 FINDINGS: Renal size in cm: Right: 10.0 left: 8.9 Echogenicity: Normal Hydronephrosis: No Cyst or mass: No Nephrolithiasis: No Bladder:Mild bladder wall trabeculation. No focal mass is visible. No visible stone. Prevoid vol:271 Postvoid vol: 150 The ureteral jets not visualized. IMPRESSION: Bladder wall trabeculation. Elevated postvoid residual. No evidence of hydronephrosis. DATA REPOSITORY:
== END 2020-11-06 03:01 ==
PROVIDERS: PCP Nurse Practitioner Family; Visit Provider Nurse Practitioner Gerontology
DX: N31.9 Neuromuscular dysfunction of bladder, unspecified (principal); N32.89 Other specified disorders of bladder
CPT/HCPCS: 76770

== ENCOUNTER 2020-11-09 02:58 | Outpatient (CLI) | payer MEDICARE, MEDICAID, SELFPAY ==
[2020-11-09 13:27] LABS: CREATININE 1.4 mg/dL (0.55-1.02); Estimated GFR 37.28 (mL/min/1.73m2); Magnesium 1.7 mg/dL (1.8-2.4)
[2020-11-09 13:28] LABS: Anion Gap 10.1 mmol/L (3-11); BUN 17 mg/dL (7-18); CO2 22.9 mmol/L (21.0-32.0); CREATININE 1.4 mg/dL (0.55-1.02); Calcium 8.9 mg/dL (8.5-10.1); Chloride 106 mmol/L (98-107); Estimated GFR 37.28 (mL/min/1.73m2); Glucose 83 mg/dL (74-106); Potassium 4.3 mmol/L (3.5-5.1); Sodium 139 mmol/L (136-145)
== END 2020-11-09 02:59 | disposition home or self-care (01) ==
LOC: LBO 02:58
PROVIDERS: Internal Medicine; Nurse Practitioner Gerontology; PCP Nurse Practitioner Family; Visit Provider Urology
DX: R33.9 Retention of urine, unspecified (principal); N31.9 Neuromuscular dysfunction of bladder, unspecified; E83.42 Hypomagnesemia
CPT/HCPCS: 36415; 80048; 82565; 83735

== ENCOUNTER → 2020-11-14 10:15 | Outpatient (BNVA) | payer MEDICARE, MEDICAID, SELFPAY | PROVIDERS: PCP Nurse Practitioner Family; Referring Provider Nurse Practitioner Family; Visit Provider Nurse Practitioner Gerontology | DX: N31.9 Neuromuscular dysfunction of bladder, unspecified (principal); N17.9 Acute kidney failure, unspecified; G35 Multiple sclerosis | CPT/HCPCS: 99213 ==

== ENCOUNTER 2021-01-14 10:39 | Emergency (ER) | payer MEDICARE, MEDICAID, SELFPAY ==
[2021-01-14 10:53] VITALS: BP 112/58; PULSE 65; RESP 16; TEMP 36.5; O2SAT 98
--- NOTE | 2021-01-14 11:15 | DI.RAD_ITS ---
Exam(s) XR FOOT LT COMPLETE EXAM: XR FOOT LT COMPLETE CLINICAL HISTORY: trauma, foot pain. There TECHNIQUE: Three views left foot COMPARISON: Right suzanna foot views performed 03/20/2020 reviewed FINDINGS: No evidence of fracture or diastasis of the Gabrielle kriss joint. No osseous lesions nor erosions. No radi opaque foreign body. Bone density is normal. IMPRESSION: DATA REPOSITORY: RADIATION DOSE DELIVERED:
--- NOTE | 2021-01-14 11:15 | DI.RAD_ITS ---
Exam(s) XR ANKLE LT COMPLETE EXAM: XR ANKLE LT COMPLETE CLINICAL HISTORY: trauma, medial ankle pain. TECHNIQUE: 2D digital imaging was performed. COMPARISON: No exams were available for comparison FINDINGS: There is no evidence of fracture or widening of mortise. Talar dome appears unremarkable. No degene rative changes in the ankle and subtalar joints. No osseous tarsal coalition. IMPRESSION: DATA REPOSITORY: RADIATION DOSE DELIVERED:
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
[2021-01-14 12:30] LABS: Abs Immature Grans 0.01 10^3/uL (0.0-0.06); Absolute Basophil Count 0.05 10^3/uL (0.0-0.2); Absolute Eosinophil Count 0.31 10^3/uL (0.0-0.7); Absolute Lymphocyte Count 2.44 10^3/uL (1.2-3.4); Absolute Monocyte Count 0.66 10^3/uL (0.1-0.8); Absolute Neutrophil Count 4.33 10^3/uL (1.2-6.7); Basophils % 0.6; HCT 30.6 % (36.0-46.0); HGB 9.9 g/dL (11.2-15.7); Immature Grans % 0.1; Lymphocytes % 31.3; MCHC 32.4 % (32.0-36.0); MPV 10.1 fL (8.0-11.0); Monocytes % 8.5; Neutrophils % 55.5; Nucleated RBC 0 %; Platelet Count 186 10^3/uL (130-400); RBC 3.09 10^6/uL (3.93-5.22); RDW 13.2 % (11.7-14.6); RDW-SD 47.6 fL
[2021-01-14 12:34] LABS: Clarity Clear (Clear)
[2021-01-14 12:35] LABS: Bilirubin Negative (Negative); Blood Negative (Negative); Glucose Negative (Negative); Ketones Negative (Negative); Leukocyte Esterase Negative (Negative); Nitrite Negative (Negative); Specific Gravity 1.025 (1.005-1.025); Urobilinogen 0.2 EU/dL (Up TO 0.2)
[2021-01-14 13:16] LABS: ALT 32 U/L (14-59); AST 27 U/L (15-37); Albumin 3.7 g/dL (3.4-5.0); Alkaline Phosphatase 78 U/L (46-116); Anion Gap 10.4 mmol/L (3-11); BUN 43 mg/dL (7-18); Bilirubin, Total 0.3 mg/dL (0.2-1.0); CO2 23.6 mmol/L (21.0-32.0); CREATININE 1.5 mg/dL (0.55-1.02); Calcium 8.9 mg/dL (8.5-10.1); Chloride 108 mmol/L (98-107); Estimated GFR 34.43 (mL/min/1.73m2); Glucose 85 mg/dL (74-106); Magnesium 2.5 mg/dL (1.8-2.4); Potassium 3.7 mmol/L (3.5-5.1); Sodium 142 mmol/L (136-145); Total Protein 6.4 g/dL (6.4-8.2)
[2021-01-14 13:44] LABS: TSH (W/Ref FT4) 1.12 uIU/mL (0.36-3.74)
== END 2021-01-14 13:39 | disposition home or self-care (01) ==
PROVIDERS: Emergency Provider Student in an Organized Health Care Education/Training Program; PCP Nurse Practitioner Family
DX: S99.812A Other specified injuries of left ankle, initial encounter (principal); W18.39XA Other fall on same level, initial encounter; Z91.81 History of falling; I10 Essential (primary) hypertension
CPT/HCPCS: 80053; 99284; 73610; 73630; 81003; 83735; 84443; 85025

== ENCOUNTER → 2021-03-05 07:55 | Outpatient (BNVA) | payer MEDICARE, MEDICAID, SELFPAY | PROVIDERS: PCP Nurse Practitioner Family; Visit Provider Psychiatry & Neurology Neurology | DX: G35 Multiple sclerosis (principal); G89.4 Chronic pain syndrome; G47.00 Insomnia, unspecified; R41.3 Other amnesia | CPT/HCPCS: 99213 ==

== ENCOUNTER 2021-05-07 08:58 | Inpatient (IN) | payer MEDICARE, MEDICAID, SELFPAY ==
[2021-05-07] VITALS (114 sets, daily range): BP systolic 67–169; BP diastolic 33–73; PULSE 47–105; RESP 0–25; TEMP 35.9–36.9; O2SAT 94–100
--- NOTE | 2021-05-07 08:45 | RT.EKG_ITS ---
APPROVED REPORT Exam: Resting ECG Reason for Exam: altered mental status Patient Location: E HR:49 bpm ECG Measurements Heart Rate 49 AXIS GA 211 P 71 QRSd 92 QRS 51 QT 449 T 48 QTc 407 Conclusion Sinus bradycardia...rate< 60
--- NOTE | 2021-05-07 09:00 | DI.CT_ITS ---
Exam(s) CT HEAD WO EXAM: CT HEAD WO CLINICAL HISTORY: ams. TECHNIQUE: Imaging Protocol: Axial computed tomography images with coronal and sagittal reformatted images were created and reviewed COMPARISON: CT CT HEAD CERVICAL SPINE WO from 05/15/2020 CR,XR XR PORTABLE CHEST AP POST LINE from 05/15/2020 CR XR CHEST 1V IN DI DEPT from 05/07/2021 FINDINGS: There are no skull fractures nor fluid in the visualized paranasal sinuses. There is no evidence of intracranial hemorrhage, mass effect, or shift of midline structures. There are no extra-axial fluid collections. The ventricles are not enlarged or shifted and there is no blo od within the ventricular system nor within the basal cisterns. Subtle area of asymmetric hypodensity in left parietal lobe is unchanged from 05/15/2020 and most pro bably reflects prior ischemic event. IMPRESSION: No acute intracranial findings on this noninfused CT scan of the brain. Subtle hypodense area in the left parietal lobe is unchanged from 05/15/2020 and may reflect prior is chemic event. Findings called to ER provider RADIATION DOSE DELIVERED: 678.9mGy.cm Total DLP DATA REPOSITORY: All CT scans at this facility are submitted to the National Radiology Data Registry (NRDR) Dose Index Registry (DIR) with the [employer] ([employer]). RADIATION OPTIMIZATION: All CT scans at this facility use at least one of these dose optimization te chniques: automated exposure control; mA and/or kV adjustment per patient size (includes targeted exa ms where dose is matched to clinical indication); or iterative reconstruction.
--- NOTE | 2021-05-07 09:04 | DI.RAD_ITS ---
Exam(s) XR CHEST 1V IN DI DEPT EXAM: XR CHEST 1V IN DI DEPT CLINICAL HISTORY: ams. TECHNIQUE: 2D digital imaging was performed. COMPARISON: CR,XR XR PORTABLE CHEST AP POST LINE from 05/15/2020 FINDINGS: Heart size is upper normal. The mediastinum is not widened. Very mild increased markings noted in the right lung base. Left lung is clear. No pleural effusions . Fusion hardware in the lower thoracic spine noted. Also fusion plate in the lower cervical spine IMPRESSION: Mild increased markings in the right lung base.Recommend nonportable PA and lateral views when clinic ally possible. I note that this patient was intubated on prior chest x-ray 05/15/2020. DATA REPOSITORY: RADIATION DOSE DELIVERED: All CT scans at this facility use at least one of these dose optimization techniques: automated exposure control; mA and/or kV adjustment per patient size (includes targeted e xams where dose is matched to clinical indication); or iterative reconstruction.
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
[2021-05-07 09:59] LABS: HGB 13.1 g/dL (11.2-15.7); MCH 32.3 pg (27.0-33.0); MCHC 31.2 % (32.0-36.0); MCV 103.7 fL (80-95); MPV 10.2 fL (8.0-11.0); Platelet Count 171 10^3/uL (130-400); RBC 4.05 10^6/uL (3.93-5.22); RDW 13.3 % (11.7-14.6); RDW-SD 51.5 fL; WBC 6.09 10^3/uL (4.4-10.8)
[2021-05-07] MEDS: Lactated Ringers 500 ML IV (10:25)
[2021-05-07 10:29] LABS: ETHANOL BLOOD < 3.0 mg/dL (<10)
[2021-05-07 10:32] LABS: ALT 54 U/L (14-59); AST 36 U/L (15-37); Albumin 4.2 g/dL (3.4-5.0); Alkaline Phosphatase 88 U/L (46-116); Anion Gap 10.4 mmol/L (3-11); BUN 50 mg/dL (7-18); Bilirubin, Total 0.3 mg/dL (0.2-1.0); CO2 20.6 mmol/L (21.0-32.0); CREATININE 2.3 mg/dL (0.55-1.02); Chloride 112 mmol/L (98-107); Creatine Kinase 92 U/L (26-192); Estimated GFR 20.96 (mL/min/1.73m2); Glucose 98 mg/dL (74-106); Potassium 5.2 mmol/L (3.5-5.1); Sodium 143 mmol/L (136-145); Total Protein 7.2 g/dL (6.4-8.2); Troponin I < 50 ng/L (<or=60)
[2021-05-07 10:37] LABS: Ammonia 24 umol/L (11-32)
[2021-05-07 10:43] LABS: Bilirubin Negative (Negative); Blood Negative (Negative); Clarity Clear (Clear); Glucose Negative (Negative); Ketones Negative (Negative); Leukocyte Esterase Negative (Negative); Nitrite Negative (Negative); Specific Gravity 1.025 (1.005-1.025); Urobilinogen 0.2 EU/dL (Up TO 0.2); pH 5.5 (5-8)
[2021-05-07 10:47] LABS: Source Nasal/Nares
[2021-05-07 11:12] LABS: *AMPHETAMINES SCREEN URINE Negative (Negative); *BARBITURATES SCREEN URINE Negative (Negative); *BENZODIAZEPINES SCREEN URINE Negative (Negative); Cannabinoids THC Negative (Negative); Cocaine Screen,Urine Negative (Negative); METHADONE URINE SCREEN Negative (Negative); OPIATES URINE SCREEN Negative (Negative)
[2021-05-07 11:12] LABS: TSH (W/Ref FT4) 1.68 uIU/mL (0.36-3.74)
[2021-05-07 11:15] LABS: Tricyclic Antidepressants Positive (Negative)
[2021-05-07 11:22] LABS: Magnesium 3.2 mg/dL (1.8-2.4)
[2021-05-07 11:26] LABS: COVID-19 PCR Negative (Negative)
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
[2021-05-07] MEDS: Lactated Ringers 1,000 ML 75 ML IV (13:03)
[2021-05-07] MEDS: Heparin 5,000 UNITS/ML VIAL 5000 UNITS SC ×2 (13:25→20:49)
--- NOTE | 2021-05-07 14:21 | NUR.NOTE ---
Patient too sleepy to participate in providing information concerning page 2.Nursing Note:
[2021-05-08] VITALS (47 sets, daily range): BP systolic 125–187; BP diastolic 64–90; PULSE 54–90; RESP 10–25; TEMP 36.8–37.4; O2SAT 96–100
[2021-05-08] MEDS: Lactated Ringers 1,000 ML 75 ML IV ×2 (02:59→15:25)
[2021-05-08] MEDS: Heparin 5,000 UNITS/ML VIAL 5000 UNITS SC ×3 (05:27→21:57)
[2021-05-08 07:06] LABS: Abs Immature Grans 0.01 10^3/uL (0.0-0.06); Absolute Basophil Count 0.06 10^3/uL (0.0-0.2); Absolute Eosinophil Count 0.35 10^3/uL (0.0-0.7); Absolute Lymphocyte Count 2.22 10^3/uL (1.2-3.4); Absolute Neutrophil Count 4.07 10^3/uL (1.2-6.7); Basophils % 0.8; Eosinophils % 4.9; HCT 32.4 % (36.0-46.0); HGB 10.5 g/dL (11.2-15.7); Immature Grans % 0.1; Lymphocytes % 31.2; MCH 32.2 pg (27.0-33.0); MCHC 32.4 % (32.0-36.0); MCV 99.4 fL (80-95); MPV 10.4 fL (8.0-11.0); Monocytes % 5.6; Neutrophils % 57.4; Nucleated RBC 0 %; Platelet Count 154 10^3/uL (130-400); RBC 3.26 10^6/uL (3.93-5.22); RDW 13.2 % (11.7-14.6); RDW-SD 48.2 fL; WBC 7.11 10^3/uL (4.4-10.8)
[2021-05-08 07:08] LABS: Anion Gap 10.2 mmol/L (3-11); BUN 31 mg/dL (7-18); CO2 21.8 mmol/L (21.0-32.0); CREATININE 1.1 mg/dL (0.55-1.02); Calcium 8.5 mg/dL (8.5-10.1); Chloride 112 mmol/L (98-107); Glucose 86 mg/dL (74-106); Magnesium 1.9 mg/dL (1.8-2.4); Potassium 4.3 mmol/L (3.5-5.1); Sodium 144 mmol/L (136-145)
[2021-05-08] MEDS: Omeprazole 20 MG CAPCR 40 MG PO ×2 (10:49→20:17)
--- NOTE | 2021-05-08 11:34 | W.PM.PROGNOT ---
Date of Service Date of service: 05/08/21 Time of Service: 11:34 Assessment and Plan Assessment and plan (1) Toxic metabolic encephalopathy: Status: Acute Assessment and plan: Suspected accidental overdose of her medications - and due to myoclonic jerks, either gabapentin or baclofen specifically. The patient admits to the fact that she does not know how to take her medications and that her significant other did not prepare her medications for her when he went to [facility] [place]. She is interested in having a home health nurse to ensure that her medications are correct/pre-sorted into a pill box. Much better, but still hallucinating/talking to herself in the room right now. Consult neurology to help figure out if/when and at what doses her outpatient medications should be resumed. (2) Gabapentin-induced toxicity: Status: Acute Assessment and plan: As above Await gabapentin level. Hold all sedating meds from home. (3) Respiratory failure: Status: Resolved Assessment and plan: Off of CPAP, doing much better. Possibly situational given the encephalopathy; however, also has a component of underlying BENSON. (4) Acute kidney injury superimposed on chronic kidney disease: Status: Acute Assessment and plan: Continue IV hydration through this afternoon at least. Shepherd overnight (no retention documented), now d/c'ed. WIll check PVRs. (5) Neurogenic bladder: Status: Acute Assessment and plan: As above (6) Dehydration: Status: Acute Assessment and plan: Continue IVF through this afternoon (7) DVT prophylaxis: Status: Acute Assessment and plan: SC heparin (8) Discharge planning issues: Status: Acute Assessment and plan: Full code C/s PT. Transfer out of ICU. Discussed with Dr Borges. Anticipate discharge home tomorrow with home health nursing. Subjective Subjective Interval history since last seen: Deepti is much more alert today. C/o her pain in her legs from MS. Denies dizziness, chest pain, shortness of breath, nausea. Nurses report that Deepti was hearing voices/hallucinating this morning. In my discussions Exam Narrative Exam Narrative: General: Elderly female who is awake, A&Ox3, sitting in a chair, expressing paranoid ideations (I heard them talking about me) HEENT:EOMI, Dry MM Cardiovascular: RRR, no m/r/g Lungs: CTAB, Gastrointestinal: soft, nontender, nondistended Extremities: no edema BLE's, trace pedal pulses, no lesions on feet Objective Last Vital Signs Temp 37.1 C 05/08/21 07:41 Pulse 68 05/08/21 07:00 Resp 18 05/08/21 07:00 BP 125/65 05/08/21 07:00 Pulse Ox 99 05/08/21 05:01 Laboratory Results - last 24 hr 05/07/21 05/08/21 05/08/21 13:21 06:45 06:45 WBC 7.11 RBC 3.26 L Hgb 10.5 L D Hct 32.4 L D MCV 99.4 H D MCH 32.2 MCHC 32.4 RDW 13.2 Plt Count 154 MPV 10.4 Immature Gran % 0.1 Neutrophils % 57.4 Lymphocytes % 31.2 Monocytes % 5.6 Eosinophils % 4.9 Basophils % 0.8 Nucleated RBC % 0 Absolute Neutrophils 4.07 Absolute Lymphocytes 2.22 Absolute Monocytes 0.40 Absolute Eosinophils 0.35 Absolute Basophils 0.06 Sodium 144 Potassium 4.3 Chloride 112 H Carbon Dioxide 21.8 Anion Gap 10.2 BUN 31 H D Creatinine 1.1 H D Estimated GFR/1.73 m2 49.10 Glucose 86 Calcium 8.5 Magnesium 1.9 Add-On Test Request TNP
--- NOTE | 2021-05-08 12:04 | PDOC.CMPRO ---
- If Service Date Differs Date of service: 05/08/21 Time of Service: 12:17 Care Management Progress Note S/O: Deepti was sitting up in her chair when CM met with her. She reported that she is feeling much better today, and feels normal. She reported that she is hoping to be going home soon, as she wants to be home with her who is currently at [facility], but she anticipates that he will be home soon. Per RN, her typically manages her medications, so this was likely an accidental overdose. CM discussed having HH RN for med management, which she is agreeable to upon discharge. CM will continue to follow. A: Deepti is a 71 year old female admitted to [facility] on 05/07/21 with encephalopathy, suspected gabapentin toxicity/OD. P: Deepti will likely return home when medically cleared. She will benefit from new HH RN for med management. She will transport via [facility] private vehicle. She will follow up with her PCP and discharge plan of care. CM will continue to follow.
--- NOTE | 2021-05-08 13:09 | NUR.NOTE ---
Patient hit call irasema, when this va underwriter went in to ask what was needed she said her phone was not shutting off. I showed her that it was turned off and she stated, Can't you still hear them?! THEY ARE STILL THERE I reassured her that no one was there and that I turned it off. I removed phone from bedside table and offered to help her use the toilet to void and patient refused. Patient then stated in a joiner voice If you're not going to fix it I will find someone who will. RN notified. Nursing Note:
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
[2021-05-08] MEDS: QUEtiapine 25 MG TAB PO (13:48)
[2021-05-08] MEDS: Sucralfate 1 GM TAB PO ×3 (13:48→20:16)
[2021-05-08] MEDS: LORazepam 2 MG/ML VIAL 0.5 MG IVP (13:48)
[2021-05-08] MEDS: Normal Saline Flush 10 ML SYR IVP (14:01)
--- NOTE | 2021-05-08 15:16 | NUR.NOTE ---
Nursing Note: 1400 Patient transferred from ICU 220 to MS 210 via wheelchair. Patient AOx3. Patient heart sounds regular, patient on telemetry, LS clear, BS positive. Patient skin intact. Patient orientated to callbell. patient in bed at this time, bed alarm on, most sensitive setting. Chair alarm placed in chair for when patient is out of bed. Patient DTV, soliz removed in ICU at 1055 per report. See VS intervention for latest VS. Continue to monitor.
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
[2021-05-08] MEDS: Baclofen 10 MG TAB (19:01)
[2021-05-08] MEDS: Gabapentin 100 MG CAP (19:01)
[2021-05-08] MEDS: OLANZapine 5 MG TAB PO (20:16)
[2021-05-08] MEDS: Metoprolol CR 100 MG TABCR PO (21:57)
[2021-05-08] MEDS: Senna TAB 1 TAB PO (21:57)
[2021-05-09] VITALS (13 sets, daily range): BP systolic 140–182; BP diastolic 53–94; PULSE 77–107; RESP 16–20; TEMP 37–37.6; O2SAT 97–100
[2021-05-09] MEDS: Lactated Ringers 1,000 ML 75 ML IV (02:26)
[2021-05-09] MEDS: Heparin 5,000 UNITS/ML VIAL 5000 UNITS SC ×3 (06:03→21:16)
[2021-05-09 07:17] LABS: Abs Immature Grans 0.03 10^3/uL (0.0-0.06); Absolute Basophil Count 0.06 10^3/uL (0.0-0.2); Absolute Eosinophil Count 0.05 10^3/uL (0.0-0.7); Absolute Lymphocyte Count 2.25 10^3/uL (1.2-3.4); Absolute Monocyte Count 0.67 10^3/uL (0.1-0.8); Basophils % 0.6; Eosinophils % 0.5; HCT 33.9 % (36.0-46.0); HGB 11.4 g/dL (11.2-15.7); Immature Grans % 0.3; Lymphocytes % 21.7; MCHC 33.6 % (32.0-36.0); MCV 95.2 fL (80-95); MPV 10.2 fL (8.0-11.0); Monocytes % 6.5; Neutrophils % 70.4; Nucleated RBC 0 %; Platelet Count 171 10^3/uL (130-400); RBC 3.56 10^6/uL (3.93-5.22); RDW 12.7 % (11.7-14.6); RDW-SD 44.8 fL; WBC 10.36 10^3/uL (4.4-10.8)
[2021-05-09 07:28] LABS: Absolute Neutrophil Count 7.29 10^3/uL (1.2-6.7)
[2021-05-09 07:45] LABS: Anion Gap 10.7 mmol/L (3-11); BUN 15 mg/dL (7-18); CO2 24.3 mmol/L (21.0-32.0); CREATININE 0.9 mg/dL (0.55-1.02); Calcium 9.2 mg/dL (8.5-10.1); Chloride 108 mmol/L (98-107); Glucose 133 mg/dL (74-106); Magnesium 1.4 mg/dL (1.8-2.4); Sodium 143 mmol/L (136-145)
--- NOTE | 2021-05-09 08:15 | RT.EKG_ITS ---
APPROVED REPORT Exam: Resting ECG Reason for Exam: question of QT prolongation on tele Patient Location: I HR:89 bpm ECG Measurements Heart Rate 89 AXIS [place] 149 P 74 QRSd 132 QRS 20 QT 421 T 56 QTc 513 Conclusion Sinus rhythm...normal P axis, V-rate 50- 99 Probable left ventricular hypertrophy...(RaVL+SV3)xQRSd >300 Prolonged QT interval...QTc >500mS
[2021-05-09] MEDS: Sucralfate 1 GM TAB PO ×4 (08:25→21:16)
[2021-05-09] MEDS: amLODIPine 10 MG TAB PO (08:25)
[2021-05-09] MEDS: Atorvastatin 40 MG TAB PO (08:25)
[2021-05-09] MEDS: Ascorbic Acid 500 MG TAB PO (08:25)
[2021-05-09] MEDS: Cholecalciferol (Vitamin D3) 1,000 UNIT TAB 1000 UNITS PO (08:26)
[2021-05-09] MEDS: Docusate Sodium 100 MG CAP PO (08:26)
[2021-05-09] MEDS: Gabapentin 100 MG CAP PO ×3 (08:26→21:15)
[2021-05-09] MEDS: Omeprazole 20 MG CAPCR 40 MG PO ×2 (08:26→21:16)
[2021-05-09] MEDS: Baclofen 10 MG TAB 5 MG PO (08:26)
[2021-05-09] MEDS: OLANZapine 10 MG VIAL 5 MG IM (08:27)
[2021-05-09] MEDS: Acetaminophen 325 MG TAB PO (08:27)
[2021-05-09] MEDS: Water,Injection,Sterile 10 ML VIAL (08:30)
--- NOTE | 2021-05-09 10:30 | PDOC.CMPRO ---
- If Service Date Differs Date of service: 05/09/21 Time of Service: 10:30 Care Management Progress Note S/O: Deepti was sitting up in her chair when CM met with her. She reported that she is feeling better today, and doing well working with PT. PT had previously recommended SNF, but reported today that she is progressing well, and if she continues to improve she will likely be ready to return home with new HH RN, PT, OT, SENIOR [employer]MICAL PROCESS ENGINEER. She stated that she is not agreeable to SNF, and plans to return home once she is medically ready. She reported that she feels that she needs to be home with her , who recently had back surgery, to be his moral support. CM will continue to follow. A: Deepti is a 71 year old female admitted to [facility]21 with encephalopathy, suspected gabapentin toxicity/OD. P: Deepti will likely return home when medically cleared. She will benefit from new CRISTOFER RN for med management. She will transport via [facility] private vehicle. She will follow up with her PCP and discharge plan of care. CM will continue to follow.
[2021-05-09] MEDS: MAGNESIUM SULFATE 4 GM/100 ML BAG IVPB (12:07)
[2021-05-09] MEDS: Normal Saline Flush 10 ML SYR IVP (12:08)
--- NOTE | 2021-05-09 12:44 | PT.INTREAT ---
Date of service: 05/09/21 Time of Service: 12:44 PT Notes Visit Reasons: Encephalopathy,suspected gabapentin toxicity/overd Inpatient Physical Therapy Treatment Note Date: 05/09/2021 Precautions: Fall. Standard.? Activity as tolerated. Subjective:? Agreeable to session.? Objective: General Observation: Resting in bed. Telemetry monitoring in place. IV access in R UE. Mental Status: Alert and oriented as to person and place.? Some paranoia noted which subsided as patient knew what the purpose of the visit was. Pain: Denies Sensation: Intact as to pain and pressure on bilateral lower extremities. Bed Mobility/Transfers: Rolling stand by assist Supine to sit stand by assist assist Sit to supine stand by assist with HOB at 30 degrees Sit to stand stand by assist Stand to sit stand by assist Chair to bed stand by assist Gait: 300 feet of level surfaces using FWW. Stand by assist. Cues only for directions. No loss of balance. No shortness of breath. No path deviation. Balance: Static Sitting: Good Dynamic Sitting: Fair Static Standing: Poor Dynamic Standing: Poor Assessment: Suspicious initially of PT but with Nurse Naylor's help and persuasion and with HECTOR'mariya Page's help, she was willing to cooperate. Turned out to be much more sturdy on her feet with use of FWW and had more energy to spare in doing seated level exercises after ambulation activity. Did not demonstrate shakiness as she did yesterday. DISCHARGE RECOMMENDATIONS: [] ? Home with no services [] [] ? Home with services [specify] [] ? Home with outpatient PT [] [X] ? SNF for continued rehabilitation.? Patient will benefit from intermediate facility placement for continued skilled physical therapy services in order to progress mobility level, strength, and balance in preparation for a safe discharge to home. [] ? Residential Care [] [] ? SNF versus LTC based on ability to participate and progress [] TREATMENT CODE/TIME: Session 1--81865 x 15 minutes , 27516 x 9 minutes beginning at 10:46 AM. Session 2-- 25440 x 16 minutes beginning at 12:44 PM.
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
--- NOTE | 2021-05-09 16:00 | W.PM.PROGNOT ---
Date of Service Date of service: 05/09/21 Time of Service: 16:00 Assessment and Plan Assessment and plan (1) AMS (altered mental status): Status: Acute (2) Acute kidney injury superimposed on chronic kidney disease: Status: Resolved (3) Dehydration: Status: Resolved (4) Mild cognitive impairment: Status: Suspected Assessment and plan: Ms. Olivo is a 71 year-old woman admitted with encephalopathy secondary to acute on chronic renal failure due to dehydration in the setting of multiple centrally-acting medications and likely medication mismanagement. Her alertness improved, but now she is suffering from paranoia and delusions. Slight improvement since yesterday. Psychiatry recommends HS Seroquel as well. There is still a question of medication withdrawal. We discussed increasing baclofen to 10mg BID. Gabapentin will continue at 100mg TID. Based on Cr range of 1.1-2.3 and Wt 95#, she has a CrCl of 15-32. Based on this, max dose of gabapentin is 600mg/day and Baclofen 40mg/day. She currently has outpatient neurology follow-up for 07/02/21, but we will get her in sooner in the next few weeks post discharge. Subjective Subjective Interval history since last seen: She became excessively agitated over her paranoia/delusions yesterday evening, she was given a dose of olanzapine prior to HS Seroquel. Seems better today. Less restless. Still delusional/paranoid - but again seems better. She is not having any pain. Seen by psychiatry today. Exam Narrative Exam Narrative: Physical Exam: Constitutional: Patient of apparent stated age, thin, at times paranoid/delusional Neuro: MS/Language/Speech: Alert, oriented, clear language (fluency and comprehension), no dysarthria CN: EOMI, no facial asymmetry, hearing intact Motor: Normal bulk and tone. FMM intact, no pronator drift. 5/5 strength in bilateral upper and lower extremities. No asterixis today. No writhing movements of her legs. Sensation: Intact to light touch throughout Coordination: Finger to nose performed without dysmetria Gait: narrow base, walker Objective Last Vital Signs Temp 98.6 F 05/09/21 11:24 Pulse 94 H 05/09/21 15:00 Resp 16 05/09/21 11:24 BP 153/82 H 05/09/21 11:24 Pulse Ox 100 05/09/21 11:24 Laboratory Results - last 24 hr 05/09/21 05/09/21 07:00 07:00 WBC 10.36 D RBC 3.56 L Hgb 11.4 Hct 33.9 L MCV 95.2 H MCH 32.0 MCHC 33.6 RDW 12.7 Plt Count 171 MPV 10.2 Immature Gran % 0.3 Neutrophils % 70.4 Lymphocytes % 21.7 Monocytes % 6.5 Eosinophils % 0.5 Basophils % 0.6 Nucleated RBC % 0 Absolute Neutrophils 7.29 H Absolute Lymphocytes 2.25 Absolute Monocytes 0.67 Absolute Eosinophils 0.05 Absolute Basophils 0.06 Sodium 143 Potassium 4.0 Chloride 108 H Carbon Dioxide 24.3 Anion Gap 10.7 BUN 15 D Creatinine 0.9 Estimated GFR/1.73 m2 >= 60.00 Glucose 133 H Calcium 9.2 Magnesium 1.4 L
--- NOTE | 2021-05-09 17:03 | W.PM.PROGNOT ---
Date of Service Date of service: 05/09/21 Time of Service: 17:03 Assessment and Plan Assessment and plan (1) Toxic metabolic encephalopathy: Status: Acute Assessment and plan: Suspected accidental overdose of her medications - and due to myoclonic jerks, either gabapentin or baclofen specifically. Doing better. We resumed low doses of gabapentin and baclofen while monitoring. Will trial addition of seroquel to control sx of paranoia/agitation tonight. The patient admits to the fact that she does not know how to take her medications and that her significant other did not prepare her medications for her when he went to [facility] for hospitalization. She is interested in having a home health nurse to ensure that her medications are correct/pre-sorted into a pill box. (2) Gabapentin-induced toxicity: Status: Resolved Assessment and plan: No longer having myoclonic jerks and appears to have an adequate dose of gabapentin at this time as she is having no pain. (3) Respiratory failure: Status: Resolved Assessment and plan: Off of CPAP, doing much better. Possibly situational given the encephalopathy; however, also has a component of underlying BENSON. (4) Acute kidney injury superimposed on chronic kidney disease: Status: Resolved Assessment and plan: IVF d/c'ed. Is retaining urine - doing prn straight caths. (5) Neurogenic bladder: Status: Acute Assessment and plan: As above (6) Dehydration: Status: Resolved Assessment and plan: IVF d/c'ed. Encourage PO hydration. (7) DVT prophylaxis: Status: Acute Assessment and plan: SC heparin (8) Discharge planning issues: Status: Acute Assessment and plan: Full code Continues to require hospitalization. Plan to discharge to SNF. Discussed with Dr Marmolejo and with Dr Mathew. Subjective Subjective Interval history since last seen: Ms Olivo was confused last night trying to climb out of the window (windows do not open in our facility). She woke up this morning screaming and was agitated. She required 5 mg of IM zyprexa both yesterday evening and this morning. She now feels better. Denies dizziness, chest pain, shortness of breath, nausea. She [facility] She was evaluated by Dr Marmolejo who recommended addition of seroquel 25 mg PO qhs. She was seen in follow up by Dr Mathew who recommended up titration of baclofen to 10 mg PO BID. Exam Narrative Exam Narrative: General: Elderly female who is awake, A&Ox3, sitting in a chair, fearful, asks me if there is going to be a doctor in the hospital tonight because she is scared. HEENT:EOMI, MMM Cardiovascular: RRR, no m/r/g Lungs: CTAB, Gastrointestinal: soft, nontender, nondistended Extremities: no edema BLE's, trace pedal pulses, no lesions on feet Objective Last Vital Signs Temp 37.6 C H 05/09/21 16:52 Pulse 94 H 05/09/21 16:52 Resp 20 05/09/21 16:52 BP 170/93 H 05/09/21 16:52 Pulse Ox 100 05/09/21 16:52 Laboratory Results - last 24 hr 05/09/21 05/09/21 07:00 07:00 WBC 10.36 D RBC 3.56 L Hgb 11.4 Hct 33.9 L MCV 95.2 H MCH 32.0 MCHC 33.6 RDW 12.7 Plt Count 171 MPV 10.2 Immature Gran % 0.3 Neutrophils % 70.4 Lymphocytes % 21.7 Monocytes % 6.5 Eosinophils % 0.5 Basophils % 0.6 Nucleated RBC % 0 Absolute Neutrophils 7.29 H Absolute Lymphocytes 2.25 Absolute Monocytes 0.67 Absolute Eosinophils 0.05 Absolute Basophils 0.06 Sodium 143 Potassium 4.0 Chloride 108 H Carbon Dioxide 24.3 Anion Gap 10.7 BUN 15 D Creatinine 0.9 Estimated GFR/1.73 m2 >= 60.00 Glucose 133 H Calcium 9.2 Magnesium 1.4 L
[2021-05-09] MEDS: Lisinopril 20 MG TAB PO (17:17)
[2021-05-09] MEDS: Senna TAB 1 TAB PO (21:15)
[2021-05-09] MEDS: Baclofen 10 MG TAB PO (21:16)
[2021-05-09] MEDS: Metoprolol CR 100 MG TABCR PO (21:16)
[2021-05-09] MEDS: QUEtiapine 25 MG TAB PO (21:16)
[2021-05-10] VITALS (8 sets, daily range): BP systolic 126–179; BP diastolic 70–90; PULSE 69–88; RESP 16–20; TEMP 36.1–37.1; O2SAT 96–140
[2021-05-10] MEDS: LORazepam 1 MG TAB PO (00:16)
[2021-05-10] MEDS: Melatonin 3 MG TAB 9 MG PO (00:16)
[2021-05-10] MEDS: Heparin 5,000 UNITS/ML VIAL 5000 UNITS SC ×4 (05:49→21:08)
[2021-05-10 06:46] LABS: Abs Immature Grans 0.01 10^3/uL (0.0-0.06); Absolute Basophil Count 0.06 10^3/uL (0.0-0.2); Absolute Eosinophil Count 0.28 10^3/uL (0.0-0.7); Absolute Lymphocyte Count 4.05 10^3/uL (1.2-3.4); Absolute Monocyte Count 0.74 10^3/uL (0.1-0.8); Absolute Neutrophil Count 4.65 10^3/uL (1.2-6.7); Basophils % 0.6; Eosinophils % 2.9; HCT 35.4 % (36.0-46.0); HGB 11.8 g/dL (11.2-15.7); Immature Grans % 0.1; Lymphocytes % 41.4; MCH 32.2 pg (27.0-33.0); MCHC 33.3 % (32.0-36.0); MCV 96.7 fL (80-95); MPV 10.4 fL (8.0-11.0); Monocytes % 7.6; Neutrophils % 47.4; Nucleated RBC 0 %; Platelet Count 151 10^3/uL (130-400); RBC 3.66 10^6/uL (3.93-5.22); RDW 13.2 % (11.7-14.6); RDW-SD 47.1 fL; WBC 9.79 10^3/uL (4.4-10.8)
[2021-05-10 07:01] LABS: Anion Gap 7.4 mmol/L (3-11); BUN 12 mg/dL (7-18); CO2 29.6 mmol/L (21.0-32.0); CREATININE 0.9 mg/dL (0.55-1.02); Calcium 9.3 mg/dL (8.5-10.1); Chloride 107 mmol/L (98-107); Glucose 104 mg/dL (74-106); Magnesium 2.1 mg/dL (1.8-2.4); Potassium 3.5 mmol/L (3.5-5.1); Sodium 144 mmol/L (136-145)
--- NOTE | 2021-05-10 08:50 | PDOC.CMPRO ---
- If Service Date Differs Date of service: 05/10/21 Time of Service: 08:50 Care Management Progress Note S/O: Deepti was sitting up in her chair when CM met with her. She reported that she is feeling better today, and doing well working with PT. PT had previously recommended SNF, but reported today that she is progressing well, and if she continues to improve she will likely be ready to return home with new HH RN, PT, OT, LEARNING AND DEVELOPMENT ASSISTANT. She stated that she is not agreeable to SNF, and plans to return home once she is medically ready. She reported that she feels that she needs to be home with her , who recently had back surgery, to be his moral support. CM will continue to follow. A: Deepti is a 71 year old female admitted to [facility] on 05/07/21 with encephalopathy, suspected gabapentin toxicity/OD. P: Deepti will likely return home when medically cleared. She will benefit from new [facility] RN for med management. She will transport via [facility] private vehicle. She will follow up with her PCP and discharge plan of care. CM will continue to follow.
--- NOTE | 2021-05-10 09:27 | W.NUTCONSULT ---
Date of service: 05/10/21 Time of Service: 09:27 Nutritional Consult ASSESSMENT: 71 year old female admitted with AMS secondary to drug toxicity. BMI on low end of normal, however, typical weight for her over last couple of years. Has been following clear liquid diet with varied intake. Not meeting macronutrient needs. At high nutritional risk. Estimated Needs: 1508-4906 kcal, 50-60 g protein, 1200 m l fluid. NUTRITIONAL DIAGNOSIS: inadequate macro nutrient intake INTERVENTION: will supplement po intake with ensure clear TID- will provide 50% of caloric/protein needs MONITORING AND EVALUATION: weight, po intake, labs Time Spent in Nutritional Counseling and Treatment: 10
[2021-05-10] MEDS: Docusate Sodium 100 MG CAP PO (09:40)
[2021-05-10] MEDS: Sertraline 50 MG TAB 100 MG PO (09:40)
[2021-05-10] MEDS: Atorvastatin 40 MG TAB PO (09:41)
[2021-05-10] MEDS: Omeprazole 20 MG CAPCR 40 MG PO ×2 (09:41→21:07)
[2021-05-10] MEDS: Gabapentin 100 MG CAP PO ×3 (09:41→21:07)
[2021-05-10] MEDS: Sucralfate 1 GM TAB PO ×4 (09:41→21:08)
[2021-05-10] MEDS: amLODIPine 10 MG TAB PO (09:41)
[2021-05-10] MEDS: Lisinopril 20 MG TAB 40 MG PO (09:42)
[2021-05-10] MEDS: Ascorbic Acid 500 MG TAB PO (09:42)
[2021-05-10] MEDS: Baclofen 10 MG TAB PO ×2 (09:42→21:08)
[2021-05-10] MEDS: Cholecalciferol (Vitamin D3) 1,000 UNIT TAB 1000 UNITS PO (09:43)
[2021-05-10] MEDS: Normal Saline Flush 10 ML SYR IVP (09:46)
--- NOTE | 2021-05-10 10:09 | PT.INTREAT ---
Date of service: 05/10/21 Time of Service: 10:09 PT Notes Visit Reasons: Encephalopathy,suspected gabapentin toxicity/overd Inpatient Physical Therapy Treatment Note Date: 05/10/2021 Precautions: Fall. Standard.? Activity as tolerated. Subjective:? Much more cooperative and pleasant today. Objective: General Observation: Resting in bed. Telemetry monitoring in place. IV access in R UE. Mental Status: Alert and oriented as to person and place.? Some paranoia noted which subsided as patient knew what the purpose of the visit was. Pain: Denies Bed Mobility/Transfers: Rolling independent Supine to sit independent Sit to supine independent Sit to stand supervision Stand to sit supervision Chair to bed with supervision Gait: 300 feet of level surfaces using FWW with supervision. Cues only for directions.? No loss of balance. No shortness of breath. No path deviation. THERA EX: Completed LAQs x15, seated hip flexion x 15, seated hip abduction/adduction x 15 with no issues. Balance: Static Sitting: Normal Dynamic Sitting: Normal Static Standing: Good Dynamic Standing: Poor Assessment: Much more cooperative today. No paranoia observed. Hopeful to go home the soonest. Nursing aware of new complaint of discomfortt on the lateral aspect of the L foot. DISCHARGE RECOMMENDATIONS: [] ? Home with no services [] [X] ? Home with services. Home when medically cleared by hospitalist. Patient will benefit from home health PT services in order to progress mobility level using least restrictive assistive ambulatory device, assess home safety, identify additional equipment needs, and establish a functional maintenance program that will increase ability of patient to remain at home. [] ? Home with outpatient PT [] [] ? SNF for continued rehabilitation [] [] ? Detention Care [] [] ? SNF versus LTC based on ability to participate and progress [] TREATMENT CODE/TIME: 64782 x 15 minutes , 46063 x 10 minutes beginning at 10:09 AM.
[2021-05-10 10:37] LABS: Gabapentin 31.5 mcg/mL (2.0-20.0)
--- NOTE | 2021-05-10 11:59 | W.PM.PROGNOT ---
Date of Service Date of service: 05/10/21 Time of Service: 12:12 Assessment and Plan Assessment and plan (1) Toxic metabolic encephalopathy: Status: Acute Assessment and plan: Suspected accidental overdose of her medications - and due to myoclonic jerks, either gabapentin or baclofen specifically. Doing better and appears to be at baseline level of cognition. Continue low doses of gabapentin and baclofen while monitoring. A trial of seroquel to control sx of paranoia/agitation given last PM; slept well. She was lethargy at first in the AM today but then woke to a normal level of alertness mid-morning. The patient admits to the fact that she does not know how to take her medications and that her significant other did not prepare her medications for her when he went to [facility] for hospitalization. She is interested in having a home health nurse to ensure that her medications are correct/pre-sorted into a pill box. (2) Gabapentin-induced toxicity: Status: Resolved Assessment and plan: No longer having myoclonic jerks and appears to have an adequate dose of gabapentin at this time as she is having no pain. (3) Respiratory failure: Status: Resolved Assessment and plan: Off of CPAP, doing much better. Possibly situational given the encephalopathy; however, also has a component of underlying BENSON. (4) Acute kidney injury superimposed on chronic kidney disease: Status: Resolved Assessment and plan: IVF d/c'ed. Creatinine now normalized at 0.9. (5) Neurogenic bladder: Status: Acute Assessment and plan: As above (6) Dehydration: Status: Resolved Assessment and plan: IVF d/c'ed. Encourage PO hydration. (7) DVT prophylaxis: Status: Acute Assessment and plan: SC heparin (8) Discharge planning issues: Status: Acute Assessment and plan: Full code Continues to require hospitalization. Plan to discharge to SNF unless improvement seen by PT and would be able to go home with home health PT. Has been evaluated by Dr Marmolejo and Dr Mathew. Subjective Subjective Patient reports: no new complaints, feels better and afebrile; denies nausea, vomiting or shortness of breath Interval history since last seen: Lying in bed. Conversational. Exam Narrative Exam Narrative: General: Elderly female who is awake, A&Ox3. HEENT:sclera clear. Pupils equal. Cardiovascular: RRR, no murmur Lungs: CTAB, Gastrointestinal: soft, nontender, nondistended Extremities: no edema BLE's. No calf tenderness. Objective Last Vital Signs Temp 36.1 C L 05/10/21 09:20 Pulse 88 05/10/21 09:20 Resp 16 05/10/21 09:20 BP 130/70 05/10/21 09:20 Pulse Ox 100 05/10/21 09:20 Laboratory Results - last 24 hr 05/07/21 05/10/21 05/10/21 13:21 06:05 06:05 WBC 9.79 RBC 3.66 L Hgb 11.8 Hct 35.4 L MCV 96.7 H MCH 32.2 MCHC 33.3 RDW 13.2 Plt Count 151 MPV 10.4 Immature Gran % 0.1 Neutrophils % 47.4 Lymphocytes % 41.4 Monocytes % 7.6 Eosinophils % 2.9 Basophils % 0.6 Nucleated RBC % 0 Absolute Neutrophils 4.65 Absolute Lymphocytes 4.05 H Absolute Monocytes 0.74 Absolute Eosinophils 0.28 Absolute Basophils 0.06 Sodium 144 Potassium 3.5 Chloride 107 Carbon Dioxide 29.6 Anion Gap 7.4 BUN 12 Creatinine 0.9 Estimated GFR/1.73 m2 >= 60.00 Glucose 104 Calcium 9.3 Magnesium 2.1 Gabapentin 31.5 H
--- NOTE | 2021-05-10 14:00 | CHAPLAIN ---
Kena was up in the chair. She said she is feeling better now that I'm more myself again. She was disoriented when she arrived in the ED. Kena has MS. She lives in the [facility] with her SO, Marek. She said Marek had back surgery at [facility] earlier this week and she is worried about him being home alone, although he has been able to move around and is walking the dog. Kena wanted to contact Marek's PCP at [facility] but doesn't know the PCP's name. Care Management suggested I give her the phone number for [facility] and Kena could explain the situation herself, so I did that.
--- NOTE | 2021-05-10 14:13 | PT.INTREAT ---
Date of service: 05/10/21 Time of Service: 13:40 PT Notes Visit Reasons: Encephalopathy,suspected gabapentin toxicity/overd Inpatient Physical Therapy Treatment Note [facility] Date: 05/10/2021 PRECAUTIONS: Fall, activity as tolerated SUBJECTIVE: Deepti is pleasant and agreeable to participating in PT. She states that she is hoping to go home tomorrow to help her who she reports just underwent cervical spinal surgery. OBJECTIVE: PAIN: Patient c/o lateral L foot pain BED MOBILITY/TRANSFERS Sit-stand: S Stand-sit: S GAIT Assistive Device: FWW SPC Weight bearing: Full Assist: S with FWW SBA with SPC Distance: 400' with FWW 200 with SPC Deviation: Slow/steady pace, short step length and height ASSESSMENT: Patient tolerated session well without complaint. She was able to tolerate a progression in gait distance with FWW support, then progressed to gait training with SPC support with SBA only. PLAN: Continue with gait training with least restrictive device for continued progression toward baseline level of function. TREATMENT CODE/TIME: 20 minutes; 18094 (13:40)
--- NOTE | 2021-05-10 16:03 | PDOC.CMPRO ---
- If Service Date Differs Date of service: 05/10/21 Time of Service: 16:03 Care Management Progress Note S/O: Deepti was sitting up in her chair when CM met with her. She was pleasant and informed CM that she is feeling much better. She understands that she will likely be discharged tomorrow and will have new HH services for RN, PT, OT, ENERGY SPECIALIST. She has been working with PT and is making progress with gait distance using a FWW. Kena stated that she is really anxious to go home as her just had back surgery and she wants to be available to support him. A: Deepti is a 71 year old female admitted to [facility] on 05/07/21 with encephalopathy, suspected gabapentin toxicity/OD. P: Deepti will likely return home when medically cleared. She will benefit from new HH RN, PT, OT and ENERGY SPECIALIST. She will transport via [facility] private vehicle. She will follow up with her PCP and discharge plan of care. CM will continue to follow.
[2021-05-10] MEDS: Melatonin 3 MG TAB PO (21:07)
[2021-05-10] MEDS: Senna TAB 1 TAB PO (21:07)
[2021-05-10] MEDS: QUEtiapine 25 MG TAB PO (21:07)
[2021-05-10] MEDS: Metoprolol CR 100 MG TABCR PO (21:08)
[2021-05-11 03:53] VITALS: BP 130/74; PULSE 76; RESP 18; TEMP 37.1; O2SAT 97
[2021-05-11] MEDS: Heparin 5,000 UNITS/ML VIAL 5000 UNITS SC (05:02)
[2021-05-11 07:00] VITALS: PULSE 71
[2021-05-11 07:32] VITALS: BP 142/80; PULSE 70; RESP 18; TEMP 37.4; O2SAT 99
[2021-05-11 07:35] VITALS: BP 142/80; PULSE 70; RESP 18; TEMP 37.4; O2SAT 99
[2021-05-11] MEDS: Docusate Sodium 100 MG CAP PO (07:47)
[2021-05-11] MEDS: Cholecalciferol (Vitamin D3) 1,000 UNIT TAB 1000 UNITS PO (07:48)
[2021-05-11] MEDS: Ascorbic Acid 500 MG TAB PO (07:48)
[2021-05-11] MEDS: Gabapentin 100 MG CAP PO (07:48)
[2021-05-11] MEDS: Atorvastatin 40 MG TAB PO (07:48)
[2021-05-11] MEDS: Baclofen 10 MG TAB PO (07:48)
[2021-05-11] MEDS: Sertraline 50 MG TAB 100 MG PO (07:48)
[2021-05-11] MEDS: amLODIPine 10 MG TAB PO (07:49)
[2021-05-11] MEDS: Lisinopril 20 MG TAB 40 MG PO (07:49)
[2021-05-11] MEDS: Acetaminophen 325 MG TAB PO (07:49)
[2021-05-11] MEDS: Sucralfate 1 GM TAB PO ×2 (07:49→12:01)
[2021-05-11] MEDS: Omeprazole 20 MG CAPCR 40 MG PO (07:49)
[2021-05-11] MEDS: Normal Saline Flush 10 ML SYR IVP (07:50)
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
--- NOTE | 2021-05-11 10:57 | CMDISCH_ITS ---
- If Service Date Differs Date of service: 05/11/21 Time of Service: 10:57 LACE Index Scoring Tool - Questions: Length of Stay (in days): 4 - 6 Acuity (Admit via E.D.?): Yes Comorbidities: Mild Liver/Renal Disease E.D. Visits: 3 - Answers: Total Score: 12 Risk of Readmission: High Risk Care Management Discharge Reason for Hospitalization: Encephalopathy, suspected Gabapentin toxicity/overdose. Discharge Plan: Kena is discharged home with new Home Health RN, PT, OT, and SUPERVISOR SHUTTLE VENEERING services. She will follow up with her PCP, neurologist, and discharge plan of care as prescribed. She is transported home by family via private vehicle. Patient/Family Education Needs: Review of discharge instructions; discuss Ask Me Three and self management. Services Needed at Discharge: Home Health Care Services
[2021-05-11 11:38] VITALS: BP 143/75; PULSE 68; RESP 17; TEMP 37; O2SAT 99
--- NOTE | 2021-05-11 12:55 | PDOC.HHF2F_ITS ---
Home Health Certification Home Health Certification: 1. Encounter Date and Reason I certify that Deepti Olivo was seen by Db Gonzalez MD on 05/11/21 and that I had a [id number] encounter with this patient that meets the physician face to face encounter requirements. 2. Clinical Findings Supporting Skilled Need and Homebound Status I certify that home health services are medically necessary, include either intermittent senior living and/or physical/speech therapy, and that this pa tient is homebound in that absences from the home require considerable and taxing effort and are infrequent or of short duration, or are attributable to the need to receive medical care. [X] (a) Attached documentation from encounter provides clinical findings supporting skilled need and homebound status (including what assistance patient requires to leave the home). The encounter with the patient was in whole, or in part, for the following medical condition, which is the primary reason for home health care: Encephalopathy,suspected gabapentin toxicity/overd Custodial:Monitor medications for proper intake. Monitor mental status. Physical Therapy/Occupational Therapy: Evaluate and treat; strengthening, gait, balance. Speech Therapy: FURNITURE MECHANIC: Evaluate and assist in providing appropriate community resources. Homebound: 3. Certification and Authentication I certify that I composed the above information based on my clinical judgement relating to this patient's medical condition and, if applicable, clinical findings communicated to me by the NPP or inpatient physician who performed the Home Health Referral. All further orders will be obtained through Becca Dash (Community Based Physician - PCP)
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
== END 2021-05-11 12:43 | disposition home health service (06) | DRG 91 ==
LOC: ER 12:59 → ICU 13:37 → MS 05-08 14:00
PROVIDERS: Admitting Provider Internal Medicine; Emergency Provider Physician Assistant; PCP Nurse Practitioner Family; Visit Provider Internal Medicine
DX: G92.8 Other toxic encephalopathy (principal); J96.90 Respiratory failure, unspecified, unspecified whether with hypoxia or hypercapnia; E46 Unspecified protein-calorie malnutrition; Z68.1 Body mass index [BMI] 19.9 or less, adult; E87.1 Hypo-osmolality and hyponatremia; N17.9 Acute kidney failure, unspecified; G35 Multiple sclerosis; Z86.16 Personal history of COVID-19; D51.0 Vitamin B12 deficiency anemia due to intrinsic factor deficiency; N18.30 Chronic kidney disease, stage 3 unspecified; I12.9 Hypertensive chronic kidney disease with stage 1 through stage 4 chronic kidney disease, or unspecified chronic kidney disease; E55.9 Vitamin D deficiency, unspecified; K25.7 Chronic gastric ulcer without hemorrhage or perforation; F51.04 Psychophysiologic insomnia; Z91.14 Patient's other noncompliance with medication regimen; M81.0 Age-related osteoporosis without current pathological fracture; N60.12 Diffuse cystic mastopathy of left breast; N60.11 Diffuse cystic mastopathy of right breast; M54.59 Other low back pain; F29 Unspecified psychosis not due to a substance or known physiological condition; F43.10 Post-traumatic stress disorder, unspecified; K21.9 Gastro-esophageal reflux disease without esophagitis; D64.9 Anemia, unspecified; T42.8X1A Poisoning by antiparkinsonism drugs and other central muscle-tone depressants, accidental (unintentional), initial encounter; T42.6X1A Poisoning by other antiepileptic and sedative-hypnotic drugs, accidental (unintentional), initial encounter; E86.0 Dehydration; N31.9 Neuromuscular dysfunction of bladder, unspecified; G47.33 Obstructive sleep apnea (adult) (pediatric); G31.84 Mild cognitive impairment of uncertain or unknown etiology
CPT/HCPCS: 36415; 36416; 51702; 80048; 80053; 80171; 80307; 82550; 82962; 85027; 87635; 93005; 96360; 96372; 97110; 97162; 97530; 99223; 99232; 99285; Q3014; 70450; 71045; 80320; 81003; 82140; 83735; 84443; 84484; 85025; 93010; 99233; 99239; 99291; J1644; J2060; J2310; J3475

== ENCOUNTER → 2021-05-08 10:04 | Outpatient (BNVA) | payer MEDICARE, MEDICAID, SELFPAY | PROVIDERS: PCP Nurse Practitioner Family; Referring Provider Nurse Practitioner Family; Visit Provider Psychiatry & Neurology Neurology | DX: R69 Illness, unspecified (principal) ==

== ENCOUNTER → 2021-05-29 10:12 | Outpatient (BNVA) | payer MEDICARE, MEDICAID, SELFPAY | PROVIDERS: PCP Nurse Practitioner Family; Visit Provider Psychiatry & Neurology Neurology | DX: N31.9 Neuromuscular dysfunction of bladder, unspecified (principal); G35 Multiple sclerosis; G89.4 Chronic pain syndrome; G47.00 Insomnia, unspecified | CPT/HCPCS: 99214 ==

== ENCOUNTER → 2021-05-30 08:14 | Outpatient (BNVA) | payer MEDICARE, MEDICAID, SELFPAY | PROVIDERS: PCP Nurse Practitioner Family; Referring Provider Nurse Practitioner Family; Visit Provider Nurse Practitioner Gerontology | DX: N17.9 Acute kidney failure, unspecified; N31.9 Neuromuscular dysfunction of bladder, unspecified | CPT/HCPCS: 51798; 99213 ==

== ENCOUNTER 2021-06-19 01:33 | Outpatient (CLI) | payer MEDICARE, MEDICAID, SELFPAY ==
--- NOTE | 2021-06-19 07:00 | DI.US_ITS ---
Exam(s) US RENAL EXAM: US RENAL CLINICAL HISTORY: neurogenic bladder -monitoring hydro.ACUTE KIDNEY INJURY,N31.9,N17.9 TECHNIQUE: Ultrasound performed using standard protocol. COMPARISON: US US RENAL from 11/06/2020 FINDINGS: Kidneys are normal in size and shape. There is no evidence of a renal mass, hydronephrosis, or nephr olithiasis. Patient reportedly self catheterizes but did not bring a catheter. Urinary bladder volume is 224 cc. Ureteral jets were nonvisualized. No focal bladder abnormality seen. IMPRESSION: Negative renal ultrasound DATA REPOSITORY:
== END 2021-06-19 01:53 ==
PROVIDERS: PCP Nurse Practitioner; Visit Provider Nurse Practitioner Gerontology
DX: N31.9 Neuromuscular dysfunction of bladder, unspecified (principal); N17.9 Acute kidney failure, unspecified
CPT/HCPCS: 76770

== ENCOUNTER 2021-06-19 02:56 | Outpatient (CLI) | payer MEDICARE, MEDICAID, SELFPAY ==
[2021-06-19 08:57] LABS: BUN 20 mg/dL (7-18); CREATININE 1.2 mg/dL (0.55-1.02); Estimated GFR 44.41 (mL/min/1.73m2)
== END 2021-06-19 02:57 | disposition home or self-care (01) ==
LOC: LBO 02:56
PROVIDERS: PCP Nurse Practitioner; Visit Provider Nurse Practitioner Gerontology
DX: N17.9 Acute kidney failure, unspecified (principal); N31.9 Neuromuscular dysfunction of bladder, unspecified
CPT/HCPCS: 36415; 76770; 84520; 82565

== ENCOUNTER → 2021-07-08 09:46 | Outpatient (BNVA) | payer MEDICARE, MEDICAID, SELFPAY | PROVIDERS: PCP Nurse Practitioner; Visit Provider Psychiatry & Neurology Neurology | DX: G25.5 Other chorea (principal); N31.9 Neuromuscular dysfunction of bladder, unspecified; G35 Multiple sclerosis; G89.4 Chronic pain syndrome; G47.00 Insomnia, unspecified | CPT/HCPCS: 99214 ==

== ENCOUNTER → 2021-07-22 11:55 | Outpatient (BNVA) | payer MEDICARE, MEDICAID, SELFPAY | PROVIDERS: PCP Nurse Practitioner; Referring Provider Nurse Practitioner; Visit Provider Nurse Practitioner Gerontology | DX: N31.9 Neuromuscular dysfunction of bladder, unspecified (principal); N18.30 Chronic kidney disease, stage 3 unspecified; N17.9 Acute kidney failure, unspecified | CPT/HCPCS: 99214 ==

== ENCOUNTER 2021-08-26 03:41 | Outpatient (CLI) | payer MEDICARE, MEDICAID, SELFPAY | END 2021-08-26 03:42 | disposition home or self-care (01) | LOC: LBO 03:41 | PROVIDERS: PCP Nurse Practitioner; Visit Provider Nurse Practitioner Gerontology ==

== ENCOUNTER 2021-08-28 02:02 | Outpatient (CLI) | payer MEDICARE, MEDICAID, SELFPAY | END 2021-08-28 02:03 | disposition home or self-care (01) | LOC: LOS 02:02 | PROVIDERS: PCP Nurse Practitioner; Visit Provider Nurse Practitioner ==

== ENCOUNTER 2021-08-28 12:52 | Outpatient (CLI) | payer MEDICARE, MEDICAID, SELFPAY ==
[2021-08-28 10:25] LABS: Anion Gap 9.8 mmol/L (3-11); BUN 27 mg/dL (7-18); CO2 18.2 mmol/L (21.0-32.0); CREATININE 2.2 mg/dL (0.55-1.02); Calcium 8.7 mg/dL (8.5-10.1); Calculated LDL 41 mg/dL (<100); Chloride 111 mmol/L (98-107); Cholesterol 117 mg/dL (<200); Estimated GFR 22.07 (mL/min/1.73m2); Glucose 86 mg/dL (74-106); HDL Cholesterol 57 mg/dL (40-60); Potassium 4.1 mmol/L (3.5-5.1); Sodium 139 mmol/L (136-145); Triglyceride 95 mg/dL (<150)
== END 2021-08-28 12:53 | disposition home or self-care (01) ==
LOC: LBO 12:53
PROVIDERS: Nurse Practitioner Gerontology; PCP Nurse Practitioner; Visit Provider Nurse Practitioner
DX: I10 Essential (primary) hypertension (principal); N31.9 Neuromuscular dysfunction of bladder, unspecified; N18.30 Chronic kidney disease, stage 3 unspecified
CPT/HCPCS: 36415; 80048; 80061; 84520; 82565

== ENCOUNTER → 2021-09-18 09:08 | Outpatient (BNVA) | payer MEDICARE, MEDICAID, SELFPAY | PROVIDERS: PCP Nurse Practitioner; Referring Provider Nurse Practitioner; Visit Provider Psychiatry & Neurology Neurology | DX: G35 Multiple sclerosis (principal); G89.4 Chronic pain syndrome; G47.00 Insomnia, unspecified; R41.3 Other amnesia; N31.9 Neuromuscular dysfunction of bladder, unspecified; I12.9 Hypertensive chronic kidney disease with stage 1 through stage 4 chronic kidney disease, or unspecified chronic kidney disease; N18.9 Chronic kidney disease, unspecified | CPT/HCPCS: 99214 ==

== ENCOUNTER → 2022-01-13 08:09 | Outpatient (BNVA) | payer MEDICARE, MEDICAID, SELFPAY | PROVIDERS: PCP Family Medicine; Referring Provider Family Medicine; Visit Provider Psychiatry & Neurology Neurology | DX: G35 Multiple sclerosis (principal); G89.4 Chronic pain syndrome; G47.00 Insomnia, unspecified; N31.9 Neuromuscular dysfunction of bladder, unspecified | CPT/HCPCS: 99214 ==

== ENCOUNTER → 2022-04-21 08:11 | Outpatient (BNVA) | payer MEDICARE, MEDICAID, SELFPAY | PROVIDERS: PCP Nurse Practitioner Family; Referring Provider Nurse Practitioner Family; Visit Provider Nurse Practitioner Gerontology | DX: N31.9 Neuromuscular dysfunction of bladder, unspecified (principal); G35 Multiple sclerosis; N17.9 Acute kidney failure, unspecified; N18.4 Chronic kidney disease, stage 4 (severe) | CPT/HCPCS: 99213 ==

== ENCOUNTER 2022-05-12 18:47 | Outpatient (REF) | payer MEDICARE, MEDICAID, SELFPAY ==
[2022-05-12 20:57] LABS: Bilirubin Negative (Negative); Blood Large (Negative); Clarity Sl Cloudy (Clear); Glucose Negative (Negative); Ketones Negative (Negative); Leukocyte Esterase Moderate (Negative); Nitrite Negative (Negative); Urobilinogen 0.2 mg/dL (Up to 0.2); pH 5.5 (5-8)
[2022-05-12 21:12] LABS: Bacteria Moderate HPF (Negative); C & S Indicated? No; Casts Negative LPF (Negative); Crystals Negative HPF (Negative); Epithelial Cells Many HPF (Negative); Mucus Negative (Negative); Other Cells Negative (Negative); RBC >50 HPF (0-2); WBC 20-50 HPF (0-5)
== END 2022-05-12 18:48 | disposition home or self-care (01) ==
LOC: NCHCN 18:47
PROVIDERS: PCP Nurse Practitioner Family; Visit Provider Nurse Practitioner Family
DX: N39.0 Urinary tract infection, site not specified (principal)
CPT/HCPCS: 81003; 81015

== ENCOUNTER → 2022-05-13 08:22 | Outpatient (BNVA) | payer MEDICARE, MEDICAID, SELFPAY | PROVIDERS: PCP Nurse Practitioner Family; Referring Provider Nurse Practitioner Family; Visit Provider Psychiatry & Neurology Neurology | DX: N31.9 Neuromuscular dysfunction of bladder, unspecified (principal); Z87.440 Personal history of urinary (tract) infections; G35 Multiple sclerosis; G89.4 Chronic pain syndrome; G47.00 Insomnia, unspecified | CPT/HCPCS: 99214 ==

== ENCOUNTER 2022-05-18 15:08 | Emergency (ER) | payer MEDICARE, MEDICAID, SELFPAY ==
[2022-05-18 15:13] VITALS: BP 111/72; PULSE 77; RESP 16; TEMP 36.6; O2SAT 99
--- NOTE | 2022-05-18 15:45 | DI.CT_ITS ---
Exam(s) CT ABDOMEN PELVIS WO EXAM: CT ABDOMEN PELVIS WO CLINICAL HISTORY: Lower abd pain. TECHNIQUE: Imaging Protocol: Axial computed tomography images with coronal and sagittal reformatted images were created and reviewed CONTRAST MATERIAL: Intravenous: none Oral: None COMPARISON: CT CT ABDOMEN PELVIS WO from 05/15/2020 FINDINGS: VISUALIZED LUNG BASES: No nodules nor pleural effusions evident. There is fusion hardware in the low er thoracic spine ending at T11 level. ABDOMEN: There is evidence of previous surgery in the region of the stomach, possibly bariatric. The gastric pouch is now dilated size 7 x 7 by 7 cm. There does not appear to be obvious obstruction in the Matthew limb and more distal small bowel. Colon is not collapsed. There is no ascites. No free air. LIVER: There are no obvious focal hepatic lesions evident of this noninfused study. GALLBLADDER/BILIARY: Gallbladder appears to be surgically absent. CBD diameter upper normal. PANCREAS: No evidence of pancreatic mass nor dilatation of the pancreatic duct. SPLEEN: Spleen is not enlarged. No obvious intrasplenic lesions. ADRENALS: There are no significant adrenal masses. KIDNEYS:No cysts evident. No solid renal masses. No calculi nor hydronephrosis. . ABDOMINAL AORTA: Abdominal aorta is not enlarged. LYMPH NODES: There is no retroperitoneal nor paraaortic adenopathy. ABDOMINAL WALL: No evidence of significant anterior abdominal wall nor inguinal hernia. GI: There is no evidence of bowel obstruction, free air, nor abscess. PELVIS: LYMPH NODES: There is no intrapelvic nor inguinal adenopathy. GI: No evidence of appendicitis.No evidence of sigmoid diverticulitis. URINARY BLADDER: Mildly distended. Otherwise unremarkable. REPRODUCTIVE: Uterus is surgically absent. No abnormal adnexal masses. No free fluid in the pelvis. OSSEOUS: Chronic disc space narrowing at L4-5 level. No compression fractures. IMPRESSION: 1. There appears to been prior bariatric surgery. The gastric pouch is filled with food material and dilated to 7 x 7 x 7 cm. No evidence of obstruction more distally in the bowel. No free air. No o bvious abscess. 2. Gallbladder surgically absent. 3. RADIATION DOSE DELIVERED: 531.32mGy.cm Total DLP DATA REPOSITORY: All CT scans at this facility are submitted to the National Radiology Data Registry (NRDR) Dose Index Registry (DIR) with the [employer] (A[employer]). RADIATION OPTIMIZATION: All CT scans at this facility use at least one of these dose optimization te chniques: automated exposure control; mA and/or kV adjustment per patient size (includes targeted exa ms where dose is matched to clinical indication); or iterative reconstruction.
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
[2022-05-18 16:20] LABS: Abs Immature Grans 0.03 10^3/uL (0.0-0.06); Absolute Basophil Count 0.04 10^3/uL (0.0-0.2); Absolute Monocyte Count 0.45 10^3/uL (0.1-0.8); Absolute Neutrophil Count 3.68 10^3/uL (1.2-6.7); Basophils % 0.5; Eosinophils % 9.6; HCT 34.1 % (36.0-46.0); HGB 10.9 g/dL (11.2-15.7); Immature Grans % 0.4; Lymphocytes % 32.9; MCH 32.5 pg (27.0-33.0); MCV 102 fL (80-95); Monocytes % 6.2; Neutrophils % 50.4; Platelet Count 169 10^3/uL (130-400); RBC 3.35 10^6/uL (3.93-5.22); RDW 13.1 % (11.7-14.6); RDW-SD 49.1 fL
[2022-05-18] MEDS: Normal Saline 1,000 ML 300 ML IV (16:20)
[2022-05-18] MEDS: Ondansetron 4 MG/2 ML VIAL IVP (16:23)
[2022-05-18 16:43] LABS: ALT 42 U/L (14-59); AST 33 U/L (15-37); Albumin 3.3 g/dL (3.4-5.0); Alkaline Phosphatase 58 U/L (46-116); Anion Gap 7.3 mmol/L (3-11); BUN 33 mg/dL (7-18); Bilirubin, Total 0.2 mg/dL (0.2-1.0); CO2 20.7 mmol/L (21.0-32.0); CREATININE 1.9 mg/dL (0.55-1.02); Calcium 8.5 mg/dL (8.5-10.1); Chloride 112 mmol/L (98-107); Estimated GFR 27.88 (mL/min/1.73m2); Glucose 100 mg/dL (74-106); Potassium 4.6 mmol/L (3.5-5.1); Sodium 140 mmol/L (136-145); Total Protein 5.2 g/dL (6.4-8.2)
[2022-05-18 16:50] LABS: Bilirubin Negative (Negative); Blood Negative (Negative); Clarity Clear (Clear); Glucose Negative (Negative); Ketones Negative (Negative); Leukocyte Esterase Negative (Negative); Nitrite Negative (Negative); Specific Gravity 1.015 (1.005-1.025); Urobilinogen 0.2 mg/dL (Up to 0.2); pH 5.5 (5-8)
--- NOTE | 2022-05-18 17:13 | DI.VRAD_ITS ---
PROCEDURE INFORMATION: Exam: CT Abdomen And Pelvis Without Contrast Exam date and time: 05/18/2022 4:13 PM Age: 72 years old Clinical indication: Other: Lower abd pain TECHNIQUE: Imaging protocol: Computed tomography of the abdomen and pelvis without contrast. COMPARISON: CT ABDOMEN PELVIS WO 05/15/2020 3:28 PM FINDINGS: Lungs: Minimal ground-glass opacity in the right lung sulcus. Liver: Unremarkable. No mass, cysts or dilated bile ducts. Gallbladder and bile ducts: There has been a cholecystectomy. There is no common bile duct dilation. Pancreas: Normal. No ductal dilation. Spleen: Normal. No splenomegaly. Adrenal glands: Normal. No mass. Kidneys and ureters: Normal. No hydronephrosis. Stomach and bowel: The absence of bowel contrast makes it difficult to interpret the prior surgery in the upper abdomen. Patient may have had gastric surgery for weight loss. There is food debris within the proximal portion of the stomach. The lateral wall of the stomach is likely attach to a portion of the small bowel and a eavf-[id number] anastomosis of the proximal small bowel in the left upper quadrant. There is a moderate amount of fecal material throughout colon that is more formed in the distal portion of the colon. No pneumatosis or definite wall thickening. Appendix: The appendix is not identified, but there are no inflammatory changes in its expected region. Intraperitoneal space: No free fluid or air within the peritoneal cavity Vasculature: The vasculature demonstrates diffuse fyui-[id number] atherosclerotic calcification. Lymph nodes: Unremarkable. No enlarged lymph nodes. Urinary bladder: Urwkwqsu-js-ksgwk quantity of fluid. No wall thickening or intraluminal stones. Reproductive: There has been a hysterectomy. Bones/joints: The spine demonstrates mild degenerative changes at multiple levels. Moderate disc space narrowing L4-L5 without central canal stenosis or neural foraminal narrowing. There are moderate degenerative changes of the hips. Soft tissues: Unremarkable. IMPRESSION: 1. Constipation. No definite acute process within the peritoneal cavity. 2. Nonspecific ground-glass changes in the right lung sulcus may be due to subsegmental atelectasis, pulmonary edema or early infiltrate. 3. Lsvo-dp-ybbvjbvg atherosclerotic peripheral vascular disease. 4. Moderate degenerative changes of the osseous structures. 5. Findings compatible of weight loss gastric bypass surgery. Dictated and Authenticated by: Santo Calderón MD. Ordering:ROSALINDA Lu MD
[2022-05-18 17:32] VITALS: BP 118/54; PULSE 63; TEMP 36.7; O2SAT 100
[2022-05-18] MEDS: MacroBID 100 MG CAP, 2 CAPS/BTL PO (17:42)
[2022-05-18] MEDS: MacroBID 100 MG CAP PO (17:42)
== END 2022-05-18 17:49 | disposition home or self-care (01) ==
PROVIDERS: Emergency Provider Registered Nurse Emergency; PCP Nurse Practitioner Family
DX: R53.1 Weakness (principal); R10.9 Unspecified abdominal pain
CPT/HCPCS: 36415; 51702; 80053; 96361; 96374; 99284; 74176; 81003; 85025; J2405; J3490

== ENCOUNTER → 2022-05-20 07:53 | Outpatient (BNVA) | payer MEDICARE, MEDICAID, SELFPAY | PROVIDERS: PCP Nurse Practitioner Family; Referring Provider Nurse Practitioner Family; Visit Provider Nurse Practitioner Gerontology | DX: N31.9 Neuromuscular dysfunction of bladder, unspecified (principal) | CPT/HCPCS: 99214 ==

== ENCOUNTER 2022-05-22 08:49 | Day surgery (SDC) | payer MEDICARE, MEDICAID, SELFPAY ==
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
[2022-05-22 08:58] VITALS: BP 145/62; PULSE 61; RESP 16; TEMP 36.4; O2SAT 100
[2022-05-22] MEDS: Lactated Ringers 1,000 ML 80 ML IV (09:28)
[2022-05-22 11:33] VITALS: BMI 19.1
[2022-05-22] MEDS: Lidocaine 2% Jelly 11 ML SYR (12:16)
--- NOTE | 2022-05-22 12:25 | PDOC.DSDIS_ITS ---
Date of service: 05/22/22 Time of Service: 12:26 Discharge Plan Disposition Condition: Stable Discharge Details Reason For Visit: suprapubic catheter Attending Provider: Ethan Saldivar Primary Care Provider: Hardy Shelby Home Meds and New Rx's Prescriptions: No Action montelukast [Singulair] 10 mg tablet 10 mg PO DAILY Qty: 90 3RF lidocaine 5 % adhesive patch,medicated 2 patch topical DAILY Qty: 60 5RF Rx Instructions: leave on most painful area for up to 12 hrs baclofen 10 mg tablet 10 mg PO BID MDD 20mg Qty: 60 5RF (DME) Ultra-Light Rollator 1 EACH misc 1 ea Miscellaneous DAILY Qty: 1 Patient Comments: outside Rx Instructions: 4 wheel rollator with basket fexofenadine 60 mg tablet 60 mg PO DAILY ferrous gluconate 324 mg (38 mg iron) tablet 324 mg PO .QOD Qty: 45 4RF sennosides [senna] 8.6 mg tablet 8.6 mg PO QHS Qty: 90 4RF atorvastatin 40 mg tablet 40 mg PO DAILY Qty: 90 3RF ascorbic acid (vitamin C) [Vitamin C] 500 mg tablet 500 mg PO DAILY Qty: 90 4RF docusate sodium 100 mg capsule 100 mg PO DAILY Qty: 90 4RF cholecalciferol (vitamin D3) [Vitamin D3] 25 mcg (1,000 unit) capsule 25 mcg PO DAILY Qty: 90 3RF duloxetine 60 mg capsule,delayed release(DR/EC) 60 mg PO HS Qty: 90 3RF potassium chloride 20 mEq tablet extended release 20 meq PO DAILY Qty: 90 3RF sucralfate 1 gram tablet 1 g PO QID 90 Days Qty: 360 3RF metoprolol succinate 100 mg tablet extended release 24 hr 100 mg PO BID Qty: 90 4RF Rx Instructions: 200 mg am,, 100 mg pm omeprazole 40 mg capsule,delayed release(DR/EC) See Rx Instructions .ROUTE .COMPLEX Qty: 180 3RF Dose Instruction: TAKE 1 CAPSULE BY MOUTH TWICE A DAY Rx Instructions: TAKE 1 CAPSULE BY MOUTH TWICE A DAY gabapentin 300 mg capsule 300 mg PO BID Qty: 60 5RF trazodone 100 mg tablet 100 mg PO QHS Qty: 30 2RF amlodipine 10 mg Tablet 10 mg PO DAILY Qty: 30 0RF acetaminophen [Tylenol 8 Hour] 650 mg tablet extended release 650 mg PO Q8H PRN (Reason: fever or pain) Qty: 30 0RF sertraline 100 MG tablet 100 mg PO DAILY Qty: 1 0RF triamcinolone acetonide [Nasacort] 55 mcg Aerosol,[place] 1 spray INTRANASAL DAILY Rx Instructions: administer into each nostril nitrofurantoin monohyd/m-cryst [Macrobid] 100 mg capsule 100 mg PO Q12H 5 Days Qty: 10 0RF Rx Instructions: must administer with a meal/food Medical Marijuana 1 tab PO HS magnesium oxide 500 mg Tablet 500 mg PO BID Rx Instructions: evening Discharge Instructions Additional Instructions: Suprapubic tube to legbag change dressing daily and prn followup 1 month for catheter change Activity:: Activity as Tolerated Remove Dressings/Wound Care:: 24 hours Shower/Bathe:: 24 hours Diet:: As Tolerated DS: Diagnosis Discharge Diagnosis (1) Urinary retention: Status: Chronic
--- NOTE | 2022-05-22 12:28 | ROE_ITS ---
Date of service: 05/22/22 Time of Service: 12:28 Operative Note Operative Note DATE OF PROCEDURE: 05/22/22 PRE-OP DIAGNOSIS: Urinary retention due to neurogenic bladder POST-OP DIAGNOSIS: same PROCEDURE: cystoscopy with insertion of suprapubic tube SURGEON: Ethan Saldivar ANESTHESIA TYPE: Local By Surgeon and General:No Airway Refer to Anesthesia Record ESTIMATED BLOOD LOSS: 5 PATHOLOGY: none sent COMPLICATIONS: None Patient was transported to: same day Patient's condition: stable Implants: 16 [place] Latex free catheter Indications: This is a 72-year-old woman who has a history of a neurogenic bladder due to multiple sclerosis. She has been performing clean intermittent catheterization for urinary retention. As her disease process has progressed, she is no longer able to perform CIC reliably. She presents for placement of a suprapubic tube Procedure Description: The patient was brought to the operating room on 05/22/2022. She was given preoperative IV gentamicin. After successful induction of general anesthesia without intubation, she was placed in the dorsal lithotomy position. Her genitalia and lower abdomen were prepped and draped. 2% Xylocaine jelly was instilled into the urethra to act as a local anesthetic. A suprapubic field block was performed using quarter percent Marcaine. A curved Florencio retractor was passed through the urethra and held up against the abdominal wall. A small incision was made overlying the tip of the Florencio retractor and the tip was brought onto the abdominal wall after passing through the rectus fascia. The jaws of the Florencio retractor were opened and a used the jaws to grasp a 16 [place] latex free catheter. I pulled the catheter back through the suprapubic tract and out the urethra. I then released the catheter from the jaws of the Florencio retractor. I repositioned the catheter and passed a 22 [place] cystoscope through the urethra into the bladder. Once the positioning of the catheter was confirmed with a 70 degree lens, the catheter balloon was inflated with 10 cc of sterile water. The catheter was hooked to gravity drainage. A dry sterile dressing was then applied to the suprapubic site. The patient tolerated this procedure well with no complications.
[2022-05-22 12:33] VITALS: BP 179/67; PULSE 63; RESP 20; TEMP 36.7; O2SAT 98
[2022-05-22] MEDS: fentaNYL 100 MCG/2 ML VIAL IVP (12:48)
--- NOTE | 2022-05-22 12:49 | W.ANESPOSTOP ---
Postoperative Evaluation Date, Time and Location Date Performed: 05/22/22 Time Performed: 12:49 Patient Location: Day Surgery Unit Vital Signs Most Recent Imported Vital Signs: Most Recent Vital Signs Temp Pulse Resp BP Pulse Ox 36.7 C 63 20 179/67 H 98 05/22/22 12:33 05/22/22 12:33 05/22/22 12:33 05/22/22 12:33 05/22/22 12:33 Pain Score Most Recent Pain Score: Most Recent Pain Score Pain Level 9 05/22/22 12:33 Assessment Mental Status: Awake (Alert & Oriented to Patient Baseline) Airway and Respiratory Function: Patent airway with normal (patient baseline) respiratory exam Cardiovascular Function: Hemodynamically Stable Hydration Status: Adequately Hydrated Nausea & Vomiting: No Nausea or Vomiting Pain: Pain is Moderate or Severe Postoperative Pain Management: Pain being addressed with medication Peripheral Nerve Block: Patient did not receive a nerve block
--- NOTE | 2022-05-22 12:50 | W.PM.DSUDISC ---
Date of service: 05/22/22 Time of Service: 12:52 Discharge Plan Disposition Condition: Stable Discharge Details Reason For Visit: suprapubic catheter Attending Provider: Ethan Saldivar Primary Care Provider: Hardy Shelby Home Meds and New Rx's Prescriptions: New tramadol 50 mg tablet 50 mg PO Q6H PRN (Reason: pain) Qty: 12 0RF No Action montelukast [Singulair] 10 mg tablet 10 mg PO DAILY Qty: 90 3RF lidocaine 5 % adhesive patch,medicated 2 patch topical DAILY Qty: 60 5RF Rx Instructions: leave on most painful area for up to 12 hrs baclofen 10 mg tablet 10 mg PO BID MDD 20mg Qty: 60 5RF (DME) Ultra-Light Rollator 1 EACH misc 1 ea Miscellaneous DAILY Qty: 1 Patient Comments: outside Rx Instructions: 4 wheel rollator with basket fexofenadine 60 mg tablet 60 mg PO DAILY ferrous gluconate 324 mg (38 mg iron) tablet 324 mg PO .QOD Qty: 45 4RF sennosides [senna] 8.6 mg tablet 8.6 mg PO QHS Qty: 90 4RF atorvastatin 40 mg tablet 40 mg PO DAILY Qty: 90 3RF ascorbic acid (vitamin C) [Vitamin C] 500 mg tablet 500 mg PO DAILY Qty: 90 4RF docusate sodium 100 mg capsule 100 mg PO DAILY Qty: 90 4RF cholecalciferol (vitamin D3) [Vitamin D3] 25 mcg (1,000 unit) capsule 25 mcg PO DAILY Qty: 90 3RF duloxetine 60 mg capsule,delayed release(DR/EC) 60 mg PO HS Qty: 90 3RF potassium chloride 20 mEq tablet extended release 20 meq PO DAILY Qty: 90 3RF sucralfate 1 gram tablet 1 g PO QID 90 Days Qty: 360 3RF metoprolol succinate 100 mg tablet extended release 24 hr 100 mg PO BID Qty: 90 4RF Rx Instructions: 200 mg am,, 100 mg pm omeprazole 40 mg capsule,delayed release(DR/EC) See Rx Instructions .ROUTE .COMPLEX Qty: 180 3RF Dose Instruction: TAKE 1 CAPSULE BY MOUTH TWICE A DAY Rx Instructions: TAKE 1 CAPSULE BY MOUTH TWICE A DAY gabapentin 300 mg capsule 300 mg PO BID Qty: 60 5RF trazodone 100 mg tablet 100 mg PO QHS Qty: 30 2RF amlodipine 10 mg Tablet 10 mg PO DAILY Qty: 30 0RF acetaminophen [Tylenol 8 Hour] 650 mg tablet extended release 650 mg PO Q8H PRN (Reason: fever or pain) Qty: 30 0RF sertraline 100 MG tablet 100 mg PO DAILY Qty: 1 0RF triamcinolone acetonide [Nasacort] 55 mcg Aerosol,[place] 1 spray INTRANASAL DAILY Rx Instructions: administer into each nostril nitrofurantoin monohyd/m-cryst [Macrobid] 100 mg capsule 100 mg PO Q12H 5 Days Qty: 10 0RF Rx Instructions: must administer with a meal/food Medical Marijuana 1 tab PO HS magnesium oxide 500 mg Tablet 500 mg PO BID Rx Instructions: evening Discharge Instructions Additional Instructions: Suprapubic tube to legbag change dressing daily and prn followup 1 month for catheter change Activity:: Activity as Tolerated Remove Dressings/Wound Care:: 24 hours Shower/Bathe:: 24 hours Diet:: As Tolerated DS: Diagnosis Discharge Diagnosis (1) Urinary retention: Status: Chronic
[2022-05-22 12:51] VITALS: BP 147/78; PULSE 63; RESP 16; TEMP 37.2; O2SAT 100
[2022-05-22 13:00] VITALS: BP 154/71; PULSE 66; RESP 18; TEMP 37.1; O2SAT 98
[2022-05-22 13:32] VITALS: BP 127/77; PULSE 61; RESP 14; O2SAT 99
== END 2022-05-22 14:05 | disposition home or self-care (01) ==
PROVIDERS: PCP Nurse Practitioner Family; Visit Provider Urology
PROC: (CPT 51102; principal; 2022-05-22 10:30)
DX: G35 Multiple sclerosis (principal); N31.8 Other neuromuscular dysfunction of bladder
CPT/HCPCS: 51102; J1580; J2250; J3010

== ENCOUNTER → 2022-05-26 12:22 | Outpatient (BNVA) | payer MEDICARE, MEDICAID, SELFPAY | PROVIDERS: PCP Nurse Practitioner Family; Referring Provider Nurse Practitioner Family; Visit Provider Urology | DX: N31.9 Neuromuscular dysfunction of bladder, unspecified (principal); Z96.0 Presence of urogenital implants; G35 Multiple sclerosis | CPT/HCPCS: 99214 ==

== ENCOUNTER → 2022-06-19 15:23 | Outpatient (BNVA) | payer MEDICARE, MEDICAID, SELFPAY | PROVIDERS: PCP Nurse Practitioner Family; Referring Provider Nurse Practitioner Family; Visit Provider Urology | DX: Z43.5 Encounter for attention to cystostomy (principal); N31.9 Neuromuscular dysfunction of bladder, unspecified; G35 Multiple sclerosis | CPT/HCPCS: 51705 ==

== ENCOUNTER → 2022-07-09 13:53 | Outpatient (BNVA) | payer MEDICARE, MEDICAID, SELFPAY | PROVIDERS: PCP Nurse Practitioner Family; Referring Provider Nurse Practitioner Family; Visit Provider Nurse Practitioner Gerontology | DX: Z46.6 Encounter for fitting and adjustment of urinary device (principal); R33.8 Other retention of urine; G35 Multiple sclerosis | CPT/HCPCS: 51705 ==

== ENCOUNTER → 2022-08-04 08:00 | Outpatient (BNVA) | payer OTHER, MEDICAID, SELFPAY | PROVIDERS: PCP Nurse Practitioner Family; Referring Provider Nurse Practitioner Family; Visit Provider Psychiatry & Neurology Neurology | DX: G35 Multiple sclerosis (principal); G89.4 Chronic pain syndrome; G47.00 Insomnia, unspecified; N31.9 Neuromuscular dysfunction of bladder, unspecified; Z87.440 Personal history of urinary (tract) infections | CPT/HCPCS: 99214 ==

== ENCOUNTER → 2022-09-04 07:50 | Outpatient (BNVA) | payer MEDICARE, MEDICAID, SELFPAY | PROVIDERS: PCP Nurse Practitioner Family; Referring Provider Nurse Practitioner Family; Visit Provider Nurse Practitioner Gerontology ==

== ENCOUNTER → 2022-09-15 07:48 | Outpatient (BNVA) | payer OTHER, SELFPAY | PROVIDERS: PCP Nurse Practitioner Family; Visit Provider Nurse Practitioner Gerontology | DX: N31.9 Neuromuscular dysfunction of bladder, unspecified (principal); G35 Multiple sclerosis; Z93.59 Other cystostomy status; I12.9 Hypertensive chronic kidney disease with stage 1 through stage 4 chronic kidney disease, or unspecified chronic kidney disease; N18.4 Chronic kidney disease, stage 4 (severe) | CPT/HCPCS: 99442 ==

== ENCOUNTER → 2022-09-16 06:44 | Outpatient (BNVA) | payer OTHER, SELFPAY | PROVIDERS: PCP Nurse Practitioner Family; Referring Provider Nurse Practitioner Family; Visit Provider Psychiatry & Neurology Neurology | DX: N31.9 Neuromuscular dysfunction of bladder, unspecified (principal); R41.3 Other amnesia; I12.9 Hypertensive chronic kidney disease with stage 1 through stage 4 chronic kidney disease, or unspecified chronic kidney disease; N18.9 Chronic kidney disease, unspecified; G35 Multiple sclerosis; G47.00 Insomnia, unspecified; G89.4 Chronic pain syndrome | CPT/HCPCS: 99214 ==

== ENCOUNTER → 2022-10-27 07:46 | Outpatient (BNVA) | payer OTHER, SELFPAY | PROVIDERS: PCP Nurse Practitioner Family; Referring Provider Nurse Practitioner Family; Visit Provider Nurse Practitioner Gerontology | DX: G35 Multiple sclerosis (principal); Z93.59 Other cystostomy status; N31.9 Neuromuscular dysfunction of bladder, unspecified; N18.4 Chronic kidney disease, stage 4 (severe) | CPT/HCPCS: 99442 ==

== ENCOUNTER → 2022-12-10 14:09 | Outpatient (BNVA) | payer OTHER, SELFPAY | PROVIDERS: PCP Nurse Practitioner Family; Referring Provider Nurse Practitioner Family; Visit Provider Nurse Practitioner Gerontology | DX: N31.9 Neuromuscular dysfunction of bladder, unspecified (principal); G35 Multiple sclerosis; Z93.59 Other cystostomy status | CPT/HCPCS: 99442 ==

== ENCOUNTER → 2023-01-12 08:12 | Outpatient (BNVA) | payer OTHER, SELFPAY | PROVIDERS: PCP Nurse Practitioner Family; Referring Provider Nurse Practitioner Family; Visit Provider Nurse Practitioner Gerontology | DX: N31.9 Neuromuscular dysfunction of bladder, unspecified (principal); G35 Multiple sclerosis; R33.8 Other retention of urine | CPT/HCPCS: 99442 ==

== ENCOUNTER → 2023-01-15 08:04 | Outpatient (BNVA) | payer OTHER, SELFPAY | PROVIDERS: PCP Nurse Practitioner Family; Referring Provider Nurse Practitioner Family; Visit Provider Psychiatry & Neurology Neurology | DX: R41.3 Other amnesia (principal); G35 Multiple sclerosis; G89.4 Chronic pain syndrome; G47.00 Insomnia, unspecified; N31.9 Neuromuscular dysfunction of bladder, unspecified | CPT/HCPCS: 99214 ==

== ENCOUNTER 2023-05-20 10:14 | Outpatient (CLI) | payer OTHER, SELFPAY ==
[2023-05-20 10:26] LABS: HGB 11.2 g/dL (11.2-15.7); MCH 32.4 pg (27.0-33.0); MCV 101 fL (80-95); MPV 9.5 fL (8.0-11.0); Platelet Count 226 10^3/uL (130-400); RBC 3.46 10^6/uL (3.93-5.22); RDW 13.5 % (11.7-14.6); RDW-SD 50.1 fL
[2023-05-20 11:28] LABS: ALT 40 U/L (14-59); AST 27 U/L (15-37); Albumin 3.2 g/dL (3.4-5.0); Alkaline Phosphatase 125 U/L (46-116); Anion Gap 11.7 mmol/L (3-11); BUN 27 mg/dL (7-18); Bilirubin, Total 0.3 mg/dL (0.2-1.0); CO2 22.3 mmol/L (21.0-32.0); CREATININE 1.6 mg/dL (0.55-1.02); Calcium 8.7 mg/dL (8.5-10.1); Calculated LDL 34 mg/dL (<100); Chloride 112 mmol/L (98-107); Cholesterol 107 mg/dL (<200); Estimated GFR 34.05 (mL/min/1.73m2); Glucose 109 mg/dL (74-106); HDL Cholesterol 58 mg/dL (40-60); Sodium 146 mmol/L (136-145); Total Protein 5.7 g/dL (6.4-8.2); Triglyceride 75 mg/dL (<150); Vitamin B12 271 pg/mL (193-986)
== END 2023-05-20 10:15 | disposition home or self-care (01) ==
LOC: LBO 10:14
PROVIDERS: PCP Nurse Practitioner Family; Visit Provider Nurse Practitioner Family
DX: E78.5 Hyperlipidemia, unspecified (principal); N18.30 Chronic kidney disease, stage 3 unspecified; D51.0 Vitamin B12 deficiency anemia due to intrinsic factor deficiency
CPT/HCPCS: 36415; 80053; 80061; 82306; 85027; 82607

== ENCOUNTER → 2023-05-25 09:32 | Outpatient (BNVA) | payer OTHER, SELFPAY | PROVIDERS: PCP Nurse Practitioner Family; Referring Provider Nurse Practitioner Family; Visit Provider Psychiatry & Neurology Neurology | DX: G35 Multiple sclerosis (principal); R41.3 Other amnesia; G89.4 Chronic pain syndrome; G47.00 Insomnia, unspecified; N31.9 Neuromuscular dysfunction of bladder, unspecified | CPT/HCPCS: 99215 ==

== ENCOUNTER 2023-05-29 11:31 | Emergency (ER) | payer OTHER, SELFPAY ==
[2023-05-29 11:34] VITALS: BP 161/59; PULSE 56; RESP 18; TEMP 36.2; O2SAT 100
--- NOTE | 2023-05-29 12:38 | DI.RAD_ITS ---
Exam(s) XR HIP PELVIS ADULT BL EXAM: XR HIP PELVIS ADULT BL CLINICAL HISTORY: left hip pain. TECHNIQUE: 2D digital imaging was performed. Three views. COMPARISON: CR RIGHT HIP COMPLETE POST REDUC from 07/22/2017 FINDINGS: BONES: No acute fracture is present. No bony destructive lesion is seen. JOINTS: No dislocation present. Moderate to severe degenerative changes of both hips. SI joints and pubic symphysis are unremarkable. SOFT TISSUE: Tubing over pelvis. Vascular calcifications. IMPRESSION: Moderate to severe degenerative changes. No acute abnormality. DATA REPOSITORY: RADIATION DOSE DELIVERED:
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
[2023-05-29 13:45] VITALS: BP 171/98; PULSE 53; RESP 17; TEMP 37.1; O2SAT 95
== END 2023-05-29 13:31 | disposition home or self-care (01) ==
PROVIDERS: Emergency Provider Emergency Medicine; PCP Nurse Practitioner Family
DX: M25.552 Pain in left hip (principal); I12.9 Hypertensive chronic kidney disease with stage 1 through stage 4 chronic kidney disease, or unspecified chronic kidney disease; N18.4 Chronic kidney disease, stage 4 (severe); F03.90 Unspecified dementia, unspecified severity, without behavioral disturbance, psychotic disturbance, mood disturbance, and anxiety; G35 Multiple sclerosis; E78.5 Hyperlipidemia, unspecified; I25.2 Old myocardial infarction
CPT/HCPCS: 73521; 99283

== ENCOUNTER → 2023-07-02 07:51 | Outpatient (BNVA) | payer OTHER, SELFPAY | PROVIDERS: PCP Nurse Practitioner Family; Referring Provider Nurse Practitioner Family; Visit Provider Nurse Practitioner Gerontology ==

== ENCOUNTER 2023-07-02 09:31 | Inpatient (IN) | payer OTHER, SELFPAY ==
[2023-07-02] VITALS (42 sets, daily range): BP systolic 118–175; BP diastolic 49–79; PULSE 55–75; RESP 10–29; TEMP 36.6–37.6; O2SAT 97–100
[2023-07-02 10:21] LABS: Abs Immature Grans 0.03 10^3/uL (0.0-0.06); Absolute Basophil Count 0.11 10^3/uL (0.0-0.2); Absolute Eosinophil Count 0.67 10^3/uL (0.0-0.7); Absolute Lymphocyte Count 2.27 10^3/uL (1.2-3.4); Absolute Monocyte Count 0.52 10^3/uL (0.1-0.8); Absolute Neutrophil Count 5.03 10^3/uL (1.2-6.7); Basophils % 1.3 %; Eosinophils % 7.8 %; HGB 11.3 g/dL (11.2-15.7); Immature Grans % 0.3 %; Lymphocytes % 26.3 %; MCH 32.4 pg (27.0-33.0); MCHC 31.4 % (32.0-36.0); MCV 103 fL (80-95); MPV 9.7 fL (8.0-11.0); Neutrophils % 58.3 %; Platelet Count 216 10^3/uL (130-400); RBC 3.49 10^6/uL (3.93-5.22); RDW 13.5 % (11.7-14.6); RDW-SD 51.4 fL; WBC 8.63 10^3/uL (4.4-10.8)
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
--- NOTE | 2023-07-02 10:45 | RT.EKG_ITS ---
APPROVED REPORT Exam: Resting ECG Reason for Exam: cva Patient Location: E HR:57 bpm ECG Measurements Heart Rate 57 AXIS TX 184 P 73 QRSd 93 QRS 58 QT 442 T 48 QTc 433 Conclusion Sinus bradycardia...rate< 60
[2023-07-02 10:59] LABS: ALT 42 U/L (14-59); AST 20 U/L (15-37); Albumin 3.2 g/dL (3.4-5.0); Alkaline Phosphatase 117 U/L (46-116); Anion Gap 8.9 mmol/L (3-11); BUN 38 mg/dL (7-18); Bilirubin, Total 0.3 mg/dL (0.2-1.0); CO2 24.1 mmol/L (21.0-32.0); CREATININE 1.4 mg/dL (0.55-1.02); Calcium 8.9 mg/dL (8.5-10.1); Chloride 115 mmol/L (98-107); Estimated GFR 39.97 (mL/min/1.73m2); Glucose 94 mg/dL (74-106); Potassium 4.4 mmol/L (3.5-5.1); Sodium 148 mmol/L (136-145); TSH (W/Ref FT4) 2.72 uIU/mL (0.36-3.74); Total Protein 5.6 g/dL (6.4-8.2); Troponin I < 50 ng/L (< or =60)
[2023-07-02 11:12] LABS: Bilirubin Negative (Negative); Blood Trace-intact (Negative); Clarity Clear (Clear); Glucose Negative (Negative); Ketones Negative (Negative); Leukocyte Esterase Small (Negative); Nitrite Negative (Negative); Urobilinogen 0.2 mg/dL (Up to 0.2); pH 5.5 (5-8)
[2023-07-02 11:13] LABS: *AMPHETAMINES SCREEN URINE Negative (Negative); *BARBITURATES SCREEN URINE Negative (Negative); *BENZODIAZEPINES SCREEN URINE Negative (Negative); Cannabinoids THC Positive (Negative); Cocaine Screen,Urine Negative (Negative); METHADONE URINE SCREEN Negative (Negative); OPIATES URINE SCREEN Negative (Negative)
[2023-07-02 11:16] LABS: Tricyclic Antidepressants Negative (Negative)
--- NOTE | 2023-07-02 11:25 | DI.CT_ITS ---
Exam(s) CT HEAD WO EXAM: CT HEAD WO CLINICAL HISTORY: altered, recent cva 2 weeks ago. TECHNIQUE: Imaging Protocol: Axial computed tomography images with coronal and sagittal reformatted images were created and reviewed COMPARISON: CT CT HEAD WO from 05/07/2021 FINDINGS: Ventricles and Extra axial spaces: Normal in size and morphology for the patient's age. Hemorrhage: None. Cerebral parenchyma: No evidence of acute infarct or mass. Midline shift: None. Brainstem/Cerebellum: Normal. Calvarium: Normal. Visualized Paranasal sinuses:Clear. Mastoids: Clear. Soft Tissues: Unremarkable. ORBITS: Unremarkable. PITUITARY: Not enlarged. IMPRESSION: No acute intracranial process. RADIATION DOSE DELIVERED: 667.24mGy.cm Total DLP DATA REPOSITORY: All CT scans at this facility are submitted to the National Radiology Data Registry (NRDR) Dose Index Registry (DIR) with the [employer] [employer] ([employer]). RADIATION OPTIMIZATION: All CT scans at this facility use at least one of these dose optimization te chniques: automated exposure control; mA and/or kV adjustment per patient size (includes targeted exa ms where dose is matched to clinical indication); or iterative reconstruction.
[2023-07-02 11:27] LABS: Bacteria Moderate HPF (Negative); C & S Indicated? Yes; Crystals Negative HPF (Negative); Epithelial Cells Rare HPF (Negative); Mucus Negative (Negative); RBC 0-2 HPF (0-2)
[2023-07-02] MEDS: ACETAMINOPHEN 1,000 MG/100 ML BTL 400 MG IVPB (11:42)
--- NOTE | 2023-07-02 14:00 | DI.MRI_ITS ---
Exam(s) MR BRAIN WO EXAM: MR BRAIN WO CLINICAL HISTORY: rt sided weakness TECHNIQUE: Multiplanar multisequence MRI of the brain was performed. COMPARISON: MR MR BRAIN WO CONTRAST from 06/19/[address] HEAD WO from 07/02/2023 FINDINGS: Exam somewhat limited by motion. VENTRICLES AND EXTRA AXIAL SPACES: Normal in size and morphology for the patient's age. MIDLINE SHIFT: None. CEREBRAL PARENCHYMA: No focus of restricted diffusion to suggest acute infarct. No space-occupying le isaac identified. Mild atrophy consistent with the patient's age. Multiple scattered foci of high sig nal in the white matter consistent with sequela of chronic microvascular disease. Prominent perivasc ular spaces in the bilateral basal ganglia. HEMORRHAGE: None. BRAINSTEM/CEREBELLUM: Normal. VISUALIZED PARANASAL SINUSES/MASTOIDS:Clear. Vasculature: Normal flow void. PITUITARY GLAND: Unremarkable. ORBITS: Unremarkable. Severe degenerative changes are noted at C3-4 which appears to impinge on the cord. IMPRESSION: No acute abnormality. Stable appearance of white matter disease. Severe degenerative changes of the C3-4 level. DATA REPOSITORY:
[2023-07-02] MEDS: cefTRIAXone 1 GM/50 ML BAG IVPB (14:47)
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
[2023-07-02] MEDS: Enoxaparin 30 MG/0.3 ML SYR SC (20:39)
[2023-07-02] MEDS: Metoprolol CR 100 MG TABCR PO (20:40)
[2023-07-02] MEDS: Magnesium Oxide 400 MG TAB PO (20:41)
[2023-07-02] MEDS: DULoxetine 30 MG CAP 60 MG PO (20:42)
[2023-07-02] MEDS: Omeprazole 20 MG CAPCR 40 MG PO (20:44)
[2023-07-02] MEDS: traZODone 50 MG TAB 150 MG PO (20:44)
[2023-07-02] MEDS: Senna TAB 1 TAB PO (20:44)
[2023-07-02] MEDS: Normal Saline Flush 10 ML SYR IVP (20:48)
[2023-07-02] MEDS: Ondansetron O.D.T. 4 MG TABEF PO (21:00)
[2023-07-02] MEDS: traMADol 50 MG TAB PO (21:00)
[2023-07-02] MEDS: Acetaminophen 500 MG TAB 1000 MG PO (23:35)
[2023-07-02] MEDS: Sucralfate 1 GM TAB PO (23:38)
[2023-07-03] VITALS (8 sets, daily range): BP systolic 177–192; BP diastolic 72–96; PULSE 76–87; RESP 15–16; TEMP 36.2–37.1; O2SAT 94–99
[2023-07-03] MEDS: traMADol 50 MG TAB PO ×2 (05:22→16:35)
[2023-07-03] MEDS: Acetaminophen 500 MG TAB 1000 MG PO ×3 (05:23→21:05)
[2023-07-03] MEDS: amLODIPine 10 MG TAB PO (06:14)
[2023-07-03 06:57] LABS: HCT 35.6 % (36.0-46.0); HGB 11.7 g/dL (11.2-15.7); MCH 32.7 pg (27.0-33.0); MCHC 32.9 % (32.0-36.0); MCV 99 fL (80-95); Platelet Count 219 10^3/uL (130-400); RBC 3.58 10^6/uL (3.93-5.22); RDW 13.2 % (11.7-14.6); RDW-SD 48.3 fL
[2023-07-03 07:12] LABS: Anion Gap 10.7 mmol/L (3-11); BUN 28 mg/dL (7-18); CO2 23.3 mmol/L (21.0-32.0); CREATININE 1.3 mg/dL (0.55-1.02); Calcium 8.8 mg/dL (8.5-10.1); Chloride 108 mmol/L (98-107); Estimated GFR 43.69 (mL/min/1.73m2); Glucose 109 mg/dL (74-106); Magnesium 1.7 mg/dL (1.8-2.4); Sodium 142 mmol/L (136-145)
[2023-07-03] MEDS: Montelukast 10 MG TAB PO (07:37)
[2023-07-03] MEDS: Atorvastatin 40 MG TAB PO (07:38)
[2023-07-03] MEDS: Ferrous Gluconate 324 MG TAB PO (07:38)
[2023-07-03] MEDS: Sucralfate 1 GM TAB PO ×4 (07:39→21:05)
[2023-07-03] MEDS: Potassium Chloride 20 MEQ TABCR PO (07:39)
[2023-07-03] MEDS: Sertraline 100 MG TAB PO (07:39)
[2023-07-03] MEDS: Omeprazole 20 MG CAPCR 40 MG PO ×2 (07:39→21:03)
[2023-07-03] MEDS: Metoprolol CR 100 MG TABCR 200 MG PO (07:40)
[2023-07-03] MEDS: Lisinopril 20 MG TAB 40 MG PO (07:40)
[2023-07-03] MEDS: Mirabegron 25 MG TABCR PO (07:40)
[2023-07-03] MEDS: Magnesium Oxide 400 MG TAB PO ×2 (07:40→21:04)
[2023-07-03] MEDS: Normal Saline Flush 10 ML SYR IVP ×3 (07:41→21:16)
--- NOTE | 2023-07-03 11:20 | PGE_ITS ---
Date of Service Date of service: 07/03/23 Time of Service: 11:21 Assessment and Plan Assessment and plan (1) Encephalopathy: Status: Inactive Assessment and plan: The patient had reports auditory hallucination overnight, agitated and speaking to someone in the room as per nursing staff-visual hallucination VS dreaming Persevered in her thought process this AM and mentioning fictional RN's names not on staff last night that she would not want to access her room. As mentioned in H&P -Most likely d/t MS exacerbation d/t UTI, as per [facility] consult, will continue to treat UTI then reevaluate (2) Acute UTI: Status: Acute Assessment and plan: Continue ceftriaxone -Urine culture growing GNR Further results pending (3) Multiple sclerosis: Status: Chronic Assessment and plan: Greatly improved strength to right leg, moderate improvement to right arm PT consultation pending As previously mentioned, not on medicine at home at this point as per [facility] as reported by patient (4) Acute right-sided weakness: Status: Acute Assessment and plan: As per [facility] neuroconsultation completed on 07/02/23, this was most likely due to MS exacerbation related to the UTI. Will continue to monitor and treat the UTI Still on ceftriaxone at this time to treat the most likely cause of the MS exacerbation (5) Hypertension: Status: Chronic Assessment and plan: On home medicine regimen with parameters Qualifiers: Hypertension type: essential hypertension Qualified Code(s): I10 - Essential (primary) hypertension (6) Depression: Status: Chronic Assessment and plan: Sertraline and trazodone listed on home meds list Not filled by [facility] to verify where the patient is getting them from if taken at all at home Qualifiers: Active/Remission status: remission status unspecified Depression Type: major depressive disorder (7) Nausea: Status: Acute Assessment and plan: Reporting nausea not impairing her oral intake Was on Ondansetron at home and will continue regimen at this time (8) On deep vein thrombosis (DVT) prophylaxis: Status: Acute Assessment and plan: Continue Lovenox (9) Discharge planning issues: Status: Resolved Assessment and plan: Care management to follow up if for further needs arise Discussed with Dr. Hopkins Subjective Subjective Patient reports: feels better, tolerating liquids well, tolerating a regular diet, voiding w/o difficulty, no flatus, no bowel movement, nausea, afebrile and other (Reports nursing calling her family members during the night and telling her that she is adruggy and a whore and that discussing the of her family members); denies still having pain, diarrhea, vomiting, shortness of breath or fever Exam Narrative Exam Narrative: Constitutional The patient is in bed comfortable and cooperative during the interview. The patient appears frail and cachectic HENMT: Facial structures are with normal appearance Neuro:alert and oriented to self, person, place and situation but thinks she came in this [place] despite discussing events reportedly occuring during the night .Right upper and lower ext. shows improved weakness, minimal weakness to the left side, PERRLA on ambient light Resp: Normal respiratory pattern, speaks in full sentences, clear lung bilaterally Cardio: regular rhythm, S1, S2, no murmur, capillary refill<3 sec., positive pulses to all 4 extremities GI: Abdomen is flat , soft and non tender, bowel sounds are present : Negative Costovertebral angle tenderness Back/spine/Pelvis: No back tenderness, previous surgical scar noted Integumentary: No skin lesions or rash Psych: RASS 0-1, abnormal mood and affect see below Psych Speech and Movement: pressured speech Mood: paranoid Affect: animated Attitude: cooperative and guarded Thought Process: flight of ideas and perseverating Thought Content: hallucinations auditory Insight: limited Judgment: limited Objective Last Vital Signs Temp 37.1 C 07/03/23 11:12 Pulse 80 07/03/23 11:12 Resp 15 07/03/23 11:12 BP 177/72 H 07/03/23 11:12 Pulse Ox 98 07/03/23 11:12 Laboratory Results - last 24 hr 07/02/23 07/03/23 10:34 06:11 WBC 8.50 RBC 3.58 L Hgb 11.7 Hct 35.6 L MCV 99 H D MCH 32.7 MCHC 32.9 RDW 13.2 Plt Count 219 MPV 10.0 Sodium 142 Potassium 4.0 Chloride 108 H Carbon Dioxide 23.3 Anion Gap 10.7 BUN 28 H Creatinine 1.3 H Est GFR (CKD-EPI 2020) 43.69 Glucose 109 H Calcium 8.8 Magnesium 1.7 L Urine RBC 0-2 Urine WBC 10-20 H Ur Epithelial Cells Rare Urine Crystals Negative Urine Bacteria Moderate Urine Mucus Negative Ur Culture Indicated? Yes Time Spent with Patient Time Spent with Patient: >50 minutes Time was spent: preparing to see the patient(eg.review tests), obtaining and/or reviewing separately otained hiistory, ordering medications,tests, procedures, referring, communicating with other health care management coordinator, indepentently interpreting results, counseling the patient and care coordination
[2023-07-03] MEDS: cefTRIAXone 2 GM/50 ML BAG IVPB (11:39)
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
[2023-07-03] MEDS: MAGNESIUM SULFATE 2 GM/50 ML BAG IVINF (12:31)
--- NOTE | 2023-07-03 14:02 | CHAPLAIN ---
Kena and I know each other from previous admissions. She was not her usual self in the the way she communicated and reacted to people. She knew who I was. She told me that staff was not letting Marek (I think Marek is her boyfriend) visit and she was angry about that. When two LNAs arrived to reposition her, Kena said she didn't want Allegra to touch her again, although Allegra had never met Kena before. I will continue to visit.
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
[2023-07-03] MEDS: Enoxaparin 30 MG/0.3 ML SYR SC (17:36)
[2023-07-03] MEDS: Metoprolol CR 100 MG TABCR PO (21:04)
[2023-07-03] MEDS: traZODone 50 MG TAB 150 MG PO (21:04)
[2023-07-03] MEDS: DULoxetine 30 MG CAP 60 MG PO (21:04)
[2023-07-03] MEDS: Senna TAB 1 TAB PO (21:05)
[2023-07-04] VITALS (8 sets, daily range): BP systolic 116–185; BP diastolic 69–115; PULSE 81–102; RESP 15–19; TEMP 36.4–37.3; O2SAT 96–100
[2023-07-04] MEDS: traMADol 50 MG TAB PO ×2 (05:03→23:48)
[2023-07-04] MEDS: Acetaminophen 500 MG TAB 1000 MG PO ×3 (06:17→21:13)
[2023-07-04 07:09] LABS: Abs Immature Grans 0.05 10^3/uL (0.0-0.06); Absolute Basophil Count 0.06 10^3/uL (0.0-0.2); Absolute Eosinophil Count 0.08 10^3/uL (0.0-0.7); Absolute Lymphocyte Count 1.85 10^3/uL (1.2-3.4); Absolute Monocyte Count 0.58 10^3/uL (0.1-0.8); Basophils % 0.5 %; Eosinophils % 0.7 %; HCT 39.2 % (36.0-46.0); HGB 12.8 g/dL (11.2-15.7); Immature Grans % 0.4 %; Lymphocytes % 16.5 %; MCH 31.9 pg (27.0-33.0); MCHC 32.7 % (32.0-36.0); MCV 98 fL (80-95); MPV 9.6 fL (8.0-11.0); Monocytes % 5.2 %; Neutrophils % 76.7 %; Platelet Count 279 10^3/uL (130-400); RBC 4.01 10^6/uL (3.93-5.22); RDW 12.6 % (11.7-14.6); RDW-SD 45.5 fL
[2023-07-04 07:16] LABS: Absolute Neutrophil Count 8.59 10^3/uL (1.2-6.7)
[2023-07-04 07:22] LABS: Anion Gap 13.3 mmol/L (3-11); BUN 22 mg/dL (7-18); CO2 26.7 mmol/L (21.0-32.0); Calcium 9.6 mg/dL (8.5-10.1); Chloride 101 mmol/L (98-107); Estimated GFR 59.86 (mL/min/1.73m2); Glucose 128 mg/dL (74-106); Magnesium 2.1 mg/dL (1.8-2.4); Sodium 141 mmol/L (136-145)
[2023-07-04] MEDS: Sucralfate 1 GM TAB PO ×4 (07:33→21:14)
[2023-07-04] MEDS: Potassium Chloride 20 MEQ TABCR PO (07:34)
[2023-07-04] MEDS: Omeprazole 20 MG CAPCR 40 MG PO ×2 (07:34→21:12)
[2023-07-04] MEDS: Magnesium Oxide 400 MG TAB PO ×2 (07:34→21:12)
[2023-07-04] MEDS: Atorvastatin 40 MG TAB PO (07:34)
[2023-07-04] MEDS: Mirabegron 25 MG TABCR PO (07:35)
[2023-07-04] MEDS: Lisinopril 20 MG TAB 40 MG PO (07:35)
[2023-07-04] MEDS: Metoprolol CR 100 MG TABCR 200 MG PO (07:35)
[2023-07-04] MEDS: Montelukast 10 MG TAB PO (07:35)
[2023-07-04] MEDS: Sertraline 100 MG TAB PO (07:36)
[2023-07-04] MEDS: Normal Saline Flush 10 ML SYR IVP ×2 (07:36→23:08)
[2023-07-04] MEDS: amLODIPine 10 MG TAB PO (07:36)
--- NOTE | 2023-07-04 09:09 | PGE_ITS ---
Date of Service Date of service: 07/04/23 Time of Service: 09:09 Assessment and Plan Assessment and plan (1) Encephalopathy: Status: Inactive Assessment and plan: The patient had reports auditory hallucination overnight, agitated and speaking to someone in the room as per nursing staff-visual hallucination VS dreaming Persevered in her thought process this AM and mentioning fictional RN's names not on staff last night that she would not want to access her room. As mentioned in H&P -Most likely d/t MS exacerbation d/t UTI, as per [facility] consult, will continue to treat UTI then reevaluate -Consult placed as delusional symptoms are persevering (2) Acute UTI: Status: Acute Assessment and plan: Continue ceftriaxone -Urine culture growing GNR -Trending WBC at 11 from 8 but afebrile Further results pending (3) Multiple sclerosis: Status: Chronic Assessment and plan: Greatly improved strength to right leg, moderate improvement to right arm PT consultation completed. Recommendation for d/c under d/c planning As previously mentioned, not on medicine at home at this point as per [facility] as reported by patient Managing pain w home meds at renal dosing Will try additional dose of ibuprofen X 1 (4) Acute right-sided weakness: Status: Acute Assessment and plan: As per [facility] neuroconsultation completed on 07/02/23, this was most likely due to MS exacerbation related to the UTI. resolved at this time Will continue to monitor and continue to treat the UTI Still on ceftriaxone pending cultures showing GNR at this time to treat the most likely cause of the MS exacerbation Reconsultation w [facility] neuro pending (5) Hypertension: Status: Chronic Assessment and plan: On home medicine regimen with parameters Qualifiers: Hypertension type: essential hypertension Qualified Code(s): I10 - Essential (primary) hypertension (6) Depression: Status: Chronic Assessment and plan: Sertraline and trazodone listed on home meds list, trazodone on hold now has a history of NMS with geodon Not filled by [facility], patient unreliable at this time d/t mental state Nursing to verify w SO where the patient is getting them from if taken at all at home Qualifiers: Active/Remission status: remission status unspecified Depression Type: major depressive disorder (7) Nausea: Status: Acute Assessment and plan: Reporting nausea not impairing her oral intake Was on Ondansetron at home and will continue regimen at this time (8) On deep vein thrombosis (DVT) prophylaxis: Status: Acute Assessment and plan: Continue LMWH (9) Discharge planning issues: Status: Resolved Assessment and plan: Care management to follow up if for further needs arise Recommendation for d/c as per PT: Short-term SNF vs. PT Discussed with Dr. Hopkins Subjective Subjective Patient reports: no new complaints, feels better, tolerating liquids well, tolerating a regular diet, voiding w/o difficulty and flatus; denies diarrhea, nausea, vomiting, shortness of breath or fever Exam Narrative Exam Narrative: Constitutional The patient is in bed comfortable and cooperative during the interview. The patient appears frail and cachectic HENMT: Facial structures are with normal appearance Neuro:alert and oriented to self, person, place and situation but delusions about family relations still expressed, poor recall of recent events, right upper and lower ext. resolved and back to baseline Resp: Clear lung bilaterally Cardio: regular rhythm, S1, S2, positive pulses to all 4 extremities GI: Abdomen is flat , soft and non tender, bowel sounds are present : Negative Costovertebral angle tenderness Integumentary: No skin lesions or rash Psych: RASS 0-1, abnormal mood and affect see below Psych Speech and Movement: pressured speech Mood: paranoid Affect: animated Attitude: cooperative and guarded Thought Process: flight of ideas and perseverating Thought Content: hallucinations auditory Insight: limited Judgment: limited Objective Last Vital Signs Temp 37 C 07/04/23 07:42 Pulse 92 H 07/04/23 07:42 Resp 19 07/04/23 07:42 BP 162/115 H 07/04/23 07:42 Pulse Ox 96 07/04/23 07:42 Laboratory Results - last 24 hr 07/04/23 06:27 WBC 11.20 H RBC 4.01 Hgb 12.8 Hct 39.2 MCV 98 H MCH 31.9 MCHC 32.7 RDW 12.6 Plt Count 279 MPV 9.6 Immature Gran % 0.4 Neutrophils % 76.7 Lymphocytes % 16.5 Monocytes % 5.2 Eosinophils % 0.7 Basophils % 0.5 Nucleated RBC % 0.0 Absolute Neutrophils 8.59 H Absolute Lymphocytes 1.85 Absolute Monocytes 0.58 Absolute Eosinophils 0.08 Absolute Basophils 0.06 Sodium 141 Potassium 4.0 Chloride 101 Carbon Dioxide 26.7 Anion Gap 13.3 H BUN 22 H Creatinine 1.0 Est GFR (CKD-EPI 2020) 59.86 Glucose 128 H Calcium 9.6 Magnesium 2.1 Time Spent with Patient Time Spent with Patient: >50 minutes Time was spent: preparing to see the patient(eg.review tests), obtaining and/or reviewing separately otained hiistory, ordering medications,tests, procedures, referring, communicating with other health neonatal critical care nurse, indepentently interpreting results, counseling the patient and care coordination
--- NOTE | 2023-07-04 10:13 | PT.INTREAT ---
PT Notes Visit Reasons: UTI, Encephalopathy Inpatient Physical Therapy Treatment Note [facility] Date: 07/04/23 PRECAUTIONS:Standard OBJECTIVE: ? Therapeutic Activities (92592f[1]): Direct one-on-one instruction in dynamic activities to improve functional performance. ? BED MOBILITY/TRANSFERS? Sit-stand: CGA? Stand-sit: CGA? Provided skilled cues and instruction on performance and technique throughout. Gait Training (20148h[]): Direct one-on-one instruction and skilled instruction in: ? GAIT? Assistive Device: fww? Weight bearing: Full Assist: CGA? Distance:? Approx 100ft with a seated rest ? Therapeutic Exercises (74799u[1]): Direct one-on-one instruction in therapeutic exercises to develop strength, endurance, range of motion and flexibility. ? Exercises ? Seated rowing x 15 Seated shoulder flexion x 15 Seated shoulder circles x [address] Seated horz abd with UE x 15 LAQx15 hip abd x 15 Seated SLR x 10 Heel slides x 10 Marching x 20 Q.S. 10 ? ASSESSMENT:? Pt was very motivated for PT. She had reported feeling better she just had a little burning sensation in the R arm and leg. PLAN: Cont as per Pt POC. TREATMENT CODE/TIME: 9:45-10:10 (25) TA TP
[2023-07-04] MEDS: cefTRIAXone 2 GM/50 ML BAG IVPB (11:51)
[2023-07-04] MEDS: Ibuprofen 400 MG TAB PO (13:47)
[2023-07-04] MEDS: Enoxaparin 30 MG/0.3 ML SYR SC (17:22)
[2023-07-04] MEDS: DULoxetine 30 MG CAP 60 MG PO (21:11)
[2023-07-04] MEDS: Metoprolol CR 100 MG TABCR PO (21:11)
[2023-07-04] MEDS: Senna TAB 1 TAB PO (21:12)
[2023-07-05 01:45] VITALS: BP 151/104; PULSE 91; RESP 16; TEMP 38; O2SAT 99
[2023-07-05] MEDS: Ondansetron O.D.T. 4 MG TABEF PO (02:31)
[2023-07-05] MEDS: Acetaminophen 500 MG TAB 1000 MG PO ×3 (05:08→22:24)
[2023-07-05 06:54] LABS: Abs Immature Grans 0.05 10^3/uL (0.0-0.06); Absolute Basophil Count 0.04 10^3/uL (0.0-0.2); Absolute Monocyte Count 0.55 10^3/uL (0.1-0.8); Absolute Neutrophil Count 9.22 10^3/uL (1.2-6.7); Basophils % 0.3 %; HCT 35.6 % (36.0-46.0); Immature Grans % 0.4 %; Lymphocytes % 17.6 %; MCHC 33.7 % (32.0-36.0); MCV 95 fL (80-95); MPV 9.4 fL (8.0-11.0); Monocytes % 4.6 %; Neutrophils % 77.1 %; Platelet Count 278 10^3/uL (130-400); RBC 3.75 10^6/uL (3.93-5.22); RDW 12.4 % (11.7-14.6); RDW-SD 43.3 fL; WBC 11.96 10^3/uL (4.4-10.8)
[2023-07-05 07:21] LABS: Anion Gap 9.1 mmol/L (3-11); BUN 24 mg/dL (7-18); CO2 26.9 mmol/L (21.0-32.0); Calcium 9.6 mg/dL (8.5-10.1); Chloride 102 mmol/L (98-107); Estimated GFR 59.86 (mL/min/1.73m2); Glucose 123 mg/dL (74-106); Potassium 3.9 mmol/L (3.5-5.1); Sodium 138 mmol/L (136-145)
[2023-07-05] MEDS: Potassium Chloride 20 MEQ TABCR PO (07:28)
[2023-07-05] MEDS: Sertraline 100 MG TAB PO (07:29)
[2023-07-05] MEDS: amLODIPine 10 MG TAB PO (07:29)
[2023-07-05] MEDS: Omeprazole 20 MG CAPCR 40 MG PO ×2 (07:29→22:24)
[2023-07-05] MEDS: Lisinopril 20 MG TAB 40 MG PO (07:29)
[2023-07-05] MEDS: Montelukast 10 MG TAB PO (07:30)
[2023-07-05] MEDS: Ferrous Gluconate 324 MG TAB PO (07:30)
[2023-07-05] MEDS: Atorvastatin 40 MG TAB PO (07:30)
[2023-07-05] MEDS: Sucralfate 1 GM TAB PO ×4 (07:30→22:24)
[2023-07-05] MEDS: Magnesium Oxide 400 MG TAB PO ×2 (07:30→22:24)
[2023-07-05] MEDS: Mirabegron 25 MG TABCR PO (07:31)
[2023-07-05] MEDS: Metoprolol CR 100 MG TABCR 200 MG PO (07:31)
[2023-07-05] MEDS: Normal Saline Flush 10 ML SYR IVP ×2 (07:32→19:27)
[2023-07-05 07:36] VITALS: BP 134/82; PULSE 75; RESP 17; TEMP 37.1; O2SAT 100
--- NOTE | 2023-07-05 10:24 | PT.INTREAT ---
PT Notes Visit Reasons: UTI, Encephalopathy Inpatient Physical Therapy Treatment Note [facility] Date: 07/05/23 PRECAUTIONS:Standard SUBJECTIVE: Pt reports that she is waiting for her dog and person to get here. OBJECTIVE: Therapeutic Activities (63934m[1]): Direct one-on-one instruction in dynamic activities to improve functional performance. ? BED MOBILITY/TRANSFERS? Sit-supine: SBA ? Sit-stand: SBA? Stand-sit: SBA ? GAIT? Assistive Device: FWW ? Weight bearing: Full Assist: SBA/CGA? Distance:? 150ft ? Therapeutic Exercises (52556q[]): Direct one-on-one instruction in therapeutic exercises to develop strength, endurance, range of motion and flexibility. ? Exercises ? Seated rowing x 10 Seated shoulder flexion x10 ASSESSMENT:? Pt was confused today. She was looking for her person and a dog while we were having our session. Pt kept thinking she was seeing and hearing them and would call out to them that she was here. Pt seemed more tired today as well as more confusion. PLAN: Cont as per PT POC. TREATMENT CODE/TIME: 10-10:20 (20) TA
[2023-07-05] MEDS: cefTRIAXone 2 GM/50 ML BAG IVPB (11:45)
[2023-07-05 11:49] VITALS: BP 138/75; PULSE 72; RESP 19; TEMP 36.1; O2SAT 99
--- NOTE | 2023-07-05 13:45 | NUR.NOTE ---
Trailer Mechanic has been with patient for the past 2 day shifts. Noticing increasing paranoia and hallucinations. 07/02 patient pleasantly delusional, interacting with family members in the room. Walking around looking for the meeting with her sister. She called her significant other and told him he has syphilis and that is what she has been told she has as well. Significant other called the nursing stations with increasing concerns, Pt is not herself, she is more and more confused. QUANG Morelos notified. No New orders. 07/03 patient seeing a little girl and have the child sit and eat with her for dinner. Pt fell over arm of chair trying to see if the little girl was OK. Continued to have conversations while alone in her room with a range of emotions, from tearful to content,Calling for her pets to come closer and see her. QUANG Morelos notified, post fall neuro checks added. 07/04 pt appeared in her doorway, THEN the bed alarm went off. Pt stating I need to find Taya, my and Lionel, they are looking for me. Then we walked around the unit as patient tried to enter other rooms. Upon returning to the patient room, patient went to the window and started to cry stating Don't jump! Please, don't jump! I cannot believe he is about to do this! DO YOU THINK HE IS OK?! Patient then attempted to run to the nurses station to make sure he was OK. Pt redirected back into bed, with safety alarm in place. Kelly alarm rang out again as pt was answering a phone that did not ring, pt tearful to staff saying that Marek doesn't want me anymore, I do not want to give him my money. QUANG Ward notified about increasing paranoia and concern for patient safety. Will continue to monitor. Nursing Note:
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
[2023-07-05 15:42] VITALS: BP 150/89; PULSE 79; RESP 18; TEMP 36.7; O2SAT 98
--- NOTE | 2023-07-05 15:57 | PGE_ITS ---
Date of Service Date of service: 07/05/23 Time of Service: 15:57 Assessment and Plan Assessment and plan (1) Delirium: Status: Acute Assessment and plan: initially thought to be infectious encephalopathy from UTI. Has been treated with no improvement in her symptoms awaiting urine culture and sensitivities No other source of infection or etiology for her delirium identified Continue safety precautions and redirecting as needed Will appreciate neurology input tomorrow when available Try to wean off medications as appropriate-stopping fexofenadine and mirabegron, consider weaning Cymbalta, off baclofen (2) Acute UTI: Status: Acute Assessment and plan: Continue ceftriaxone -Urine culture growing GNR -Trending WBC at 11 from 8 but afebrile Further results pending (3) Multiple sclerosis: Status: Chronic Assessment and plan: Greatly improved strength to right leg, moderate improvement to right arm PT consultation completed. Recommendation for home health PT upon discharge As previously mentioned, not on medicine at home at this point as per [facility] as reported by patient Managing pain w home meds at renal dosing (4) Acute right-sided weakness: Status: Resolved Assessment and plan: As per [facility] neuroconsultation completed on 07/02/23, this was most likely due to MS exacerbation related to the UTI. resolved at this time Will continue to monitor and continue to treat the UTI Still on ceftriaxone pending cultures showing GNR at this time to treat the most likely cause of the MS exacerbation Reconsultation w her neurologist pending for Thursday (5) Hypertension: Status: Chronic Assessment and plan: On home medicine regimen with parameters Qualifiers: Hypertension type: essential hypertension Qualified Code(s): I10 - Essential (primary) hypertension (6) Depression: Status: Chronic Assessment and plan: Sertraline Not filled by [email or web address], patient unreliable at this time d/t mental state. Has been taking trazodone will reinitiate Consider weaning Cymbalta Qualifiers: Active/Remission status: remission status unspecified Depression Type: major depressive disorder (7) Nausea: Status: Resolved Assessment and plan: Reporting nausea not impairing her oral intake Was on Ondansetron at home and will continue regimen at this time (8) On deep vein thrombosis (DVT) prophylaxis: Status: Acute Assessment and plan: Continue LMWH (9) Discharge planning issues: Status: Resolved Assessment and plan: Care management to follow up if for further needs arise Recommendation for d/c as per PT: PT Discussed with Dr. Hopkins Subjective Subjective Patient reports: afebrile; denies shortness of breath Interval history since last seen: remains confused and having visual hallucinations. needing frequent re- direction. did not sleep last night. Exam Narrative Exam Narrative: Thin female appearing of stated age hemodynamically stable nontoxic-appearing is anxious from her hallucinations. Head is atraumatic eyes nonicteric noninjected facial features symmetrical. Neck is supple with full range of motion no JVD respirations are even and unlabored breath sounds are clear bilaterally cardiovascular regular rate and rhythm abdomen is soft nontender positive bowel sounds moves all extremities neurologic she is awake alert oriented no focal deficits psychiatric paranoid with visual hallucinations anxious Objective Last Vital Signs Temp 36.7 C 07/05/23 15:42 Pulse 79 07/05/23 15:42 Resp 18 07/05/23 15:42 BP 150/89 H 07/05/23 15:42 Pulse Ox 98 07/05/23 15:42 Laboratory Results - last 24 hr 07/05/23 07/05/23 06:18 06:18 WBC 11.96 H RBC 3.75 L Hgb 12.0 Hct 35.6 L MCV 95 MCH 32.0 MCHC 33.7 RDW 12.4 Plt Count 278 MPV 9.4 Immature Gran % 0.4 Neutrophils % 77.1 Lymphocytes % 17.6 Monocytes % 4.6 Eosinophils % 0.0 Basophils % 0.3 Nucleated RBC % 0.0 Absolute Neutrophils 9.22 H Absolute Lymphocytes 2.10 Absolute Monocytes 0.55 Absolute Eosinophils 0.00 Absolute Basophils 0.04 Sodium 138 Potassium 3.9 Chloride 102 Carbon Dioxide 26.9 Anion Gap 9.1 BUN 24 H Creatinine 1.0 Est GFR (CKD-EPI 2020) 59.86 Glucose 123 H Calcium 9.6 Magnesium 2.0 Cancelled Time Spent with Patient Time Spent with Patient: 35-49 minutes Time was spent: preparing to see the patient(eg.review tests), obtaining and/or reviewing separately otained hiistory, ordering medications,tests, procedures, indepentently interpreting results and counseling the patient
[2023-07-05] MEDS: LORazepam 1 MG TAB PO (16:09)
[2023-07-05] MEDS: Enoxaparin 40 MG/0.4 ML SYR SC (17:52)
[2023-07-05] MEDS: DULoxetine 30 MG CAP 60 MG PO (19:28)
[2023-07-05] MEDS: traZODone 100 MG TAB 150 MG PO (19:29)
[2023-07-05] MEDS: Melatonin 3 MG TAB PO (19:29)
--- NOTE | 2023-07-05 21:50 | NUR.NOTE ---
0. pt sleeping in bed at this time, safety alarms active. earlier in the 1900 hour pt was refusing an in depth head to toe assessment. she was refusing vital sign recording. when the patient does wake up again. I will attempt to collect vital signs and administer medications. please see my shift assessment earlier for more details. Nursing Note:
[2023-07-05] MEDS: Metoprolol CR 100 MG TABCR PO (22:24)
[2023-07-05] MEDS: Senna TAB 1 TAB PO (22:25)
[2023-07-05 22:31] VITALS: BP 182/84; PULSE 73; RESP 18; TEMP 36.5; O2SAT 94
[2023-07-06] VITALS (15 sets, daily range): BP systolic 129–164; BP diastolic 67–102; PULSE 66–98; RESP 16–20; TEMP 35.9–37.4; O2SAT 96–100
[2023-07-06] MEDS: traMADol 50 MG TAB PO ×2 (03:05→18:42)
[2023-07-06] MEDS: LORazepam 1 MG TAB PO ×2 (03:52→19:20)
[2023-07-06] MEDS: Acetaminophen 500 MG TAB 1000 MG PO ×3 (06:03→20:17)
[2023-07-06] MEDS: Omeprazole 20 MG CAPCR 40 MG PO ×2 (07:45→20:16)
[2023-07-06] MEDS: Lisinopril 20 MG TAB 40 MG PO (07:46)
[2023-07-06] MEDS: Atorvastatin 40 MG TAB PO (07:46)
[2023-07-06] MEDS: Metoprolol CR 100 MG TABCR 200 MG PO (07:46)
[2023-07-06] MEDS: Potassium Chloride 20 MEQ TABCR PO (07:47)
[2023-07-06] MEDS: Sucralfate 1 GM TAB PO ×4 (07:47→20:18)
[2023-07-06] MEDS: amLODIPine 10 MG TAB PO (07:47)
[2023-07-06] MEDS: Magnesium Oxide 400 MG TAB PO ×2 (07:47→20:17)
[2023-07-06] MEDS: Montelukast 10 MG TAB PO (07:48)
--- NOTE | 2023-07-06 10:49 | PT.INTREAT ---
PT Notes Visit Reasons: UTI, Encephalopathy Date: 07/06/23 PRECAUTIONS: Fall. Standard. Activity as tolerated. SUBJECTIVE: Pt in bed sleeping when initially approached for therapy at 9am, pt requested to be seen later at around 10:30am. pt greed to partici[link with therapy when re-approached at 10:30am, pt reports she is feeling much better, pt able to carry conversation without issues. no confusion today, very pleasant. OBJECTIVE: ?soliz catheter? PAIN: none reported VITALS: monitored by nursing ? Therapeutic Activities 30314: Direct one-on-one instruction in dynamic activities to improve functional performance. ?? BED MOBILITY/TRANSFERS? Rolling L/R: supervision Supine-sit: ?supervision ? Sit-supine: ? supervision ? Sit-stand: ? ?supervision ? Stand-sit: ?? ?supervision ? Bed-Chair:? ? supervision? Chair-bed: supervision Provided skilled cues and instruction on performance and technique throughout. Gait Training 33875: Direct one-on-one instruction and skilled instruction in: Employing an assistive device Modified weight-bearing status Movement sequencing Turning and movement with proper form Provided verbal cues for equipment management and technique Provided instruction in gait pattern Patient education regarding pacing and breathing techniques to maximize activity tolerance? GAIT? Assistive Device: ?? ?FWW? Weight bearing: FWB Assist: ? supervision? Distance:?? !50'x2 seated rest break in between? Deviation: ? unremarkable ? Therapeutic Exercises 46687: Direct one-on-one instruction in therapeutic exercises to develop strength, endurance, range of motion and flexibility. Exercises: Seated marching [id number] Seated SAQ [id number] Seated LAQ [id number] Seated hip AB/AD [id number] Seated Ankle plantar/dorsi flexion [id number] Sit to stand without UE support [id number] Provided skilled instruction in proper exercise performance Provided skilled manual cues to facilitate proper muscle recruitment and/or form: ASSESSMENT:?Pt Nurse informed about pt improved stability and safety awareness, pt status changed to independent with FWW inside pt room. pt requested to stay in recliner post session to work on her laura while waiting for lunch. PLAN: Continue with balance training, global strengthening and general conditioning for improved safety, mobility and activity tolerance until pt is ready for DC. TREATMENT CODE/TIME: 99780k0 [id number] 30mins (10:30-11:00am)
[2023-07-06] MEDS: Normal Saline Flush 10 ML SYR IVP ×2 (11:00→20:19)
[2023-07-06] MEDS: levoFLOXacin 500 MG, levoFLOXacin 250 MG 750 MG PO (11:40)
--- NOTE | 2023-07-06 12:50 | CMPROGNOTE_ITS ---
Date of service: 07/06/23 Time of Service: 12:50 Care Management Progress Note Progress Note Text Progress Note Text: S/O: Kena was sitting up in her chair when CM met with her. She was pleasant and engaged well in conversation. She stated that she feels more like her old self today, and reported that she feels much better than when she arrived. 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 She stated that her partner/caregiver visited yesterday, but he was feeling under the weather today, so he did not visit. She reported that per provider, she is nearing discharge. She is hoping to return home tomorrow, if she is medically cleared for discharge. CM will continue to follow. A: Kena is a 73 year old female admitted to [facility] on 07/02/23 with UTI, encephalopathy. P: Anticipate Kena will return home once medically cleared with a resumption of RN by Nolberto/Susanne PATINO. Her partner, Marek will drive her home via private vehicle. She will follow up with her PCP and discharge plan of care. CM will c ontinue to follow. SDOH(Care Management) Screening Will the Patient Participate in the Screening?: Yes Do you worry about having a steady place to live?: no In the past 12 months, have you had to go without electric, gas, oil or water in your home?: no Have you or anyone in your house had to go without enough food to eat?: no Has lack of transportation kept you from medical appointments or from doing things needed for daily living?: no Has anyone in your support network made you feel unsafe for any reason?: no
--- NOTE | 2023-07-06 12:55 | PHA.REVIEW2 ---
Pharmacy Admission Review Admission Clinical Review Admission Pharmacy Review: (Updated 07/05/23 @ 16:11 by Citlalli Ward NP) Delirium (Acute) Nausea (Acute) On deep vein thrombosis (DVT) prophylaxis (Acute) Acute UTI (Acute) Acute right-sided weakness (Acute) ciprofloxacin [From Cipro] Allergy (Severe, Verified 07/01/23 08:48) Skin Rash, vomiting latex Allergy (Severe, Verified 07/01/23 08:48) gets SOB and can't talk prochlorperazine edisylate [From Compazine] Allergy (Severe, Verified 07/01/23 08:48) Anaphylaxsis prochlorperazine maleate [From Compazine] Allergy (Severe, Verified 07/01/23 08:48) Anaphylaxsis ziprasidone mesylate [From Geodon] Allergy (Severe, Verified 07/01/23 08:48) neuroleptic malignant syndrome Penicillins Allergy (Intermediate, Verified 07/01/23 08:48) rash,vomiting lactose Allergy (Mild, Verified 07/01/23 08:48) Skin Rash codeine Allergy (Verified 07/01/23 08:48) Skin Rash, nausea sulfamethoxazole [From Bactrim] Adverse Reaction (Verified 07/01/23 08:48) Skin Rash trimethoprim [From Bactrim] Adverse Reaction (Verified 07/01/23 08:48) Skin Rash Resuscitation Status DNR/DNI Height 4 ft 11 in Weight 42.6 kg Pharmacy Admission Review Renal Dosing Renal Dosing: BUN 24 mg/dL (7-18) H 07/05/23 06:18 Creatinine 1.0 mg/dL (0.55-1.02) 07/05/23 06:18 Medications needing adjustments: Intervened (CrCl 34 mL/min) List of meds needing interventions: Changed levofloxacin order to q48h due to kidney function. Provider aware Anticoagulation Anticoagulation: Hgb 12.0 g/dL (11.2-15.7) 07/05/23 06:18 Hct 35.6 % (36.0-46.0) L 07/05/23 06:18 Plt Count 278 10^3/uL (130-400) 07/05/23 06:18 Creatinine 1.0 mg/dL (0.55-1.02) 07/05/23 06:18 DVT Prophylaxis: Reviewed Medications: Enoxaparin (40mg daily) Relevant Labs Relevant Labs: Sodium 138 mmol/L (136-145) 07/05/23 06:18 Potassium 3.9 mmol/L (3.5-5.1) 07/05/23 06:18 Chloride 102 mmol/L (98-107) 07/05/23 06:18 Magnesium 2.0 mg/dL (1.8-2.4) 07/05/23 06:18 Magnesium Cancelled 07/05/23 06:18 Electrolytes, C-Reactive P, ESR: Reviewed (No new labs for today) Cardiac Review Cardiac Review: Troponin I < 50 ng/L (< or =60) 07/02/23 10:10 BP, HR, EF%: Reviewed (BP and HR WNL) QTc Review QTc: Reviewed (433 from 07/02/23) IV to PO Switch IV Medications: Reviewed Home Meds Home Med List reviewed: Intervened Relevent Home Meds Not ordered & why?: Vitamin C, baclofen, Vitamin D3 and gabapentin - holding per provider Updated home med list - changed Myrbetriq 50mg daily to 25mg daily Current Meds Current Medication Order Review: Reviewed Pharmacy Antibiotic Review Relevant Labs: WBC 11.96 10^3/uL (4.4-10.8) H 07/05/23 06:18 Temperature 37.4 C Temperature 36.5 C Temperature 36.5 C Temperature 35.9 C Pharmacy Antibiotic Activity: C/S review and IV to PO Comments: Patient was switched from ceftriaxone to levofloxacin 750mg q48h (renally adjusted) today. Urine culture grew K. pneumoniae with resistance to ceftriaxone but sensitive to levofloxacin.
--- NOTE | 2023-07-06 14:18 | W.PM.PROGNOT ---
Date of Service Date of service: 07/06/23 Time of Service: 14:18 Assessment and Plan Assessment and plan (1) Delirium: Status: Acute Assessment and plan: Urine culture growing multidrug-resistant Klebsiella pneumonia not being covered by the ceftriaxone likely reason for her ongoing delirium Based on urine cultures will initiate levofloxacin renal dosed Continue to wean medications as able (2) Acute UTI: Status: Acute Assessment and plan: Levofloxacin day 1 -Urine culture growing Klebsiella pneumoniae please see the culture report Will need a catheter change after day 2 of appropriate antibiotics (3) Multiple sclerosis: Status: Chronic Assessment and plan: Stable Not on any medication followed by neurology no new recommendations at this time, case was discussed with Dr Scott. will follow outpatient (4) Acute right-sided weakness: Status: Resolved Assessment and plan: See above (5) Hypertension: Status: Chronic Assessment and plan: On home medicine regimen with parameters Qualifiers: Hypertension type: essential hypertension Qualified Code(s): I10 - Essential (primary) hypertension (6) Depression: Status: Chronic Assessment and plan: Consider weaning Cymbalta has not been taking sertraline Qualifiers: Active/Remission status: remission status unspecified Depression Type: major depressive disorder (7) Nausea: Status: Resolved Assessment and plan: Continue to monitor patient is taking good p.o. (8) On deep vein thrombosis (DVT) prophylaxis: Status: Acute Assessment and plan: Continue LMWH (9) Discharge planning issues: Status: Resolved Assessment and plan: Care management to following Recommendation for d/c as per PT: PT Discussed with Dr. Hopkins Subjective Subjective Patient reports: no new complaints, feels better, tolerating liquids well, tolerating a regular diet and afebrile Interval history since last seen: Continues to remain delirious, not sleeping Exam Narrative Exam Narrative: Thin female appearing of stated age hemodynamically stable nontoxic-appearing is anxious from her hallucinations. Head is atraumatic eyes nonicteric noninjected facial features symmetrical. Neck is supple with full range of motion no JVD respirations are even and unlabored breath sounds are clear bilaterally cardiovascular regular rate and rhythm abdomen is soft nontender positive bowel sounds moves all extremities neurologic she is awake alert oriented no focal deficits psychiatric paranoid with visual hallucinations anxious Objective Last Vital Signs Temp 37.4 C 07/06/23 11:31 Pulse 76 07/06/23 11:31 Resp 18 07/06/23 11:31 BP 131/76 07/06/23 11:31 Pulse Ox 96 07/06/23 11:31 Time Spent with Patient Time Spent with Patient: 35-49 minutes Time was spent: preparing to see the patient(eg.review tests), obtaining and/or reviewing separately otained hiistory, ordering medications,tests, procedures, referring, communicating with other health patient care manager, indepentently interpreting results and counseling the patient
[2023-07-06] MEDS: Enoxaparin 40 MG/0.4 ML SYR SC (18:29)
--- NOTE | 2023-07-06 19:31 | DI.CT_ITS ---
Exam(s) CT HEAD WO EXAM: CT HEAD WO CLINICAL HISTORY: fall, hit head. TECHNIQUE: Imaging Protocol: Axial computed tomography images with coronal and sagittal reformatted images were created and reviewed COMPARISON: CT CT HEAD WO from 05/07/[address] HEAD WO from 07/02/2023 FINDINGS: Ventricles and Extra axial spaces: Normal in size and morphology for the patient's age. Hemorrhage: None. Cerebral parenchyma: There are areas of decreased attenuation in the white matter consistent with chr onic microvascular ischemic disease. There are bilateral basal gangliar lacunar infarcts present. Midline shift: None. Brainstem/Cerebellum: Normal. Calvarium: Normal. Visualized Paranasal sinuses/Mastoids: Clear. Soft Tissues: There is mild subcutaneous swelling over the midline of the forehead. IMPRESSION: 1. No acute intracranial process. 2. Mild subcutaneous swelling over the forehead in the midline. RADIATION DOSE DELIVERED: 693.89mGy.cm Total DLP DATA REPOSITORY: All CT scans at this facility are submitted to the National Radiology Data Registry (NRDR) Dose Index Registry (DIR) with the [employer] (A[employer]). RADIATION OPTIMIZATION: All CT scans at this facility use at least one of these dose optimization te chniques: automated exposure control; mA and/or kV adjustment per patient size (includes targeted exa ms where dose is matched to clinical indication); or iterative reconstruction.
--- NOTE | 2023-07-06 20:07 | DI.VRAD_ITS ---
PROCEDURE INFORMATION: Exam: CT Head Without Contrast Exam date and time: 07/06/2023 7:28 PM Age: 73 years old Clinical indication: Other: Fall, hit head TECHNIQUE: Imaging protocol: Computed tomography of the head without contrast. COMPARISON: MR BRAIN WO 07/02/2023 3:46 PM FINDINGS: Brain: Mild generalized cerebral atrophy. No intracranial mass, hemorrhage or evidence of acute ischemia. Cerebral ventricles: No ventriculomegaly. Paranasal sinuses: Visualized sinuses are unremarkable. No fluid levels. Mastoid air cells: Visualized mastoid air cells are well aerated. Bones: Unremarkable. No acute fracture. Soft tissues: Unremarkable. Vasculature: Moderate atherosclerotic calcification of the bilateral carotid siphons. IMPRESSION: No acute intracranial abnormality Dictated and Authenticated by: Emeterio Larsen MD. Ordering:TERRANCE Hughes MD
[2023-07-06] MEDS: DULoxetine 30 MG CAP 60 MG PO (20:17)
[2023-07-06] MEDS: Melatonin 3 MG TAB PO (20:18)
[2023-07-06] MEDS: traZODone 100 MG TAB 150 MG PO (20:18)
[2023-07-06] MEDS: Metoprolol CR 100 MG TABCR PO (20:18)
[2023-07-06] MEDS: Senna TAB 1 TAB PO (20:18)
[2023-07-07] VITALS (12 sets, daily range): BP systolic 132–198; BP diastolic 70–99; PULSE 73–89; RESP 14–19; TEMP 36.4–37.7; O2SAT 94–99
[2023-07-07] MEDS: Acetaminophen 500 MG TAB 1000 MG PO ×2 (06:25→13:20)
[2023-07-07] MEDS: Omeprazole 20 MG CAPCR 40 MG PO ×2 (06:25→20:08)
[2023-07-07] MEDS: Magnesium Oxide 400 MG TAB PO ×2 (08:04→20:07)
[2023-07-07] MEDS: Atorvastatin 40 MG TAB PO (08:05)
[2023-07-07] MEDS: Potassium Chloride 20 MEQ TABCR PO (08:06)
[2023-07-07] MEDS: Metoprolol CR 100 MG TABCR 200 MG PO (08:06)
[2023-07-07] MEDS: Montelukast 10 MG TAB PO (08:07)
[2023-07-07] MEDS: amLODIPine 10 MG TAB PO (08:07)
[2023-07-07] MEDS: Ferrous Gluconate 324 MG TAB PO (08:07)
[2023-07-07] MEDS: Normal Saline Flush 10 ML SYR IVP ×2 (08:07→20:08)
[2023-07-07] MEDS: Sucralfate 1 GM TAB PO ×3 (08:14→16:33)
[2023-07-07] MEDS: LORazepam 1 MG TAB PO ×2 (08:14→12:51)
[2023-07-07] MEDS: Lisinopril 20 MG TAB 40 MG PO (08:15)
[2023-07-07 10:39] LABS: HCT 39.1 % (36.0-46.0); MCH 32.6 pg (27.0-33.0); MCHC 33.2 % (32.0-36.0); MCV 98 fL (80-95); MPV 9.3 fL (8.0-11.0); Platelet Count 269 10^3/uL (130-400); RBC 3.99 10^6/uL (3.93-5.22); RDW 12.6 % (11.7-14.6); RDW-SD 45.5 fL; WBC 7.06 10^3/uL (4.4-10.8)
[2023-07-07] MEDS: traMADol 50 MG TAB PO (10:53)
--- NOTE | 2023-07-07 13:38 | PGE_ITS ---
Date of Service Date of service: 07/07/23 Time of Service: 13:38 Assessment and Plan Assessment and plan (1) Delirium: Status: Acute Assessment and plan: Urine culture growing multidrug-resistant Klebsiella pneumonia not being covered by the ceftriaxone likely reason for her ongoing delirium Seems improved today Continue to wean nonessential medications as able (2) Acute UTI: Status: Acute Assessment and plan: Levofloxacin day 2, renal dosing -Urine culture growing Klebsiella pneumoniae please see the culture report Will need a catheter change after day 2 of appropriate antibiotics, plan for tomorrow (3) Multiple sclerosis: Status: Chronic Assessment and plan: Stable Not on any medication followed by neurology no new recommendations at this time, case was discussed with Dr Scott. will follow outpatient (4) Acute right-sided weakness: Status: Resolved Assessment and plan: Was ruled out for an acute CVA at [facility] suspected presentation secondary to urinary tract infection now returning to baseline (5) Hypertension: Status: Chronic Assessment and plan: On home medicine regimen with parameters Qualifiers: Hypertension type: essential hypertension Qualified Code(s): I10 - Essential (primary) hypertension (6) Depression: Status: Chronic Assessment and plan: Consider weaning Cymbalta has not been taking sertraline Qualifiers: Depression Type: major depressive disorder Active/Remission status: remission status unspecified (7) Nausea: Status: Resolved Assessment and plan: Continue to monitor patient is taking good p.o. (8) On deep vein thrombosis (DVT) prophylaxis: Status: Acute Assessment and plan: Continue LMWH (9) Discharge planning issues: Status: Acute Assessment and plan: Care management to following Recommendation for d/c as per PT: PT versus inpatient rehabilitation Discussed with Subjective Subjective Patient reports: no new complaints, feels better, tolerating liquids well, tolerating a regular diet and afebrile Exam Narrative Exam Narrative: Thin female appearing of stated age hemodynamically stable nontoxic-appearing Head is atraumatic eyes nonicteric noninjected facial features symmetrical. Neck is supple with full range of motion no JVD respirations are even and unlabored breath sounds are clear bilaterally cardiovascular regular rate and rhythm abdomen is soft nontender positive bowel sounds, suprapubic catheter intact draining medium yellow urine moves all extremities neurologic she is awake alert oriented no focal deficits, psychiatric anxious mood and affect Objective Last Vital Signs Temp 37.4 C 07/07/23 12:16 Pulse 78 05/07/24 13:22 Resp 16 07/07/23 13:22 BP 150/84 H 07/07/23 13:22 Pulse Ox 96 07/07/23 13:22 Laboratory Results - last 24 hr 07/07/23 10:11 WBC 7.06 RBC 3.99 Hgb 13.0 Hct 39.1 MCV 98 H MCH 32.6 MCHC 33.2 RDW 12.6 Plt Count 269 MPV 9.3 Time Spent with Patient Time Spent with Patient: 25-34 minutes Time was spent: preparing to see the patient(eg.review tests), obtaining and/or reviewing separately otained hiistory, ordering medications,tests, procedures, indepentently interpreting results and counseling the patient
--- NOTE | 2023-07-07 14:35 | CHAPLAIN ---
Kena was resting in bed when I visited. She was just given medication and said she was tired. I reminded her who I was and she told me about wanting to move to [place] and if I know if any homes or apartments there. I explained again who I was, and that I didn't know anything about houses or apartments in the area. We had a brief conversation and I left so she could rest. I will continue to visit.
--- NOTE | 2023-07-07 16:01 | PT.INNT ---
PT Notes Visit Reasons: UTI, Encephalopathy Pt not available per nurse request due to recent med administration. will try later in the afternoon.
--- NOTE | 2023-07-07 16:04 | PT.INTREAT ---
PT Notes Visit Reasons: UTI, Encephalopathy Date: 07/07/23 PRECAUTIONS: Fall. Standard. Activity as tolerated. Contact precaution SUBJECTIVE: pt appears to be slightly confused again today, pt status changed to contact precaution, OBJECTIVE: ?soliz catheter? PAIN: none reported VITALS: monitored by nursing ? Therapeutic Activities 05265: Direct one-on-one instruction in dynamic activities to improve functional performance. ?? BED MOBILITY/TRANSFERS? Rolling L/R: supervision Supine-sit: ?supervision ? Sit-supine: ? supervision ? Sit-stand: ? ?supervision ? Stand-sit: ?? ?supervision ? Bed-Chair:? ? supervision? Chair-bed: supervision Provided skilled cues and instruction on performance and technique throughout. Gait Training 91800: Direct one-on-one instruction and skilled instruction in: Employing an assistive device Modified weight-bearing status Movement sequencing Turning and movement with proper form Provided verbal cues for equipment management and technique Provided instruction in gait pattern Patient education regarding pacing and breathing techniques to maximize activity tolerance? GAIT? Assistive Device: ?? ?FWW? Weight bearing: FWB Assist: ? supervision? Distance:?? 300' ? Deviation: ? unremarkable ? ASSESSMENT:?room alarm had to be engaged to provide pt safety with pt in room, pt pleasantly confused and required redirection for guidance with activity. PLAN: Continue with balance training, global strengthening and general conditioning for improved safety, mobility and activity tolerance until pt is ready for DC. TREATMENT CODE/TIME: [id number] 20mins (3:25-3:45pm)
--- NOTE | 2023-07-07 17:37 | PDOC.CMPRO ---
Date of service: 07/07/23 Time of Service: 17:37 Care Management Progress Note Progress Note Text Progress Note Text: S/O: Kena was resting when CM attempted to meet with her. Her RN asked that CM not disturb her, as she has not been sleeping well, and was just able to get to sleep. Per report, she is improving on her current antibiotic regiment, and she will have her soliz catheter changed by nursing today. She is nearing discharge readiness, and her plan will be to return home into the care of her s/o, Beau, with a resumption of HH RN. CM will continue to follow. A: Kena is a 73 year old female admitted to [facility] on 07/02/23 with UTI, encephalopathy. P: Anticipate Kena will return home once medically cleared with a resumption of HH RN by Nolberto/Susanne PATINO. Her partner, Marek will drive her home via private vehicle. She will follow up with her PCP and discharge plan of care. CM will continue to follow. SDOH(Care Management) Screening Will the Patient Participate in the Screening?: Yes Do you worry about having a steady place to live?: no In the past 12 months, have you had to go without electric, gas, oil or water in your home?: no Have you or anyone in your house had to go without enough food to eat?: no Has lack of transportation kept you from medical appointments or from doing things needed for daily living?: no Has anyone in your support network made you feel unsafe for any reason?: no
[2023-07-07] MEDS: DULoxetine 30 MG CAP 60 MG PO (20:06)
[2023-07-07] MEDS: Melatonin 3 MG TAB PO (20:07)
[2023-07-07] MEDS: Metoprolol CR 100 MG TABCR PO (20:08)
[2023-07-07] MEDS: Senna TAB 1 TAB PO (20:08)
[2023-07-07] MEDS: traZODone 100 MG TAB 150 MG PO (20:09)
[2023-07-08 02:39] VITALS: BP 141/86; PULSE 72; RESP 16; TEMP 36.6; O2SAT 97
[2023-07-08] MEDS: traMADol 50 MG TAB PO ×2 (02:57→14:47)
[2023-07-08] MEDS: Normal Saline Flush 10 ML SYR IVP ×2 (02:58→07:40)
[2023-07-08] MEDS: Acetaminophen 500 MG TAB 1000 MG PO ×2 (05:08→14:40)
[2023-07-08] MEDS: LORazepam 1 MG TAB PO ×3 (05:09→14:40)
[2023-07-08 07:31] VITALS: BP 168/76; PULSE 67; RESP 18; TEMP 36.7; O2SAT 98
[2023-07-08] MEDS: Lisinopril 20 MG TAB 40 MG PO (07:38)
[2023-07-08] MEDS: Omeprazole 20 MG CAPCR 40 MG PO (07:38)
[2023-07-08] MEDS: amLODIPine 10 MG TAB PO (07:39)
[2023-07-08] MEDS: Atorvastatin 40 MG TAB PO (07:39)
[2023-07-08] MEDS: Metoprolol CR 100 MG TABCR 200 MG PO (07:39)
[2023-07-08] MEDS: Sucralfate 1 GM TAB PO ×2 (07:39→11:26)
[2023-07-08] MEDS: Montelukast 10 MG TAB PO (07:39)
[2023-07-08] MEDS: Potassium Chloride 20 MEQ TABCR PO (07:39)
[2023-07-08] MEDS: Magnesium Oxide 400 MG TAB PO (07:39)
--- NOTE | 2023-07-08 09:57 | PDOC.CMPRO ---
Date of service: 07/08/23 Time of Service: 09:57 Care Management Progress Note Progress Note Text Progress Note Text: S/O: Kena A: Kena is a 73 year old female admitted to [facility] on 07/02/23 with UTI, encephalopathy. P: Anticipate Kena will return home once medically cleared with a resumption of HH RN by Nolberto/Susanne PATINO. Her partner, Marek will drive her home via private vehicle. She will follow up with her PCP and discharge plan of care. CM will continue to follow. SDOH(Care Management) Screening Will the Patient Participate in the Screening?: Yes Do you worry about having a steady place to live?: no In the past 12 months, have you had to go without electric, gas, oil or water in your home?: no Have you or anyone in your house had to go without enough food to eat?: no Has lack of transportation kept you from medical appointments or from doing things needed for daily living?: no Has anyone in your support network made you feel unsafe for any reason?: no
[2023-07-08 11:04] LABS: Bilirubin Negative (Negative); Blood Small (Negative); Clarity Clear (Clear); Glucose Negative (Negative); Ketones Trace mg/dL (Negative); Leukocyte Esterase Small (Negative); Nitrite Negative (Negative); Urobilinogen 0.2 mg/dL (Up to 0.2); pH 5.5 (5-8)
[2023-07-08 11:24] LABS: Bacteria Few HPF (Negative); C & S Indicated? Yes; Casts 3-5 Hyaline LPF (Negative); Crystals Rare Amorphous HPF (Negative); Epithelial Cells Few HPF (Negative); Mucus Negative (Negative); Other Cells Few Yeast (Negative); RBC 0-2 HPF (0-2)
[2023-07-08] MEDS: levoFLOXacin 500 MG, levoFLOXacin 250 MG 750 MG PO (11:26)
[2023-07-08 11:53] VITALS: BP 136/78; PULSE 75; RESP 16; TEMP 36.9; O2SAT 100
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
--- NOTE | 2023-07-08 14:12 | PDOC.HHF2F_ITS ---
Home Health Referral Home Health Orders Clinical synopsis of why skilled professionals are needed: patient who has experience confusion with multiple medication changes. indwelling suprapubic catheter Medical diagnosis necessitation home health referral: infectious encephalopathy secondary to UTI history of MS chronic suprapubic catheter Registered Nurse: Check all that apply Instruct on new or changed medication(s)/assess compliance: Ordered Instruct on, and maintenance of, urinary device: Ordered Assess for exacerbation of medical condition, instruct patient/caregivers on signs and symptoms to report for early detection: Ordered Physical Therapist: Check all that apply Increase strength & endurance for safe mobility at home: Ordered To design/establish home maintenance program: Ordered Fall reduction therapy program for patient with history of frequent falls: Ordered Home safety evaluation and teaching/gait training including stair management (if applicable): Ordered Head Paper Tester: Assist with community resources: Ordered Assist with senior care care planning: Ordered Home Bound Status Describe why leaving home would require a considerable and taxing effort: Side effects from pain medication (sedation/drowsiness), Confusion and Safety Concerns: describe Encounter Date and Reason: I certify that a FTF encounter for this patient was performed on July 08, 2023 and that such encounter was related to the primary reason the patient requires home health services. The encounter was conducted in the following manner: * By me as the certifying physician, SCENARIO WRITER, PA or * By an inpatient physician, SCENARIO WRITER or PA during an inpatient stay who communicated findings to me, Certification And Authentication I certify that I composed the above information based on my clinical judgment relating to this patient's medical condition and, if applicable, clinical findings communicated to me by the NPP or inpatient physician who performed the FTF encounter. Name of Provider that will be monitoring home health services: Hardy Hudson
--- NOTE | 2023-07-08 14:12 | PT.INTREAT ---
PT Notes Visit Reasons: UTI, Encephalopathy Date: 07/08/23 PRECAUTIONS: Fall. Standard. Activity as tolerated. Contact precaution SUBJECTIVE: Pt much better today, not confused able to carry conversation, pt agreed to participating with therapy session. OBJECTIVE: ?soliz catheter? PAIN: none reported VITALS: monitored by nursing ? Therapeutic Activities [id number]: Direct one-on-one instruction in dynamic activities to improve functional performance. ?? BED MOBILITY/TRANSFERS? Rolling L/R: supervision Supine-sit: ?supervision ? Sit-supine: ? supervision ? Sit-stand: ? ?supervision ? Stand-sit: ?? ?supervision ? Bed-Chair:? ? supervision? Chair-bed: supervision Provided skilled cues and instruction on performance and technique throughout. Gait Training [id number]: Direct one-on-one instruction and skilled instruction in: Employing an assistive device Modified weight-bearing status Movement sequencing Turning and movement with proper form Provided verbal cues for equipment management and technique Provided instruction in gait pattern Patient education regarding pacing and breathing techniques to maximize activity tolerance? GAIT? Assistive Device: ?? ?FWW? Weight bearing: FWB Assist: ? supervision? Distance:?? 300' ? Deviation: ? unremarkable ? ASSESSMENT:?pt very alert and engaged with activity, able to request for gown for extra coverage prior to gait training, able to request for warm blankets post session, pt tolerated activity without signs of fatigue and SOB. pt situated in bed post therapy session. PLAN: Continue with balance training, global strengthening and general conditioning for improved safety, mobility and activity tolerance until pt is ready for DC. TREATMENT CODE/TIME: [id number] 16mins (11:25-11:41am)
--- NOTE | 2023-07-08 16:19 | CMDISCH_ITS ---
Date of service: 07/08/23 Time of Service: 16:19 LACE Index Scoring Tool Questions: Length of Stay (in days): 4 - 6 Was the patient admitted via the E.D.?: Yes Comorbidities: Previous M.I., Connective Tissue Disease and Liver or Renal Disease E.D. Visits: 2 Answers: Total Score: 14 Risk of Readmission: High Risk Care Management Discharge Plan Reason for Hospitalization: UTI, encephalopathy Discharge Plan: Kena will be discharged home with new orders for home health PT, RN and STEAMBOAT INSPECTOR through [facility]. She will follow up with her community providers and plan of care and transport with her eloise Jara. Patient/Family Education Needs: Review discharge instructions and limitations, discussion of self care needs including ask me three. SDOH Health Related Social Needs: No Data to Display
== END 2023-07-08 14:57 | disposition home health service (06) | DRG 689 ==
LOC: ER 14:42 → MS 16:58
PROVIDERS: Family Medicine; Nurse Practitioner Acute Care; Admitting Provider Family Medicine; Emergency Provider Student in an Organized Health Care Education/Training Program; PCP Nurse Practitioner Family; Visit Provider Family Medicine
DX: N39.0 Urinary tract infection, site not specified (principal); E43 Unspecified severe protein-calorie malnutrition; G93.40 Encephalopathy, unspecified; N18.4 Chronic kidney disease, stage 4 (severe); R44.0 Auditory hallucinations; Z16.24 Resistance to multiple antibiotics; Z68.1 Body mass index [BMI] 19.9 or less, adult; G35 Multiple sclerosis; R53.1 Weakness; I12.9 Hypertensive chronic kidney disease with stage 1 through stage 4 chronic kidney disease, or unspecified chronic kidney disease; Z79.899 Other long term (current) drug therapy; F32.A Depression, unspecified; I25.10 Atherosclerotic heart disease of native coronary artery without angina pectoris; R41.89 Other symptoms and signs involving cognitive functions and awareness; Z93.51 Cutaneous-vesicostomy status; E07.89 Other specified disorders of thyroid; G25.2 Other specified forms of tremor; I25.2 Old myocardial infarction; R41.3 Other amnesia; M54.16 Radiculopathy, lumbar region; G47.00 Insomnia, unspecified; K59.09 Other constipation; G25.3 Myoclonus; N31.9 Neuromuscular dysfunction of bladder, unspecified; F12.90 Cannabis use, unspecified, uncomplicated; D51.0 Vitamin B12 deficiency anemia due to intrinsic factor deficiency; F41.1 Generalized anxiety disorder; F11.10 Opioid abuse, uncomplicated; E55.9 Vitamin D deficiency, unspecified; Z87.11 Personal history of peptic ulcer disease; R11.0 Nausea; B96.1 Klebsiella pneumoniae [K. pneumoniae] as the cause of diseases classified elsewhere
CPT/HCPCS: 00123; 36415; 51702; 80048; 80053; 80307; 85027; 87077; 93005; 96365; 96366; 96367; 97110; 97162; 97530; 99285; J1650; 70450; 70551; 81003; 81015; 83735; 84443; 84484; 85025; 87086; 87186; 93010; 99222; 99231; 99232; 99233; 99239; J0131; J0696; J3475

== ENCOUNTER → 2023-07-14 07:56 | Outpatient (BNVA) | payer OTHER, MEDICAID, SELFPAY | PROVIDERS: PCP Nurse Practitioner Family; Referring Provider Nurse Practitioner Family; Visit Provider Nurse Practitioner Gerontology | DX: N31.9 Neuromuscular dysfunction of bladder, unspecified (principal) | CPT/HCPCS: 99442 ==

== ENCOUNTER → 2023-08-11 07:01 | Outpatient (BNVA) | payer OTHER, MEDICAID, SELFPAY | PROVIDERS: PCP Nurse Practitioner Family; Referring Provider Nurse Practitioner Family; Visit Provider Nurse Practitioner Gerontology | DX: N31.9 Neuromuscular dysfunction of bladder, unspecified (principal) | CPT/HCPCS: 99442 ==

== ENCOUNTER → 2023-09-16 08:34 | Outpatient (BNVA) | payer OTHER, SELFPAY | PROVIDERS: PCP Nurse Practitioner Family; Visit Provider Psychiatry & Neurology Neurology | DX: G89.4 Chronic pain syndrome (principal); G47.00 Insomnia, unspecified; E53.8 Deficiency of other specified B group vitamins; N31.9 Neuromuscular dysfunction of bladder, unspecified; G35 Multiple sclerosis; R41.3 Other amnesia | CPT/HCPCS: 99215 ==

== ENCOUNTER → 2023-09-17 15:21 | Outpatient (BNVA) | payer OTHER, SELFPAY | PROVIDERS: PCP Nurse Practitioner Family; Referring Provider Nurse Practitioner Family; Visit Provider Urology | DX: G35 Multiple sclerosis (principal); N31.9 Neuromuscular dysfunction of bladder, unspecified | CPT/HCPCS: 99214 ==

== ENCOUNTER → 2023-10-15 12:33 | Outpatient (BNVA) | payer OTHER, MEDICAID, SELFPAY | PROVIDERS: PCP Nurse Practitioner Family; Referring Provider Nurse Practitioner Family; Visit Provider Nurse Practitioner Gerontology | DX: G35 Multiple sclerosis (principal) | CPT/HCPCS: 99213 ==

== ENCOUNTER 2023-12-01 19:02 | Outpatient (REF) | payer OTHER, MEDICAID, SELFPAY | END 2023-12-01 19:03 | disposition home or self-care (01) | LOC: LBN 19:02 | PROVIDERS: PCP Nurse Practitioner Family; Visit Provider Nurse Practitioner Family | DX: N39.0 Urinary tract infection, site not specified (principal) | CPT/HCPCS: 87077; 87086; 87186 ==

== ENCOUNTER → 2024-01-19 08:09 | Outpatient (BNVA) | payer OTHER, SELFPAY | PROVIDERS: PCP Nurse Practitioner Family; Visit Provider Psychiatry & Neurology Neurology | DX: M48.02 Spinal stenosis, cervical region (principal); G89.4 Chronic pain syndrome; G47.00 Insomnia, unspecified; N31.9 Neuromuscular dysfunction of bladder, unspecified; G35 Multiple sclerosis | CPT/HCPCS: 99214 ==

== ENCOUNTER 2024-05-06 19:04 | Inpatient (IN) | payer MEDICARE, SELFPAY ==
[2024-05-06 19:08] VITALS: BP 173/84; PULSE 68; RESP 16; TEMP 36.5; O2SAT 96
--- NOTE | 2024-05-06 19:45 | DI.CT_ITS ---
Exam(s) CT HEAD WO EXAM: CT HEAD WO CLINICAL HISTORY: confusion, new onset hallucinations. TECHNIQUE: Imaging Protocol: Axial computed tomography images with coronal and sagittal reformatted images were created and reviewed COMPARISON: CT CT HEAD WO from 07/06/2023 FINDINGS: There are no skull fractures. There is no fluid in the visualized paranasal sinuses. There is no evidence of intracranial hemorrhage, mass effect, or shift of midline structures. There are no extra-axial fluid collections. The ventricles are not enlarged or shifted and there is no blo od within the ventricular system nor within the basal cisterns. Again noted is bilateral periventricular hypodensity consistent with chronic small vessel disease. T his is slightly increased in the right frontal lobe white matter anterior forceps. May indicated inc reasing scheme at this level. IMPRESSION: Significant bilateral periventricular hypodensity consistent with chronic small vessel disease. Reeder nicolás, there is also a slight increase in the amount of white matter hypodensity in the right frontal l obe anterior white matter forceps. Recommend follow-up MRI with diffusion imaging. RADIATION DOSE DELIVERED: 914.37mGy.cm Total DLP DATA REPOSITORY: All CT scans at this facility are submitted to the National Radiology Data Registry (NRDR) Dose Index Registry (DIR) with the [employer] (ACR). RADIATION OPTIMIZATION: All CT scans at this facility use at least one of these dose optimization te chniques: automated exposure control; mA and/or kV adjustment per patient size (includes targeted exa ms where dose is matched to clinical indication); or iterative reconstruction.
[2024-05-06] MEDS: Normal Saline 500 ML IV ×2 (20:20→22:53)
[2024-05-06 20:36] LABS: Abs Immature Grans 0.02 10^3/uL (0.0-0.06); Absolute Basophil Count 0.04 10^3/uL (0.0-0.2); Absolute Eosinophil Count 0.08 10^3/uL (0.0-0.7); Absolute Lymphocyte Count 3.54 10^3/uL (1.2-3.4); Absolute Monocyte Count 0.48 10^3/uL (0.1-0.8); Absolute Neutrophil Count 5.28 10^3/uL (1.2-6.7); BE (Venous) -10 mmol/L (-2-3); Basophils % 0.4 %; Eosinophils % 0.8 %; HCO3 (Venous) 18 mmol/L (23-28); HCT 37.6 % (36.0-46.0); HGB 12.6 g/dL (11.2-15.7); Immature Grans % 0.2 %; Lactate 1.2 mmol/L (<or=2.0); Lymphocytes % 37.5 %; MCH 33.2 pg (27.0-33.0); MCHC 33.5 % (32.0-36.0); MCV 99 fL (80-95); Monocytes % 5.1 %; O2 Sat (Venous) 78 %; Platelet Count 226 10^3/uL (130-400); RBC 3.79 10^6/uL (3.93-5.22); RDW 12.1 % (11.7-14.6); RDW-SD 44.2 fL; TCO2 (Venous) 17 mmol/L (24-29); WBC 9.44 10^3/uL (4.4-10.8); pCO2 (Venous) 40 mmHg (41-51); pH (Venous) 7.25 (7.31-7.41); pO2 (Venous) 46 mmHg
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
[2024-05-06 21:04] LABS: Bilirubin Negative (Negative); Blood Negative (Negative); Clarity Clear (Clear); Glucose Negative (Negative); Ketones Negative (Negative); Leukocyte Esterase Trace (Negative); Nitrite Negative (Negative); Urobilinogen 0.2 mg/dL (Up to 0.2); pH 5.5 (5-8)
[2024-05-06 21:05] LABS: Bacteria Negative HPF (Negative); C & S Indicated? No; Casts Negative LPF (Negative); Crystals Negative HPF (Negative); Epithelial Cells Negative HPF (Negative); Mucus Negative (Negative); RBC Negative HPF (0-2); WBC 0-2 HPF (0-5)
[2024-05-06 21:13] LABS: Ammonia 14 umol/L (11-32)
[2024-05-06 21:23] LABS: ALT 42 U/L (14-59); AST 30 U/L (15-37); Albumin 3.6 g/dL (3.4-5.0); Alkaline Phosphatase 72 U/L (46-116); Anion Gap 12.5 mmol/L (3-11); BUN 31 mg/dL (7-18); Bilirubin, Total 0.3 mg/dL (0.2-1.0); CO2 18.5 mmol/L (21.0-32.0); CREATININE 2.3 mg/dL (0.55-1.02); Calcium 8.5 mg/dL (8.5-10.1); Chloride 106 mmol/L (98-107); Glucose 82 mg/dL (74-106); Potassium 4.2 mmol/L (3.5-5.1); Sodium 137 mmol/L (136-145); TSH 1.38 uIU/mL (0.36-3.74); Total Protein 5.5 g/dL (6.4-8.2)
--- NOTE | 2024-05-06 22:32 | DI.VRAD_ITS ---
PROCEDURE INFORMATION: Exam: CT Head Without Contrast Exam date and time: 05/06/2024 9:52 PM Age: 74 years old Clinical indication: Other: Confusion, new onset hallucinations TECHNIQUE: Imaging protocol: Computed tomography of the head without contrast. COMPARISON: CT HEAD WO 07/06/2023 7:28 PM FINDINGS: Brain: Physiologic calcification in the basal ganglia. Atrophy and chronic appearing white matter changes. No edema or hemorrhage. Cerebral ventricles: No ventriculomegaly. Paranasal sinuses: No acute sinusitis. Mastoid air cells: No mastoid effusion. Bones: No acute fracture. Soft tissues: No suspicious lesions. IMPRESSION: No acute intracranial findings. Dictated and Authenticated by: Estelle Morocho MD. Orderin Susie Ch MD
--- NOTE | 2024-05-06 22:36 | W.EDPROG ---
Date of service: 05/06/24 Time of Service: 22:36 Medical Decision Making This patient was signed out to me. Please see previous notes for H&P and initial eval. In brief, 74yo F with hx CKD, MS with suprapubic catheter, chronic pain, presenting for insomnia having not slept in 5 days and now with visual hallucinations. Recently treated for UTI with bactrim; UA not infected however now has metabolic acidosis and likely AZALEA with pH 7.25, bicarb 18, Cr 2.3. Offgoing physician concerned for AZALEA 2/t bactrim and mild dehydration, plan for admission with continued hydration/trend labs/sleep medication. Signed out pending head CT read and likely admission. Head CT with no acute intracranial findings. Discussed with [facility] hospitalist Dr. Mock; pt accepted to medicine service for further workup and management. Awaiting admission orders. Quality:[facility] Health Related Social Needs: No Data to Display Discharge Plan Discharge Details Chief Complaint: PsychEval Clinical Impression: Acute kidney injury, Dehydration, Hallucinations Primary Care Provider: Hardy Shelby ED Provider: Nina Medina Home Meds and New Rx's Prescriptions: No Action mirabegron [Myrbetriq] 25 mg tablet extended release 24 hr 25 mg PO DAILY mecobalamin (vitamin B12) [B12 Active] 1,000 mcg tablet,chewable 1,000 mcg PO DAILY Qty: 90 3RF amlodipine 2.5 mg tablet 2.5 mg PO DAILY Qty: 90 12RF ondansetron 4 mg tablet,disintegrating 4 mg PO Q6H PRN (Reason: nausea and vomiting) Qty: 60 0RF hydromorphone 4 mg tablet 4 - 8 mg PO Q6H MDD 4 tabs PRN (Reason: pain) Qty: 60 0RF Rx Instructions: Palliative care patient for pain related to MS eszopiclone [Lunesta] 1 mg tablet 1 mg PO QHS Qty: 30 3RF Rx Instructions: Palliative care patient buspirone 15 mg tablet 15 mg PO TID Qty: 90 4RF (DME) Ultra-Light Rollator 1 EACH misc 1 ea Miscellaneous DAILY Qty: 1 Patient Comments: outside Rx Instructions: 4 wheel rollator with basket ferrous gluconate 324 mg (38 mg iron) tablet 324 mg PO .QOD Qty: 45 4RF sennosides [senna] 8.6 mg tablet 8.6 mg PO QHS Qty: 90 4RF docusate sodium 100 mg capsule 100 mg PO DAILY Qty: 90 4RF montelukast [Singulair] 10 mg tablet 10 mg PO DAILY Qty: 90 4RF ascorbic acid (vitamin C) [Vitamin C] 500 mg tablet 500 mg PO DAILY Qty: 90 4RF potassium chloride 20 mEq tablet,ER particles/crystals 20 meq PO DAILY Qty: 90 4RF duloxetine 60 mg capsule,delayed release(DR/EC) See Rx Instructions .ROUTE .COMPLEX Qty: 90 4RF Dose Instruction: TAKE 1 CAPSULE BY MOUTH AT BEDTIME Rx Instructions: TAKE 1 CAPSULE BY MOUTH AT BEDTIME cholecalciferol (vitamin D3) 25 mcg (1,000 unit) tablet See Rx Instructions .ROUTE .COMPLEX Qty: 90 4RF Dose Instruction: TAKE 1 TABLET BY MOUTH DAILY Rx Instructions: TAKE 1 TABLET BY MOUTH DAILY lisinopril 20 mg tablet 20 mg PO DAILY Qty: 90 4RF metoprolol succinate 100 mg tablet extended release 24 hr 100 mg PO BID Qty: 90 4RF Rx Instructions: 200 mg am,, 100 mg pm omeprazole 40 mg capsule,delayed release(DR/EC) See Rx Instructions .ROUTE .COMPLEX Qty: 180 3RF Dose Instruction: TAKE 1 CAPSULE BY MOUTH TWICE A DAY Rx Instructions: TAKE 1 CAPSULE BY MOUTH TWICE A DAY gabapentin 100 mg capsule See Rx Instructions .ROUTE .COMPLEX Qty: 112 4RF Dose Instruction: TAKE 2 CAPSULES BY MOUTH TWICE A DAY Rx Instructions: TAKE 2 CAPSULES BY MOUTH TWICE A DAY atorvastatin 40 mg tablet 40 mg PO DAILY Qty: 90 3RF sucralfate 1 gram tablet See Rx Instructions .ROUTE .COMPLEX Qty: 112 0RF Dose Instruction: TAKE 1 TABLET BY MOUTH FOUR TIMES A DAY Rx Instructions: TAKE 1 TABLET BY MOUTH FOUR TIMES A DAY acetaminophen [Tylenol 8 Hour] 650 mg tablet extended release 650 mg PO Q8H PRN (Reason: fever or pain) Qty: 30 0RF triamcinolone acetonide [Nasacort] 55 mcg Aerosol,[place] 1 spray INTRANASAL DAILY Rx Instructions: administer into each nostril Medical Marijuana 1 tab PO HS magnesium oxide 500 mg Tablet 500 mg PO BID Rx Instructions: evening
[2024-05-07] MEDS: Acetaminophen 500 MG TAB 1000 MG PO
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
[2024-05-07 01:39] LABS: COVID-19 PCR Negative (Negative); Influenza A PCR Negative (Negative); Influenza B PCR Negative (Negative); RSV PCR Negative (Negative)
[2024-05-07 01:41] LABS: *AMPHETAMINES SCREEN URINE Negative (Negative); *BARBITURATES SCREEN URINE Negative (Negative); *BENZODIAZEPINES SCREEN URINE Negative (Negative); Cannabinoids THC Positive (Negative); Cocaine Screen,Urine Negative (Negative); METHADONE URINE SCREEN Negative (Negative); OPIATES URINE SCREEN Positive (Negative)
[2024-05-07 01:43] LABS: Source Nasopharynx
[2024-05-07 01:44] LABS: Tricyclic Antidepressants Positive (Negative)
[2024-05-07 01:59] LABS: Magnesium 1.3 mg/dL (1.8-2.4)
[2024-05-07] MEDS: Acetaminophen 325 MG TAB 650 MG PO (05:34)
[2024-05-07] MEDS: HYDROmorphone 4 MG TAB PO (05:34)
[2024-05-07 05:54] LABS: HCT 34.4 % (36.0-46.0); HGB 11.6 g/dL (11.2-15.7); MCHC 33.7 % (32.0-36.0); MCV 98 fL (80-95); MPV 9.2 fL (8.0-11.0); Platelet Count 201 10^3/uL (130-400); RBC 3.51 10^6/uL (3.93-5.22); RDW 12.1 % (11.7-14.6); RDW-SD 43.4 fL; WBC 7.22 10^3/uL (4.4-10.8)
[2024-05-07 06:17] LABS: ALT 42 U/L (14-59); AST 34 U/L (15-37); Albumin 3.8 g/dL (3.4-5.0); Alkaline Phosphatase 81 U/L (46-116); Anion Gap 14.8 mmol/L (3-11); BUN 27 mg/dL (7-18); Bilirubin, Total 0.3 mg/dL (0.2-1.0); CO2 18.2 mmol/L (21.0-32.0); Calcium 8.8 mg/dL (8.5-10.1); Chloride 106 mmol/L (98-107); Estimated GFR 25.89 (mL/min/1.73m2); Glucose 115 mg/dL (74-106); Magnesium 1.4 mg/dL (1.8-2.4); Potassium 4.1 mmol/L (3.5-5.1); Sodium 139 mmol/L (136-145)
[2024-05-07 06:25] LABS: TSH (W/Ref FT4) 1.25 uIU/mL (0.36-3.74)
[2024-05-07 06:44] LABS: Vitamin B12 > 2000 pg/mL (193-986)
[2024-05-07 06:56] VITALS: BP 182/85; PULSE 77; RESP 27; TEMP 36.9; O2SAT 99
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
[2024-05-07 09:34] VITALS: BP 194/67; PULSE 87; RESP 22; TEMP 36.6; O2SAT 100
--- NOTE | 2024-05-07 09:37 | W.PM.PROGNOT ---
Date of Service Date of service: 05/07/24 Time of Service: 10:00 Assessment and Plan Assessment and plan (1) Acute kidney injury: Start date: 05/07/24 Status: Acute Assessment and plan: This is a 74-year-old lady who has chronic pain with EMS and has been adjusting and missed taking her fentanyl and narcotic therapy recently possibly causing sleeplessness for 5 days and nights and visual hallucinations just prior to admission. She was dry with metabolic acidosis secondary to probably poor intake. She responded to IV fluid resuscitation and is being honest about her misuse of her medications wanting some help from her pain specialist. She will continue IV hydration with follow-up lab and increase activity for discharge home and she has no other signs of acute complications. She has had a recent UTI treated. There is no evidence of acute infections. She is at risk for recurrent UTI's with a chronic suprapubic catheter. She is a DNR/DNI. (2) Dehydration: Start date: 05/07/24 Status: Acute Assessment and plan: IV hydration follow-up labs and mentation. He is already improving. (3) Hallucinations: Start date: 05/07/24 Status: Acute Assessment and plan: Most likely secondary to lack of sleep and adjustment of her high-dose narcotic therapy. Hold fentanyl since patient has discontinued this recently and use Dilaudid as needed. Hold other sedatives such as Lunesta. Gabapentin will be continued. Melatonin at HS for insomnia (4) Chronic pain: Status: Chronic Assessment and plan: Dilaudid as needed for pain holding fentanyl. Long-term she needs to adjust her pain management with pain specialist and may do better off narcotics at this time. She has stopped her meds in the past and dealt with her pain with other modalities. This may be safer. (5) Multiple sclerosis: Status: Chronic Assessment and plan: Continue follow-up with neurology with his progressive disease. This is disabling. (6) Hypertension: Status: Chronic Assessment and plan: Continue outpatient medical therapy adjust as needed. (7) Hematoma: Status: Acute Assessment and plan: Not present this morning at 10 AM when seen had -PRN haldol ordered for anxiety and agitation -No previous Psych consult in chart and ordered Prior to haldol being given: occurring between 1440 and 1430 as per nursing as patient monitoring strike her head to the wall in the room Does not verbalize desire to self-harm or suicide ideation- frustrated by the situation Head CT completed with similar result-prior study -IMPRESSION: No evidence of intracranial hemorrhage. Chronic small-vessel white matter ischemic changes again noted.. Perhaps mildly increased in the right frontal lobe white matter anterior forceps. Recommend follow-up MRI with diffusion imaging. MRI W ordered for the morning but patient might not be able to comply with immobility requirements CPSO ordered Behavioral health care plan Q 1 During meeting w CM, lead RN,HS, RNs--determination made that is was a priority to complete the spych consult Discussed with Dr. Ortega Subjective Subjective Interval history since last seen: Expresses fear of being in correction due to the fact that she cannot leave the emergency room but easily reoriented when told that she is in a safe place Exam Narrative Exam Narrative: 73-year-old female appearing older than age, restless, oriented to self, needs frequent reorientation, no hallucination at the time of the exam, no self harm, no neurofocal deficit, clear lungs bilaterally unlabored breathing This afternoon: Bilateral bruising to forehead Objective Last Vital Signs Temp 36.6 C 05/07/24 09:34 Pulse 87 05/07/24 09:34 Resp 22 05/07/24 09:34 BP 194/67 H 05/07/24 09:34 Pulse Ox 100 05/07/24 09:34 Laboratory Results - last 24 hr 05/06/24 05/06/24 05/06/24 19:15 20:30 20:54 WBC 9.44 RBC 3.79 L Hgb 12.6 Hct 37.6 MCV 99 H MCH 33.2 H MCHC 33.5 RDW 12.1 Plt Count 226 MPV 10.0 Immature Gran % 0.2 Neutrophils % 56.0 Lymphocytes % 37.5 Monocytes % 5.1 Eosinophils % 0.8 Basophils % 0.4 Nucleated RBC % 0.0 Absolute Neutrophils 5.28 Absolute Lymphocytes 3.54 H Absolute Monocytes 0.48 Absolute Eosinophils 0.08 Absolute Basophils 0.04 VBG pH 7.25 L VBG pCO2 40 L VBG pO2 46 VBG HCO3 18 L VBG Total CO2 17 L VBG O2 Saturation 78 VBG Base Excess -10 L VBG Lactate 1.2 Sodium Cancelled 137 Potassium Cancelled 4.2 Chloride Cancelled 106 Carbon Dioxide Cancelled 18.5 L Anion Gap Cancelled 12.5 H BUN Cancelled 31 H Creatinine Cancelled 2.3 H Est GFR (CKD-EPI 2020) Cancelled 21.90 Glucose Cancelled 82 Calcium Cancelled 8.5 Magnesium 1.3 L Total Bilirubin Cancelled 0.3 AST Cancelled 30 ALT Cancelled 42 Alkaline Phosphatase Cancelled 72 Ammonia Cancelled 14 Total Protein Cancelled 5.5 L Albumin Cancelled 3.6 Vitamin B12 TSH Cancelled 1.38 Urine Color Yellow Urine Clarity Clear Urine pH 5.5 Ur Specific [place] 1.020 Urine Protein 30 H Urine Ketones Negative Urine Blood Negative Urine Nitrite Negative Urine Bilirubin Negative Urine Urobilinogen 0.2 Ur Leukocyte Esterase Trace H Urine RBC Negative Urine WBC 0-2 Ur Epithelial Cells Negative Urine Crystals Negative Urine Bacteria Negative Urine Casts Negative Urine Mucus Negative Ur Culture Indicated? No Urine Glucose Negative Urine Opiates Screen Positive A Urine Methadone Screen Negative Ur Barbiturates Screen Negative Ur Tricyclics Screen Positive A Ur Amphetamines Screen Negative U Benzodiazepines Scrn Negative Urine Cocaine Screen Negative Ur THC Screen Positive A COVID-19 Source SARS-CoV-2 (PCR) Influenza Type A (PCR) Influenza Type B (PCR) RSV (PCR) 05/07/24 05/07/24 01:00 05:45 WBC 7.22 RBC 3.51 L Hgb 11.6 Hct 34.4 L MCV 98 H MCH 33.0 MCHC 33.7 RDW 12.1 Plt Count 201 MPV 9.2 Immature Gran % Neutrophils % Lymphocytes % Monocytes % Eosinophils % Basophils % Nucleated RBC % Absolute Neutrophils Absolute Lymphocytes Absolute Monocytes Absolute Eosinophils Absolute Basophils VBG pH VBG pCO2 VBG pO2 VBG HCO3 VBG Total CO2 VBG O2 Saturation VBG Base Excess VBG Lactate Sodium 139 Potassium 4.1 Chloride 106 Carbon Dioxide 18.2 L Anion Gap 14.8 H BUN 27 H Creatinine 2.0 H Est GFR (CKD-EPI 2020) 25.89 Glucose 115 H Calcium 8.8 Magnesium 1.4 L Total Bilirubin 0.3 AST 34 ALT 42 Alkaline Phosphatase 81 Ammonia Total Protein 6.0 L Albumin 3.8 Vitamin B12 > 2000 H TSH 1.25 Urine Color Urine Clarity Urine pH Ur Specific [place] Urine Protein Urine Ketones Urine Blood Urine Nitrite Urine Bilirubin Urine Urobilinogen Ur Leukocyte Esterase Urine RBC Urine WBC Ur Epithelial Cells Urine Crystals Urine Bacteria Urine Casts Urine Mucus Ur Culture Indicated? Urine Glucose Urine Opiates Screen Urine Methadone Screen Ur Barbiturates Screen Ur Tricyclics Screen Ur Amphetamines Screen U Benzodiazepines Scrn Urine Cocaine Screen Ur THC Screen COVID-19 Source Nasopharynx SARS-CoV-2 (PCR) Negative Influenza Type A (PCR) Negative Influenza Type B (PCR) Negative RSV (PCR) Negative Time Spent with Patient Time Spent with Patient: >50 minutes Time was spent: preparing to see the patient(eg.review tests), obtaining and/or reviewing separately otained hiistory, ordering medications,tests, procedures, referring, communicating with other health palliative care physician, indepentently interpreting results, counseling the patient and care coordination
[2024-05-07] MEDS: Magnesium Oxide 400 MG TAB PO ×2 (10:04→22:40)
[2024-05-07] MEDS: Docusate Sodium 100 MG CAP PO (10:04)
[2024-05-07] MEDS: Atorvastatin 40 MG TAB PO (10:05)
[2024-05-07] MEDS: Gabapentin 100 MG CAP 200 MG PO ×2 (10:05→22:38)
[2024-05-07] MEDS: Cholecalciferol (Vitamin D3) 1,000 UNIT TAB 1000 UNITS PO (10:05)
[2024-05-07] MEDS: Ferrous Gluconate 324 MG TAB PO (10:06)
[2024-05-07] MEDS: Ascorbic Acid 500 MG TAB PO (10:06)
[2024-05-07] MEDS: Potassium Chloride 20 MEQ TABCR PO (10:06)
[2024-05-07] MEDS: Omeprazole 20 MG CAPCR 40 MG PO ×2 (10:06→22:39)
[2024-05-07] MEDS: Cyanocobalamin 500 MCG TAB 1000 MCG PO (10:07)
[2024-05-07] MEDS: Montelukast 10 MG TAB PO (10:07)
[2024-05-07] MEDS: busPIRone 15 MG TAB PO ×2 (10:07→22:40)
[2024-05-07] MEDS: amLODIPine 2.5 MG TAB PO (10:07)
[2024-05-07] MEDS: Mirabegron 25 MG TABCR PO (10:07)
[2024-05-07] MEDS: Metoprolol CR 100 MG TABCR 200 MG PO (10:07)
[2024-05-07] MEDS: Lisinopril 20 MG TAB PO (10:08)
[2024-05-07] MEDS: Sucralfate 1 GM TAB PO ×3 (10:08→22:41)
--- NOTE | 2024-05-07 12:08 | PHA.REVIEW2 ---
Pharmacy Admission Review Admission Clinical Review Admission Pharmacy Review: Hallucinations (Acute) Dehydration (Acute) Acute kidney injury (Acute) ciprofloxacin (From Cipro) Allergy (Severe, Verified 05/06/24 19:18) Skin Rash, vomiting latex Allergy (Severe, Verified 05/06/24 19:18) gets SOB and can't talk prochlorperazine edisylate (From Compazine) Allergy (Severe, Verified 05/06/24 19:18) Anaphylaxsis prochlorperazine maleate (From Compazine) Allergy (Severe, Verified 05/06/24 19:18) Anaphylaxsis ziprasidone mesylate (From Geodon) Allergy (Severe, Verified 05/06/24 19:18) neuroleptic malignant syndrome Penicillins Allergy (Intermediate, Verified 05/06/24 19:18) rash,vomiting lactose Allergy (Mild, Verified 05/06/24 19:18) Skin Rash codeine Allergy (Verified 05/06/24 19:18) Skin Rash, nausea sulfamethoxazole (From Bactrim) Adverse Reaction (Verified 05/06/24 19:18) Skin Rash trimethoprim (From Bactrim) Adverse Reaction (Verified 05/06/24 19:18) Skin Rash Resuscitation Status DNR/DNI Height 4 ft 11 in Weight 35.834 kg Comments Comments/Follow Ups: Blood cultures pending, urine culture growing gram negative rods - watch for possible addition of antibiotics Pharmacy Admission Review Renal Dosing Renal Dosing: BUN 27 mg/dL (7-18) H 05/07/24 05:45 Creatinine 2.0 mg/dL (0.55-1.02) H 05/07/24 05:45 Medications needing adjustments: Reviewed (CrCl 14.17 mL/min, BUN decreased from 31 and SCr decreased from 2.3) List of meds needing interventions: Current medications are okay Anticoagulation Anticoagulation: Hgb 11.6 g/dL (11.2-15.7) 05/07/24 05:45 Hct 34.4 % (36.0-46.0) L 05/07/24 05:45 Plt Count 201 10^3/uL (130-400) 05/07/24 05:45 Creatinine 2.0 mg/dL (0.55-1.02) H 05/07/24 05:45 DVT Prophylaxis: Reviewed Medications: Enoxaparin (30mg daily (CrCl < 30)) Opiate Usage Evaluate Pain Scale/Pains Meds: Reviewed (hydromorphone PO 4mg q6h PRN - no doses given) Relevant Labs Relevant Labs: Sodium 139 mmol/L (136-145) 05/07/24 05:45 Potassium 4.1 mmol/L (3.5-5.1) 05/07/24 05:45 Chloride 106 mmol/L (98-107) 05/07/24 05:45 Magnesium 1.4 mg/dL (1.8-2.4) L 05/07/24 05:45 Electrolytes, C-Reactive P, ESR: Reviewed (Mg 1.4 - has order for Mag Ox 400mg daily) Cardiac Review Cardiac Review: Blood Pressure 194/67 0934 Blood Pressure 182/85 0656 BP, HR, EF%: Reviewed (HR WNL) List meds needing interventions: Has order for amlodipine 2.5mg daily, lisinopril 20mg daily and metoprolol XL 200mg QAM + 100mg QPM QTc Review List meds needing interventions: 433 from 07/02/23 - most recent EKG on file IV to PO Switch IV Medications: Reviewed Home Meds Home Med List reviewed: Intervened Relevent Home Meds Not ordered & why?: Fentanyl (on hold per H+P) and Lunesta (on hold per H+P) Changed Nasacort to patients own med order - called nurse who informed patient that this will need to be brought in if they want to use it Current Meds Current Medication Order Review: Intervened Comments: Added 2nd PRN to APAP, hydromorphone and ondansetron orders per pharmacy protocol Changed timing of omeprazole from BID@ to BID@07,1999 per pharmacy protocol Comments Comments/Follow Ups: Blood cultures pending, urine culture growing gram negative rods - watch for possible addition of antibiotics
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
--- NOTE | 2024-05-07 15:38 | DI.VRAD_ITS ---
PROCEDURE INFORMATION: Exam: CT Head Without Contrast Exam date and time: 05/07/2024 2:37 PM Age: 74 years old Clinical indication: Other: Head strike TECHNIQUE: Imaging protocol: Computed tomography of the head without contrast. Radiation optimization: All CT scans at this facility use at least one of these dose optimization techniques: automated exposure control; mA and/or kV adjustment per patient size (includes targeted exams where dose is matched to clinical indication); or iterative reconstruction. COMPARISON: CT HEAD WO 05/06/2024 9:52 PM FINDINGS: Brain: No intracranial hemorrhage. No mass or midline shift. No extra-axial collections. No cerebral edema. Mild periventricular, deep hemispheric, and subcortical white matter hypoattenuation, nonspecific but consistent with chronic microvascular ischemic disease. Basal cisterns are patent. Normal gilliam-white differentiation. No large acute territorial infarct. Intracranial arterial calcification is present. Cerebral ventricles: The ventricles are normal in position and mildly enlarged. There is commensurate cortical sulcal prominence. The findings are consistent with age appropriate cerebral atrophy. No hydrocephalus. Paranasal sinuses: The visualized paranasal sinuses are well-aerated. There are no air fluid levels to suggest acute sinusitis. Mastoid air cells: The tympanomastoid air cells are normally aerated as visualized. Bones: No acute fracture. No suspicious osseous lesions. Soft tissues: Small RIGHT parieto-occipital scalp soft tissue swelling/hematoma. IMPRESSION: 1. No acute intracranial findings. 2. Small RIGHT parieto-occipital scalp soft tissue swelling/hematoma. Dictated and Authenticated by: Melinda Medel MD. Orderin Tamy De León MD
--- NOTE | 2024-05-07 16:02 | PDOC.CMSAFE ---
Date of service: 05/07/24 Time of Service: 16:02 Care Management Safety Plan Status Status: Voluntary Reason for Wait Reason for Wait: Inpatient Admission (Hallucinations, Psychiatric consult is pending.) Safety Plan Safety Plan: Kena was admitted to [facility] floor with insomnia and visual hallucinations. Psychiatric evaluation is pending at this time. While in the ED, it was identified that pt had a self inflicted and unwitnessed head strike and made statements to her LEARNING AND DEVELOPMENT INTERN that she was fearful people were trying to hurt her. Interdisciplinary department huddle was done prior to patient coming up to the floor and a safety plan was developed by the team with Kena's best interest in mind. Present for the huddle were: RN Shell Press Operator Carlie, RN NATHAN Schulte, Primary RN Kenneth, LEARNING AND DEVELOPMENT INTERN Brenda (via phone) and this sql report writer; as paper cutter operator. Deepti is not felt to have SI or HI, should that change [facility] will be called for a mental health eval, per protocol. In the interim; please note safety plan below to guide patient care while awaiting further guidance and medical clearance. Kena will have a 1:1 sitter at all times. SAFETY PLAN: 1. Will use standard SI precautions. May wear own clothing, if done so in a safe manor, at RN discretion. Otherwise paper scrubs should be worn, per protocol. 2. Will remain in room under direct supervision of one-on-one staff at all times provided by HECTOR, HELMET COVERER yarn mercerizer operator. 3. May have paper cups, plates, finger foods as well as a cardboard spoon with which to eat meals. 4. Follow [facility] Management of the Admitted Behavioral Health Patient policy. 5. Comfort bath system or shower, supervised, at RN discretion. 6. Personal belongings, will be at RN discretion. Per RN, Kena is attached to her purse and it may remain in her room if done so, in a safe manor, at RN discretion. 7. No visitors at this time. 8. Phone contact: Incoming/Outgoing calls using [facility] phone at RN discretion. 9.?Due to VOLUNTARY status,?if patient wishes to leave [facility], staff will contact [facility] Crisis Screener ([phone]) and On-Call It Desktop Support Specialist ([phone]) as soon as possible. In the event of elopement, notify [facility] Police ([phone]). ? If deemed appropriate for inpatient psychiatric care, safety plan will be established with patient, and care team, to adhere to patient goals, identify restrictions based on behavioral status, address nutrition, and determine allowed personal belongings, tools for hygiene and personal care. As well plan will determine level of activity including ambulation, level of supervision, visitors, and determine privileges based on level of acuity, behaviors and level of engagement by patient.
[2024-05-07 16:12] VITALS: BP 183/81; PULSE 82; RESP 16; TEMP 36; O2SAT 97
--- NOTE | 2024-05-07 16:38 | NUR.NOTE ---
Nursing Note: Rn spoke with who states that he does live with patient and that the hallucinations has evolved and increased over the last 4-5 days.
[2024-05-07] MEDS: Haloperidol 5 MG/ML VIAL 2 MG IM (18:19)
--- NOTE | 2024-05-07 18:20 | NUR.NOTE ---
Nursing Note: RN notified that patient was expierancing an increase in hallucinations stating she needed a shot to sleep, her anxiety is high, audible and visual disturbances noted, pt states she feels like shes not safe and wants to sleep. RN had a conversation with patient regarding PRN Halidol for anxiety. pT states she wanted the medication. PRN given. ZIA CRISTOBAL
[2024-05-07 22:34] VITALS: BP 173/95; PULSE 71; RESP 24; TEMP 36.7; O2SAT 100
[2024-05-07] MEDS: Melatonin 3 MG TAB PO (22:38)
[2024-05-07] MEDS: DULoxetine 30 MG CAP 60 MG PO (22:39)
[2024-05-07] MEDS: Metoprolol CR 100 MG TABCR PO (22:40)
[2024-05-07] MEDS: Normal Saline Flush 10 ML SYR IVP (22:41)
[2024-05-07] MEDS: Senna TAB 1 TAB PO (22:41)
[2024-05-08] MEDS: Normal Saline 1,000 ML 150 ML IV ×3 (01:13→13:24)
[2024-05-08] MEDS: HYDROmorphone 4 MG TAB PO ×4 (03:00→22:41)
[2024-05-08 04:45] VITALS: BP 154/80; PULSE 69; RESP 12; TEMP 37.2; O2SAT 99
[2024-05-08 06:57] LABS: HCT 37.3 % (36.0-46.0); HGB 12.6 g/dL (11.2-15.7); MCH 32.6 pg (27.0-33.0); MCHC 33.8 % (32.0-36.0); MCV 96 fL (80-95); MPV 9.4 fL (8.0-11.0); Platelet Count 217 10^3/uL (130-400); RBC 3.87 10^6/uL (3.93-5.22); RDW 11.9 % (11.7-14.6); RDW-SD 42.1 fL; WBC 9.16 10^3/uL (4.4-10.8)
[2024-05-08 07:19] VITALS: BP 210/98; PULSE 70; RESP 16; TEMP 37; O2SAT 99
[2024-05-08 07:25] LABS: ALT 43 U/L (14-59); AST 36 U/L (15-37); Albumin 3.7 g/dL (3.4-5.0); Alkaline Phosphatase 79 U/L (46-116); Anion Gap 11.8 mmol/L (3-11); BUN 15 mg/dL (7-18); Bilirubin, Total 0.5 mg/dL (0.2-1.0); CO2 22.2 mmol/L (21.0-32.0); CREATININE 1.1 mg/dL (0.55-1.02); Calcium 8.7 mg/dL (8.5-10.1); Chloride 109 mmol/L (98-107); Estimated GFR 53.06 (mL/min/1.73m2); Glucose 153 mg/dL (74-106); Magnesium 1.7 mg/dL (1.8-2.4); Potassium 3.7 mmol/L (3.5-5.1); Sodium 143 mmol/L (136-145); Total Protein 6.1 g/dL (6.4-8.2)
[2024-05-08] MEDS: Metoprolol CR 100 MG TABCR 200 MG PO (07:38)
[2024-05-08] MEDS: Omeprazole 20 MG CAPCR 40 MG PO ×2 (07:39→21:35)
[2024-05-08] MEDS: Sucralfate 1 GM TAB PO ×4 (07:39→21:34)
[2024-05-08] MEDS: Lisinopril 20 MG TAB PO (07:39)
[2024-05-08] MEDS: Montelukast 10 MG TAB PO (07:39)
[2024-05-08] MEDS: Gabapentin 100 MG CAP 200 MG PO ×2 (07:39→21:34)
[2024-05-08] MEDS: Mirabegron 25 MG TABCR PO (07:39)
[2024-05-08] MEDS: Potassium Chloride 20 MEQ TABCR PO (07:39)
[2024-05-08] MEDS: Ascorbic Acid 500 MG TAB PO (07:39)
[2024-05-08] MEDS: Cyanocobalamin 500 MCG TAB 1000 MCG PO (07:39)
[2024-05-08] MEDS: Magnesium Oxide 400 MG TAB PO ×2 (07:39→21:34)
[2024-05-08] MEDS: Cholecalciferol (Vitamin D3) 1,000 UNIT TAB 1000 UNITS PO (07:39)
[2024-05-08] MEDS: Atorvastatin 40 MG TAB PO (07:39)
[2024-05-08] MEDS: Docusate Sodium 100 MG CAP PO (07:40)
[2024-05-08] MEDS: amLODIPine 2.5 MG TAB PO (07:40)
[2024-05-08] MEDS: Normal Saline Flush 10 ML SYR IVP (07:40)
[2024-05-08] MEDS: busPIRone 15 MG TAB PO ×3 (07:40→21:35)
--- NOTE | 2024-05-08 09:17 | NUR.NOTE ---
Nursing Note: Tele Psych to call back around 1400 today to do consult as pt is alssloane. ZIA RN
--- NOTE | 2024-05-08 09:57 | W.PM.PROGNOT ---
Date of Service Date of service: 05/08/24 Time of Service: 09:57 Assessment and Plan Assessment and plan (1) UTI (urinary tract infection): Status: Acute Assessment and plan: urine growing e coli, started on ceftriaxone day 03/08 while awaiting sensitivities straight caths for retention soliz placed (2) Delirium: Status: Acute Assessment and plan: possibly d/t UTI safety precautions treat UTI monitor consider [facility] admission (3) Acute kidney injury: Status: Acute Assessment and plan: thought d/t dehydration IV hydration avoid nephrotoxic drugs, renal dosing (4) Hallucinations: Status: Acute Assessment and plan: Most likely secondary to lack of sleep and adjustment of her high-dose narcotic therapy. Hold fentanyl since patient has discontinued this recently and use Dilaudid as needed. Hold other sedatives such as Lunesta. Gabapentin will be continued. Melatonin at for insomnia (5) Chronic pain: Status: Chronic Assessment and plan: Dilaudid as needed for pain holding fentanyl. Long-term she needs to adjust her pain management with pain specialist and may do better off narcotics at this time. She has stopped her meds in the past and dealt with her pain with other modalities. This may be safer. (6) Multiple sclerosis: Status: Chronic Assessment and plan: Continue follow-up with neurology with his progressive disease. This is disabling. (7) Hypertension: Status: Chronic Assessment and plan: Continue outpatient medical therapy adjust as needed. (8) Hematoma: Status: Acute Assessment and plan: on head, due to self induced trauma. Not present the morning when seen -PRN haldol ordered for anxiety and agitation -No previous Psych consult in chart and ordered Prior to haldol being given: occurring between 1440 and 1430 as per nursing as patient monitoring strike her head to the wall in the room Does not verbalize desire to self-harm or suicide ideation- frustrated by the situation Head CT completed with similar result-prior study -IMPRESSION: No evidence of intracranial hemorrhage. Chronic small-vessel white matter ischemic changes again noted.. Perhaps mildly increased in the right frontal lobe white matter anterior forceps. Recommend follow-up MRI with diffusion imaging. MRI W ordered for the morning but patient might not be able to comply with immobility requirements CPSO ordered Behavioral health care plan Q 1 During meeting w CM, lead RN,HS, RNs--determination made that is was a priority to complete the psych consult Discussed with Dr. Ortega Subjective Subjective Interval history since last seen: medically stable, unable to provide reliable history d/t mental status/delirium Exam Narrative Exam Narrative: elderly female lying in bed with eyes closed, resp even and unlabored, skin is pink warm dry and well perfused. Objective Last Vital Signs Temp 37.0 C 05/08/24 07:19 Pulse 70 05/08/24 07:19 Resp 16 05/08/24 07:19 BP 210/98 H 05/08/24 07:19 Pulse Ox 99 05/08/24 07:19 Laboratory Results - last 24 hr 05/08/24 06:20 WBC 9.16 RBC 3.87 L Hgb 12.6 Hct 37.3 MCV 96 H MCH 32.6 MCHC 33.8 RDW 11.9 Plt Count 217 MPV 9.4 Sodium 143 Potassium 3.7 Chloride 109 H Carbon Dioxide 22.2 Anion Gap 11.8 H BUN 15 Creatinine 1.1 H Est GFR (CKD-EPI 2020) 53.06 Glucose 153 H Calcium 8.7 Magnesium 1.7 L Total Bilirubin 0.5 AST 36 ALT 43 Alkaline Phosphatase 79 Total Protein 6.1 L Albumin 3.7 Time Spent with Patient Time Spent with Patient: 35-49 minutes Time was spent: preparing to see the patient(eg.review tests), obtaining and/or reviewing separately otained hiistory, ordering medications,tests, procedures and indepentently interpreting results
[2024-05-08 11:37] LABS: Bilirubin Negative (Negative); Blood Trace-intact (Negative); Clarity Clear (Clear); Glucose Negative (Negative); Ketones Negative (Negative); Leukocyte Esterase Negative (Negative); Nitrite Negative (Negative); Specific Gravity 1.015 (1.005-1.025); Urobilinogen 0.2 mg/dL (Up to 0.2); pH 5.5 (5-8)
[2024-05-08] MEDS: cefTRIAXone 1 GM/50 ML BAG IVPB (11:39)
[2024-05-08] MEDS: Enoxaparin 30 MG/0.3 ML SYR SC (11:39)
[2024-05-08 11:42] LABS: Bacteria Many HPF (Negative); C & S Indicated? No; Casts Negative LPF (Negative); Crystals Negative HPF (Negative); Epithelial Cells Rare HPF (Negative); Mucus Negative (Negative); WBC 0-2 HPF (0-5)
[2024-05-08 13:02] VITALS: BP 190/82; PULSE 74; RESP 16; TEMP 37; O2SAT 99
[2024-05-08] MEDS: Acetaminophen 325 MG TAB 650 MG PO (18:17)
--- NOTE | 2024-05-08 19:45 | PSYCO_ITS ---
Date of service: 05/08/24 Time of Service: 19:00 Summary Note PSYCHIATRY CONSULT NOTE: INITIAL EVALUATION Date/Time:?05/08/2024 7:46:48 PM Name:Dino Olivo :?1950 Location of the patient:?[facility] IP Consulting [facility] Clinician:?Silvio Reis Location of the clinician:? Length of Consult:?30 minutes SUMMARY 74-year-old female, with no history of psychiatric illness, no current excessive drug use, no history of self-harming/suicidal behavior/violent behavior, no past psychiatric hospitalizations, admitted to medicine 05/07 for Acute Kidney Injury referred to psychiatry. Patient was noted to be hallucinating and agitated and lack of sleep secondary to her UTI. After the patient was able to get some sleep the night prior she was noted to be more calm and cooperative. The patient does have medical conditions that require opiates that could contribute to her recurrent UTI presentations monthly.Patient denies SI/HI. Patient does not appear to be at acute risk to self or others due to psychiatric illness or to require inpatient psychiatric hospitalization. Working Diagnoses:? 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 CPT Codes:?11860 - Psychiatric Diagnostic Evaluation with Medical Services PLAN Disposition:? * Discharge type: Patient does not require psychiatric hospitalization. Disposition to be determined by primary team Observation level ? Psychiatric 1:1 needed??No psych 1:1 needed Work-up:? Pharmacological:? * olanzapine 2.5mg Q6h PO/IM PRN agitation, check EKG - QTc < 500ms, avoid concomitant use of benzo within 1 hour of IM olanzapine * Is patient psychotic? - No; * Informed consent: Discussed risks and benefits of the above recommended psychiatric medications with patient, who demonstrated understanding and gave express informed consent to take the above medications as documented. Follow up needed while in the hospital??none Other:? * Dementia/Delirium: AVOID BENZODIAZEPINES, ANTICHOLINERGICS, ANTIHISTAMINES, AND OTHER SEDATING MEDICATIONS, which may PRECIPITATE and worsen delirium * If questions arise about the psychiatric care of this patient, please call the [facility]?to request a follow-up consult. ?Please do not contact me individually through the EMR chat as I am not?regularly logged on to?this system. The psychiatrist for the follow-up visit may be a different psychiatrist Discussed plan with onsite stationary steam engineer:?Yes - Elizabeth Gooden RN HISTORY This evaluation was conducted remotely with the assistance of onsite staff via HIPAA-compliant video call. Patient consented to proceed with the telehealth visit. Requested by:? Sources of information:?Patient, medical record History of Present Illness:?74-year-old female, living with spouse/partner, , retired, with no history of psychiatric illness, no current excessive drug use, no history of self-harming/suicidal behavior/violent behavior, no past psychiatric hospitalizations, admitted to medicine 05/07 for Acute Kidney Injury referred to psychiatry. The patient reports that she was able to sleep last night and feeling much better. She reports that she had an UTI and bout of colitis and reports that she does not recall the specific details of the presentation due to being out of it. The patient reports that she is in pain secondary to Multiple Sclerosis. She reports that she is supposed to be considering neck surgery and wants to follow up with provider. The patient reports that she has recurrent UTI and and stage Kidney disease that is treated in [place]. The patient reports that she has reported some lack of taste in meals.. Collateral ContactedNo-- no acute safety issues identified. PSYCHIATRIC REVIEW OF SYSTEMS (symptoms in past two weeks) Pertinent Positives:?insomnia/poor appetite/anxiety/Insomnia caused by UTI, Poor appetite during her UTI. Hallucinations during UTI episode. Anxiety is precipitated by the UTI. Pertinent Negatives:?no depressed mood/no anhedonia/no hopelessness/no homicidal ideation/no irritability/no aggressive behavior/no agitation/no auditory hallucinations/no visual hallucinations PSYCHIATRIC HISTORY Past Psychiatric Diagnoses/Problems:?no past psychiatric diagnoses Psychiatric Treatment:?Hospitalizations:?no past psychiatric hospitalizations ???Other Past treatment:?none ???Current treatment:?no reported current psychiatric treatment Drug/Alcohol History ???Current excessive drug/alcohol use:?none ???Past excessive drug/alcohol use:?none ???Drug/alcohol use comment:?Treatment:?none ???Withdrawal symptoms:?none ???UDS results:?BAL results:?Active withdrawal Protocol:? Stressors:?medical comorbidity Trauma:?none Family Psychiatric History:?none HEALTH HISTORY Medical Problems:? UTI, CKD, severe chronic pain, Multiple Sclerosis Is patient linked with PCP? Psychiatric and other clinically relevant medications:? Allergies/Adverse Medication Reactions:?Melyssa PCN Ciprofloxacin Prochlorperazine Lactose Codeine Bactrim Latex Physical Findings:?no clinically significant changes in vital signs DEMOGRAPHICS/SOCIAL HISTORY Gender:?female Living Situation:?living with spouse/partner Relationship Status:? 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 RISK EVALUATION Suicidality/self-injury:?no history of suicidal/self-harming behavior Primary Suicide Screening (PSS-3) 1. In the past two weeks, have you felt down, depressed, or hopeless??NO 2. In the past two weeks, have you had thoughts of killing yourself??NO 3. In your lifetime, have you ever attempted to kill yourself??NO 3a. Within the past 6 months??NO ESS-6 Secondary Screen ( If #2 is yes or #3a is yes within the past 6 months, then complete secondary screen) 1. Positive on PSS-3 questions 2 & 3 ? active suicidal ideation with a past attempt??Screen not applicable 2. Have you been thinking about how you might kill yourself??Screen not applicable 3. Have you had some intention of acting on your thoughts??Screen not applicable 4. Lifetime psychiatric hospitalization??Screen not applicable 5. Has drinking or substance abuse ever been a problem for you??Screen not applicable 6. Current irritability, agitation, or aggression??Screen not applicable PSS-3/ESS-6 Secondary Screen Scoring:?Low Risk-PSS3 screen negative PSS-3/ESS-6 Scoring Interpretation Legend PSS-3 screen incomplete [Blank PSS-3 questions #2 OR #3a] PSS-3 screen unable to assess [Unable to Assess responses on PSS-3 questions #2 AND #3a] Mild [No current attempt AND No suicide plan or intent AND Score (0-2)] Moderate [No current attempt AND Active suicidal ideation with plan or intent (not both) OR Score (3-4)] Severe [Current attempt OR Suicide plan and intent OR Score (5-6)] HI/Violence/Property Destruction:?no history of violent/aggressive behavior Access to Firearms:?none Grave disability/Poor self-care:? Psychosis:?No Protective Factors:?identifies reasons for living; responsibility to children or others High Utilization Criteria:? Signs of Secondary Gain:? MENTAL STATUS EXAM Appearance and Attire:? Good eye contact, Well groomed Psychomotor agitation:? No abnormality Attitude and behavior:? Cooperative Speech:? No abnormality Mood:?Good Affect:? Full range of affect Thought Process:? Linear, Logical, Coherent Thought content:? No suicidal ideation, No homicidal ideation Perception:? No auditory hallucinations, No visual hallucinations Intelligence:? Average Abstraction:? Appropriate Language:? No abnormality Orientation:? Oriented to person, Oriented to place, Oriented to time, Oriented to situation Sensorium:? Normal Knowledge:? Appropriate for education and socioeconomic status Memory:? Intact, Can spell world forwards, WORLD-DLORW Insight:? Appropriate Judgment:? Appropriate SUMMARY RISK ASSESSMENT Current Suicide Risk Elevated??PSS-3/ESS-6 Scoring: Low Risk-PSS3 screen negative? Current Violence Risk Elevated??No Issues with ability to care for self.?No SAFE-T Risk Factors Suicidal Behavior:? ??History of prior suicide attempts ??Aborted suicide attempt ??History of prior SI ??Self-injurious behavior Current/Past Psychiatric Disorders:? ?Mood disorders ??Psychotic Disorders ??History of inpatient hospitalization ??ADHD ??TBI ??PTSD ??Cluster B personality disorders ??Conduct disorders ? Medical comorbidity ??Recent onset of illness Current/Past Substance Use:? ??Active ETOH/Opiates/Other Substance abuse ??History of ETOH/Opiates/Other Substance abuse ??Active withdrawal or risk of withdrawal from ETOH/Opiate Laura Symptoms:? ??Anhedonia ??Impulsivity ??Hopelessness ? Anxiety/Panic ? Global insomnia (difficulty falling asleep, maintaining sleep, or falling back to sleep) ??Command Hallucinations Family History Risk Factors:? ??Suicide Attempts ??Psychiatric disorders requiring hospitalization ??Suicidal Behavior Precipitants/Stressors/Interpersonal/Triggers:? ??Events leading to humiliation, shame, or despair ??Family turmoil/chaos ??Chronic physical pain or other acute medical problems ??Perceived burden on others ??Ongoing medical illness ??History of physical or sexual abuse ??Legal problems ??Intoxication ??Social isolation ??Inadequate social support Treatment:? ??Medication management ??Therapy ??Satisfied with current treatment ??Recent discharge from a psychiatric hospital ??Recent change in provider or treatment ??Access to firearms/ammunition Protective Factors Internal:? ??Ability to cope with stress ? Identifies reasons for living ??Frustration tolerance ??Methodist beliefs ??Fear of or the actual act of killing self External:? ??Cultural factors against suicide ??Beloved pets ??Engaged in work or school ??Spiritual and/or moral attitudes against suicide ? Supportive social network of family or friends ? Responsibility to children/others ??Positive therapeutic relationships Silvio Reis, DO Psychiatrist, [facility]
[2024-05-08 19:47] VITALS: BP 186/90; PULSE 72; RESP 16; TEMP 36.5; O2SAT 100
[2024-05-08] MEDS: Senna TAB 1 TAB PO (21:34)
[2024-05-08] MEDS: Metoprolol CR 100 MG TABCR PO (21:34)
[2024-05-08] MEDS: Melatonin 3 MG TAB PO (21:34)
[2024-05-08] MEDS: DULoxetine 30 MG CAP 60 MG PO (21:35)
[2024-05-08] MEDS: Normal Saline 1,000 ML 100 ML IV (22:15)
[2024-05-08 23:22] VITALS: BP 176/80; PULSE 82; RESP 16; TEMP 36.4; O2SAT 99
[2024-05-09] MEDS: HYDROmorphone 4 MG TAB PO ×4 (03:39→21:20)
[2024-05-09] MEDS: Acetaminophen 325 MG TAB 650 MG PO ×2 (03:39→21:21)
[2024-05-09 06:15] VITALS: BP 170/90; PULSE 80; RESP 16; TEMP 36.7; O2SAT 97
[2024-05-09] MEDS: Omeprazole 20 MG CAPCR 40 MG PO ×2 (06:47→21:22)
[2024-05-09] MEDS: Sucralfate 1 GM TAB PO ×4 (06:47→21:21)
[2024-05-09 07:14] LABS: HCT 36.6 % (36.0-46.0); HGB 12.8 g/dL (11.2-15.7); MCH 33.2 pg (27.0-33.0); MCV 95 fL (80-95); MPV 9.4 fL (8.0-11.0); Platelet Count 206 10^3/uL (130-400); RBC 3.85 10^6/uL (3.93-5.22); RDW 12.3 % (11.7-14.6); RDW-SD 42.8 fL; WBC 10.63 10^3/uL (4.4-10.8)
[2024-05-09 07:37] LABS: ALT 45 U/L (14-59); AST 40 U/L (15-37); Albumin 3.5 g/dL (3.4-5.0); Alkaline Phosphatase 76 U/L (46-116); Anion Gap 9.1 mmol/L (3-11); BUN 9 mg/dL (7-18); Bilirubin, Total 0.5 mg/dL (0.2-1.0); CO2 23.9 mmol/L (21.0-32.0); CREATININE 0.8 mg/dL (0.55-1.02); Calcium 8.7 mg/dL (8.5-10.1); Chloride 111 mmol/L (98-107); Estimated GFR 77.75 (mL/min/1.73m2); Glucose 108 mg/dL (74-106); Magnesium 1.5 mg/dL (1.8-2.4); Potassium 3.3 mmol/L (3.5-5.1); Sodium 144 mmol/L (136-145); Total Protein 5.9 g/dL (6.4-8.2)
--- NOTE | 2024-05-09 08:00 | DI.MRI_ITS ---
Exam(s) MR BRAIN WO/W EXAM: MR BRAIN WO/W CLINICAL HISTORY: increased in the right frontal lobe white matter a TECHNIQUE: Multiplanar multisequence MRI of the brain was performed. CONTRAST MATERIAL: IV Contrast: 7 mL of Dotarem contrast administered. COMPARISON: CT CT HEAD WO from 07/22/2018 MR MR BRAIN WO from 07/02/[address] HEAD WO from 05/07/2024 FINDINGS: The examination is limited due to patient motion artifact. VENTRICLES AND EXTRA AXIAL SPACES: Normal in size and morphology for the patient's age. HEMORRHAGE: None. CEREBRAL PARENCHYMA: No focus of restricted diffusion to suggest acute infarct. No space-occupying le isaac identified. There are foci of increased signal seen in the white matter on the FLAIR and T2 weig hted images most consistent with chronic microvascular ischemic disease. MIDLINE SHIFT: None. BRAINSTEM/CEREBELLUM: Normal. CALVARIUM: Normal. Stable appearance of the enlarged head of the left mandible. ENHANCEMENT: No suspicious enhancement identified. VISUALIZED PARANASAL SINUSES/MASTOIDS: Clear. UPPER M[place]I OF SINGH: Normal flow void. PITUITARY GLAND: Unremarkable. OTHER FINDINGS: IMPRESSION: 1. Examination limited by patient motion artifact. 2. No evidence of an acute infarct. 3. Age-related cerebral atrophy and chronic microvascular ischemic disease. DATA REPOSITORY:
[2024-05-09] MEDS: Cholecalciferol (Vitamin D3) 1,000 UNIT TAB 1000 UNITS PO (08:04)
[2024-05-09] MEDS: busPIRone 15 MG TAB PO ×3 (08:04→21:22)
[2024-05-09] MEDS: Metoprolol CR 100 MG TABCR 200 MG PO (08:04)
[2024-05-09] MEDS: Gabapentin 100 MG CAP 200 MG PO ×2 (08:04→21:21)
[2024-05-09] MEDS: Mirabegron 25 MG TABCR PO (08:04)
[2024-05-09] MEDS: Potassium Chloride 20 MEQ TABCR PO ×2 (08:04→10:04)
[2024-05-09] MEDS: Magnesium Oxide 400 MG TAB PO ×2 (08:05→21:21)
[2024-05-09] MEDS: Ferrous Gluconate 324 MG TAB PO (08:05)
[2024-05-09] MEDS: Docusate Sodium 100 MG CAP PO (08:05)
[2024-05-09] MEDS: Cyanocobalamin 500 MCG TAB 1000 MCG PO (08:05)
[2024-05-09] MEDS: Montelukast 10 MG TAB PO (08:05)
[2024-05-09] MEDS: Lisinopril 20 MG TAB PO (08:05)
[2024-05-09] MEDS: Atorvastatin 40 MG TAB PO (08:06)
[2024-05-09] MEDS: Ascorbic Acid 500 MG TAB PO (08:06)
[2024-05-09] MEDS: amLODIPine 2.5 MG TAB PO (08:06)
[2024-05-09] MEDS: Normal Saline Flush 10 ML SYR IVP ×2 (08:06→08:50)
[2024-05-09] MEDS: LORazepam 2 MG/ML VIAL 1 MG IVP (08:34)
[2024-05-09] MEDS: Gadoterate meglumine 20 ML VIAL 7 ML IVP (08:49)
--- NOTE | 2024-05-09 09:11 | CMPROGNOTE_ITS ---
Date of service: 05/09/24 Time of Service: 09:11 Care Management Progress Note Progress Note Text Progress Note Text: Kena was sitting up in bed when CM met with her. She was a little sleepy but engaged well with CM. Kena had a Psychiatric consultation done to assess reports of her having hallucinations and altered mental status. Of note is the fact that she was on new narcotics, had a UTI and had been treated with an antibiotic (Bactrim) that she is allergic to. The psychiatrist determined that she had neither SI nor HI and did not require inpatient psychiatric treatment. Kena has an ESBL in her urine that will require additional treatment as well as electrolyte disturbances. She was given both potassium and magnesium replacements. She will have follow up blood work in the morning and may be able to discharge later tomorrow if she remains stable. Discharge Potential Discharge Needs: PCP F/U Appt Anticipated Barriers to Discharge: Medical Status Patient/Family Education Needs: Review discharge instructions, discuss Ask Me Three Transportation: Private vehicle Plan: Anticipate Kena will be discharged home with no new services when medically cleared. She will follow up with her PCP and plan of care and transport with her partner. CM will follow and continue to assess for discharge needs. Social Determinants of Health Screening Social Determinants of Health last assessed: 05/09/24 Will the Patient Participate in the Screening?: Declined to provide Do you worry about having a steady place to live?: choose not to answer Problems where you live: no known problems In the past 12 months, have you had to go without electric, gas, oil or water in your home?: choose not to answer Have you or anyone in your house had to go without enough food to eat?: choose not to answer Has lack of transportation kept you from medical appointments or from doing things needed for daily living?: choose not to answer Has anyone in your life made you feel unsafe or unsupported?: choose not to answer How hard is it for you to pay for the very basics like food, housing, medical care, and heating? Would you say it is:: Not hard at all Do you want help finding or keeping work or a job?: I do not need or want help If for any reason you need help with day-to-day activities such as bathing, preparing meals, shopping, managing finances, etc., do you get the help you n eed?: I don?t need any help How often do you feel lonely or isolated from those around you?: Never Do you speak a language other than Croatian at home?: No Does the patient want assistance with any of the above?: No Health Related Social Needs Health related social needs: material hardship(utilities) (Z59.12)
[2024-05-09] MEDS: Normal Saline 1,000 ML 100 ML IV ×2 (10:05→21:27)
[2024-05-09] MEDS: MAGNESIUM SULFATE 1 GM/100 ML BAG IV_INF (10:05)
[2024-05-09] MEDS: Fosfomycin Tromethamine 3 GM PACKET PO (10:44)
[2024-05-09] MEDS: Enoxaparin 30 MG/0.3 ML SYR SC (11:34)
[2024-05-09 12:17] LABS: Fentanyl Scr w/Rfx Confirm Positive ng/mL (<1)
[2024-05-09 15:49] VITALS: BP 178/89; PULSE 64; RESP 18; TEMP 36.7; O2SAT 100
--- NOTE | 2024-05-09 17:51 | PGE_ITS ---
Date of Service Date of service: 05/09/24 Time of Service: 17:51 Assessment and Plan Assessment and plan (1) UTI (urinary tract infection): Status: Acute Assessment and plan: urine growing ESBL discontinued ceftriaxone as it is resistant - fosfomycin x 1 dose )2nd does in 3d) - consulted pharmacy Continue soliz care Patient of Dr Saldivar - he will see (2) Delirium: Status: Resolved Assessment and plan: possibly d/t UTI safety precautions treat UTI monitor Not confused (3) Acute kidney injury: Status: Acute Assessment and plan: thought d/t dehydration avoid nephrotoxic drugs, renal dosing (4) Hallucinations: Status: Resolved (5) Chronic pain: Status: Chronic Assessment and plan: Dilaudid as needed Long-term she needs to adjust her pain management with pain or palliative (6) Multiple sclerosis: Status: Chronic Assessment and plan: Continue follow-up with neurology with his progressive disease. This is disabling. (7) Hypertension: Status: Chronic Assessment and plan: Continue outpatient medical therapy adjust as needed. (8) Hematoma: Status: Resolved Assessment and plan: Hematoma resolved No AMS Discussed with Subjective Subjective Patient reports: no new complaints, tolerating liquids well, tolerating a regular diet, voiding w/o difficulty and bowel movement Interval history since last seen: Deepti states she is feeling better today Exam Narrative Exam Narrative: Constitutional The patient is in bed comfortable and cooperative during the interview. HENMT: Facial structures are with normal appearance Neuro:alert and oriented to self, person, place and situation Resp: Normal respiratory pattern, speaks in full sentences, clear lung bilaterally Cardio: regular rhythm, S1, S2, no murmur, capillary refill<3 sec., positive pulses to all 4 extremities GI: Abdomen is flat , soft and non tender, bowel sounds are present : Negative Costovertebral angle tenderness Back/spine/Pelvis: No back tenderness, previous surgical scar noted Integumentary: No skin lesions or rash Psych: normal mood and affect Psych Speech and Movement: pressured speech Mood: paranoid Affect: animated Attitude: cooperative Thought Process: flight of ideas and perseverating Thought Content: hallucinations auditory Insight: limited Judgment: limited Objective Last Vital Signs Temp 36.7 C 05/09/24 15:49 Pulse 64 05/09/24 15:49 Resp 18 05/09/24 15:49 BP 178/89 H 05/09/24 15:49 Pulse Ox 100 05/09/24 15:49 Laboratory Results - last 24 hr 05/06/24 05/09/24 00:00 06:45 WBC 10.63 RBC 3.85 L Hgb 12.8 Hct 36.6 MCV 95 MCH 33.2 H MCHC 35.0 RDW 12.3 Plt Count 206 MPV 9.4 Sodium 144 Potassium 3.3 L Chloride 111 H Carbon Dioxide 23.9 Anion Gap 9.1 BUN 9 Creatinine 0.8 Est GFR (CKD-EPI 2020) 77.75 Glucose 108 H Calcium 8.7 Magnesium 1.5 L Total Bilirubin 0.5 AST 40 H ALT 45 Alkaline Phosphatase 76 Total Protein 5.9 L Albumin 3.5 Urine Fentanyl Screen Positive A Time Spent with Patient Time Spent with Patient: 25-34 minutes Time was spent: preparing to see the patient(eg.review tests), ordering medications,tests, procedures, referring, communicating with other health care p rofessionals, indepentently interpreting results, counseling the patient and care coordination
[2024-05-09 19:46] VITALS: BP 193/90; PULSE 77; RESP 16; TEMP 36.9; O2SAT 99
[2024-05-09] MEDS: DULoxetine 30 MG CAP 60 MG PO (21:20)
[2024-05-09] MEDS: Senna TAB 1 TAB PO (21:20)
[2024-05-09] MEDS: Metoprolol CR 100 MG TABCR PO (21:21)
[2024-05-09] MEDS: Melatonin 3 MG TAB 6 MG PO (21:22)
[2024-05-09 23:19] VITALS: BP 171/83; PULSE 65; RESP 16; TEMP 36.8; O2SAT 98
[2024-05-10] MEDS: HYDROmorphone 4 MG TAB PO ×4 (02:18→14:21)
[2024-05-10 03:27] VITALS: BP 185/87; PULSE 60; RESP 15; TEMP 36.1; O2SAT 99
[2024-05-10 06:53] LABS: Abs Immature Grans 0.02 10^3/uL (0.0-0.06); Absolute Basophil Count 0.04 10^3/uL (0.0-0.2); Absolute Eosinophil Count 0.13 10^3/uL (0.0-0.7); Absolute Lymphocyte Count 2.27 10^3/uL (1.2-3.4); Absolute Monocyte Count 0.43 10^3/uL (0.1-0.8); Absolute Neutrophil Count 4.95 10^3/uL (1.2-6.7); Basophils % 0.5 %; Eosinophils % 1.7 %; HCT 34.1 % (36.0-46.0); HGB 11.6 g/dL (11.2-15.7); Immature Grans % 0.3 %; MCV 97 fL (80-95); MPV 9.2 fL (8.0-11.0); Monocytes % 5.5 %; Platelet Count 171 10^3/uL (130-400); RBC 3.51 10^6/uL (3.93-5.22); RDW 12.1 % (11.7-14.6); RDW-SD 43.1 fL; WBC 7.84 10^3/uL (4.4-10.8)
[2024-05-10 07:16] LABS: Anion Gap 8.2 mmol/L (3-11); BUN 8 mg/dL (7-18); CO2 23.8 mmol/L (21.0-32.0); CREATININE 0.8 mg/dL (0.55-1.02); Calcium 8.3 mg/dL (8.5-10.1); Chloride 111 mmol/L (98-107); Estimated GFR 77.75 (mL/min/1.73m2); Glucose 95 mg/dL (74-106); Magnesium 1.8 mg/dL (1.8-2.4); Potassium 3.7 mmol/L (3.5-5.1); Sodium 143 mmol/L (136-145)
[2024-05-10 07:38] VITALS: BP 188/92; PULSE 63; RESP 17; TEMP 38; O2SAT 99
[2024-05-10] MEDS: Gabapentin 100 MG CAP 200 MG PO (09:39)
[2024-05-10] MEDS: Ascorbic Acid 500 MG TAB PO (09:39)
[2024-05-10] MEDS: Cholecalciferol (Vitamin D3) 1,000 UNIT TAB 1000 UNITS PO (09:39)
[2024-05-10] MEDS: Magnesium Oxide 400 MG TAB PO (09:39)
[2024-05-10] MEDS: Mirabegron 25 MG TABCR PO (09:40)
[2024-05-10] MEDS: Atorvastatin 40 MG TAB PO (09:40)
[2024-05-10] MEDS: Potassium Chloride 20 MEQ TABCR PO (09:40)
[2024-05-10] MEDS: Omeprazole 20 MG CAPCR 40 MG PO (09:40)
[2024-05-10] MEDS: Sucralfate 1 GM TAB PO ×2 (09:40→11:36)
[2024-05-10] MEDS: Docusate Sodium 100 MG CAP PO (09:41)
[2024-05-10] MEDS: Metoprolol CR 100 MG TABCR 200 MG PO (09:41)
[2024-05-10] MEDS: Cyanocobalamin 500 MCG TAB 1000 MCG PO (09:42)
[2024-05-10] MEDS: Lisinopril 20 MG TAB PO (09:42)
[2024-05-10] MEDS: Montelukast 10 MG TAB PO (09:42)
[2024-05-10] MEDS: amLODIPine 2.5 MG TAB PO (09:42)
[2024-05-10] MEDS: Normal Saline Flush 10 ML SYR IVP ×2 (09:43→14:21)
[2024-05-10] MEDS: busPIRone 15 MG TAB PO ×2 (09:43→14:21)
[2024-05-10 10:52] LABS: Fentanyl Confirmation >40 ng/mL (<2); Norfentanyl Confirmation >200 ng/mL (<10)
[2024-05-10 11:16] VITALS: BP 166/91; PULSE 76; RESP 16; TEMP 36.9; O2SAT 100
[2024-05-10] MEDS: Enoxaparin 30 MG/0.3 ML SYR SC (11:36)
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
[2024-05-10 15:08] VITALS: BP 178/91; PULSE 70; RESP 18; TEMP 37.3; O2SAT 100
--- NOTE | 2024-05-10 15:27 | CHAPLAIN ---
Kena and I know each other from previous admissions. Today when I visited she is focused on being discharged and said this is happening soon.
--- NOTE | 2024-05-10 16:04 | CMDISCH_ITS ---
Date of service: 05/10/24 Time of Service: 16:04 LACE Index Scoring Tool Questions: Length of Stay (in days): 3 Was the patient admitted via the E.D.?: Yes Comorbidities: Previous M.I. and Liver or Renal Disease E.D. Visits: 1 Answers: Total Score: 12 Risk of Readmission: High Risk Care Management Discharge Plan Reason for Hospitalization: AZALEA Discharge Plan: Kena will be discharged home with no new services. She will follow up with her PCP and plan of care and transport with her partner. Patient/Family Education Needs: Review discharge instructions, discuss Ask Me Three SDOH Health Related Social Needs: Health related social needs material hardship(utilitie s) (Z59.12)
[2024-05-14 12:24] LABS: Buprenorphine Negative ng/mL (Cutoff: 5.0)
== END 2024-05-10 16:08 | disposition home or self-care (01) | DRG 682 ==
LOC: ER 05-07 01:18 → EDHOLD 05-07 01:19 → MS 05-07 15:50
PROVIDERS: Nurse Practitioner Acute Care; Psychiatry & Neurology Neurology; Student in an Organized Health Care Education/Training Program; Admitting Provider Family Medicine; Emergency Provider Student in an Organized Health Care Education/Training Program; PCP Nurse Practitioner Family; Responsible Provider Nurse Practitioner Family; Visit Provider Family Medicine
DX: N17.9 Acute kidney failure, unspecified; E43 Unspecified severe protein-calorie malnutrition; E87.20 Acidosis, unspecified; Z68.1 Body mass index [BMI] 19.9 or less, adult; F05 Delirium due to known physiological condition; N39.0 Urinary tract infection, site not specified; Z16.12 Extended spectrum beta lactamase (ESBL) resistance; G35 Multiple sclerosis; I12.9 Hypertensive chronic kidney disease with stage 1 through stage 4 chronic kidney disease, or unspecified chronic kidney disease; N18.4 Chronic kidney disease, stage 4 (severe); D51.0 Vitamin B12 deficiency anemia due to intrinsic factor deficiency; D53.9 Nutritional anemia, unspecified; F32.A Depression, unspecified; M54.12 Radiculopathy, cervical region; I25.2 Old myocardial infarction; E86.0 Dehydration; G25.2 Other specified forms of tremor; G89.4 Chronic pain syndrome; M54.16 Radiculopathy, lumbar region; G47.01 Insomnia due to medical condition; Z79.899 Other long term (current) drug therapy; M48.02 Spinal stenosis, cervical region; B96.1 Klebsiella pneumoniae [K. pneumoniae] as the cause of diseases classified elsewhere; F12.90 Cannabis use, unspecified, uncomplicated; Z66 Do not resuscitate; Z79.891 Long term (current) use of opiate analgesic; K59.09 Other constipation; N31.9 Neuromuscular dysfunction of bladder, unspecified; Z91.148 Patient's other noncompliance with medication regimen for other reason; F41.1 Generalized anxiety disorder; M81.0 Age-related osteoporosis without current pathological fracture; Z74.09 Other reduced mobility; F43.10 Post-traumatic stress disorder, unspecified; K21.9 Gastro-esophageal reflux disease without esophagitis; S00.83XA Contusion of other part of head, initial encounter; W22.8XXA Striking against or struck by other objects, initial encounter
CPT/HCPCS: 00123; 36415; 70553; 80048; 80053; 80307; 80348; 80354; 82805; 85027; 87040; 87077; 87637; 96360; 96361; 99285; 70450; 81003; 81015; 82140; 82607; 83605; 83735; 84443; 85025; 87086; 87186; 99223; 99232; 99233; 99239; J0696; J1630; J1650; J2060; J3475; J3490

== ENCOUNTER 2024-05-23 17:28 | Emergency (ER) | payer MEDICARE, SELFPAY ==
[2024-05-23 17:33] VITALS: BP 180/77; PULSE 58; RESP 20; TEMP 36.9; O2SAT 95
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
[2024-05-23 17:46] VITALS: BP 180/77; PULSE 58; RESP 20; TEMP 36.9; O2SAT 95
[2024-05-23 18:12] LABS: Abs Immature Grans 0.01 10^3/uL (0.0-0.06); Absolute Basophil Count 0.04 10^3/uL (0.0-0.2); Absolute Eosinophil Count 0.22 10^3/uL (0.0-0.7); Absolute Lymphocyte Count 2.34 10^3/uL (1.2-3.4); Absolute Monocyte Count 0.42 10^3/uL (0.1-0.8); Absolute Neutrophil Count 2.53 10^3/uL (1.2-6.7); Basophils % 0.7 %; HCT 37.5 % (36.0-46.0); HGB 11.9 g/dL (11.2-15.7); Immature Grans % 0.2 %; Lymphocytes % 42.1 %; MCH 33.3 pg (27.0-33.0); MCHC 31.7 % (32.0-36.0); MCV 105 fL (80-95); MPV 9.7 fL (8.0-11.0); Monocytes % 7.6 %; Neutrophils % 45.4 %; Platelet Count 192 10^3/uL (130-400); RBC 3.57 10^6/uL (3.93-5.22); RDW 12.4 % (11.7-14.6); RDW-SD 48.5 fL; WBC 5.56 10^3/uL (4.4-10.8)
[2024-05-23 18:36] LABS: ALT 107 U/L (14-59); AST 74 U/L (15-37); Albumin 3.9 g/dL (3.4-5.0); Alkaline Phosphatase 92 U/L (46-116); BUN 18 mg/dL (7-18); Bilirubin, Total 0.3 mg/dL (0.2-1.0); Calcium 9.5 mg/dL (8.5-10.1); Chloride 107 mmol/L (98-107); Estimated GFR 59.49 (mL/min/1.73m2); Glucose 96 mg/dL (74-106); Potassium 5.2 mmol/L (3.5-5.1); Sodium 145 mmol/L (136-145); Total Protein 6.6 g/dL (6.4-8.2)
[2024-05-23 18:42] LABS: Procalcitonin < 0.10 ng/mL
[2024-05-23 19:43] LABS: Bilirubin Negative (Negative); Blood Negative (Negative); Clarity Clear (Clear); Glucose Negative (Negative); Ketones 15 mg/dL (Negative); Leukocyte Esterase Negative (Negative); Nitrite Negative (Negative); Urobilinogen 0.2 mg/dL (Up to 0.2); pH 5.5 (5-8)
[2024-05-23 19:52] LABS: Bacteria Packed HPF (Negative); C & S Indicated? Yes; Casts Negative LPF (Negative); Crystals Negative HPF (Negative); Epithelial Cells Negative HPF (Negative); Mucus Negative (Negative); RBC Negative HPF (0-2)
[2024-05-23] MEDS: Fosfomycin Tromethamine 3 GM PACKET PO (20:21)
[2024-05-23 20:28] VITALS: BP 168/88; PULSE 60; RESP 16; O2SAT 95
--- NOTE | 2024-05-25 08:07 | NUR.NOTE ---
Accessed Pt chart to document if the PT was on any antibiotics. The Lab called with Positive results from her Urine Screen done during this visit. Specimen Document given to the providers on the clipboard in the Doc box
--- NOTE | 2024-05-25 08:20 | W.EDPROG ---
Date of service: 05/25/24 Time of Service: 08:21 Medical Decision Making I called this patient at home as her urine microscopy grew E. coli, greater than 100,000 colonies/mL. Patient has a history of UTI MS and self catheterizes 7 times a day. She uses a new catheter reportedly each time. She follows with urology. She was recently hospitalized with a urinary tract infection which was growing ESBL for which she received treatment with fosfomycin. She is having no fevers no flank pain and no history of ureterolithiasis. She is still feeling weak. She uses a [facility] pharmacy in [place]. I advised that I would call in a prescription. I urged patient to return to the ED if she developed fevers could not take her medication as result of nausea or vomiting or if she develop any flank pain. Given her multiple complex urinary tract infections, I spoke with Dr. Rut Santos from infectious disease at [facility]. Given culture sensitivity to nitrofurantoin she advised nitrofurantoin. I will also attempt to reach out to the patient's PCP as ID recommended the followin. Consider reimaging to assess for structural causes of recurrent UTIs. 2. Place allergy referral given multiple allergies which limit antibiotic use, and 3. Consider [facility] ID referral. I sent a message to the patient's PCP Hardy Wisdom which was seen. Quality:SDOH Health Related Social Needs: Health related social needs material hardship(utilities) (Z59.12) Discharge Plan Disposition Patient Disposition: Home Condition: Stable Discharge Details Clinical Impression: General weakness, Acute UTI Primary Care Provider: Hardy Shelby ED Provider: Marek Squires Home Meds and New Rx's Prescriptions: New nitrofurantoin macrocrystal 100 mg capsule 100 mg PO BID 5 Days Qty: 10 0RF Rx Instructions: must administer with a meal/food Continued mirabegron [Myrbetriq] 25 mg tablet extended release 24 hr 25 mg PO DAILY mecobalamin (vitamin B12) [B12 Active] 1,000 mcg tablet,chewable 1,000 mcg PO DAILY Qty: 90 3RF amlodipine 2.5 mg tablet 2.5 mg PO DAILY Qty: 90 12RF eszopiclone [Lunesta] 1 mg tablet 1 mg PO QHS Qty: 30 3RF Rx Instructions: Palliative care patient buspirone 15 mg tablet 15 mg PO TID Qty: 90 4RF lorazepam 0.5 mg tablet 0.5 mg PO BID PRN (Reason: anxiety) Qty: 40 0RF Rx Instructions: palliative care patient levocetirizine [Xyzal] 5 mg tablet 5 mg PO QPM PRN (Reason: allergy symptoms) Qty: 90 4RF fluticasone propionate [Allergy Relief (fluticasone)] 50 mcg/actuation spray,suspension 2 spray intranasal DAILY PRN (Reason: allergies) Qty: 15.8 4RF Rx Instructions: Administer 2 sprays into each nostril once a day as needed for allergies (DME) Ultra-Light Rollator 1 EACH misc 1 ea Miscellaneous DAILY Qty: 1 Patient Comments: outside Rx Instructions: 4 wheel rollator with basket ferrous gluconate 324 mg (38 mg iron) tablet 324 mg PO .QOD Qty: 45 4RF sennosides [senna] 8.6 mg tablet 8.6 mg PO QHS Qty: 90 4RF docusate sodium 100 mg capsule 100 mg PO DAILY Qty: 90 4RF montelukast [Singulair] 10 mg tablet 10 mg PO DAILY Qty: 90 4RF ascorbic acid (vitamin C) [Vitamin C] 500 mg tablet 500 mg PO DAILY Qty: 90 4RF potassium chloride 20 mEq tablet,ER particles/crystals 20 meq PO DAILY Qty: 90 4RF duloxetine 60 mg capsule,delayed release(DR/EC) See Rx Instructions .ROUTE .COMPLEX Qty: 90 4RF Dose Instruction: TAKE 1 CAPSULE BY MOUTH AT BEDTIME Rx Instructions: TAKE 1 CAPSULE BY MOUTH AT BEDTIME cholecalciferol (vitamin D3) 25 mcg (1,000 unit) tablet See Rx Instructions .ROUTE .COMPLEX Qty: 90 4RF Dose Instruction: TAKE 1 TABLET BY MOUTH DAILY Rx Instructions: TAKE 1 TABLET BY MOUTH DAILY lisinopril 20 mg tablet 20 mg PO DAILY Qty: 90 4RF metoprolol succinate 100 mg tablet extended release 24 hr 100 mg PO BID Qty: 90 4RF Rx Instructions: 200 mg am,, 100 mg pm omeprazole 40 mg capsule,delayed release(DR/EC) See Rx Instructions .ROUTE .COMPLEX Qty: 180 3RF Dose Instruction: TAKE 1 CAPSULE BY MOUTH TWICE A DAY Rx Instructions: TAKE 1 CAPSULE BY MOUTH TWICE A DAY gabapentin 100 mg capsule See Rx Instructions .ROUTE .COMPLEX Qty: 112 4RF Dose Instruction: TAKE 2 CAPSULES BY MOUTH TWICE A DAY Rx Instructions: TAKE 2 CAPSULES BY MOUTH TWICE A DAY atorvastatin 40 mg tablet 40 mg PO DAILY Qty: 90 3RF sucralfate 1 gram tablet See Rx Instructions .ROUTE .COMPLEX Qty: 112 0RF Dose Instruction: TAKE 1 TABLET BY MOUTH FOUR TIMES A DAY Rx Instructions: TAKE 1 TABLET BY MOUTH FOUR TIMES A DAY hydromorphone 8 mg tablet extended release 24 hr 16 mg PO DAILY MDD 2 tabs Qty: 60 0RF Rx Instructions: Palliative care patient For pain related to MS hydromorphone 12 mg tablet extended release 24 hr 12 mg PO DAILY MDD 20mg Qty: 14 0RF Rx Instructions: take with 8mg tablet for total daily dose of 20mg hydromorphone 4 mg tablet 4 - 8 mg PO Q6H MDD 8 tabs PRN (Reason: pain) Qty: 60 0RF Rx Instructions: Palliative care patient for pain related to MS ondansetron 4 mg tablet,disintegrating 4 mg PO Q6H PRN (Reason: nausea and vomiting) Qty: 60 0RF acetaminophen [Tylenol 8 Hour] 650 mg tablet extended release 650 mg PO Q8H PRN (Reason: fever or pain) Qty: 30 0RF triamcinolone acetonide [Nasacort] 55 mcg Aerosol,[place] 1 spray INTRANASAL DAILY Rx Instructions: administer into each nostril Medical Marijuana 1 tab PO HS magnesium oxide 500 mg Tablet 500 mg PO BID Rx Instructions: evening Discharge Instructions Additional Instructions: Your blood work did not show any concerning findings at this time. Follow-up with your primary care provider especially if your symptoms continue in 1 to 2 weeks. Discussed with him with medications to be adjusted if your energy levels continue to be low. If you feel more ill or have new symptoms such as persistent vomiting or high fevers return to the emergency department for reevaluation Discharge Data Discharge Date/Time-TO BE ENTERED AT DEPARTURE: 05/23/24 20:29
== END 2024-05-23 20:29 | disposition home or self-care (01) ==
PROVIDERS: Emergency Provider Emergency Medicine; PCP Nurse Practitioner Family
DX: R53.1 Weakness (principal); N39.0 Urinary tract infection, site not specified; B96.20 Unspecified Escherichia coli [E. coli] as the cause of diseases classified elsewhere; I12.9 Hypertensive chronic kidney disease with stage 1 through stage 4 chronic kidney disease, or unspecified chronic kidney disease; N18.4 Chronic kidney disease, stage 4 (severe); I25.2 Old myocardial infarction; E78.5 Hyperlipidemia, unspecified
CPT/HCPCS: 00123; 36415; 80053; 84145; 87077; 99283; 81003; 81015; 83735; 85025; 87086; 87186; J3490

== ENCOUNTER → 2024-06-14 13:36 | Outpatient (BNVA) | payer MEDICARE, MEDICAID, SELFPAY | PROVIDERS: PCP Nurse Practitioner Family; Referring Provider Nurse Practitioner Family; Visit Provider Nurse Practitioner Gerontology | DX: G35 Multiple sclerosis (principal); N31.9 Neuromuscular dysfunction of bladder, unspecified; R10.2 Pelvic and perineal pain; R30.0 Dysuria; N39.0 Urinary tract infection, site not specified; B96.20 Unspecified Escherichia coli [E. coli] as the cause of diseases classified elsewhere; B96.89 Other specified bacterial agents as the cause of diseases classified elsewhere | CPT/HCPCS: 81003; 99214 ==

== ENCOUNTER 2024-06-14 15:14 | Outpatient (REF) | payer MEDICARE, MEDICAID, SELFPAY | END 2024-06-14 15:15 | disposition home or self-care (01) | LOC: LBN 15:14 | PROVIDERS: PCP Nurse Practitioner Family; Visit Provider Nurse Practitioner Gerontology | DX: R30.0 Dysuria (principal); N39.0 Urinary tract infection, site not specified; G35 Multiple sclerosis; N31.9 Neuromuscular dysfunction of bladder, unspecified; R10.2 Pelvic and perineal pain | CPT/HCPCS: 87077; 87086; 87186 ==

== ENCOUNTER → 2024-06-20 08:47 | Outpatient (BNVA) | payer MEDICARE, MEDICAID, SELFPAY | PROVIDERS: PCP Nurse Practitioner Family; Visit Provider Psychiatry & Neurology Neurology | DX: G35 Multiple sclerosis (principal); G89.4 Chronic pain syndrome; G47.00 Insomnia, unspecified; N31.9 Neuromuscular dysfunction of bladder, unspecified; E53.8 Deficiency of other specified B group vitamins; M48.02 Spinal stenosis, cervical region; M79.601 Pain in right arm | CPT/HCPCS: 99214 ==

== ENCOUNTER 2024-06-22 13:18 | Emergency (ER) | payer MEDICARE, MEDICAID, SELFPAY ==
[2024-06-22] VITALS (37 sets, daily range): BP systolic 170–266; BP diastolic 75–149; PULSE 65–81; RESP 20; TEMP 37; O2SAT 96–100
[2024-06-22 14:16] LABS: Bilirubin Negative (Negative); Blood Negative (Negative); Clarity Clear (Clear); Glucose Negative (Negative); Ketones Negative (Negative); Leukocyte Esterase Negative (Negative); Nitrite Negative (Negative); Urobilinogen 0.2 mg/dL (Up to 0.2)
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
[2024-06-22 14:34] LABS: Bacteria Many HPF (Negative); C & S Indicated? Yes; Casts Negative LPF (Negative); Crystals Negative HPF (Negative); Epithelial Cells Few HPF (Negative); Mucus Negative (Negative); RBC Negative HPF (0-2)
[2024-06-22] MEDS: Metoprolol CR 50 MG TABCR 100 MG PO (14:40)
[2024-06-22] MEDS: Lisinopril 10 MG TAB 20 MG PO (14:40)
[2024-06-22] MEDS: amLODIPine 5 MG TAB 2.5 MG PO ×2 (14:40→17:29)
[2024-06-22 14:59] LABS: BE (Venous) 4 mmol/L (-2-3); HCO3 (Venous) 28 mmol/L (23-28); O2 Sat (Venous) 64 %; TCO2 (Venous) 25 mmol/L (24-29); pCO2 (Venous) 43 mmHg (41-51); pH (Venous) 7.43 (7.31-7.41); pO2 (Venous) 33 mmHg
[2024-06-22 15:00] LABS: Abs Immature Grans 0.03 10^3/uL (0.0-0.06); Absolute Basophil Count 0.05 10^3/uL (0.0-0.2); Absolute Eosinophil Count 0.02 10^3/uL (0.0-0.7); Absolute Lymphocyte Count 1.46 10^3/uL (1.2-3.4); Absolute Neutrophil Count 6.65 10^3/uL (1.2-6.7); Basophils % 0.6 %; Eosinophils % 0.2 %; HGB 12.6 g/dL (11.2-15.7); Immature Grans % 0.4 %; Lymphocytes % 17.2 %; MCH 32.7 pg (27.0-33.0); MCHC 33.2 % (32.0-36.0); MCV 99 fL (80-95); MPV 9.2 fL (8.0-11.0); Monocytes % 3.5 %; Neutrophils % 78.1 %; Platelet Count 294 10^3/uL (130-400); RBC 3.85 10^6/uL (3.93-5.22); RDW 11.9 % (11.7-14.6); RDW-SD 43.6 fL; WBC 8.51 10^3/uL (4.4-10.8)
[2024-06-22 15:12] LABS: Lactate 1.4 mmol/L (<or=2.0)
[2024-06-22 15:17] LABS: Anion Gap 10.3 mmol/L (3-11); BUN 25 mg/dL (7-18); CO2 27.7 mmol/L (21.0-32.0); CREATININE 0.9 mg/dL (0.55-1.02); Calcium 9.8 mg/dL (8.5-10.1); Chloride 104 mmol/L (98-107); Glucose 116 mg/dL (74-106); Potassium 4.1 mmol/L (3.5-5.1); Sodium 142 mmol/L (136-145)
[2024-06-22] MEDS: HYDROmorphone 4 MG TAB PO (16:06)
[2024-06-22] MEDS: Normal Saline 500 ML 1000 ML IV (16:07)
[2024-06-22] MEDS: levoFLOXacin 500 MG, levoFLOXacin 250 MG 750 MG PO (16:46)
[2024-06-22] MEDS: HYDROmorphone 2 MG/ML SYR 1 MG IVP (16:46)
--- NOTE | 2024-06-24 09:25 | ED.FU.B_ITS ---
Follow Up Plan: Urine culture resulted with Klebsiella pneumonia. The sensitivities are only to IV antibiotics. Patient was discharged home on Macrobid. I contacted the patient and she states that she is feeling great and not having any additional symptoms in fact she cleaned her bathroom today. She has a follow-up appointment scheduled with [facility]. I advised her to keep that follow-up appointment. And reached out to the provider that we will be seeing her today. The patient will be reevaluated for a urinary tract infection and if her urine is still infected, the patient will either be sent to the hospital for admission or they may be able to set up outpatient infusion.
== END 2024-06-22 18:11 | disposition home or self-care (01) ==
PROVIDERS: Nurse Practitioner Family; Emergency Provider Physician Assistant; PCP Nurse Practitioner Family
DX: N39.0 Urinary tract infection, site not specified (principal); R03.0 Elevated blood-pressure reading, without diagnosis of hypertension; R35.0 Frequency of micturition; Z86.79 Personal history of other diseases of the circulatory system
CPT/HCPCS: 99284 ×2; 96374; 80048; 82805; 87040; 87077; 96361; 81003; 81015; 83605; 85025; 87086; 87186; J1171

== ENCOUNTER 2024-06-24 12:08 | Inpatient (IN) | payer MEDICARE, MEDICAID, SELFPAY ==
--- NOTE | 2024-06-24 | DI.US_ITS ---
Exam(s) US RENAL EXAM: US RENAL CLINICAL HISTORY: recurrent UTI/pyelonephritis. TECHNIQUE: Calixto scale, color and spectral Doppler were used. COMPARISON: US US RENAL from 06/19/2021 FINDINGS: Renal size in cm: Right: 10.1. Left: 8.6. Echogenicity: Normal. Hydronephrosis: No. Cyst or mass: No. Nephrolithiasis: No. Other findings: None. Bladder:No bladder wall thickening is seen. No intraluminal masses seen in the urinary bladder. Ureteral jets: Right: Visualized and unremarkable. Left: Visualized and unremarkable. Prevoid vol:91 cc Postvoid vol:The patient was unable to void for the examination. Renal color flow: Symmetric and within normal limits. IMPRESSION: Unremarkable examination. DATA REPOSITORY:
[2024-06-24 12:09] VITALS: BP 110/62; PULSE 61; RESP 12; TEMP 36.8; O2SAT 100
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
[2024-06-24 12:51] LABS: Bilirubin Negative (Negative); Blood Negative (Negative); Clarity Sl Cloudy (Clear); Glucose Negative (Negative); Ketones 15 mg/dL (Negative); Leukocyte Esterase Negative (Negative); Nitrite Negative (Negative); Specific Gravity >= 1.030 (1.005-1.025); Urobilinogen 0.2 mg/dL (Up to 0.2); pH 5.5 (5-8)
[2024-06-24 13:07] LABS: Abs Immature Grans 0.03 10^3/uL (0.0-0.06); Absolute Basophil Count 0.06 10^3/uL (0.0-0.2); Absolute Eosinophil Count 0.33 10^3/uL (0.0-0.7); Absolute Lymphocyte Count 2.57 10^3/uL (1.2-3.4); Absolute Monocyte Count 0.84 10^3/uL (0.1-0.8); Absolute Neutrophil Count 5.36 10^3/uL (1.2-6.7); Basophils % 0.7 %; Eosinophils % 3.6 %; HCT 32.9 % (36.0-46.0); HGB 10.8 g/dL (11.2-15.7); Immature Grans % 0.3 %; MCH 32.8 pg (27.0-33.0); MCHC 32.8 % (32.0-36.0); MCV 100 fL (80-95); MPV 9.3 fL (8.0-11.0); Monocytes % 9.1 %; Neutrophils % 58.3 %; Platelet Count 249 10^3/uL (130-400); RBC 3.29 10^6/uL (3.93-5.22); RDW 12.5 % (11.7-14.6); WBC 9.19 10^3/uL (4.4-10.8)
[2024-06-24 13:10] LABS: Bacteria Few HPF (Negative); C & S Indicated? No; Casts 0-2 Hyaline LPF (Negative); Crystals Negative HPF (Negative); Epithelial Cells Few HPF (Negative); Mucus Negative (Negative); RBC 0-2 HPF (0-2)
[2024-06-24 13:22] LABS: ALT 41 U/L (14-59); AST 28 U/L (15-37); Albumin 3.9 g/dL (3.4-5.0); Alkaline Phosphatase 90 U/L (46-116); Anion Gap 8.6 mmol/L (3-11); BUN 33 mg/dL (7-18); Bilirubin, Total 0.3 mg/dL (0.2-1.0); CO2 28.4 mmol/L (21.0-32.0); CREATININE 1.9 mg/dL (0.55-1.02); Calcium 9.2 mg/dL (8.5-10.1); Chloride 106 mmol/L (98-107); Estimated GFR 27.54 (mL/min/1.73m2); Glucose 91 mg/dL (74-106); Potassium 4.2 mmol/L (3.5-5.1); Sodium 143 mmol/L (136-145); Total Protein 6.3 g/dL (6.4-8.2)
[2024-06-24] MEDS: HYDROmorphone 4 MG TAB PO ×2 (13:37→14:11)
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
[2024-06-24 14:23] VITALS: BP 110/62; PULSE 61; RESP 12; TEMP 36.8; O2SAT 100
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
[2024-06-24] MEDS: MEROPENEM 1 GM in Normal Saline 100 ML IVPB (14:40)
[2024-06-24 14:41] VITALS: BP 102/57; PULSE 69; RESP 16; TEMP 37; O2SAT 100
[2024-06-24 15:14] VITALS: BP 102/57; PULSE 69; RESP 16; TEMP 37; O2SAT 100
[2024-06-24] MEDS: Enoxaparin 30 MG/0.3 ML SYR SC (16:02)
[2024-06-24] MEDS: busPIRone 5 MG TAB 15 MG PO ×2 (16:03→20:12)
[2024-06-24] MEDS: HYDROmorphone 4 MG TAB 8 MG PO ×2 (16:03→22:12)
[2024-06-24] MEDS: Sucralfate 1 GM TAB PO ×2 (16:03→22:11)
[2024-06-24] MEDS: Lactated Ringers 1,000 ML 150 ML IV ×2 (16:16→23:18)
[2024-06-24] MEDS: Acetaminophen 325 MG TAB 650 MG PO (18:16)
[2024-06-24 20:09] VITALS: BP 133/63; PULSE 72; RESP 15; TEMP 37.1; O2SAT 98
[2024-06-24] MEDS: Senna TAB 1 TAB PO (20:11)
[2024-06-24] MEDS: Gabapentin 100 MG CAP 200 MG PO (20:11)
[2024-06-24] MEDS: Magnesium Oxide 400 MG TAB PO (20:12)
[2024-06-24] MEDS: DULoxetine 30 MG CAP 60 MG PO (20:12)
[2024-06-24] MEDS: Mirtazapine 15 MG TAB 7.5 MG PO (20:13)
[2024-06-24] MEDS: Normal Saline Flush 10 ML SYR IVP (20:13)
[2024-06-24] MEDS: Metoprolol CR 100 MG TABCR PO (20:13)
[2024-06-25] MEDS: Acetaminophen 325 MG TAB 650 MG PO ×2 (02:29→12:35)
[2024-06-25] MEDS: MEROPENEM 1 GM in Normal Saline 100 ML IVPB ×2 (03:42→16:16)
[2024-06-25 06:46] LABS: Abs Immature Grans 0.03 10^3/uL (0.0-0.06); Absolute Basophil Count 0.05 10^3/uL (0.0-0.2); Absolute Eosinophil Count 0.42 10^3/uL (0.0-0.7); Absolute Lymphocyte Count 2.53 10^3/uL (1.2-3.4); Absolute Monocyte Count 1.26 10^3/uL (0.1-0.8); Basophils % 0.5 %; Eosinophils % 3.9 %; HCT 29.9 % (36.0-46.0); HGB 9.8 g/dL (11.2-15.7); Immature Grans % 0.3 %; Lymphocytes % 23.3 %; MCH 32.7 pg (27.0-33.0); MCHC 32.8 % (32.0-36.0); MCV 100 fL (80-95); MPV 9.2 fL (8.0-11.0); Monocytes % 11.6 %; Neutrophils % 60.4 %; Platelet Count 207 10^3/uL (130-400); WBC 10.86 10^3/uL (4.4-10.8)
[2024-06-25 06:52] LABS: Absolute Neutrophil Count 6.56 10^3/uL (1.2-6.7)
[2024-06-25 06:59] LABS: Anion Gap 5.7 mmol/L (3-11); BUN 29 mg/dL (7-18); CO2 27.3 mmol/L (21.0-32.0); CREATININE 1.4 mg/dL (0.55-1.02); Calcium 8.5 mg/dL (8.5-10.1); Chloride 107 mmol/L (98-107); Estimated GFR 39.73 (mL/min/1.73m2); Glucose 88 mg/dL (74-106); Potassium 4.2 mmol/L (3.5-5.1); Sodium 140 mmol/L (136-145)
[2024-06-25 07:37] VITALS: BP 175/82; PULSE 76; RESP 16; TEMP 36.9; O2SAT 98
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
[2024-06-25] MEDS: Cyanocobalamin 500 MCG TAB 1000 MCG PO (10:07)
[2024-06-25] MEDS: Gabapentin 100 MG CAP 200 MG PO ×2 (10:07→19:44)
[2024-06-25] MEDS: amLODIPine 2.5 MG TAB PO (10:07)
[2024-06-25] MEDS: busPIRone 5 MG TAB 15 MG PO ×3 (10:07→19:44)
[2024-06-25] MEDS: Magnesium Oxide 400 MG TAB PO ×2 (10:07→19:44)
[2024-06-25] MEDS: Docusate Sodium 100 MG CAP PO (10:08)
[2024-06-25] MEDS: Ascorbic Acid 500 MG TAB PO (10:08)
[2024-06-25] MEDS: Potassium Chloride 20 MEQ TABCR PO (10:08)
[2024-06-25] MEDS: Montelukast 10 MG TAB PO (10:08)
[2024-06-25] MEDS: Atorvastatin 40 MG TAB PO (10:08)
[2024-06-25] MEDS: Cholecalciferol (Vitamin D3) 1,000 UNIT TAB 1000 UNITS PO (10:08)
[2024-06-25] MEDS: Sucralfate 1 GM TAB PO ×3 (10:08→21:48)
[2024-06-25] MEDS: Lisinopril 20 MG TAB PO (10:09)
[2024-06-25] MEDS: Metoprolol CR 100 MG TABCR 200 MG PO (10:09)
[2024-06-25] MEDS: Mirabegron 25 MG TABCR PO (10:09)
[2024-06-25] MEDS: Normal Saline Flush 10 ML SYR IVP ×2 (10:10→19:50)
--- NOTE | 2024-06-25 12:06 | PHA.REVIEW2 ---
Pharmacy Admission Review Admission Clinical Review Admission Pharmacy Review: Pyelonephritis (Acute) Urinary tract infection due to ESBL Klebsiella (Acute) Neurogenic bladder (Acute) ciprofloxacin (From Cipro) Allergy (Severe, Verified 06/24/24 12:16) Skin Rash, vomiting latex Allergy (Severe, Verified 06/24/24 12:16) gets SOB and can't talk prochlorperazine edisylate (From Compazine) Allergy (Severe, Verified 06/24/24 12:16) Anaphylaxsis prochlorperazine maleate (From Compazine) Allergy (Severe, Verified 06/24/24 12:16) Anaphylaxsis ziprasidone mesylate (From Geodon) Allergy (Severe, Verified 06/24/24 12:16) neuroleptic malignant syndrome Penicillins Allergy (Intermediate, Verified 06/24/24 12:16) rash,vomiting lactose Allergy (Mild, Verified 06/24/24 12:16) Skin Rash codeine Allergy (Verified 06/24/24 12:16) Skin Rash, nausea sulfamethoxazole (From Bactrim) Adverse Reaction (Verified 06/24/24 12:16) Skin Rash trimethoprim (From Bactrim) Adverse Reaction (Verified 06/24/24 12:16) Skin Rash Resuscitation Status DNR/DNI Height 4 ft 11 in Weight 43.091 kg Pharmacy Admission Review Renal Dosing Renal Dosing: BUN 29 mg/dL (7-18) H 06/25/24 06:35 Creatinine 1.4 mg/dL (0.55-1.02) H 06/25/24 06:35 Medications needing adjustments: Intervened (CrCl 24.35 mL/min, BUN decreased from 33 and SCr decreased from 1.4) List of meds needing interventions: Changed cetirizine order from 10mg daily to 5mg daily Anticoagulation Anticoagulation: Hgb 9.8 g/dL (11.2-15.7) L 06/25/24 06:35 Hct 29.9 % (36.0-46.0) L 06/25/24 06:35 Plt Count 207 10^3/uL (130-400) 06/25/24 06:35 Creatinine 1.4 mg/dL (0.55-1.02) H 06/25/24 06:35 DVT Prophylaxis: Reviewed (Hgb decreased from 10.8) Medications: Enoxaparin (30mg daily due to CrCl < 30) Opiate Usage Evaluate Pain Scale/Pains Meds: Reviewed (hydromorphone 8mg PO q6h PRN - 16mg / 24 hrs, Patients own hydromorphone ER 16mg + 12mg tablets given once daily) Scheduled Bowel Reg ordered if on Opiates?: Yes (Senna/docusate) Relevant Labs Relevant Labs: Sodium 140 mmol/L (136-145) 06/25/24 06:35 Potassium 4.2 mmol/L (3.5-5.1) 06/25/24 06:35 Chloride 107 mmol/L (98-107) 06/25/24 06:35 Electrolytes, C-Reactive P, ESR: Reviewed Cardiac Review BP, HR, EF%: Reviewed (BP 175/82, HR WNL) List meds needing interventions: Has order for amlodipine 2.5mg daily, lisinopril 20mg daily, and metoprolol XL 100mg qPM and 200mg qAM QTc Review QTc: Reviewed (433 from 07/02/23 - most recent EKG on file) IV to PO Switch IV Medications: Reviewed (meropenem) Home Meds Home Med List reviewed: Intervened Relevent Home Meds Not ordered & why?: Nasacort and levofloxacin (on IV meropenem) Patients own hydromorphone ER 16mg + ER 12mg brought in to pharmacy. Counted initial amount in each bottle (17 tablets of ER 16mg and 25 tablets of ER 12mg). Removed 1 tablet from each to bring up stairs for todays dose. Will leave in pharmacy and bring up each morning while patient is here. Bottle was also brought in for patients hydromorphone 8mg tab (formulary), put in patients own payroll administrative assistant pharmacy. Current Meds Current Medication Order Review: Reviewed Pharmacy Antibiotic Review Relevant Labs: WBC 10.86 10^3/uL (4.4-10.8) H 06/25/24 06:35 Temperature 36.9 C Microbiology 06/24/24 12:44 Urine Culture - Preliminary Urine - Clean Catch Gram positive daphne, mixed Pharmacy Antibiotic Activity: C/S review and Reviewed, no change Comments: Patient is on meropenem (renally adjusted), day 1, for ESBL UTI. WBC slightly increased from 9.19.
[2024-06-25] MEDS: Ferrous Gluconate 324 MG TAB PO ×2 (12:35)
--- NOTE | 2024-06-25 13:25 | W.PM.PROGNOT ---
Date of Service Date of service: 06/25/24 Time of Service: 13:27 Assessment and Plan Assessment and plan (1) Urinary tract infection due to ESBL Klebsiella: Status: Acute Assessment and plan: Failed mulitple outpatient therapies, which is not surprising given ESBL She need admission for IV antibiotics PCN allergy but not anaphylactic, Tolerating Meropenem Plan transition to Tobramycin tomorrow to finish 7 day course as this can be dose once every 24h, possibly could finish abx at home or infusion She sees urology, plans urine acidification once this clears See below re: neurogenic bladder. (2) Pyelonephritis: Status: Acute Assessment and plan: With back pain and systemic symptoms her above UTI is c/w pyelonephritis Renal u/s to assess for hydronephrosis or other complication reassuring (3) Multiple sclerosis: Status: Chronic Assessment and plan: With associated neurogenic bladder, which is the primary cause of her recurrent UTIs. Follows with [facility] neurology. (4) Neurogenic bladder: Status: Acute Assessment and plan: a/w above. She isn't cathing regularly. She has about 100ml post void bladder volume, and stasis likely contributing to her UTIs She needs to straight cath on a scheduled basis again. (5) Chronic pain syndrome: Status: Chronic Assessment and plan: Continue outpatient therapy. She is quite opioid tolerant Try prn muscle relaxant, might help neck. (6) Acute kidney injury superimposed on chronic kidney disease: Assessment and plan: She was thought to have stage 3-4 CKD but her renal function normalzed in early 2024, was likely obstruction related. Current AZALEA, renal u/s w/o obstruction. Likely pre-renal with infection, poor oral intake. HOld VILMA inh. IV fluids for now, GFR imrpoving (7) Depression: Status: Chronic Assessment and plan: Complicated psychiatric history including substance use disorders, PTSD, psychotic disorder, anxiety, depression. Continue outpatient therapy. She isn't sleeping well, hasn't responded to trazodone, zolpidem. Did not respond to mirtazipine low dose. Try muscle relaxant as above. (8) Protein-calorie malnutrition: Assessment and plan: Encourage po, add protein if she tolerates. (9) Mild cognitive impairment: Status: Suspected Assessment and plan: with h/o delerium/hallucinations with April 2024 hospitalization. Monitor and try to manage behaviorally. Limit prn lorazepam. mirtazipine for sleep as above. Mental status grossly normal since she has been here (10) DVT prophylaxis: Assessment and plan: enoxaparin Subjective Subjective Patient reports: tolerating a regular diet; denies diarrhea, nausea, vomiting, shortness of breath or fever Interval history since last seen: Post void bladder scan was 100ml, catheterized Still having pain, in legs and right arm is chronic. Now more pain in left neck, though she gets this frequently as well. New right low back pain is still there. She didn't sleep well even with the mirtazipine. Exam Narrative Exam Narrative: GEN: Alert and oriented. No acute distress at rest. LUNGS: CTAB with normal effort CV: RRR with no murmurs, gallops, or rubs. ABD: active bowel sounds, soft, nondistended, not tender EXT: no cyanosis, clubbing, or edema MSK: No joint redness or swelling. +mild right CVAT Objective Last Vital Signs Temp 36.9 C 06/25/24 07:37 Pulse 76 06/25/24 07:37 Resp 16 06/25/24 07:37 BP 175/82 H 06/25/24 07:37 Pulse Ox 98 06/25/24 07:37 Laboratory Results - last 24 hr 06/25/24 06:35 WBC 10.86 H RBC 3.00 L Hgb 9.8 L Hct 29.9 L MCV 100 H MCH 32.7 MCHC 32.8 RDW 12.0 Plt Count 207 MPV 9.2 Immature Gran % 0.3 Neutrophils % 60.4 Lymphocytes % 23.3 Monocytes % 11.6 Eosinophils % 3.9 Basophils % 0.5 Nucleated RBC % 0.0 Absolute Neutrophils 6.56 Absolute Lymphocytes 2.53 Absolute Monocytes 1.26 H Absolute Eosinophils 0.42 Absolute Basophils 0.05 Sodium 140 Potassium 4.2 Chloride 107 Carbon Dioxide 27.3 Anion Gap 5.7 BUN 29 H Creatinine 1.4 H Est GFR (CKD-EPI 2020) 39.73 Glucose 88 Calcium 8.5 Time Spent with Patient Time Spent with Patient: 35-49 minutes Time was spent: preparing to see the patient(eg.review tests), obtaining and/or reviewing separately otained hiistory, ordering medications,tests, procedures, referring, communicating with other health urgent care physician assistant, indepentently interpreting results, counseling the patient and care coordination
[2024-06-25] MEDS: Enoxaparin 30 MG/0.3 ML SYR SC (15:42)
[2024-06-25 15:54] VITALS: BP 187/85; PULSE 64; RESP 16; TEMP 36.8; O2SAT 98
[2024-06-25] MEDS: HYDROmorphone 4 MG TAB 8 MG PO (15:54)
[2024-06-25] MEDS: Methocarbamol 500 MG TAB 1000 MG PO (15:55)
[2024-06-25 19:41] VITALS: BP 160/82; PULSE 72; RESP 19; TEMP 36.1; O2SAT 99
[2024-06-25] MEDS: Metoprolol CR 100 MG TABCR PO (19:44)
[2024-06-25] MEDS: DULoxetine 30 MG CAP 60 MG PO (19:44)
[2024-06-25] MEDS: Senna TAB 1 TAB PO (19:44)
[2024-06-25] MEDS: Melatonin 3 MG TAB 6 MG PO (20:37)
[2024-06-26] MEDS: MEROPENEM 1 GM in Normal Saline 100 ML IVPB ×2 (03:26→15:23)
[2024-06-26] MEDS: Acetaminophen 325 MG TAB 650 MG PO ×2 (03:42→20:11)
[2024-06-26 07:52] LABS: Anion Gap 6.6 mmol/L (3-11); BUN 19 mg/dL (7-18); CO2 29.4 mmol/L (21.0-32.0); CREATININE 1.1 mg/dL (0.55-1.02); Calcium 8.9 mg/dL (8.5-10.1); Chloride 108 mmol/L (98-107); Estimated GFR 53.06 (mL/min/1.73m2); Glucose 102 mg/dL (74-106); Potassium 3.8 mmol/L (3.5-5.1); Sodium 144 mmol/L (136-145)
[2024-06-26] MEDS: Cholecalciferol (Vitamin D3) 1,000 UNIT TAB 1000 UNITS PO (08:06)
[2024-06-26] MEDS: Docusate Sodium 100 MG CAP PO (08:06)
[2024-06-26] MEDS: Ascorbic Acid 500 MG TAB PO (08:06)
[2024-06-26] MEDS: Mirabegron 25 MG TABCR PO (08:06)
[2024-06-26] MEDS: busPIRone 5 MG TAB 15 MG PO ×3 (08:06→20:11)
[2024-06-26] MEDS: Gabapentin 100 MG CAP 200 MG PO ×2 (08:06→20:10)
[2024-06-26] MEDS: amLODIPine 2.5 MG TAB PO (08:07)
[2024-06-26] MEDS: Magnesium Oxide 400 MG TAB PO ×2 (08:07→20:10)
[2024-06-26] MEDS: Sucralfate 1 GM TAB PO ×4 (08:07→23:41)
[2024-06-26] MEDS: Montelukast 10 MG TAB PO (08:07)
[2024-06-26] MEDS: Cyanocobalamin 500 MCG TAB 1000 MCG PO (08:07)
[2024-06-26] MEDS: Atorvastatin 40 MG TAB PO (08:07)
[2024-06-26] MEDS: Metoprolol CR 100 MG TABCR 200 MG PO (08:07)
[2024-06-26] MEDS: Potassium Chloride 20 MEQ TABCR PO (08:07)
[2024-06-26] MEDS: Lisinopril 20 MG TAB PO (08:07)
[2024-06-26 08:12] VITALS: BP 202/85; PULSE 68; RESP 18; TEMP 36.8; O2SAT 97
[2024-06-26 09:31] VITALS: BP 215/81; PULSE 67; RESP 16; TEMP 37.5; O2SAT 99
[2024-06-26 10:12] VITALS: BP 180/69; PULSE 66
[2024-06-26 11:49] VITALS: BP 200/84; PULSE 71; RESP 18; TEMP 36.5; O2SAT 99
[2024-06-26] MEDS: Methocarbamol 500 MG TAB 1000 MG PO ×2 (11:57→20:11)
[2024-06-26] MEDS: HYDROmorphone 4 MG TAB 8 MG PO ×2 (11:57→18:52)
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
[2024-06-26 14:48] VITALS: BP 158/88; PULSE 62; RESP 18; TEMP 36.5; O2SAT 97
--- NOTE | 2024-06-26 15:44 | PGE_ITS ---
Date of Service Date of service: 06/26/24 Time of Service: 15:45 Assessment and Plan Assessment and plan (1) Urinary tract infection due to ESBL Klebsiella: Status: Acute Assessment and plan: -Failed mulitple outpatient therapies; cultures grew ESBL -Was initially on Merrem, but transition to tobramycin as this would be daily outpatient option - Currently waiting until Thursday morning 06/27/2024 to set patient up with infusion center for daily tobramycin -She sees urology, plans urine acidification once this clears -See below re: neurogenic bladder. (2) Pyelonephritis: Status: Acute Assessment and plan: -With back pain and systemic symptoms her above UTI is c/w pyelonephritis -See above for treatment (3) Multiple sclerosis: Status: Chronic Assessment and plan: -With associated neurogenic bladder, which is the primary cause of her recurrent UTIs. -Follows with [facility] neurology. (4) Neurogenic bladder: Status: Acute Assessment and plan: - Patient isn't cathing regularly. -She has about 100ml post void bladder volume, and stasis likely contributing to her UTIs -She needs to straight cath on a scheduled basis again, will discuss with urology as outpatient (5) Chronic pain syndrome: Status: Chronic Assessment and plan: -Continue outpatient therapy. She is quite opioid tolerant -Try prn muscle relaxant, might help neck. (6) Acute kidney injury superimposed on chronic kidney disease: Assessment and plan: -She was thought to have stage 3-4 CKD but her renal function normalzed in early 2024, was likely obstruction related. -Current AZALEA, renal u/s w/o obstruction. Likely pre-renal with infection, poor oral intake. HOld VILMA inh. IV fluids for now, GFR imrpoving (7) Depression: Status: Chronic Assessment and plan: -Complicated psychiatric history including substance use disorders, PTSD, psychotic disorder, anxiety, depression. -Continue outpatient therapy. -She isn't sleeping well, hasn't responded to trazodone, zolpidem. Did not respond to mirtazipine low dose. Try muscle relaxant as above. (8) Protein-calorie malnutrition: Assessment and plan: Encourage po, add protein if she tolerates. (9) Mild cognitive impairment: Status: Suspected Assessment and plan: -with h/o delerium/hallucinations with April 2024 hospitalization. -Monitor and try to manage behaviorally. -Limit prn lorazepam. -mirtazipine for sleep as above. -Mental status grossly normal since she has been here (10) DVT prophylaxis: Assessment and plan: enoxaparin Subjective Subjective Interval history since last seen: Patient states that she is doing well today though she is in a little increased pain from her usual MS pain. She understands the plan to reach out to infusion center when they are open tomorrow to set up ongoing antibiotic therapy with an additional 6 days of tobramycin. Exam Narrative Exam Narrative: Well-appearing older female sitting up in the bed no acute distress, ANO x 4, heart regular rhythm, lungs good auscultation bilaterally, abdomen soft, nontender, nondistended Objective Last Vital Signs Temp 97.7 F 06/26/24 14:48 Pulse 62 06/26/24 14:48 Resp 18 06/26/24 14:48 BP 158/88 H 06/26/24 14:48 Pulse Ox 97 06/26/24 14:48 Laboratory Results - last 24 hr 06/26/24 06:41 Sodium 144 Potassium 3.8 Chloride 108 H Carbon Dioxide 29.4 Anion Gap 6.6 BUN 19 H Creatinine 1.1 H Est GFR (CKD-EPI 2020) 53.06 Glucose 102 Calcium 8.9 Time Spent with Patient Time Spent with Patient: >50 minutes Time was spent: preparing to see the patient(eg.review tests), obtaining and/or reviewing separately otained hiistory, ordering medications,tests, procedures, referring, communicating with other health animal caretaker supervisor, indepentently interpreting results, counseling the patient and care coordination
[2024-06-26] MEDS: LORazepam 0.5 MG TAB PO (16:31)
[2024-06-26] MEDS: Enoxaparin 30 MG/0.3 ML SYR SC (16:57)
[2024-06-26 19:53] VITALS: BP 162/68; PULSE 70; RESP 16; TEMP 36.7; O2SAT 97
[2024-06-26] MEDS: Senna TAB 1 TAB PO (20:11)
[2024-06-26] MEDS: Cetirizine 10 MG TAB 5 MG PO (20:11)
[2024-06-26] MEDS: Melatonin 3 MG TAB 6 MG PO (20:11)
[2024-06-26] MEDS: Metoprolol CR 100 MG TABCR PO (20:12)
[2024-06-26] MEDS: DULoxetine 30 MG CAP 60 MG PO (20:12)
[2024-06-26] MEDS: Normal Saline Flush 10 ML SYR IVP (20:12)
[2024-06-27] MEDS: HYDROmorphone 4 MG TAB 8 MG PO ×2 (01:36→07:54)
[2024-06-27] MEDS: MEROPENEM 1 GM in Normal Saline 100 ML IVPB (04:00)
[2024-06-27] MEDS: Normal Saline Flush 10 ML SYR IVP ×2 (04:00→08:06)
[2024-06-27] MEDS: LORazepam 0.5 MG TAB PO (04:01)
[2024-06-27] MEDS: Methocarbamol 500 MG TAB 1000 MG PO (04:01)
[2024-06-27] MEDS: Acetaminophen 325 MG TAB 650 MG PO (04:01)
[2024-06-27 07:30] VITALS: BP 192/72; PULSE 55; RESP 18; TEMP 36.5; O2SAT 97
[2024-06-27] MEDS: Cyanocobalamin 500 MCG TAB 1000 MCG PO (07:56)
[2024-06-27] MEDS: busPIRone 5 MG TAB 15 MG PO (07:57)
[2024-06-27] MEDS: Mirabegron 25 MG TABCR PO (07:58)
[2024-06-27] MEDS: Magnesium Oxide 400 MG TAB PO (07:58)
[2024-06-27] MEDS: Montelukast 10 MG TAB PO (07:58)
[2024-06-27] MEDS: Docusate Sodium 100 MG CAP PO (07:59)
[2024-06-27] MEDS: amLODIPine 2.5 MG TAB PO (08:00)
[2024-06-27] MEDS: Lisinopril 20 MG TAB PO (08:00)
[2024-06-27] MEDS: Sucralfate 1 GM TAB PO ×2 (08:00→11:57)
[2024-06-27] MEDS: Ascorbic Acid 500 MG TAB PO (08:01)
[2024-06-27] MEDS: Gabapentin 100 MG CAP 200 MG PO (08:01)
[2024-06-27] MEDS: Potassium Chloride 20 MEQ TABCR PO (08:02)
[2024-06-27] MEDS: Metoprolol CR 100 MG TABCR 200 MG PO (08:03)
[2024-06-27] MEDS: Cholecalciferol (Vitamin D3) 1,000 UNIT TAB 1000 UNITS PO (08:03)
[2024-06-27] MEDS: Atorvastatin 40 MG TAB PO (08:04)
--- NOTE | 2024-06-27 09:31 | PDOC.CMDIS ---
Date of service: 06/27/24 Time of Service: 09:31 LACE Index Scoring Tool Questions: Length of Stay (in days): 3 Was the patient admitted via the E.D.?: Yes E.D. Visits: 4 Answers: Total Score: 10 Risk of Readmission: High Risk Care Management Discharge Plan Reason for Hospitalization: ESBL, UTI Discharge Plan: Kena will be discharged home with a plan to continue IV ABX as an outpatient at [facility] Kena will follow up with her PCP and plan of care and transport with her partner. No HH services are ordered on discharge. Patient/Family Education Needs: Review discharge instructions, discuss Ask Me Three Services Needed at Discharge: Home Health Care Services (Recommended HH PT, pt declines) SDOH Health Related Social Needs: Health related social needs material hardship(utilities) (Z59.12)
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
--- NOTE | 2024-06-27 11:19 | NUR.NOTE ---
Nursing Note: Reviewed documentation by Yogesh Barney, student nurse, in agreement.
[2024-06-27] MEDS: Ferrous Gluconate 324 MG TAB PO (11:57)
[2024-06-27 13:35] VITALS: BP 151/69; PULSE 62; RESP 16; O2SAT 99
[2024-06-27 13:40] VITALS: BP 151/69; PULSE 62; RESP 16; O2SAT 99
--- NOTE | 2024-06-27 13:54 | NUR.NOTE ---
Pt discharged to home. While she was getting dressed and ready to leave this nurse witnessed pt try to squat down to get something off the floor. Pt lost balance and lowered herself to the floor slowly. Pt did not strike her head and she did not hit the ground hard enough to cause injury. VS stable after fall and neuro assessment was wnl. Dr Hopkins was notified of the fall and advised that this happens frequently with pt d/t MS diagnosis and no further action was needed. He advised that if pt was ok to still go home she could leave. Pt stated she was fine to leave. SQSS submitted for the fall. Pt advised to call with any issues.
== END 2024-06-27 13:39 | disposition home or self-care (01) | DRG 690 ==
LOC: ER 13:36 → MS 14:32
PROVIDERS: Admitting Provider Family Medicine; Emergency Provider Registered Nurse Emergency; PCP Nurse Practitioner Family; Responsible Provider Family Medicine; Visit Provider Family Medicine
DX: N10 Acute pyelonephritis (principal); E46 Unspecified protein-calorie malnutrition; Z16.12 Extended spectrum beta lactamase (ESBL) resistance; Z68.1 Body mass index [BMI] 19.9 or less, adult; G35 Multiple sclerosis; N31.9 Neuromuscular dysfunction of bladder, unspecified; G89.4 Chronic pain syndrome; N17.9 Acute kidney failure, unspecified; K21.9 Gastro-esophageal reflux disease without esophagitis; G31.84 Mild cognitive impairment of uncertain or unknown etiology; B96.1 Klebsiella pneumoniae [K. pneumoniae] as the cause of diseases classified elsewhere; R29.6 Repeated falls; N18.2 Chronic kidney disease, stage 2 (mild); M48.02 Spinal stenosis, cervical region; M54.12 Radiculopathy, cervical region; R25.1 Tremor, unspecified; D51.0 Vitamin B12 deficiency anemia due to intrinsic factor deficiency; Z91.148 Patient's other noncompliance with medication regimen for other reason; F41.1 Generalized anxiety disorder; F43.12 Post-traumatic stress disorder, chronic; R53.1 Weakness; M81.0 Age-related osteoporosis without current pathological fracture; G47.00 Insomnia, unspecified; F44.9 Dissociative and conversion disorder, unspecified; I25.2 Old myocardial infarction; Z87.11 Personal history of peptic ulcer disease; E78.5 Hyperlipidemia, unspecified; G47.33 Obstructive sleep apnea (adult) (pediatric); I12.9 Hypertensive chronic kidney disease with stage 1 through stage 4 chronic kidney disease, or unspecified chronic kidney disease; F29 Unspecified psychosis not due to a substance or known physiological condition
CPT/HCPCS: 36410; 00123; 36415; 76770; 80048; 80053; 97110; 97162; 99285; 81003; 81015; 85025; 87086; 99223; 99232; 99233; 99239; J1650; J2185

== ENCOUNTER 2024-06-24 12:11 | Outpatient (REF) | payer MEDICARE, MEDICAID, SELFPAY ==
[2024-06-24 12:22] LABS: Bilirubin Negative (Negative); Blood Negative (Negative); Clarity Clear (Clear); Glucose Negative (Negative); Ketones Trace mg/dL (Negative); Leukocyte Esterase Negative (Negative); Nitrite Negative (Negative); Specific Gravity >= 1.030 (1.005-1.025); Urobilinogen 0.2 mg/dL (Up to 0.2); pH 5.5 (5-8)
[2024-06-24 12:56] LABS: Bacteria Rare HPF (Negative); C & S Indicated? No; Casts 0-2 Hyaline LPF (Negative); Crystals Negative HPF (Negative); Epithelial Cells Few HPF (Negative); Mucus Negative (Negative); RBC 0-2 HPF (0-2)
== END 2024-06-24 12:12 | disposition home or self-care (01) ==
LOC: LBN 12:11
PROVIDERS: PCP Nurse Practitioner Family; Visit Provider Nurse Practitioner Family
DX: M54.50 Low back pain, unspecified (principal); R53.1 Weakness; N39.0 Urinary tract infection, site not specified
CPT/HCPCS: 81003; 81015

== ENCOUNTER 2024-06-28 11:20 | Emergency (ER) | payer MEDICARE, MEDICAID, SELFPAY ==
[2024-06-28] VITALS (23 sets, daily range): BP systolic 96–126; BP diastolic 49–64; PULSE 51–72; RESP 6–23; TEMP 37.7; O2SAT 95–99
--- NOTE | 2024-06-28 11:15 | RT.EKG_ITS ---
APPROVED REPORT Exam: Resting ECG Reason for Exam: Numbness Patient Location: E HR:59 bpm ECG Measurements Heart Rate 59 AXIS VT 197 P 58 QRSd 77 QRS 46 QT 465 T 51 QTc 460 Conclusion Sinus bradycardia...rate< 60 Atrial premature complex...SV complex w/ short R-R interval No Occlusion NC
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
[2024-06-28 12:27] LABS: Abs Immature Grans 0.02 10^3/uL (0.0-0.06); Absolute Basophil Count 0.05 10^3/uL (0.0-0.2); Absolute Eosinophil Count 0.32 10^3/uL (0.0-0.7); Absolute Lymphocyte Count 1.87 10^3/uL (1.2-3.4); Absolute Monocyte Count 0.74 10^3/uL (0.1-0.8); Absolute Neutrophil Count 3.23 10^3/uL (1.2-6.7); Basophils % 0.8 %; Eosinophils % 5.1 %; HCT 28.8 % (36.0-46.0); HGB 9.1 g/dL (11.2-15.7); Immature Grans % 0.3 %; MCH 32.2 pg (27.0-33.0); MCHC 31.6 % (32.0-36.0); MCV 102 fL (80-95); MPV 9.5 fL (8.0-11.0); Monocytes % 11.9 %; Neutrophils % 51.9 %; Platelet Count 183 10^3/uL (130-400); RBC 2.83 10^6/uL (3.93-5.22); RDW 12.2 % (11.7-14.6); RDW-SD 46.3 fL; WBC 6.23 10^3/uL (4.4-10.8)
[2024-06-28 12:47] LABS: ALT 27 U/L (14-59); AST 21 U/L (15-37); Albumin 2.7 g/dL (3.4-5.0); Alkaline Phosphatase 74 U/L (46-116); Anion Gap 5.5 mmol/L (3-11); BUN 26 mg/dL (7-18); Bilirubin, Total 0.3 mg/dL (0.2-1.0); CO2 31.5 mmol/L (21.0-32.0); CREATININE 1.3 mg/dL (0.55-1.02); Calcium 9.1 mg/dL (8.5-10.1); Chloride 109 mmol/L (98-107); Estimated GFR 43.42 (mL/min/1.73m2); Glucose 94 mg/dL (74-106); Magnesium 1.8 mg/dL (1.8-2.4); Potassium 4.2 mmol/L (3.5-5.1); Sodium 146 mmol/L (136-145); Total Protein 5.1 g/dL (6.4-8.2)
[2024-06-28 12:53] LABS: NT-proBNP 1398 pg/mL (<300)
--- NOTE | 2024-06-28 13:30 | DI.US_ITS ---
Exam(s) US UPPER EXTREMITY VENOUS RT EXAM: US UPPER EXTREMITY VENOUS RT CLINICAL HISTORY: R hand swelling. TECHNIQUE: Ultrasound examination of the right upper extremity venous system(s) is performed using g rayscale, color-flow, and spectral Doppler analysis. COMPARISON: No exams were available for comparison FINDINGS: The right internal jugular, axillary, subclavian, cephalic, basilic, brachial, radial, and ulnar vein s are patent down to the level of the wrist without evidence of thrombosis. There is edema in the magdaleno bcutaneous tissues of the hand and wrist. No drainable collection. IMPRESSION: No DVT. DATA REPOSITORY:
[2024-06-28 14:15] LABS: Bilirubin Negative (Negative); Blood Negative (Negative); Clarity Clear (Clear); Glucose Negative (Negative); Ketones Negative (Negative); Leukocyte Esterase Negative (Negative); Nitrite Negative (Negative); Urobilinogen 0.2 mg/dL (Up to 0.2); pH 5.5 (5-8)
[2024-06-28 14:22] LABS: Bacteria Negative HPF (Negative); C & S Indicated? No; Casts 5-10 Hyaline LPF (Negative); Crystals Negative HPF (Negative); Epithelial Cells Rare HPF (Negative); Mucus Trace (Negative); RBC Negative HPF (0-2); WBC Negative HPF (0-5)
== END 2024-06-28 14:59 | disposition home or self-care (01) ==
PROVIDERS: Emergency Provider Nurse Practitioner Family; PCP Nurse Practitioner Family
DX: R22.31 Localized swelling, mass and lump, right upper limb; R22.42 Localized swelling, mass and lump, left lower limb; I12.9 Hypertensive chronic kidney disease with stage 1 through stage 4 chronic kidney disease, or unspecified chronic kidney disease; N18.30 Chronic kidney disease, stage 3 unspecified; R00.1 Bradycardia, unspecified; I25.2 Old myocardial infarction
CPT/HCPCS: 36415; 80053; 93005; 96365; 96366; 99285; 81003; 81015; 83735; 83880; 85025; 93010; 93971; 99284; J2543

== ENCOUNTER → 2024-07-21 14:42 | Outpatient (BNVA) | payer MEDICARE, SELFPAY | PROVIDERS: PCP Nurse Practitioner Family; Referring Provider Nurse Practitioner Family; Visit Provider Nurse Practitioner Gerontology | DX: N31.9 Neuromuscular dysfunction of bladder, unspecified (principal); G35 Multiple sclerosis | CPT/HCPCS: 99213 ==

== ENCOUNTER 2024-08-22 15:36 | Outpatient (REF) | payer MEDICARE, SELFPAY ==
[2024-08-22 15:56] LABS: Bilirubin Negative (Negative); Blood Negative (Negative); Clarity Clear (Clear); Glucose Negative (Negative); Ketones Negative (Negative); Leukocyte Esterase Negative (Negative); Nitrite Negative (Negative); Specific Gravity 1.015 (1.005-1.025); Urobilinogen 0.2 mg/dL (Up to 0.2)
== END 2024-08-22 15:37 | disposition home or self-care (01) ==
LOC: LBN 15:36
PROVIDERS: PCP Nurse Practitioner Family; Visit Provider Nurse Practitioner Family
DX: R30.0 Dysuria (principal); Z87.440 Personal history of urinary (tract) infections
CPT/HCPCS: 87077; 81003; 87086; 87186

== ENCOUNTER 2024-09-01 14:29 | Outpatient (REF) | payer MEDICARE, SELFPAY ==
[2024-09-01 21:36] LABS: Glucose Negative (Negative)
== END 2024-09-01 14:30 | disposition home or self-care (01) ==
LOC: LBN 14:29
PROVIDERS: PCP Nurse Practitioner Family; Visit Provider Nurse Practitioner Family
DX: R30.0 Dysuria (principal)
CPT/HCPCS: 81003

== ENCOUNTER 2025-01-12 12:06 | Outpatient (REF) | payer MEDICARE, SELFPAY ==
[2025-01-12 14:56] LABS: Glucose Negative (Negative)
[2025-01-12 15:22] LABS: C & S Indicated? Yes; RBC 0-2 HPF (0-2)
== END 2025-01-12 12:07 | disposition home or self-care (01) ==
LOC: LBN 12:06
PROVIDERS: PCP Nurse Practitioner Family; Visit Provider Nurse Practitioner Family
DX: R35.0 Frequency of micturition (principal)
CPT/HCPCS: 87077; 81003; 81015; 87086; 87186

== ENCOUNTER 2025-01-15 10:59 | Inpatient (IN) | payer MEDICARE, SELFPAY ==
[2025-01-15] VITALS (82 sets, daily range): BP systolic 151–233; BP diastolic 67–134; PULSE 65–95; RESP 8–29; TEMP 37.7; O2SAT 92–100
--- NOTE | 2025-01-15 11:15 | RT.EKG_ITS ---
APPROVED REPORT Exam: Resting ECG Reason for Exam: T-Wave change Patient Location: E HR:83 bpm ECG Measurements Heart Rate 83 AXIS TN 71 P 0 QRSd 83 QRS 63 QT 368 T 264 QTc 434 Conclusion Sinus rhythm...normal P axis, V-rate 60- 99 Consider left ventricular hypertrophy...(R aVL+S V3) >2.20mV Abnormal T, consider ischemia, diffuse leads...T <-0.20mV, ant/lat/inf
--- NOTE | 2025-01-15 11:24 | W.ED.GENAD ---
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 noted. Daughter No problems noted. Social History Smoking/Tobacco Use Status: Never Second Hand Exposure: Yes Smoking risk assessment performed?: Yes Alcohol Intake: never Drug use: Occasionally Substance use type: marijuana Household members: significant other Housing: house Communication Needs: None Pets and animals: Yes Pets and animals: dog(s) Sexually active: No Do you think of yourself as: straight/heterosexual Current gender identity: female What is your relationship status?: living with partner How often do you talk on the phone with friends or family?: three or more times per week How often do you get together with friends or relatives?: once per week How often do you attend methodist or bahai services?: decline to answer Do you belong to any clubs or organized social groups?: no Panel score (0-1 are the most socially isolated patients): 2 What type of physical activity do you participate in: aerobic Duration: 15-30 minutes/day Frequency: 5-6 times per week Seatbelt use: always Helmet use: No Drive intox or ride w/intox auto driver: No Do you feel safe at home: Yes Do you feel safe in your relationship?: Yes
[2025-01-15 11:37] LABS: Abs Immature Grans 0.05 10^3/uL (0.0-0.06); HCT 36.8 % (36.0-46.0); HGB 12.5 g/dL (11.2-15.7); Immature Grans % 0.4 %; MCH 31.0 pg (27.0-33.0); MCHC 34.0 % (32.0-36.0); MCV 91 fL (80-95); MPV 9.4 fL (8.0-11.0); Platelet Count 180 10^3/uL (130-400); RBC 4.03 10^6/uL (3.93-5.22); RDW 13.8 % (11.7-14.6); RDW-SD 46.7 fL; WBC 12.37 10^3/uL (4.4-10.8)
[2025-01-15 11:54] LABS: Glucose Negative (Negative)
[2025-01-15 11:56] LABS: Magnesium 1.4 mg/dL (1.6-2.6)
[2025-01-15 11:57] LABS: Troponin I 25 ng/L (<35)
[2025-01-15 11:58] LABS: ALT 38 U/L (10-49); AST 30 U/L (<34); Albumin 4.7 g/dL (3.4-5.0); Alkaline Phosphatase 95 U/L (46-116); Anion Gap 10.2 mmol/L (3-11); BUN 12 mg/dL (9-23); Bilirubin, Total 0.40 mg/dL (0.2-1.2); CO2 23.8 mmol/L (20.0-31.0); Calcium 9.9 mg/dL (8.3-10.6); Chloride 109 mmol/L (98-107); Glucose 118 mg/dL (74-106); Potassium 3.0 mmol/L (3.5-5.1); Sodium 143 mmol/L (136-145); Total Protein 6.8 g/dL (5.7-8.2)
[2025-01-15 12:01] LABS: C & S Indicated? No; RBC 0-2 HPF (0-2); WBC 0-2 HPF (0-5)
--- NOTE | 2025-01-15 12:15 | DI.RAD_ITS ---
Exam(s) XR CHEST 2V PA LATERAL EXAM: XR CHEST 2V PA LATERAL CLINICAL HISTORY: weakness, dizziness. TECHNIQUE: 2D digital imaging was performed. COMPARISON: CR XR CHEST 1V IN DI DEPT from 05/07/2021 FINDINGS: 2 views: Again noted is posterior fusion hardware in the mid thoracic spine, appearing stable. There is also anterior fusion plate in the lower cervical spine again evident. Also surgical clips in left upper quadrant of the abdomen again noted. Heart size is normal. The mediastinum is not widened. Lungs are clear. No infiltrates nor pleural effusions. IMPRESSION: No acute pulmonary findings. DATA REPOSITORY: RADIATION DOSE DELIVERED:
[2025-01-15] MEDS: Potassium Chloride 20 MEQ TABCR 40 MEQ PO (12:44)
[2025-01-15] MEDS: hydrOXYzine HCL 25 MG TAB PO (12:44)
[2025-01-15] MEDS: Normal Saline 1,000 ML 1000 ML IV (12:48)
[2025-01-15] MEDS: MAGNESIUM SULFATE 2 GM/50 ML BAG IV_INF (12:51)
--- NOTE | 2025-01-15 13:15 | DI.CT_ITS ---
Exam(s) CT HEAD WO EXAM: CT HEAD WO CLINICAL HISTORY: headache, HTN. TECHNIQUE: Imaging Protocol: Axial computed tomography images with coronal and sagittal reformatted images were created and reviewed COMPARISON: CT CT HEAD WO from 05/07/2024 FINDINGS: There are no skull fractures. There is no fluid in the visualized paranasal sinuses. There is no evidence of intracranial hemorrhage, mass effect, or shift of midline structures. There are no extra-axial fluid collections. The ventricles are not enlarged or shifted and there is no blood within the ventricular system nor within the basal cisterns. There is bilateral periventricular symmetrical hypodensity unchanged from CT scan of 325 and consistent with chronic small vessel ischemic changes. There is no evidence of new territorial infarct. No hemorrhage. IMPRESSION: No acute intracranial findings on this noninfused CT scan of the brain. Chronic small-vessel white matter ischemic changes. No significant change compared to prior CT scan of April 2024. RADIATION DOSE DELIVERED: 850.03mGy.cm Total DLP DATA REPOSITORY: All CT scans at this facility are submitted to the National Radiology Data Registry (NRDR) Dose Index Registry (DIR) with the [employer] (A[employer]). RADIATION OPTIMIZATION: All CT scans at this facility use at least one of these dose optimization techniques: automated exposure control; mA and/or kV adjustment per patient size (includes targeted exams where dose is matched to clinical indication); or iterative reconstruction.
--- NOTE | 2025-01-15 13:19 | DI.VRAD_ITS ---
PROCEDURE INFORMATION: Exam: XR Chest Exam date and time: 01/15/2025 12:37 PM Age: 74 years old Clinical indication: Other: Weakness dizzy TECHNIQUE: Imaging protocol: Radiologic exam of the chest. Views: 2 views. COMPARISON: CR XR CHEST 1V IN DI DEPT 05/07/2021 9:29 AM FINDINGS: Lungs: Unremarkable. No consolidation. Pleural spaces: Unremarkable. No pleural effusion. No pneumothorax. Heart/Mediastinum: Unremarkable. No cardiomegaly. Bones/joints: Anterior cervical fusion. Stable Parallel spinous rods and pedicular screws in the thoracic spine Intraperitoneal space: Surgical clips in the left upper quadrant IMPRESSION: No acute findings. Dictated and Authenticated by: Aliya Mcpherson MD. Orderin Mikael Ch MD
--- NOTE | 2025-01-15 14:00 | DI.VRAD_ITS ---
PROCEDURE INFORMATION: Exam: CT Head Without Contrast Exam date and time: 01/15/2025 1:47 PM Age: 74 years old Clinical indication: Other: Headache and HTN TECHNIQUE: Imaging protocol: Computed tomography of the head without contrast. COMPARISON: MR BRAIN WO/W 05/09/2024 8:41 AM FINDINGS: Brain: No acute intracranial hemorrhage.. There is mild diffuse heterogeneity of the white matter attenuation, consistent with chronic white matter ischemic changes. Mild cerebral atrophy Cerebral ventricles: No ventriculomegaly. Paranasal sinuses: Visualized sinuses are unremarkable. No fluid levels. Mastoid air cells: Visualized mastoid air cells are well aerated. Bones: Unremarkable. No acute fracture. Soft tissues: Unremarkable. IMPRESSION: No acute intracranial hemorrhage.. Dictated and Authenticated by: Aliya Mcpherson MD. Orderin Mikael Ch MD
[2025-01-15] MEDS: Acetaminophen 325 MG TAB 650 MG PO ×2 (14:03→22:06)
[2025-01-15] MEDS: Ketorolac 15 MG/ML VIAL IVP (14:05)
[2025-01-15] MEDS: Lisinopril 20 MG TAB PO (14:22)
[2025-01-15 14:35] LABS: Troponin I 26 ng/L (<35)
[2025-01-15] MEDS: Labetalol 100 MG/20 ML VIAL 20 MG IVP (14:42)
[2025-01-15] MEDS: LORazepam 1 MG TAB PO (14:56)
[2025-01-15 15:14] LABS: EPI 027-NAP1-B1 PRESUMPTIVE NEGATIVE
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
[2025-01-15] MEDS: Pantoprazole 40 MG TABCR PO (17:01)
[2025-01-15] MEDS: Normal Saline Flush 10 ML SYR (17:15)
[2025-01-15 17:18] LABS: Cannabinoids THC Positive (Negative)
[2025-01-15] MEDS: HYDROmorphone 4 MG TAB PO ×2 (17:20→21:58)
[2025-01-15] MEDS: cefTAZidime 1,000 MG in Normal Saline 100 ML 200 MG IVPB (17:44)
[2025-01-15] MEDS: Metoprolol CR 100 MG TABCR PO (19:41)
[2025-01-15] MEDS: busPIRone 15 MG TAB PO (19:41)
[2025-01-15] MEDS: Gabapentin 100 MG CAP 200 MG PO (19:41)
[2025-01-15] MEDS: DULoxetine 30 MG CAP 60 MG PO (19:41)
[2025-01-15] MEDS: Ondansetron O.D.T. 4 MG TABEF PO (20:36)
[2025-01-15] MEDS: Normal Saline Flush 10 ML SYR IVP (20:45)
[2025-01-15] MEDS: traZODone 100 MG TAB 200 MG PO (21:57)
[2025-01-15] MEDS: LORazepam 0.5 MG TAB PO (21:58)
[2025-01-16] VITALS (73 sets, daily range): BP systolic 122–179; BP diastolic 64–93; PULSE 59–72; RESP 10–20; TEMP 36.2–37.2; O2SAT 94–100
[2025-01-16] MEDS: HYDROmorphone 4 MG TAB 8 MG PO ×3 (00:09→12:47)
[2025-01-16] MEDS: HYDROmorphone 4 MG TAB PO ×3 (02:12→15:41)
[2025-01-16] MEDS: cefTAZidime 1,000 MG in Normal Saline 100 ML 200 MG IVPB ×2 (02:18→10:19)
[2025-01-16] MEDS: Normal Saline Flush 10 ML SYR IVP ×2 (02:22→08:46)
[2025-01-16] MEDS: LORazepam 0.5 MG TAB PO (04:03)
[2025-01-16 06:57] LABS: HCT 31.1 % (36.0-46.0); HGB 10.6 g/dL (11.2-15.7); MCH 32.0 pg (27.0-33.0); MCHC 34.1 % (32.0-36.0); MCV 94 fL (80-95); MPV 10.2 fL (8.0-11.0); Platelet Count 159 10^3/uL (130-400); RBC 3.31 10^6/uL (3.93-5.22); RDW 14.6 % (11.7-14.6); RDW-SD 50.7 fL; WBC 9.08 10^3/uL (4.4-10.8)
[2025-01-16 07:14] LABS: TSH (W/Ref FT4) 2.95 uIU/mL (0.55-4.78)
[2025-01-16 07:17] LABS: ALT 36 U/L (10-49); AST 38 U/L (<34); Albumin 3.6 g/dL (3.4-5.0); Alkaline Phosphatase 69 U/L (46-116); Anion Gap 10 mmol/L (3-11); BUN 10 mg/dL (9-23); Bilirubin, Total 0.40 mg/dL (0.2-1.2); CO2 23.0 mmol/L (20.0-31.0); Calcium 8.7 mg/dL (8.3-10.6); Chloride 112 mmol/L (98-107); Glucose 84 mg/dL (74-106); Potassium 3.7 mmol/L (3.5-5.1); Sodium 145 mmol/L (136-145); Total Protein 5.3 g/dL (5.7-8.2)
[2025-01-16 07:47] LABS: Lab Add On Test DONE
[2025-01-16 08:03] LABS: Magnesium 1.6 mg/dL (1.6-2.6)
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
[2025-01-16] MEDS: Enoxaparin 40 MG/0.4 ML SYR SC (08:40)
[2025-01-16] MEDS: Cyanocobalamin 500 MCG TAB 1000 MCG PO (08:41)
[2025-01-16] MEDS: Gabapentin 100 MG CAP 200 MG PO (08:41)
[2025-01-16] MEDS: Acetaminophen 325 MG TAB 650 MG PO (08:42)
[2025-01-16] MEDS: Pantoprazole 40 MG TABCR PO (08:44)
[2025-01-16] MEDS: Ascorbic Acid 500 MG TAB PO (08:45)
[2025-01-16] MEDS: busPIRone 15 MG TAB PO ×2 (08:46→14:02)
[2025-01-16] MEDS: amLODIPine 5 MG TAB PO (08:46)
[2025-01-16] MEDS: Lisinopril 20 MG TAB PO (08:46)
[2025-01-16] MEDS: Metoprolol CR 100 MG TABCR PO (08:46)
[2025-01-16] MEDS: Cholecalciferol (Vitamin D3) 1,000 UNIT TAB 1000 UNITS PO (08:46)
--- NOTE | 2025-01-16 09:27 | W.NUTRFU ---
Date of service: 01/16/25 Time of Service: 13:20 Nutrition Note NOTE: Kena in ICU being treated for HTN emergency, UTI, low mag yesterday (1.6 today after repletion). Hx of malnutrition with current BMI of 17.5 and significant weight loss documented over the last 5 or so years. Diarrhea reported over the alst 1.5 weeks. Estimated energy needs: 1375-1572kcals. 47-86g protein (1.2-2.2g kg) and 1572mL fluid (1 mL per required kcal). Pt offered NFPE - declined at this time. She feels diarrhea has improved significantly. She reports 4lbs wt loss since last Thursday and contributes to diarrhea and low appetite. Offered ONS and she doesn't like many of the nutrition drinksshe has tried. Was open to trying a high protein gelatin tonight to see if this may be more palatable. Denies trouble chewing/swallowing - will order textures she knows she can do well with. Lactose intolerance is mild - she can handle mac and cheese and some ice creams just doesn't drink straight milk. She hopes and anticipates going home this evening. Will continue to check on intake and ONS acceptance this admission. Pt given my card if she finds concerns with her intake and would like to get some guidance to avoid continued weight loss. Time Spent in Nutritional Counseling and Treatment: 10 min
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
[2025-01-16] MEDS: Ondansetron O.D.T. 4 MG TABEF PO (12:30)
--- NOTE | 2025-01-16 14:30 | RT.EKG_ITS ---
APPROVED REPORT Exam: Resting ECG Reason for Exam: follow up t-wave change Patient Location: I HR:60 bpm ECG Measurements Heart Rate 60 AXIS WI 189 P 56 QRSd 137 QRS 41 QT 447 T 1 QTc 447 Conclusion Sinus rhythm...normal P axis, V-rate 50- 99 Borderline T abnormalities, inferior leads...T flat/neg, II III aVF
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
[2025-01-16] MEDS: Fosfomycin Tromethamine 3 GM PACKET PO (15:19)
--- NOTE | 2025-01-16 16:14 | PDOC.HHF2F ---
Date of service: 01/16/25 Time of Service: 16:14 Home Health Referral Home Health Orders Clinical synopsis of why skilled professionals are needed: 74 year old female with a complex past medical Hx significant for MS (with intermittent flares), with frequent falls, chronic pain on opioids, HTN, protein calorie malnutrition, hx of NSTEMI, mild cognitive impairment, and neurogenic bladder with history of recurrent UTIs dependant on straight catheterization who presented with 10 days of diarrhea and several days of worsening headache and anxiety, and vomiting. On presentation her blood pressures were consistently >220/140 and her EKG showed some lateral T-wave inversions. Troponins were negative and she did not have chest pain. Head CT was negative. She was treated with antiemetics and holding her bowel regimen and she was able to tolerate her oral medications again. She got a dose of IV labetolol for hypertensive emergency but she did not need a drip or additional dosing. Repeat EKG prior to discharge showed resolution of the t-wave changes. She had recently started levofloxacin on 01/13 for UTI, 2 days prior to admission. She states she felt the UTI was starting as discomfort but not pain in her abdominal area. The urine was growing klebsiella with intermidiate sensitivity to levofloxacin. She was treated with ceftazidime. She never had fevers or flank pain/tenderness. She has multiple allergies including TMP/SMX. She was given a dose of fosfomycin to finish this treatment prior to discharge. By the morning of discharge her blood pressure was stable close to normal and her headache had improved. It was felt her severe hypertension was related to missing her blood pressure medications and withdrawal from her chronic opiates due to the vomiting. She requested lorazepam for home, but given her current high risk polypharmacy this request was declined after talking to her PCP. She was evaluated by PT who recommended home health PT Medical diagnosis necessitation home health referral: MS, weakness, urinary retention, chronic pain, falls Registered Nurse: Check all that apply Instruct on new or changed medication(s)/assess compliance: Ordered Instruct on, and maintenance of, urinary device: Ordered Assess for exacerbation of medical condition, instruct patient/caregivers on signs and symptoms to report for early detection: Ordered Physical Therapist: Check all that apply Increase strength & endurance for safe mobility at home: Ordered To design/establish home maintenance program: Ordered Fall reduction therapy program for patient with history of frequent falls: Ordered Home safety evaluation and teaching/gait training including stair management (if applicable): Ordered Manager Cardiac: Assist with community resources: Ordered Assist with terminal makeup operator care planning: Ordered Home Bound Status Requires the aid of supportive device (check all that apply): Cane and Walker Describe why leaving home would require a considerable and taxing effort: Side effects from pain medication (sedation/drowsiness) and Requires frequent rest periods Encounter Date and Reason: I certify that a FTF encounter for this patient was performed on January 16, 2025 and that such encounter was related to the primary reason the patient requires home health services. The encounter was conducted in the following manner: By me as the certifying physician, AIRCRAFT MAINTENANCE ENGINEER, PA or By an inpatient physician, AIRCRAFT MAINTENANCE ENGINEER or PA during an inpatient stay who communicated findings to me, Certification And Authentication I certify that I composed the above information based on my clinical judgment relating to this patient's medical condition and, if applicable, clinical findings communicated to me by the NPP or inpatient physician who performed the FTF encounter. Name of Provider that will be monitoring home health services: Hardy Hudson
--- NOTE | 2025-01-16 18:23 | PDOC.CMDIS ---
Date of service: 01/16/25 Time of Service: 18:23 LACE Index Scoring Tool Questions: Length of Stay (in days): 1 Was the patient admitted via the E.D.?: Yes Comorbidities: Previous M.I., Chronic Pulmonary Disease and Liver or Renal Disease E.D. Visits: 1 Answers: Total Score: 10 Risk of Readmission: High Risk Care Management Discharge Plan Reason for Hospitalization: hypertension Discharge Plan: Kena will be discharged home with no new services. She will follow up with her PCP and plan of care and transport with family. Patient/Family Education Needs: Review discharge instructions, discuss Ask Me Three SDOH Health Related Social Needs: Health related social needs material hardship
== END 2025-01-16 17:45 | disposition home health service (06) | DRG 304 ==
LOC: ER 14:20 → ICU 16:26
PROVIDERS: Admitting Provider Family Medicine; Emergency Provider Physician Assistant; PCP Nurse Practitioner Family; Responsible Provider Family Medicine; Visit Provider Family Medicine
DX: I16.1 Hypertensive emergency (principal); E43 Unspecified severe protein-calorie malnutrition; N39.0 Urinary tract infection, site not specified; N18.4 Chronic kidney disease, stage 4 (severe); Z68.1 Body mass index [BMI] 19.9 or less, adult; F11.93 Opioid use, unspecified with withdrawal; F32.A Depression, unspecified; K21.9 Gastro-esophageal reflux disease without esophagitis; R19.7 Diarrhea, unspecified; E83.42 Hypomagnesemia; N31.9 Neuromuscular dysfunction of bladder, unspecified; R94.31 Abnormal electrocardiogram [ECG] [EKG]; R51.9 Headache, unspecified; B96.1 Klebsiella pneumoniae [K. pneumoniae] as the cause of diseases classified elsewhere; G35.D Multiple sclerosis, unspecified; R29.6 Repeated falls; G31.84 Mild cognitive impairment of uncertain or unknown etiology; R11.2 Nausea with vomiting, unspecified; I12.9 Hypertensive chronic kidney disease with stage 1 through stage 4 chronic kidney disease, or unspecified chronic kidney disease; F41.1 Generalized anxiety disorder; M10.9 Gout, unspecified; M48.02 Spinal stenosis, cervical region; M54.12 Radiculopathy, cervical region; F12.90 Cannabis use, unspecified, uncomplicated; G89.29 Other chronic pain; G25.2 Other specified forms of tremor; M54.16 Radiculopathy, lumbar region; D51.0 Vitamin B12 deficiency anemia due to intrinsic factor deficiency; G47.00 Insomnia, unspecified; R53.1 Weakness; F43.12 Post-traumatic stress disorder, chronic; Z66 Do not resuscitate; F44.9 Dissociative and conversion disorder, unspecified; F06.8 Other specified mental disorders due to known physiological condition; I25.2 Old myocardial infarction; Z87.11 Personal history of peptic ulcer disease; Z87.440 Personal history of urinary (tract) infections; Z91.148 Patient's other noncompliance with medication regimen for other reason; Z96.82 Presence of neurostimulator; Z59.87 Material hardship due to limited financial resources, not elsewhere classified
CPT/HCPCS: 00123; 36415; 80053; 80307; 85027; 93005; 96365; 96366; 96375; 97162; 97530; 99285; J1650; 70450; 71046; 81003; 81015; 83605; 83735; 84443; 84484; 85025; 93010; 99223; 99239; J0713; J1885; J1920; J3475; J3490